=== PATIENT | female | born 2000 | race Caucasian/White ===

== ENCOUNTER 2018-04-28 16:51 | Emergency (ER) | payer BC ==
--- OUTSIDE RECORDS SUMMARY | 2018-04-28 16:56 | XMS REPORT | Summary of Care ---
:2000 Author Organization [facility] Outpatient Imaging [place] Address [address] [place] [address]- Encounter HQ Encntr_aliosiel(FIN) [id number] Date(s): 03/05/17 - 03/05/17 [facility] Outpatient Imaging [address] [address]- [phone] Discharge Disposition: Home or Self Care Attending Physician: Kallie Nicole Vital Signs No data available for this section Problem List Condition Effective Dates Status Health Status Informant Gall stones(Confirmed) Active Pilocytic astrocytoma(Confirmed) Active Allergies, Adverse Reactions, Alerts Substance Reaction Severity Status NKDA Active Medications No data available for this section Results No data available for this section Immunizations Given and Recorded Vaccine Date Status Refusal Reason influenza virus vaccine, inactivated 11/11/16 Given Procedures Procedure Date Related Diagnosis Body Site Craniotomy and excision of neoplasm of brain Shunt construction Tube care1 1in chest Social History Social History Type Response Substance Abuse Use: None. Alcohol Never Smoking Status Never smoker; Ready to change: No; Concerns about tobacco use in household: No; Exposure to Tobacco Smoke None; Cigarette Smoking Last 365 Days No; Reg Smoking Cessation Counseling No Assessment and Plan No data available for this section
--- OUTSIDE RECORDS SUMMARY | 2018-04-28 16:57 | XMS REPORT | Summary of Care ---
:2000 Author Organization [facility] Neurosurgery [facility] Address [address], [address] [place] [address]- Encounter HQ Encntr_alias(FIN) [id number] Date(s): 09/08/17 - 09/09/17 [facility] [address], [address] [place] [address] [phone] Vital Signs No data available for this section Problem List Condition Effective Dates Status Health Status Informant Astrocytoma(Confirmed) Active Gall stones(Confirmed) Active Diplopia(Confirmed) Active Pilocytic astrocytoma(Confirmed) Active Allergies, Adverse Reactions, [...]
--- OUTSIDE RECORDS SUMMARY | 2018-04-28 16:57 | XMS REPORT | Summary of Care ---
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, left eye (Final) - Presence of cerebrospinal fluid drainage device (Final) - Discharge Disposition: Home or Self Care Attending Physician: Ai Barnhart MD Referring Physician: Ai Barnhart MD Vital Signs Most recent to oldest 1 2 3 [Reference Range]: Height 157.48 cm 157.48 cm 157.48 cm (10/26/17 8:13 AM) (10/23/17 9:24 AM) (09/03/17 1:05 PM) Blood Pressure [90-140/60-90 114/71 mmHg 124/66 mmHg 120/68 mmHg mmHg] (10/26/17 11:51 AM) (10/26/17 11:00 AM) (10/26/17 10:45 AM) Respiratory Rate [14-20 BRMIN] 12 BRMIN 14 BRMIN 12 BRMIN *LOW* (10/26/17 11:00 AM) *LOW* (10/26/17 11:51 AM) (10/26/17 10:45 AM) Peripheral Pulse Rate [60-100 116 bpm bpm] *HI* (10/26/17 8:13 AM) Weight 68.182 kg 70 kg 72.727 kg (10/26/17 8:13 AM) (10/23/17 9:24 AM) (09/03/17 1:05 PM) Body Mass Index 27.49 m2 28.23 m2 29.33 m2 (10/26/17 8:13 AM) (10/23/17 9:24 AM) (09/03/17 1:05 PM) Problem List Condition Effective Dates Status Health Status Informant Astrocytoma(Confirmed) Active Gall stones(Confirmed) Active Diplopia(Confirmed) Active Pilocytic astrocytoma(Confirmed) Active Allergies, Adverse Reactions, Alerts Substance Reaction Severity Status NKDA Active Medications acetaminophen (ANES) Route: IV, Drug form: INJ, ONCE, Stop date: 10/26/17 10:02:00 NUTRITION TECHNICIAN Start Date: 10/26/17 Stop Date: 10/26/17 Status: CompletedANES flumazenil 0.2 mg, 2 mL, Route: IVP, Drug form: INJ, PRN, Dosing Weight 68.182, kg, PRN Benzodiazepine Reversal, Initial dose, Start date: 10/26/17 9:06:00 NUTRITION TECHNICIAN, Duration: 30 day, Stop date: 12/25/17 9:05:00 NUTRITION TECHNICIAN Notes: (Same as: Romazicon) Start Date: 10/26/17 Stop Date: 12/25/17 Status: CompletedANES HYDROmorphone 0.5 mg, 0.25 mL, Route: IVP, Drug form: INJ, Q15Min, Dosing Weight 68.182, kg, PRN Pain Score 7-10, Start date: 10/26/17 9:06:00 NUTRITION TECHNICIAN, Duration: 4 doses or times, Stop date: Limited # of times Notes: Same as Dilaudid Start Date: 10/26/17 Status: OrderedANES naloxone 0.4 mg, 1 mL, Route: IVP, Drug form: INJ, Q2MIN, Dosing Weight 68.182, kg, PRN Narcotic Reversal, Start date: 10/26/17 9:06:00 NUTRITION TECHNICIAN, Duration: 8 doses or times , Stop date: Limited # of times Notes: Same as Narcan Start Date: 10/26/17 Status: OrderedANES ondansetron 4 mg, 2 mL, Route: IVP, Drug form: INJ, ONCE, Dosing Weight 68.182, kg, PRN Nausea & Vomiting, Start date: 10/26/17 9:06:00 NUTRITION TECHNICIAN Notes: (Same as: Zofran) MEDICATION WASTE Product Size: 4 mgProduct Wasted: ___ mg Start Date: 10/26/17 Stop Date: 10/26/17 Status: Completeddexamethasone (ANES) Route: IV, Drug form: INJ, ONCE, Stop date: 10/26/17 9:26:00 NUTRITION TECHNICIAN Start Date: 10/26/17 Stop Date: 10/26/17 Status: CompletedfentaNYL (ANES) Route: IV, Drug form: INJ, ONCE, Stop date: 10/26/17 9:21:00 NUTRITION TECHNICIAN Start Date: 10/26/17 Stop Date: 10/26/17 Status: CompletedLactated Ringers Injection IV (ANES) 1000 mL Route: IV, Total Volume: 1,000, Start date: 10/26/17 8:30:00 NUTRITION TECHNICIAN, Stop date: 06/05 9:30:00 NUTRITION TECHNICIAN Start Date: 10/26/17 Stop Date: 10/26/17 Status: Completedlidocaine (ANES) Route: IV, Drug form: INJ, ONCE, Stop date: 10/26/17 9:21:00 NUTRITION TECHNICIAN Start Date: 10/26/17 Stop Date: 10/26/17 Status: CompletedMaxitrol ophthalmic suspension 1 drp, OPTH, Q6H, X 7 day, # 5 mL, 0 Refill(s) Start Date: 10/26/17 Stop Date: 10/26/17 Status: DiscontinuedMaxitrol ophthalmic suspension 1 drp, BOTH EYES, Q6H, X 7 day, # 5 mL, 0 Refill(s) Start Date: 10/26/17 Stop Date: 11/02/17 Status: Completedmidazolam (ANES) Route: IV, Drug form: SOLN, ONCE, Stop date: 10/26/17 9:21:00 NUTRITION TECHNICIAN Start Date: 10/26/17 Stop Date: 10/26/17 Status: Completedondansetron (ANES) Route: IV, Drug form: INJ, ONCE, Stop date: 10/26/17 9:31:00 NUTRITION TECHNICIAN Start Date: 10/26/17 Stop Date: 10/26/17 Status: CompletedoxyCODONE 5 mg oral tablet 5 mg, 1 tab, Route: PO, ONCE, Dosing Weight 68.182, kg, Start date: 10/26/17 11: 00:00 NUTRITION TECHNICIAN, Stop date: 10/26/17 11:00:00 NUTRITION TECHNICIAN Start Date: 10/26/17 Stop Date: 10/26/17 Status: Completedpropofol (ANES) Route: IV, Drug form: INJ, ONCE, Stop date: 10/26/17 9:21:00 NUTRITION TECHNICIAN Start Date: 10/26/17 Stop Date: 10/26/17 Status: Completed Results No data available for this section Immunizations Given and Recorded Vaccine Date Status Refusal Reason influenza virus vaccine, inactivated 11/11/16 Given Procedures Procedure Date Related Diagnosis Body Site Status Craniotomy and excision of neoplasm of Completed brain Shunt construction Completed Tube care1 Completed 1in chest Social History Social History Type Response Substance Abuse Use: None. Alcohol Never Smoking Status Never smoker; Ready to change: No; Concerns about tobacco use in household: No; Exposure to Tobacco Smoke None; Cigarette Smoking Last 365 Days No; Reg Smoking Cessation Counseling No entered on: 10/26/17 Assessment and Plan Extracted from: Title: Ophthalmology Operative Report Author: Ai Barnhart MD Date: 10/26/17 OPHTHALMOLOGY OPERATIVE REPORT PATIENT NAME: Nisreen Alarcon DATE OF OPERATION/PROCEDURE: 10/26/17 PREOPERATIVE DIAGNOSIS: 1. Diplopia 2. 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 Diplopia 2. 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 Blood products: None were given nor required. 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 She has developed subsequent diplopia and was found to have a left hypertropia with incomitance due to left fourth nerve palsy. The need for surgical intervention to restore normal ocular alignment was discussed with Nisreen and her family, incl uding risks, benefits and alternatives. Informed consent was obtained. PROCEDURE IN DETAIL: The patient was properly identified in the preoperative holding area, and it was confirmed with her and her aunt that the left eye was the appropriate operative site. She was brought to the operating ro om and induced under general anesthesia and successfully intubated without complication. A formal timeout was then performed with the cooperation of the entire operating room staff. Both eyes were then prepped and draped in the usual sterile fashion for this procedure. Forced duction testing revealed free forced ductions bilaterally with significant superior oblique laxity bilaterally. At this time, the left eye was approached and a superotemporal conjunctival incisi on was created followed by careful blunt dissection down to bare sclera to access the superior rectus muscle. The superior rectus was then isolated on a Gibson tenotomy hook, followed by a Romney musc le hook. Once isolated, a small Desmarres retractor was used to further expose the superior oblique tendon fibers. Once visualized, a small tenotomy hook was used to carefully isolate the superior obli que tendon in its entirity. Once isolated, the superior oblique tendon christo was then used to tuck the tendon to what felt like an adequate tension. The superior oblique tendon was then imbricated us ing double armed 5-0 mersilene with a double mattress suture and a temporary bown knot was thrown to secure the tension. The christo and muscle hooks were removed and forced duction testing was repeated , which revealed still significant laxity of the superior oblique. Therefore, the superior oblique was again isolated in a similar fashion and further tucking was performed to achieve more tightening. The tendon was again imbricated using double mattress suture and a bow knot was thrown. Forced ductions were again performed, which revealed adequate tension. The bow knot was then converted to a per manent suture. The knot was confirmed to be on the underside of the tucked tendon segment and this segment was then loosely secured to the sclera using a 5 -0 mersilene suture. The conjunctiva was then reapproximated using 7-0 chromic suture in an interrupted fashion. Maxitrol ophthalmic ointment was placed in the left eye, the drapes were removed and face was cleaned and dried. No patches were placed. She tolerated the procedure well and was successfully extubated and transferred to the PACU in stable condition. I was present and scrubbed for the entirity of this procedure and am responsible for all toure components. -Ai Barnhart MD Pediatric Ophthalmology and Adult Strabismus [id number]
--- OUTSIDE RECORDS SUMMARY | 2018-04-28 16:57 | XMS REPORT | Summary of Care ---
:2000 Author Organization [facility] Outpatient Imaging [place] Address [address] [place], [place] [address]- Encounter HQ Encntr_aliosiel(FIN) [id number] Date(s): 04/15/18 - 04/15/18 [facility] Outpatient Imaging [place] [address] [place] [address]- [phone] Discharge Disposition: Home or Self Care Attending Physician: Marilu Wang MD Vital Signs No data available for this [...] Reg Smoking Cessation Counseling No entered on: 04/15/18 Assessment and Plan No data available for this section
--- OUTSIDE RECORDS SUMMARY | 2018-04-28 16:57 | XMS REPORT | Summary of Care ---
:2000 Author Organization [facility] Outpatient Imaging [place] Address [address] [place], [place] [address]- Encounter HQ Encntr_alias(FIN) [id number] Date(s): 06/01/17 - 06/01/17 [facility] Outpatient Imaging [place] [address] [place] [address]- [phone] Discharge Disposition: Home or Self Care Attending [...]
--- OUTSIDE RECORDS SUMMARY | 2018-04-28 16:57 | XMS REPORT | Summary of Care ---
:2000 Author Organization [facility] Address [address] [place], [place] [address]- Encounter HQ Nubia_christophe(FIN) [id number] Date(s): 03/05/17 - 04/03/17 [facility] [address], [address] [place] [phone] Discharge Disposition: Home or Self Care Attending Physician: Jd Todd MD Vital Signs Most recent to oldest 1 2 3 [Reference Range]: Temperature Oral [96.4-99.1 98.0 DegF 98.3 DegF DegF] (03/30/17 10:40 AM) (03/23/17 10:57 AM) Blood Pressure [90-140/60-90 122/62 mmHg 129/63 mmHg 123/90 mmHg mmHg] (03/30/17 10:40 AM) (03/23/17 10:57 AM) (03/17/17 10:50 AM) Respiratory Rate [14-20 18 BRMIN 18 BRMIN BRMIN] (03/17/17 10:50 AM) (03/05/17 8:10 AM) Peripheral Pulse Rate [60-100 103 bpm 109 bpm 111 bpm bpm] *HI* *HI* *HI* (03/30/17 10:40 AM) (03/23/17 10:57 AM) (03/17/17 10:50 AM) Weight 76.023 kg 77.443 kg 76 kg (03/30/17 10:40 AM) (03/23/17 10:57 AM) (03/05/17 8:10 AM) Problem List Condition Effective Dates Status Health Status Informant Gall stones(Confirmed) Active Pilocytic astrocytoma(Confirmed) Active Allergies, Adverse Reactions, Alerts Substance Reaction Severity Status NKDA Active Medications No Known Medications Results CHEM PANEL Most recent to oldest [Reference Range]: 1 eGFR 192 mL/min/1.73m2 1 *NA* (03/05/17 9:08 AM) POC Creatinine [0.5-1.4 mg/dL] <0.2 mg/dL *LOW* (03/05/17 9:08 AM) 1Result Comment: The eGFR is calculated using the CKD-EPI formula. In most young , healthy individualsthe eGFR will be >90 mL/min/1.73m2. The eGFR declines with age. An eGFR of 60-89 may be normal in some populations, particularly the elderly, for whom the CKD-EPI formula has not been extensively validated. Use of the eGFR is not recommended in the following populations: Individuals with unstable creatinine concentrations, including patients and those with serious co-morbid conditions. Patients with extremes in muscle mass or diet. The data above are obtained from the National Kidney Disease Education Program ( NKDEP) which additionally recommends that when the eGFR is used in patients with extremes of body mass index for purposesof drug dosing, the eGFR should be multiplied by the estimated BMI. Immunizations Given and Recorded Vaccine Date Status [...]
--- OUTSIDE RECORDS SUMMARY | 2018-04-28 16:57 | XMS REPORT | Summary of Care ---
:2000 Author Organization [facility] Outpatient Imaging [place] Address [address] [place], [place] [address]- Encounter HQ Encntr_alias(FIN) [id number] Date(s): 01/13/18 - 01/13/18 [facility] Outpatient Imaging [place] [address] [place] [address]- [phone] Encounter Diagnosis Malignant neoplasm of brain, unspecified (Final) - 01/19/18 Discharge Disposition: Home or Self Care Attending [...]
--- OUTSIDE RECORDS SUMMARY | 2018-04-28 16:57 | XMS REPORT | Summary of Care ---
:2000 Author Organization [facility] [place] [facility] Address [address], [address] [place] [address]- Encounter HQ Meg(FIN) [id number] Date(s): 08/31/17 - 08/31/17 [facility] [place] [facility] [address], [address] [place] [phone] Discharge Disposition: Home or Self Care Attending Physician: Marilu Wang MD Vital Signs Most recent to oldest [Reference Range]: 1 Height 160.02 cm (08/31/17 3:51 PM) Temperature Oral [96.4-99.1 DegF] 98.5 DegF (08/31/17 3:51 PM) Blood Pressure [90-140/60-90 mmHg] 136/78 mmHg (08/31/17 3:51 PM) Respiratory Rate [14-20 BRMIN] 17 BRMIN (08/31/17 3:51 PM) Peripheral Pulse Rate [60-100 bpm] 112 bpm *HI* (08/31/17 3:51 PM) Weight 69.091 kg (08/31/17 3:51 PM) Body Mass Index 26.98 m2 (08/31/17 3:51 PM) Problem List Condition Effective Dates Status Health Status Informant Gall stones(Confirmed) Active Pilocytic astrocytoma(Confirmed) Active Allergies, Adverse Reactions, Alerts Substance Reaction Severity Status NKDA Active Medications No Known Medications Results No data available for this section [...]
--- OUTSIDE RECORDS SUMMARY | 2018-04-28 16:57 | XMS REPORT | Summary of Care ---
:2000 Author Organization [facility] Neurosurgery [facility] Address [address], [address] [place] [address]- Encounter HQ Meg(MARINE) [id number] Date(s): 04/15/18 - 04/15/18 [facility] Neurosurgery [facility] [address], [address] [place] [address] [phone] Discharge Disposition: Home or Self Care Attending Physician: Bena Rodriguez MD Vital Signs Most recent to oldest [Reference Range]: 1 Height 160.02 cm (04/15/18 1:16 PM) Blood Pressure [90-140/60-90 mmHg] 138/84 mmHg (04/15/18 1:16 PM) Respiratory Rate [14-20 BRMIN] 20 BRMIN (04/15/18 1:16 PM) Peripheral Pulse Rate [60-100 bpm] 104 bpm *HI* (04/15/18 1:16 PM) Weight 72.273 kg (04/15/18 1:16 PM) Body Mass Index 28.22 m2 (04/15/18 1:16 PM) Problem List Condition Effective Dates Status [...]
--- OUTSIDE RECORDS SUMMARY | 2018-04-28 16:57 | XMS REPORT | Summary of Care ---
:2000 Author Organization [facility] Address [address] [place] [address]- Encounter HQ Prabhakarntr_christophe(FIN) [id number] Date(s): 03/10/18 - 03/11/18 [facility] [address] [place] [address] [phone] Vital Signs No data available for this [...] No entered on: 10/26/17 Assessment and Plan No data available for this section
--- OUTSIDE RECORDS SUMMARY | 2018-04-28 16:57 | XMS REPORT | Summary of Care ---
:2000 Author Organization [facility] Address [address] [place] [address]- Encounter HQ Prabhakarntr_christophe(FIN) [id number] Date(s): 03/17/18 - 03/18/18 [facility] [address] [place] [phone] Vital Signs No data available for this [...]
--- OUTSIDE RECORDS SUMMARY | 2018-04-28 16:57 | XMS REPORT | Summary of Care ---
:2000 Author Organization [facility] Address [address] [place], [place] [address]- Encounter HQ Malvinr_christophe(FIN) [id number] Date(s): 10/26/17 - 10/26/[address] [address]- [place] Encounter Diagnosis Diplopia (Final) - Vertical [...] form: INJ, ONCE, Stop date: 10/26/17 10:02:00 OIL FIELD OPERATOR Start Date: 10/26/17 Stop Date: 10/26/17 Status: CompletedANES flumazenil 0.2 mg, 2 mL, Route: IVP, Drug form: INJ, PRN, Dosing Weight 68.182, kg, PRN Benzodiazepine Reversal, Initial dose, Start date: 10/26/17 9:06:00 OIL FIELD OPERATOR, Duration: 30 day, Stop date: 12/25/17 9:05:00 OIL FIELD OPERATOR Notes: (Same as: Romazicon) Start Date: 10/26/17 Stop Date: 12/25/17 Status: CompletedANES HYDROmorphone 0.5 mg, 0.25 mL, Route: IVP, Drug form: INJ, Q15Min, Dosing Weight 68.182, kg, PRN Pain Score 7-10, Start date: 10/26/17 9:06:00 OIL FIELD OPERATOR, Duration: 4 doses or times, Stop date: Limited # of times Notes: Same as Dilaudid Start Date: 10/26/17 Status: OrderedANES naloxone 0.4 mg, 1 mL, Route: IVP, Drug form: INJ, Q2MIN, Dosing Weight 68.182, kg, PRN Narcotic Reversal, Start date: 10/26/17 9:06:00 OIL FIELD OPERATOR, Duration: 8 doses or times , Stop date: Limited # of times Notes: Same as Narcan Start Date: 10/26/17 Status: OrderedANES ondansetron 4 mg, 2 mL, Route: IVP, Drug form: INJ, ONCE, Dosing Weight 68.182, kg, PRN Nausea & Vomiting, Start date: 10/26/17 9:06:00 OIL FIELD OPERATOR Notes: (Same as: Zofran) MEDICATION WASTE Product Size: 4 mgProduct Wasted: ___ mg Start Date: 10/26/17 Stop Date: 10/26/17 Status: Completeddexamethasone (ANES) Route: IV, Drug form: INJ, ONCE, Stop date: 10/26/17 9:26:00 OIL FIELD OPERATOR Start Date: 10/26/17 Stop Date: 10/26/17 Status: CompletedfentaNYL (ANES) Route: IV, Drug form: INJ, ONCE, Stop date: 10/26/17 9:21:00 OIL FIELD OPERATOR Start Date: 10/26/17 Stop Date: 10/26/17 Status: CompletedLactated Ringers Injection IV (ANES) 1000 mL Route: IV, Total Volume: 1,000, Start date: 10/26/17 8:30:00 OIL FIELD OPERATOR, Stop date: 06/05 9:30:00 OIL FIELD OPERATOR Start Date: 10/26/17 Stop Date: 10/26/17 Status: Completedlidocaine (ANES) Route: IV, Drug form: INJ, ONCE, Stop date: 10/26/17 9:21:00 OIL FIELD OPERATOR Start Date: 10/26/17 Stop Date: 10/26/17 Status: [...] form: SOLN, ONCE, Stop date: 10/26/17 9:21:00 OIL FIELD OPERATOR Start Date: 10/26/17 Stop Date: 10/26/17 Status: Completedondansetron (ANES) Route: IV, Drug form: INJ, ONCE, Stop date: 10/26/17 9:31:00 OIL FIELD OPERATOR Start Date: 10/26/17 Stop Date: 10/26/17 Status: CompletedoxyCODONE 5 mg oral tablet 5 mg, 1 tab, Route: PO, ONCE, Dosing Weight 68.182, kg, Start date: 10/26/17 11: 00:00 OIL FIELD OPERATOR, Stop date: 10/26/17 11:00:00 OIL FIELD OPERATOR Start Date: 10/26/17 Stop Date: 10/26/17 Status: Completedpropofol (ANES) Route: IV, Drug form: INJ, ONCE, Stop date: 10/26/17 9:21:00 OIL FIELD OPERATOR Start Date: 10/26/17 Stop Date: 10/26/17 Status: [...] fourth nerve palsy Surgeon: Ai Barnhart MD Button Maker And Installer: None PROCEDURE: Left superior oblique tuck (11 [...] a Gibson tenotomy hook, followed by a Juwan musc le hook. Once isolated, a small [...] Barnhart MD Pediatric Ophthalmology and Adult Strabismus [id number]
--- OUTSIDE RECORDS SUMMARY | 2018-04-28 16:57 | XMS REPORT | Summary of Care ---
:2000 Author Organization [facility] Address [address] [place], [place] [address]- Encounter HQ Nubia_christophe(FIN) [id number] Date(s): 04/06/17 - 05/05/17 [facility] [address], [address] [place] [phone] Discharge Disposition: Home or Self Care Attending Physician: Jd Todd MD Vital Signs Most recent to oldest 1 2 3 [Reference Range]: Temperature Oral [96.4-99.1 98.4 DegF 98.5 DegF DegF] (04/20/17 11:19 AM) (04/07/17 10:07 AM) Blood Pressure [90-140/60-90 117/60 mmHg 134/70 mmHg 130/70 mmHg mmHg] (04/20/17 11:19 AM) (04/13/17 10:46 AM) (04/07/17 10:07 AM) Peripheral Pulse Rate [60-100 103 bpm 108 bpm 112 bpm bpm] *HI* *HI* *HI* (04/20/17 11:19 AM) (04/13/17 10:46 AM) (04/07/17 10:07 AM) Weight 77.045 kg 77.045 kg 77.273 kg (04/20/17 11:19 AM) (04/20/17 10:45 AM) (04/07/17 10:07 AM) Problem List Condition Effective Dates Status [...]
--- OUTSIDE RECORDS SUMMARY | 2018-04-28 16:57 | XMS REPORT | Summary of Care ---
:2000 Author Organization [facility] Neurosurgery [facility] Address [address], [address] [place] [address]- Encounter HQ Prabhakarntr_christophe(FIN) [id number] Date(s): 12/01/17 - 12/02/17 [facility] [address], [address] [place] [address] [phone] Vital Signs No data available for this [...]
--- OUTSIDE RECORDS SUMMARY | 2018-04-28 16:57 | XMS REPORT | Summary of Care ---
:2000 Author Organization [facility] Outpatient Imaging [place] Address [address] [place], [place] [address]- Encounter HQ Encntr_aliosiel(FIN) [id number] Date(s): 08/31/17 - 08/31/17 [facility] Outpatient Imaging [place] [address] [place] [address]- [phone] Discharge Disposition: Home or Self Care Attending [...]
--- OUTSIDE RECORDS SUMMARY | 2018-04-28 16:58 | XMS REPORT | Summary of Care ---
:2000 Author Organization [facility] Address [address] [id number] Encounter HQ Malvinr_christophe(FIN) [phone] Date(s): 01/05/17 - 01/05/17 [facility] [address], [address] [place] [address]- [phone] Attending Physician: Jd Todd MD Vital Signs No data available for [...]
--- OUTSIDE RECORDS SUMMARY | 2018-04-28 16:58 | XMS REPORT | Summary of Care ---
:[address] [facility] Address [address] [place] [id number]- Encounter HQ Prabhakarntr_christophe(FIN) [phone] Date(s): 12/16/16 - 12/16/16 [facility] [address] [place] [phone]- [phone] Discharge Disposition: Home or Self Care Attending Physician: Aryan Julio MD Vital Signs No data available for this section Problem List Condition Effective Dates Status Health Status Informant Gall stones(Confirmed) Active Allergies, Adverse Reactions, Alerts Substance Reaction [...]
--- OUTSIDE RECORDS SUMMARY | 2018-04-28 16:58 | XMS REPORT | Summary of Care ---
:2000 Author Organization [facility] Address [address] [place] [id number] Encounter HQ Nubia_christophe(FIN) [id number] Date(s): 11/10/16 - 12/01/[address] Professional Services provided by [facility] [place] [address]- Discharge Disposition: Home or Self Care Attending Physician: Bean Rodriguez MD Admitting Physician: Bean Rodriguez MD Referring Physician: Ochoa Nixon MD Vital Signs Most recent to oldest 1 2 3 [Reference Range]: Height 160.02 cm 160.02 cm 160.02 cm (11/18/16 11:22 AM) (11/18/16 8:00 AM) (11/18/16 4:54 AM) Current Weight 75.004 kg 76 kg 81.001 kg (11/30/16 5:40 AM) (11/27/16 6:21 AM) (11/25/16 5:00 AM) Temperature Oral [96.8-99.7 99.3 DegF 98.4 DegF 98.4 DegF DegF] (12/01/16 9:20 AM) (12/01/16 3:00 AM) (11/30/16 11:00 PM) Blood Pressure [90-138/45-84 114/65 mmHg 115/64 mmHg 131/62 mmHg mmHg] (12/01/16 8:09 AM) (12/01/16 7:00 AM) (12/01/16 6:00 AM) Respiratory Rate [14-20 17 BRMIN 17 BRMIN 23 BRMIN BRMIN] (12/01/16 8:09 AM) (12/01/16 7:00 AM) *HI* (12/01/16 6:00 AM) Peripheral Pulse Rate [55-90 112 bpm 105 bpm 102 bpm bpm] *HI* *HI* *HI* (11/10/16 9:55 AM) (11/10/16 9:35 AM) (11/10/16 9:15 AM) Weight 78.5 kg 82.727 kg (11/10/16 11:22 AM) (11/10/16 6:20 AM) Body Mass Index 30.66 m2 32.31 m2 (11/10/16 11:22 AM) (11/10/16 6:20 AM) Problem List Condition Effective Dates Status Health Status Informant Gall stones(Confirmed) Active Allergies, Adverse Reactions, Alerts Substance Reaction Severity Status NKDA Active Medications acetaminophen 650 mg, 2 tab, Route: PO, Drug form: TAB, Q4H, Dosing Weight 82.727, kg, PRN Pain 1-3/Temp > 99.5 F, Start date: 11/10/16 7:27:00 CHIEF GAUGER, Duration: 30 day, Stop date: 12/10/16 7:26:00 CHIEF GAUGER Notes: Do not exceed 4 gm/day. (Same as: Tylenol) Start Date: 11/10/16 Stop Date: 12/01/16 Status: Discontinuedacetaminophen-hydrocodone 325 mg-5 mg oral tablet 2 tab, Route: PO, Drug Form: TAB, Dosing Weight 82.727, kg, Q4H, PRN Pain Score 4-6, Start date: 11/10/16 7:27:00 CHIEF GAUGER, Duration: 30 day, Stop date: 12/10/16 7: 26:00 CHIEF GAUGER Notes: (Same as: [place] 325/5) Do not exceed 4gm/day of acetaminophen. Start Date: 11/10/16 Stop Date: 12/01/16 Status: Discontinuedacetaminophen-hydrocodone 325 mg-5 mg oral tablet 1 tab, Route: PO, Drug Form: TAB, Dosing Weight 82.727, kg, Q4H, PRN Pain Score 1-3, Start date: 11/10/16 7:27:00 CHIEF GAUGER, Duration: 30 day, Stop date: 12/10/16 7: 26:00 CHIEF GAUGER Notes: (Same as: [place] 325/5) Do not exceed 4gm/day of acetaminophen. Start Date: 11/10/16 Stop Date: 12/01/16 Status: Discontinuedalbuterol-ipratropium 2.5-0.5 mg inhalation solution 3 mL, Route: NEB, Drug Form: SOLN, Dosing Weight 78.5, kg, RQ4H, STAT, Start date: 11/21/16 11:13:00CST, Duration: 30 day, Stop date: 12/21/16 11:00:00 CHIEF GAUGER Notes: (Same as: Dariusb) Start Date: 11/21/16 Stop Date: 11/26/16 Status: Discontinuedalbuterol-ipratropium 2.5-0.5 mg inhalation solution 3 mL, Route: NEB, Drug Form: SOLN, Dosing Weight 78.5, kg, RQ6H, Start date: 06/04 8:00:00 CHIEF GAUGER, Duration: 30 day, Stop date: 12/26/16 2:00:00 CHIEF GAUGER Notes: (Same as: Jagruti) Start Date: 11/26/16 Stop Date: 12/01/16 Status: DiscontinuedAncef 2 gm, Route: IVPB, ONCE, Dosing Weight 78.5, kg, Start date: 11/25/16 8:28:00 CHIEF GAUGER, Stop date: 11/25/16 8:28:00 CHIEF GAUGER Start Date: 11/25/16 Stop Date: 11/25/16 Status: CompletedAncef 1 gm, Route: IVPB, ONCE, Dosing Weight 78.5, kg, Start date: 11/11/16 12:35:00 CHIEF GAUGER, Stop date: 11/11/16 12:35:00 CHIEF GAUGER Start Date: 11/11/16 Stop Date: 11/11/16 Status: CompletedAncef 2 gm, Route: IVPB, ONCE, Dosing Weight 78.5, kg, Start date: 11/11/16 17:02:00 CHIEF GAUGER, Duration: 1 doses or times, Stop date: 11/11/16 17:02:00 CHIEF GAUGER, Surgical Prophylaxis Only; For patients < 120 kg Start Date: 11/11/16 Stop Date: 11/11/16 Status: DeletedAncef 2 gm, Route: IVPB, ONCE, Dosing Weight 78.5, kg, Start date: 11/14/16 11:04:00 CHIEF GAUGER, Duration: 1 doses or times, Stop date: 11/14/16 11:04:00 CHIEF GAUGER, Surgical Prophylaxis Only; For patients < 120 kg Start Date: 11/14/16 Stop Date: 11/14/16 Status: DiscontinuedAncef 2 gm, Route: IVPB, ONCE, Dosing Weight 78.5, kg, Start date: 11/11/16 9:35:00 CHIEF GAUGER, Stop date: 11/11/16 9:35:00 CHIEF GAUGER Start Date: 11/11/16 Stop Date: 11/11/16 Status: Completedcalcium carbonate 500 mg (200 mg elemental calcium) oral tablet 500 mg, 1 tab, Route: PO, Drug form: CHEWTAB, PRN, Dosing Weight 82.727, kg, PRN Abnormal Lab Result, FOR ICU USE ONLY, Start date: 11/10/16 11:21:00 CHIEF GAUGER, Duration: 30 day, Stop date: 12/10/16 11:20:00CST Notes: (Same As: [place])Calcium Carbonate 500 cq=084 mg elemental calcium Dose=_ mg calcium carbonate ( mg elemental calcium) Start Date: 11/10/16 Stop Date: 12/01/16 Status: Discontinuedcalcium carbonate 500 mg (200 mg elemental calcium) oral tablet 1,000 mg, 2 tab, Route: PO, Drug form: CHEWTAB, PRN, Dosing Weight 82.727, kg, PRN Abnormal Lab Result, FOR ICU USE ONLY, Start date: 11/10/16 11:21:00 CHIEF GAUGER, Duration: 30 day, Stop date: 12/10/16 11:20:00 CHIEF GAUGER Notes: (Same As: [place])Calcium Carbonate 500 kg=654 mg elemental calcium Dose=_ mg calcium carbonate ( mg elemental calcium) Start Date: 11/10/16 Stop Date: 12/01/16 Status: Discontinuedcalcium gluconate + sodium chloride 0.9% INJ 50 mL 1 gm, 10 mL, Route: IVPB, PRN, Dosing Weight 82.727, kg, PRN Abnormal Lab Result , Start date: 11/10/16 11:21:00 CHIEF GAUGER, Duration: 30 day, Stop date: 12/10/16 11:20 :00 CHIEF GAUGER, FOR ICU USE ONLY Notes: WASTE: F/P - Sink; E - Municipal Trash Bin Start Date: 11/10/16 Stop Date: 12/01/16 Status: DiscontinuedceFAZolin (SCIP) + sodium chloride 0.9% INJ 100 mL 2 gm, Route: IVPB, Drug form: PDR/INJ, Q8H, Dosing Weight 78.5, kg, Start date: 11/11/16 17:36:00 CHIEF GAUGER, Duration: 3 doses or times, Stop date: 11/12/16 9:00:00 CHIEF GAUGER Notes: (Same As: Kay Hodges) MEDICATION WASTE Product Size: 1000 mgProduct Wasted: ___ mg Start Date: 11/11/16 Stop Date: 11/12/16 Status: CompletedceFAZolin (SCIP) + sodium chloride 0.9% INJ 100 mL 2 gm, Route: IVPB, ABXQ8H, Dosing Weight 78.5, kg, Start date: 11/25/16 16:00: 00 CHIEF GAUGER, Duration: 24 hr, Stop date: 11/26/16 8:00:00 CHIEF GAUGER Notes: (Same As: Kay Hodges) MEDICATION WASTE Product Size: 1000 mgProduct Wasted: ___ mg Start Date: 11/25/16 Stop Date: 11/26/16 Status: CompletedChloraseptic 1.4% spray 1 spray, Route: TOP, Q2H, Drug form: SPRY, PRN Sore Throat, Start date: 21:30:00 CHIEF GAUGER, Duration: 30 day, Stop date: 12/28/16 21:29:00 CDT Notes: Chloraseptic [place](Same as: Chloraseptic, Sore Throat [place])WASTE: F/P - Black; E - MunicipalTrash Bin Start Date: 11/28/16 Stop Date: 12/01/16 Status: Discontinuedchlorhexidine topical 0.12% liquid 15 ml, Route: S&SPIT, Q4H, Drug form: LIQ, Start date: 11/11/16 20:00:00 CHIEF GAUGER , Duration: 30 day, Stop date: 12/11/16 16:00:00 CHIEF GAUGER Notes: (Same As: Peridex) Start Date: 11/11/16 Stop Date: 11/12/16 Status: Discontinuedchlorhexidine topical 0.12% liquid 15 ml, Route: S&SPIT, Q4H, Drug form: LIQ, Start date: 11/13/16 12:00:00 CHIEF GAUGER , Duration: 30 day, Stop date: 12/13/16 8:00:00 CHIEF GAUGER Notes: (Same As: Peridex) Start Date: 11/13/16 Stop Date: 11/18/16 Status: Discontinueddexamethasone 4 mg, 1 tab, Route: PO, Drug form: TAB, Q8H, Dosing Weight 78.5, kg, Start date : 11/19/16 16:00:00 CHIEF GAUGER, Duration: 30 day, Stop date: 12/19/16 8:00:00 CHIEF GAUGER Notes: Give with food.(Same As: Decadron) Start Date: 11/19/16 Stop Date: 11/20/16 Status: Discontinueddexamethasone 4 mg, 1 tab, Route: PO, Drug form: TAB, TID, Dosing Weight 78.5, kg, Start date : 11/25/16 13:00:00 CHIEF GAUGER, Duration: 30 day, Stop date: 12/25/16 9:00:00 CHIEF GAUGER Notes: Give with food.(Same As: Decadron) Start Date: 11/25/16 Stop Date: 11/30/16 Status: Discontinueddexamethasone 4 mg, 1 tab, Route: PO, Drug form: TAB, Q6H, Dosing Weight 78.5, kg, Start date : 11/20/16 12:00:00 CHIEF GAUGER, Duration: 30 day, Stop date: 12/20/16 6:00:00 CHIEF GAUGER Notes: Give with food.(Same As: Decadron) Start Date: 11/20/16 Stop Date: 11/25/16 Status: Discontinueddexamethasone 4 mg, 1 tab, Route: PO, Drug form: TAB, Q8H, Dosing Weight 78.5, kg, Start date : 11/20/16 8:00:00 CHIEF GAUGER, Duration: 30 day, Stop date: 12/20/16 0:00:00 CHIEF GAUGER Notes: Give with food.(Same As: Decadron) Start Date: 11/20/16 Stop Date: 11/20/16 Status: Discontinueddexamethasone 4 mg, 1 tab, Route: PO, Drug form: TAB, BID, Dosing Weight 78.5, kg, Start date : 11/30/16 9:00:00 CHIEF GAUGER, Duration: 30 day, Stop date: 12/29/16 17:00:00 CDT Notes: Give with food.(Same As: Decadron) Start Date: 11/30/16 Stop Date: 12/01/16 Status: Discontinueddexamethasone 4 mg, 1 tab, Route: PO, Drug form: TAB, Q6H, Dosing Weight 78.5, kg, Start date : 11/13/16 12:00:00 CHIEF GAUGER, Duration: 30 day, Stop date: 12/13/16 6:00:00 CHIEF GAUGER Notes: Give with food.(Same As: Decadron) Start Date: 11/13/16 Stop Date: 11/19/16 Status: Discontinueddexamethasone 4 mg, 1 mL, Route: IVP, Q6H, Dosing Weight 78.5, kg, Start date: 11/11/16 18:00: 00 CHIEF GAUGER, Duration: 30day, Stop date: 12/11/16 12:00:00 CHIEF GAUGER Notes: Concentration: 4mg/ml Start Date: 11/11/16 Stop Date: 11/13/16 Status: Discontinueddexamethasone 2 mg oral tablet See Instructions, 1 tab PO BID on days 1 and 2 1 tab PO daily on days 3 and 4 0.5 tab PO daily on day 5 and then stop, # 10 tab, 0 Refill(s) Start Date: 12/01/16 Stop Date: 12/05/16 Status: OrderedDextrose 50% Syringe 25 gm, 50 mL, Route: IVP, Drug Form: INJ, Dosing Weight 82.727, kg, PRN, PRN Blood Glucose Results, Start date: 11/10/16 11:21:00 CHIEF GAUGER, Duration: 30 day, Stop date: 12/10/16 11:20:00 CHIEF GAUGER Start Date: 11/10/16 Stop Date: 12/01/16 Status: DiscontinuedDextrose 50% Syringe 12.5 gm, 25 mL, Route: IVP, Drug Form: INJ, Dosing Weight 82.727, kg, PRN, PRN Blood Glucose Results, Start date: 11/10/16 11:21:00 CHIEF GAUGER, Duration: 30 day, Stop date: 12/10/16 11:20:00 CHIEF GAUGER Start Date: 11/10/16 Stop Date: 12/01/16 Status: DiscontinuedDilaudid 1 mg, 0.5 mL, Route: IVP, Drug form: INJ, ONCE, Dosing Weight 78.5, kg, Priority : STAT, Start date: 11/14/16 11:10:00 CHIEF GAUGER, Stop date: 11/14/16 11:10:00 CHIEF GAUGER Notes: Same as: Dilaudid Start Date: 11/14/16 Stop Date: 11/14/16 Status: CompletedDilaudid 2 mg, 1 mL, Route: IVP, Drug form: INJ, Q3H, Dosing Weight 78.5, kg, PRN Pain Score 7-10, Start date: 11/25/16 9:50:00 CHIEF GAUGER, Duration: 30 day, Stop date: 12/25 9:49:00 CHIEF GAUGER Notes: Same as: Dilaudid Start Date: 11/25/16 Stop Date: 12/01/16 Status: Discontinueddocusate 100 mg, 1 cap, Route: PO, Drug form: CAP, Q12H, Dosing Weight 82.727, kg, Start date: 11/10/16 9:00:00 CHIEF GAUGER, Duration: 30 day, Stop date: 12/09/16 21:00:00 CHIEF GAUGER Notes: (Same as: Colace) (Do Not Crush) Start Date: 11/10/16 Stop Date: 11/11/16 Status: Discontinueddocusate 100 mg, 10 mL, Route: PO, Drug form: LIQ, Daily, Start date: 11/15/16 9:00:00 CHIEF GAUGER, Duration: 30 day,Stop date: 12/14/16 9:00:00 CHIEF GAUGER Notes: (Same as: Colace) Start Date: 11/15/16 Stop Date: 12/01/16 Status: Discontinueddocusate 100 mg, 1 cap, Route: PO, Drug form: CAP, Daily, Dosing Weight 82.727, kg, Start date: 11/11/16 9:00:00 CHIEF GAUGER, Duration: 30 day, Stop date: 12/10/16 9:00:00 CHIEF GAUGER Notes: (Same as: Colace) (Do Not Crush) Start Date: 11/11/16 Stop Date: 11/15/16 Status: Discontinueddocusate sodium 50 mg oral capsule 50 mg=1 cap, PO, BID, PRN Constipation, # 60 cap, 0 Refill(s) Start Date: 12/01/16 Status: OrderedDulcolax Laxative 5 mg, 1 tab, Route: PO, Drug form: ECTAB, Daily, Dosing Weight 78.5, kg, PRN Constipation, Start date: 11/15/16 9:54:00 CHIEF GAUGER, Duration: 30 day, Stop date: 9:53:00 CHIEF GAUGER Notes: (Same As: Dulcolax, Correctol) (Do Not Crush) "Do Not Crush" Start Date: 11/15/16 Stop Date: 12/01/16 Status: DiscontinuedDuoNeb inhalation solution 3 ml, Route: NEB, Drug Form: SOLN, Dosing Weight 78.5, kg, PRN, PRN Respiratory Protocol, Start date: 11/12/16 16:09:00 CHIEF GAUGER, Duration: 30 day, Stop date: 16:08:00 CHIEF GAUGER Notes: (Same as: Duoneb) Start Date: 11/12/16 Stop Date: 11/21/16 Status: DiscontinuedDuoNeb inhalation solution 3 ml, Route: NEB, Drug Form: SOLN, Dosing Weight 78.5, kg, PRN, PRN Respiratory Protocol, Start date: 11/15/16 23:02:00 CHIEF GAUGER, Duration: 30 day, Stop date: 23:01:00 CHIEF GAUGER Notes: (Same as: Duoneb) Start Date: 11/15/16 Stop Date: 12/01/16 Status: DiscontinuedDuoNeb inhalation solution 3 ml, Route: NEB, Drug Form: SOLN, Dosing Weight 78.5, kg, RQ6H, Start date: 14:00:00 CHIEF GAUGER, Duration: 30 day, Stop date: 12/17/16 8:00:00 CHIEF GAUGER Notes: (Same as: Duoneb) Start Date: 11/17/16 Stop Date: 11/21/16 Status: Discontinuedfamotidine 20 mg, 2 mL, Route: IVP, Drug form: INJ, Q12H, Dosing Weight 78.5, kg, Start date: 11/11/16 21:00:00CST, Duration: 30 day, Stop date: 12/11/16 9:00:00 CHIEF GAUGER Notes: (Same as: Pepcid) Start Date: 11/11/16 Stop Date: 11/13/16 Status: Discontinuedfamotidine 20 mg oral tablet 20 mg, 1 tab, Route: PO, Drug form: TAB, BID, Dosing Weight 78.5, kg, Start date : 11/13/16 9:00:00 CHIEF GAUGER, Duration: 30 day, Stop date: 12/12/16 21:00:00 CHIEF GAUGER Notes: (Same as: Pepcid) Start Date: 11/13/16 Stop Date: 11/13/16 Status: Discontinuedfamotidine 20 mg oral tablet 20 mg, 1 tab, Route: PO, Drug form: TAB, Q12H, Dosing Weight 78.5, kg, Start date: 11/11/16 21:00:00CST, Duration: 30 day, Stop date: 12/11/16 9:00:00 CHIEF GAUGER Notes: (Same as: Pepcid) Start Date: 11/11/16 Stop Date: 11/11/16 Status: CanceledfentaNYL 50 microgram, 1 mL, Route: IV, Drug form: INJ, ONCE, Dosing Weight 78.5, kg, Start date: 11/15/16 22:01:00 CHIEF GAUGER, Stop date: 11/15/16 22:01:00 CHIEF GAUGER Notes: (Same as: Sublimaze) Preservative free. Start Date: 11/15/16 Stop Date: 11/15/16 Status: CompletedfentaNYL 1000microgram/20ml drip (pyxis) 1,000 microgram 1,000 microgram, 20 mL, Rate: Titrate, Start Dose: 50 microgram/hr, Titration: 25 microgram/hour every 15 minutes, Goal(s): RASS (0) to (-2), Max Dose: 300 microgram/hr, Route: IV, Dosing Weight 78.5 kg, Total Volume: 20, Start date: 17:08:00... Start Date: 11/11/16 Stop Date: 11/12/16 Status: DiscontinuedfentaNYL 1000microgram/20ml drip (pyxis) 1,000 microgram 1,000 microgram, 20 mL, Rate: Titrate, Start Dose: 50 microgram/hr, Titration: 25 microgram/hour every 15 minutes, Goal(s): RASS (0) to (-2), Max Dose: 300 microgram/hr, Route: IV, Dosing Weight 78.5 kg, Total Volume: 20, Start date: 10:20:00... Start Date: 11/16/16 Stop Date: 11/18/16 Status: DiscontinuedfentaNYL 1000microgram/20ml drip (pyxis) 1,000 microgram 1,000 microgram, 20 mL, Rate: Titrate, Start Dose: 25 microgram/hr, Titration: 25 microgram/hour every 15 minutes, Goal(s): RASS 0, Max Dose: 300 microgram/hr , Route: IV, Dosing Weight 78.5 kg, Total Volume: 20, Start date: 11/18/16 3:20: 00 CHIEF GAUGER, Durat... Start Date: 11/18/16 Stop Date: 11/18/16 Status: Discontinuedglucagon 1 mg, Route: IM, Drug form: PDR/INJ, PRN, Dosing Weight 82.727, kg, PRN Blood Glucose Results, Startdate: 11/10/16 11:21:00 CHIEF GAUGER, Duration: 30 day, Stop date: 12/10/16 11:20:00 CHIEF GAUGER Start Date: 11/10/16 Stop Date: 12/01/16 Status: Discontinuedheparin 5,000 unit, 1 mL, Route: SUB-Q, Drug form: INJ, Q8H, Dosing Weight 78.5, kg, Start date: 11/12/16 23:59:00 CHIEF GAUGER, Duration: 30 day, Stop date: 12/12/16 16:00: 00 CHIEF GAUGER Notes: porcine heparin Start Date: 11/12/16 Stop Date: 11/20/16 Status: Discontinuedheparin 5,000 unit, 1 mL, Route: SUB-Q, Drug form: INJ, Q8H, Dosing Weight 78.5, kg, Start date: 11/20/16 16:00:00 CHIEF GAUGER, Duration: 30 day, Stop date: 12/20/16 8:00: 00 CHIEF GAUGER Notes: porcine heparin Start Date: 11/20/16 Stop Date: 12/01/16 Status: Discontinuedinfluenza virus vaccine, inactivated 0.5 mL, Route: IM, Drug Form: SUSP, Daily, Start date: 11/11/16 9:00:00 CHIEF GAUGER, Duration: 1 doses or times, Stop date: 11/11/16 9:00:00 CHIEF GAUGER Notes: (Same as: Fluzone Quadrivalent, Fluarix Quadrivalent)For 3 years of age and older (0.5 mL IM)Shake well before use Start Date: 11/11/16 Stop Date: 11/11/16 Status: CompletedIsolyte S PH-7.4 (Bolus) IV 500 mL, 0 ml/hr, Route: IV, Drug Form: SOLN, Dosing Weight 78.5, kg, ONCE, Start date: 11/21/16 10:38:00 CHIEF GAUGER, Stop date: 11/21/16 10:38:00 CHIEF GAUGER Notes: (Same as: Isolyte S PH7.4) Start Date: 11/21/16 Stop Date: 11/21/16 Status: CompletedLasix 20 mg, 2 mL, Route: IV, Drug form: INJ, ONCE, Dosing Weight 78.5, kg, Start date : 11/16/16 0:42:00 CHIEF GAUGER, Stop date: 11/16/16 0:42:00 CHIEF GAUGER Notes: (Same as: Lasix) Start Date: 11/16/16 Stop Date: 11/16/16 Status: Completedmagnesium citrate 1.745 g/30 mL oral liquid 300 ml, Route: PO, Drug Form: LIQ, Dosing Weight 78.5, kg, ONCE, Start date: 7:44:00 CHIEF GAUGER, Stop date: 11/15/16 7:44:00 CHIEF GAUGER Notes: (Same as: Citrate of Magnesia)Concentration: 1.745 gm / 30 mL Start Date: 11/15/16 Stop Date: 11/15/16 Status: Completedmagnesium oxide 800 mg, 2 tab, Route: PO, Drug form: TAB, PRN, Dosing Weight 82.727, kg, PRN Abnormal Lab Result, FOR ICU USE ONLY, Start date: 11/10/16 11:21:00 CHIEF GAUGER, Duration: 30 day, Stop date: 12/10/16 11:20:00 CHIEF GAUGER Notes: (Same as: Mag-Ox 400)Magnesium oxide [id number] elemental magnesiumDose= ____mg magnesium oxide (___mg elemental magnesium) Start Date: 11/10/16 Stop Date: 12/01/16 Status: Discontinuedmagnesium sulfate 2 gm, 50 mL, Route: IVPB, Drug form: INJ, PRN, Dosing Weight 82.727, kg, PRN Abnormal Lab Result, Start date: 11/10/16 11:21:00 CHIEF GAUGER, Duration: 30 day, Stop date: 12/10/16 11:20:00 CHIEF GAUGER, FOR ICU USE ONLY Notes: WASTE: F/P - Sink; E - Municipal Trash Bin Start Date: 11/10/16 Stop Date: 12/01/16 Status: DiscontinuedMiraLax 17 gm, 1 pkt, Route: PO, Drug form: PWDR, Daily, Dosing Weight 78.5, kg, Priority: NOW, Start date: 11/14/16 7:02:00 CHIEF GAUGER, Duration: 30 day, Stop date: 9:00:00 CHIEF GAUGER Notes: Dissolve in 8 oz of water or juice.(Same as: Miralax) Start Date: 11/14/16 Stop Date: 12/01/16 Status: Discontinuedmorphine Sulfate 1 mg, 0.5 mL, Route: IVP, Drug form: INJ, Q1H, Dosing Weight 82.727, kg, PRN Pain Score 7-10, Start date: 11/10/16 7:27:00 CHIEF GAUGER, Duration: 30 day, Stop date: 12/10/16 7:26:00 CHIEF GAUGER Notes: (Same as:MORPhine Sulfate) Start Date: 11/10/16 Stop Date: 12/01/16 Status: DiscontinuedNS + KCL 20mEq/L 1000ml (Premix) 1,000 mL 1,000 mL, Rate: 50 ml/hr, Infuse over: 20 hr, Route: IV, Dosing Weight 82.727 kg , Total Volume: 1,000, Start date: 11/10/16 7:27:00 CHIEF GAUGER, Duration: 30 day, Stop date: 12/10/16 7:26:00 CHIEF GAUGER Notes: PREMIX IV - Do Not AlterWASTE: F/P - Sink; E - Municipal Trash Bin Start Date: 11/10/16 Stop Date: 11/12/16 Status: DiscontinuedOmnipaque 350mg/ml 100 mL, Route: IVP, Drug Form: SOLN, Dosing Weight 78.5, kg, ONCALL, STAT, Start date: 11/16/16 6:32:00 CHIEF GAUGER, Duration: 1 doses or times, Dose=2.2ml/kg, Max djks=591pt -- "To be infused by Radiology Staff ONLY" Start Date: 11/16/16 Stop Date: 11/16/16 Status: CompletedOmnipaque 350mg/ml 80 mL, Route: IVP, Drug Form: SOLN, Dosing Weight 78.5, kg, ONCALL, STAT, Start date: 11/16/16 6:39:00 CHIEF GAUGER, Duration: 1 doses or times, Weight=75 - 94kg -- "To be infused by Radiology Staff ONLY" Start Date: 11/16/16 Stop Date: 11/16/16 Status: Discontinuedondansetron 4 mg, 2 mL, Route: IVP, Drug form: INJ, Q8H, Dosing Weight 82.727, kg, PRN Nausea & Vomiting, Start date: 11/10/16 7:27:00 CHIEF GAUGER, Duration: 30 day, Stop date: 12/10/16 7:26:00 CHIEF GAUGER Notes: (Same as: Zofran) MEDICATION WASTE Product Size: 4 mgProduct Wasted: ___ mg Start Date: 11/10/16 Stop Date: 12/01/16 Status: DiscontinuedPepcid 20 mg, 1 tab, Route: PO, Drug form: TAB, BID, Dosing Weight 78.5, kg, Start date : 11/13/16 21:00:00 CHIEF GAUGER, Duration: 30 day, Stop date: 12/13/16 9:00:00 CHIEF GAUGER Notes: (Same as: Pepcid) Start Date: 11/13/16 Stop Date: 12/01/16 Status: DiscontinuedPepcid 20 mg oral tablet 20 mg=1 tab, PO, BID, # 60 tab, 0 Refill(s) Start Date: 12/01/16 Status: Orderedpotassium chloride 10 mEq, 50 mL, Route: IVPB, Drug form: INJ, PRN, Dosing Weight 82.727, kg, PRN Abnormal Lab Result, Via peripheral line, Start date: 11/10/16 11:21:00 CHIEF GAUGER, Duration: 30 day, Stop date: 12/10/16 11:20:00 CHIEF GAUGER, FOR ICU USE ONLY Notes: (Same as: KCL) Infuse over 2 hours. Start Date: 11/10/16 Stop Date: 12/01/16 Status: Discontinuedpotassium chloride 20 mEq, 1 tab, Route: PO, Drug form: ERTAB, PRN, Dosing Weight 82.727, kg, PRN Abnormal Lab Result, Start date: 11/10/16 11:21:00 CHIEF GAUGER, Duration: 30 day, Stop date: 12/10/16 11:20:00 CHIEF GAUGER, FOR ICU USE ONLY Notes: (Same as: K-Dur 20)"Do Not Crush" With food and full glass of water Start Date: 11/10/16 Stop Date: 12/01/16 Status: Discontinuedpotassium chloride 20 mEq, 15 mL, Route: NJ, Drug form: LIQ, PRN, Dosing Weight 82.727, kg, PRN Abnormal Lab Result, Start date: 11/10/16 11:21:00 CHIEF GAUGER, Duration: 30 day, Stop date: 12/10/16 11:20:00 CHIEF GAUGER, FOR ICU USE ONLY Notes: (Same as: Potassium Chloride) Start Date: 11/10/16 Stop Date: 12/01/16 Status: Discontinuedpotassium chloride 20 mEq, 100 mL, Route: IVPB, Drug form: INJ, PRN, Dosing Weight 82.727, kg, PRN Abnormal Lab Result,Via central line, Start date: 11/10/16 11:21:00 CHIEF GAUGER, Duration: 30 day, Stop date: 12/10/16 11:20:00 CHIEF GAUGER, FOR ICU USE ONLY Notes: (Same as: KCL) Infuse no faster than 10 mEq/hr if given peripherally. Start Date: 11/10/16 Stop Date: 12/01/16 Status: Discontinuedpotassium phosphate + sodium chloride 0.9% INJ 250 mL 15 mmol, 5 mL, Route: IVPB, PRN, Dosing Weight 82.727, kg, PRN Abnormal Lab Result, Start date: 11/10/16 11:21:00 CHIEF GAUGER, Duration: 30 day, Stop date: 11:20:00 CHIEF GAUGER, FOR ICU USE ONLY Notes: (Same as: K Phosphate.) 1 mMol phoshate has 1.47 mEq potassium Infuse over 4 hours Start Date: 11/10/16 Stop Date: 12/01/16 Status: Discontinuedpotassium phosphate + sodium chloride 0.9% INJ 250 mL 30 mmol, 10 mL, Route: IVPB, PRN, Dosing Weight 82.727, kg, PRN Abnormal Lab Result, Start date: 11/10/16 11:21:00 CHIEF GAUGER, Duration: 30 day, Stop date: 11:20:00 CHIEF GAUGER, FOR ICU USE ONLY Notes: (Same as: K Phosphate.) 1 mMol phoshate has 1.47 mEq potassium Infuse over 4 hours Start Date: 11/10/16 Stop Date: 12/01/16 Status: Discontinuedpotassium phosphate + sodium chloride 0.9% INJ 250 mL 45 mmol, 15 mL, Route: IVPB, PRN, Dosing Weight 82.727, kg, PRN Abnormal Lab Result, Start date: 11/10/16 11:21:00 CHIEF GAUGER, Duration: 30 day, Stop date: 11:20:00 CHIEF GAUGER, FOR ICU USE ONLY Notes: (Same as: K Phosphate.) 1 mMol phoshate has 1.47 mEq potassium Infuse over 4 hours Start Date: 11/10/16 Stop Date: 12/01/16 Status: Discontinuedpotassium phosphate-sodium phosphate 250 mg-280 mg-160 mg oral powder for reconstitution 2 pkt, Route: PO, Drug Form: PDR/REC, Dosing Weight 82.727, kg, PRN, PRN Abnormal Lab Result, FOR ICU USE ONLY, Start date: 11/10/16 11:21:00 CHIEF GAUGER, Duration: 30 day, Stop date: 12/10/16 11:20:00 CHIEF GAUGER Notes: (Same as: Phos-NaK) Each 1.5 gm pkt has 250mg phosphorous. Mix w/2.5oz water and stir. Start Date: 11/10/16 Stop Date: 12/01/16 Status: Discontinuedpropofol 1,000 mg 1,000 mg, 100 mL, Rate: Titrate, Start Dose: 5 microgram/kg/min, Titration: 5 microgram/kg/min every15 min, Goal(s): 0, Max Dose: 50 microgram/kg/min, Route: IV, Dosing Weight 78.5 kg, Total Volume: 100, Start date: 11/15/16 22:04:00 CHIEF GAUGER , Duration: 3... Start Date: 11/15/16 Stop Date: 11/15/16 Status: Discontinuedpropofol INJ 1,000 mg 1,000 mg, 100 mL, Rate: Titrate, Start Dose: 5 microgram/kg/min, Titration: 5 microgram/kg/min every15 min, Goal(s): RASS (0) to (-2), Max Dose: 50 microgram/ kg/min, Route: IV, Dosing Weight 78.5 kg, Total Volume: 100, Start date: 17:08:00 C... Notes: If Diprivan - change bottle & tubing every 12 [facility] nursing law propofol can only be given by a nurse if patient is intubated or being intubated (unless the nurse is a [employer]). Same as:Diprivan Start Date: 11/11/16 Stop Date: 11/12/16 Status: Discontinuedpropofol INJ 1,000 mg 1,000 mg, 100 mL, Rate: Titrate, Start Dose: 5 microgram/kg/min, Titration: 5 microgram/kg/min every15 min, Goal(s): RASS -1, Max Dose: 50 microgram/kg/min, Route: IV, Dosing Weight 78.5 kg, Total Volume: 100, Start date: 11/12/16 23:19: 00 CHIEF GAUGER, Durat... Notes: If Diprivan - change bottle & tubing every 12 [facility] nursing law propofol can only be given by a nurse if patient is intubated or being intubated (unless the nurse is a SUPER[employer]). Same as:Dmitryrivan Start Date: 11/12/16 Stop Date: 11/18/16 Status: Discontinuedracemic epinephrine 2.25% inhalation solution 11.25 mg, 0.5 mL, Route: NEB, Drug Form: SOLN, Dosing Weight 78.5, kg, RQ6H, PRN Stridor, Start date: 11/18/16 12:50:00 CHIEF GAUGER, Duration: 30 day, Stop date: 12/05 12:49:00 CHIEF GAUGER, Pediatric Dosing Notes: (racepinephrine *2.25% inh 0.5ml SOLN) (Same as:S2) Start Date: 11/18/16 Stop Date: 12/01/16 Status: DiscontinuedRobinul 1 mg, 1 tab, Route: PO, Drug form: TAB, Q8H, Dosing Weight 78.5, kg, Start date : 11/20/16 10:36:00 CHIEF GAUGER, Stop date: 12/20/16 8:00:00 CHIEF GAUGER Notes: (Same as: Belinda) Start Date: 11/20/16 Stop Date: 11/24/16 Status: DiscontinuedSaline Flush 0.9% 10 ml, Route: IVP, Drug Form: INJ, Dosing Weight 82.727, kg, PRN, PRN Line Flush , Start date: 11/10/16 7:27:00 CHIEF GAUGER, Duration: 30 day, Stop date: 12/10/16 7:26: 00 CHIEF GAUGER Notes: (Same as: BD Posiflush) Start Date: 11/10/16 Stop Date: 12/01/16 Status: DiscontinuedSaline Flush 0.9% 10 ml, Route: IVP, Drug Form: INJ, Dosing Weight 82.727, kg, Q12H, Start date: 11/10/16 9:00:00 CHIEF GAUGER,Duration: 30 day, Stop date: 12/09/16 21:00:00 CHIEF GAUGER Notes: (Same as: BD Posiflush) Start Date: 11/10/16 Stop Date: 12/01/16 Status: Discontinuedscopolamine 1.5 mg transdermal film 1 patch, Route: TOP, Drug Form: ERFILM, Dosing Weight 78.5, kg, Q72H, Start date : 11/20/16 11:00:00 CHIEF GAUGER, Duration: 30 day, Stop date: 12/17/16 11:00:00 CHIEF GAUGER Start Date: 11/20/16 Stop Date: 11/20/16 Status: Canceledsenna 8.6 mg, 1 tab, Route: PO, Drug Form: TAB, Dosing Weight 82.727, kg, BID, Start date: 11/10/16 17:00:00 CHIEF GAUGER, Duration: 30 day, Stop date: 12/10/16 9:00:00 CHIEF GAUGER Notes: (Same as: Senokot) Start Date: 11/10/16 Stop Date: 12/01/16 Status: Discontinuedsodium chloride 0.9% 1000 ml INJ 1,000 mL 1,000 mL, Rate: 100 ml/hr, Infuse over: 10 hr, Route: IV, Dosing Weight 78.5 kg , Total Volume: 1,000, Start date: 11/22/16 10:36:00 CHIEF GAUGER, Duration: 30 day, Stop date: 12/22/16 10:35:00 CHIEF GAUGER Start Date: 11/22/16 Stop Date: 11/23/16 Status: Discontinuedsodium chloride 0.9% 1000 ml INJ 1,000 mL 1,000 mL, Rate: 75 ml/hr, Infuse over: 13.3 hr, Route: IV, Dosing Weight 78.5 kg , Total Volume: 1,000, to start tonight, Start date: 11/10/16 23:59:00 CHIEF GAUGER, Duration: 30 day, Stop date: 12/10/16 23:58:00 CHIEF GAUGER Start Date: 11/10/16 Stop Date: 11/12/16 Status: Discontinuedsodium chloride 0.9% 1000 ml INJ 1,000 mL 1,000 mL, Rate: 1,000 ml/hr, Infuse over: 1 hr, Route: IV, Dosing Weight 78.5 kg , Total Volume: 1,000, Start date: 11/12/16 22:35:00 CHIEF GAUGER, Duration: 1 doses or times, Stop date: 11/12/16 23:34:00 CHIEF GAUGER Start Date: 11/12/16 Stop Date: 11/12/16 Status: Completedsodium chloride 0.9% 1000 ml INJ 1,000 mL 1,000 mL, Rate: 100 ml/hr, Infuse over: 10 hr, Route: IV, Dosing Weight 78.5 kg , Total Volume: 1,000, Start date: 11/23/16 11:27:00 CHIEF GAUGER, Duration: 30 day, Stop date: 12/23/16 11:26:00 CHIEF GAUGER Start Date: 11/23/16 Stop Date: 11/24/16 Status: Discontinuedsodium chloride 0.9% 1000 ml INJ 1,000 mL 1,000 mL, Rate: 1,000 ml/hr, Infuse over: 1 hr, Route: IV, Dosing Weight 78.5 kg , Total Volume: 1,000, Start date: 11/12/16 5:27:00 CHIEF GAUGER, Duration: 1 doses or times, Stop date: 11/12/16 6:26:00 CHIEF GAUGER Start Date: 11/12/16 Stop Date: 11/12/16 Status: Completedsodium chloride 0.9% 1000 ml INJ 1,000 mL 1,000 mL, Rate: 50 ml/hr, Infuse over: 20 hr, Route: IV, Dosing Weight 78.5 kg, Total Volume: 1,000,Start date: 11/12/16 23:02:00 CHIEF GAUGER, Duration: 30 day, Stop date: 12/12/16 23:01:00 CHIEF GAUGER Start Date: 11/12/16 Stop Date: 11/14/16 Status: Discontinuedsodium chloride 0.9% 1000 ml INJ 1,000 mL 1,000 mL, Rate: 75 ml/hr, Infuse over: 13.3 hr, Route: IV, Dosing Weight 78.5 kg , Total Volume: 1,000, Start date: 11/25/16 1:03:00 CHIEF GAUGER, Duration: 30 day, Stop date: 12/25/16 1:02:00 CHIEF GAUGER Start Date: 11/25/16 Stop Date: 11/30/16 Status: Discontinuedsodium chloride 0.9% 1000 ml INJ 1,000 mL 1,000 mL, Rate: 1,000 ml/hr, Infuse over: 1 hr, Route: IV, Dosing Weight 78.5 kg , Total Volume: 1,000, Start date: 11/13/16 5:39:00 CHIEF GAUGER, Duration: 30 day, Stop date: 12/13/16 5:38:00 CHIEF GAUGER Start Date: 11/13/16 Stop Date: 11/13/16 Status: Discontinuedsodium chloride 1 gm oral tablet 1 gm, 1 tab, Route: PO, Drug form: TAB, Q8H, Dosing Weight 78.5, kg, Start date : 11/20/16 8:00:00 CHIEF GAUGER, Stop date: 12/20/16 0:00:00 CHIEF GAUGER Start Date: 11/20/16 Stop Date: 11/30/16 Status: Discontinuedsodium phosphate + sodium chloride 0.9% INJ 250 mL 45 mmol, 15 mL, Route: IVPB, PRN, Dosing Weight 82.727, kg, PRN Abnormal Lab Result, Start date: 11/10/16 11:21:00 CHIEF GAUGER, Duration: 30 day, Stop date: 11:20:00 CHIEF GAUGER, FOR ICU USE ONLY Start Date: 11/10/16 Stop Date: 12/01/16 Status: Discontinuedsodium phosphate + sodium chloride 0.9% INJ 250 mL 30 mmol, 10 mL, Route: IVPB, PRN, Dosing Weight 82.727, kg, PRN Abnormal Lab Result, Start date: 11/10/16 11:21:00 CHIEF GAUGER, Duration: 30 day, Stop date: 11:20:00 CHIEF GAUGER, FOR ICU USE ONLY Start Date: 11/10/16 Stop Date: 12/01/16 Status: Discontinuedsodium phosphate + sodium chloride 0.9% INJ 250 mL 15 mmol, 5 mL, Route: IVPB, PRN, Dosing Weight 82.727, kg, PRN Abnormal Lab Result, Start date: 11/10/16 11:21:00 CHIEF GAUGER, Duration: 30 day, Stop date: 11:20:00 CHIEF GAUGER, FOR ICU USE ONLY Start Date: 11/10/16 Stop Date: 12/01/16 Status: DiscontinuedTylenol with Codeine #3 oral tablet 1 tab, PO, Q6H, PRN Pain, X 15 day, # 60 tab, 0 Refill(s) Start Date: 12/01/16 Stop Date: 12/16/16 Status: Orderedvancomycin 1 gm, Route: IV, Drug form: INJ, ABXQ6H, Dosing Weight 78.5, kg, Priority: STAT , Start date: 11/13/16 11:07:00 CHIEF GAUGER, Duration: 30 day, Stop date: 12/13/16 5:07: 00 CHIEF GAUGER Notes: TIME CRITICAL MEDICATION(Same As: Vancocin)Infusion rate< 1000 mg: infuse over 1 [id number] - 1500 mg: infuse over 1.5 [id number] - 2000 mg: infuse over 2 hours> 2001 mg: infuse over 2.5 hours MEDICATION WASTE Product Size: 1000 mgProduct Wasted: ___ mg Start Date: 11/13/16 Stop Date: 11/13/16 Status: Discontinuedvancomycin 1 gm, Route: IV, Drug form: INJ, ABXQ6H, Dosing Weight 78.5, kg, Start date: 12:00:00 CHIEF GAUGER, Duration: 30 day, Stop date: 12/17/16 6:00:00 CHIEF GAUGER Notes: TIME CRITICAL MEDICATION(Same As: Vancocin)Infusion rate< 1000 mg: infuse over 1 [id number] - 1500 mg: infuse over 1.5 [id number] - 2000 mg: infuse over 2 hours> 2001 mg: infuse over 2.5 hours MEDICATION WASTE Product Size: 1000 mgProduct Wasted: ___ mg Start Date: 11/17/16 Stop Date: 11/20/16 Status: Discontinuedvancomycin 1,177.5 mg, Route: IV, Drug form: INJ, ABXQ6H, Dosing Weight 78.5, kg, Start date: 11/17/16 12:00:00CST, Duration: 30 day, Stop date: 12/17/16 6:00:00 CHIEF GAUGER, Pediatric Dosing Start Date: 11/17/16 Stop Date: 11/17/16 Status: Canceledvancomycin 1 gm, Route: IV, Drug form: INJ, ABXQ6H, Dosing Weight 78.5, kg, Priority: Routine, Start date: 11/13/16 18:00:00 CHIEF GAUGER, Duration: 30 day, Stop date: 12:00:00 CHIEF GAUGER Notes: TIME CRITICAL MEDICATION(Same As: Vancocin)Infusion rate< 1000 mg: infuse over 1 [id number] - 1500 mg: infuse over 1.5 [id number] - 2000 mg: infuse over 2 hours> 2001 mg: infuse over 2.5 hours MEDICATION WASTE Product Size: 1000 mgProduct Wasted: ___ mg Start Date: 11/13/16 Stop Date: 11/15/16 Status: Discontinuedvancomycin + sodium chloride 0.9% INJ 250 mL 2 gm, Route: IV, ONCE, Dosing Weight 78.5, kg, Priority: STAT, Start date: 11/18 15:37:00 CHIEF GAUGER, Stop date: 11/18/16 15:37:00 CHIEF GAUGER Notes: TIME CRITICAL MEDICATION(Same As: Vancocin)Infusion rate< 1000 mg: infuse over 1 [id number] - 1500 mg: infuse over 1.5 hoursVancomycin FOR IV SET [id number] - 2000 mg: infuse over 2 hours> 2001 mg: infuse over 2.5 hours MEDICATION WASTE Product Size: 1000 mgProduct Wasted: _0__mg Start Date: 11/18/16 Stop Date: 11/18/16 Status: Completedvancomycin + sodium chloride 0.9% INJ 250 mL 2 gm, Route: IV, ONCE, Dosing Weight 78.5, kg, Start date: 11/13/16 9:17:00 CHIEF GAUGER , Stop date: 179:17:00 CHIEF GAUGER Notes: TIME CRITICAL MEDICATION(Same As: Vancocin)Infusion rate< 1000 mg: infuse over 1 [id number] - 1500 mg: infuse over 1.5 hoursVancomycin FOR IV SET [id number] - 2000 mg: infuse over 2 hours> 2001 mg: infuse over 2.5 hours MEDICATION WASTE Product Size: 1000 mgProduct Wasted: _0__mg Start Date: 11/13/16 Stop Date: 11/13/16 Status: Deletedvancomycin + sodium chloride 0.9% INJ 250 mL 2 gm, Route: IV, ONCE, Dosing Weight 78.5, kg, Start date: 11/13/16 12:00:00 CHIEF GAUGER , Stop date: 11/13/16 12:00:00 CHIEF GAUGER Notes: TIME CRITICAL MEDICATION(Same As: Vancocin)Infusion rate< 1000 mg: infuse over 1 [id number] - 1500 mg: infuse over 1.5 hoursVancomycin FOR IV SET [id number] - 2000 mg: infuse over 2 hours> 2001 mg: infuse over 2.5 hours MEDICATION WASTE Product Size: 1000 mgProduct Wasted: _0__mg Start Date: 11/13/16 Stop Date: 11/13/16 Status: CompletedVersed 6 mg, 6 mL, Route: IVP, Drug form: INJ, ONCE, Dosing Weight 78.5, kg, Start date : 11/16/16 10:21:00 CHIEF GAUGER, Stop date: 11/16/16 10:21:00 CHIEF GAUGER Notes: (Same as: Versed) MEDICATION WASTE Product Size: 5 mgProduct Wasted: ___ mg Start Date: 11/16/16 Stop Date: 11/16/16 Status: CompletedZosyn 3.375 gm, Route: IVPB, Drug form: PDR/INJ, ABXQ6H, Dosing Weight 78.5, kg, Start date: 11/13/16 10:00:00 CHIEF GAUGER, Duration: 30 day, Stop date: 12/13/16 4:00: 00 CHIEF GAUGER Notes: (Same as: Zosyn)Dosing based on Piperacillin component MEDICATION WASTE Product Size: 3375 mgProduct Wasted: 0___ mg Start Date: 11/13/16 Stop Date: 11/20/16 Status: Discontinued Results BLOOD BANK RESULTS Most recent to oldest [Reference Range]: 1 2 3 ABO/Rh A POS A POS *Unknown* *Unknown* (11/25/16 4:44 AM) (11/10/16 7:28 AM) Antibody Scrn Negative Negative (11/25/16 4:44 AM) (11/10/16 7:28 AM) ELECTROLYTES Most recent to oldest 1 2 3 [Reference Range]: Sodium Lvl [135-145 mEq/L] 138 mEq/L 136 mEq/L 137 mEq/L (12/01/16 12:54 AM) (11/30/16 5:51 PM) (11/29/16 12:24 AM) Potassium Lvl [3.5-5.1 3.7 mEq/L 3.6 mEq/L 3.5 mEq/L mEq/L] (12/01/16 12:54 AM) (11/28/16 4:15 AM) (11/27/16 1:58 AM) Chloride Lvl [95-109 mEq/L] 100 mEq/L 107 mEq/L 103 mEq/L (12/01/16 12:54 AM) (11/28/16 4:15 AM) (11/27/16 1:58 AM) CO2 [24-32 mEq/L] 25 mEq/L 21 mEq/L 24 mEq/L (12/01/16 12:54 AM) *LOW* (11/27/16 1:58 AM) (11/28/16 4:15 AM) AGAP [10.0-20.0 mEq/L] 16.7 mEq/L 13.6 mEq/L 15.5 mEq/L (12/01/16 12:54 AM) (11/28/16 4:15 AM) (11/27/16 1:58 AM) CHEM PANEL Most recent to oldest 1 2 3 [Reference Range]: Creatinine Lvl [0.50-1.40 0.45 mg/dL 0.36 mg/dL 0.36 mg/dL mg/dL] *LOW* *LOW* *LOW* (12/01/16 12:54 AM) (11/28/16 4:15 AM) (11/27/16 1:58 AM) eGFR 146 mL/min/1.73m2 1 186 mL/min/1.73m2 2 181 mL/min/1.73m2 3 *NA* *NA* *NA* (12/01/16 12:54 AM) (11/28/16 4:15 AM) (11/27/16 1:58 AM) BUN [7-22 mg/dL] 17 mg/dL 20 mg/dL 18 mg/dL (12/01/16 12:54 AM) (11/28/16 4:15 AM) (11/27/16 1:58 AM) Glucose Lvl [70-99 mg/dL] 107 mg/dL 93 mg/dL 98 mg/dL *HI* (11/28/16 4:15 AM) (11/27/16 1:58 AM) (12/01/16 12:54 AM) Calcium Lvl [8.5-10.5 9.4 mg/dL 7.4 mg/dL 9.0 mg/dL mg/dL] (12/01/16 12:54 AM) *LOW* (11/27/16 1:58 AM) (11/28/16 4:15 AM) Phosphorus [2.5-4.5 mg/dL] 3.2 mg/dL 3.0 mg/dL 3.5 mg/dL (11/28/16 4:15 AM) (11/27/16 1:58 AM) (11/26/16 3:25 AM) Magnesium Lvl [1.8-2.4 2.1 mg/dL 2.4 mg/dL 2.5 mg/dL mg/dL] (11/28/16 4:15 AM) (11/27/16 1:58 AM) *HI* (11/26/16 3:25 AM) 1Result Comment: The eGFR is calculated using the modified Marroquin equation 0.413 x Height (cm) /Serum Creatinine (mg/dL).2Result Comment: The eGFR is calculated using the modified Marroquin equation 0.413 x Height (cm) /Serum Creatinine (mg/dL).3Result Comment: The eGFR is calculated using the modified Marroquin equation 0.413 x Height (cm) /Serum Creatinine (mg/dL).CARDIAC ENZYMES Most recent to oldest [Reference Range]: 1 2 3 Total CK [12-191 unit/L] 1514 unit/L 1660 unit/L *HI* *HI* (11/13/16 12:21 PM) (11/13/16 6:23 AM) CK MB [0.5-3.6 ng/mL] <0.5 ng/mL 0.5 ng/mL (11/13/16 12:21 PM) (11/13/16 6:23 AM) CK MB Index [0.0-2.5] <0.0 0.0 (11/13/16 12:21 PM) (11/13/16 6:23 AM) Troponin-T [0.000-0.100 ng/mL] <0.010 ng/mL <0.010 ng/mL (11/13/16 12:21 PM) (11/13/16 6:23 AM) Troponin-I [0.00-0.40 ng/mL] 0.02 ng/mL <0.02 ng/mL (11/13/16 12:21 PM) (11/13/16 6:23 AM) PARATHYROID PROFILE Most recent to oldest 1 2 3 [Reference Range]: Ca Ion WB [1.05-1.25 mMol/L] 1.18 mMol/L 1.15 mMol/L 1.16 mMol/L (11/27/16 1:58 AM) (11/26/16 3:25 AM) (11/25/16 12:53 AM) Ca Norm WB [1.05-1.25 mMol/L] 1.18 mMol/L 1.16 mMol/L 1.18 mMol/L (11/27/16 1:58 AM) (11/26/16 3:25 AM) (11/25/16 12:53 AM) TOXICOLOGY Most recent to oldest [Reference Range]: 1 2 3 Vanco Tr TND 1200 1800 *NA* *NA* (11/18/16 1:00 PM) (11/14/16 5:26 PM) Vanco Tr 9.5 ug/ml 16.3 ug/ml *NA* *NA* (11/18/16 1:00 PM) (11/14/16 5:26 PM) URINE CHEM Most recent to oldest [Reference Range]: 1 2 3 U Preg [Negative] Negative (11/10/16 7:37 AM) URINE AND STOOL Most recent to oldest 1 2 3 [Reference Range]: UA Turbidity [Clear] Clear Clear Clear (11/19/16 11:59 AM) (11/17/16 2:09 PM) (11/10/16 6:03 PM) UA Color [Yellow] Light Yellow Yellow Yellow *NA* *NA* *NA* (11/19/16 11:59 AM) (11/17/16 2:09 PM) (11/10/16 6:03 PM) UA pH [5.0-8.0] 7.5 7.5 7.0 (11/19/16 11:59 AM) (11/17/16 2:09 PM) (11/10/16 6:03 PM) UA Spec Grav [<=1.030] 1.017 1.013 1.012 (11/19/16 11:59 AM) (11/17/16 2:09 PM) (11/10/16 6:03 PM) UA Glucose [Negative mg/dL] Negative mg/dL Negative mg/dL Negative mg/dL *NA* *NA* *NA* (11/19/16 11:59 AM) (11/17/16 2:09 PM) (11/10/16 6:03 PM) UA Blood [Negative] Negative Negative Negative (11/19/16 11:59 AM) (11/17/16 2:09 PM) (11/10/16 6:03 PM) UA Ketones [Negative mg/dL] Negative mg/dL Negative mg/dL Negative mg/dL *NA* *NA* *NA* (11/19/16 11:59 AM) (11/17/16 2:09 PM) (11/10/16 6:03 PM) UA Protein [Negative mg/dL] Negative mg/dL Negative mg/dL Negative mg/dL (11/19/16 11:59 AM) (11/17/16 2:09 PM) (11/10/16 6:03 PM) UA Urobilinogen [0.1-1.0 <=1.0 mg/dL <=1.0 mg/dL <=1.0 mg/dL mg/dL] *NA* *NA* *NA* (11/19/16 11:59 AM) (11/17/16 2:09 PM) (11/10/16 6:03 PM) UA Bili [Negative] Negative Negative Negative *NA* *NA* *NA* (11/19/16 11:59 AM) (11/17/16 2:09 PM) (11/10/16 6:03 PM) UA Leuk Est [Negative] Negative Negative Negative (11/19/16 11:59 AM) (11/17/16 2:09 PM) (11/10/16 6:03 PM) UA Nitrite [Negative] Negative Negative Negative (11/19/16 11:59 AM) (11/17/16 2:09 PM) (11/10/16 6:03 PM) UA WBC [0-5 /HPF] 4 /HPF <1 /HPF (11/19/16 11:59 AM) (11/10/16 6:03 PM) UA RBC [0-2 /HPF] 1 /HPF (11/19/16 11:59 AM) UA Bacteria [None Seen /HPF] Moderate /HPF *ABN* (11/10/16 6:03 PM) UA Sq Epi [Few /LPF] Occasional /LPF *NA* (11/19/16 11:59 AM) UA Sq Epi None Seen None Seen *NA* *NA* (11/17/16 2:09 PM) (11/10/16 6:03 PM) UA Amorph Chely [None Seen Occasional /HPF /HPF] *NA* (11/19/16 11:59 AM) UA Mucus [None Seen /LPF] Few /LPF Few /LPF Few /LPF *NA* *NA* *NA* (11/19/16 11:59 AM) (11/17/16 2:09 PM) (11/10/16 6:03 PM) BODY FLUIDS Most recent to oldest 1 2 3 [Reference Range]: Glucose CSF [45-80 79 mg/dL 88 mg/dL 79 mg/dL mg/dL] (11/24/16 6:18 PM) *HI* (11/13/16 4:39 AM) (11/19/16 11:59 AM) Protein CSF [15-45 25 mg/dL 41 mg/dL 50 mg/dL mg/dL] (11/24/16 6:18 PM) (11/19/16 11:59 AM) *HI* (11/13/16 4:39 AM) Tube Num CSF xxxxxxx xxxxxxx xxxxxxx (11/24/16 6:18 PM) (11/19/16 11:59 AM) (11/13/16 4:39 AM) Color CSF [Colorless] Xanthoch Light Red Colorless *ABN* *ABN* (11/13/16 4:39 AM) (11/24/16 6:18 PM) (11/19/16 11:59 AM) Clarity CSF [Clear] Slight Clear Clear *ABN* (11/19/16 11:59 AM) (11/13/16 4:39 AM) (11/24/16 6:18 PM) Supernat CSF Xanthoch 1 Hemolyzed Colorless [Colorless] *ABN* *ABN* (11/13/16 4:39 AM) (11/24/16 6:18 PM) (11/19/16 11:59 AM) RBC CSF [0-0 /mm3] 2575 /mm3 193 /mm3 351 /mm3 *HI* *HI* *HI* (11/24/16 6:18 PM) (11/19/16 11:59 AM) (11/13/16 4:39 AM) WBC CSF [0-5 /mm3] 1 /mm3 0 /mm3 0 /mm3 (11/24/16 6:18 PM) (11/19/16 11:59 AM) (11/13/16 4:39 AM) Comment CSF Few ghost RBC seen. Only intact RBC counted. Few ghost RBC seen. Only intact RBC counted. *NA* *NA* (11/24/16 6:18 PM) (11/19/16 11:59 AM) 1Result Comment: "Significant Findings called to Louis Garcia_at 11/24/2016 19:17___by [email or web address]___.ReadBack OK."HEMATOLOGY Most recent to oldest 1 2 3 [Reference Range]: WBC [3.7-10.4 K/CMM] 13.3 K/CMM 18.6 K/CMM 17.5 K/CMM *HI* *HI* *HI* (12/01/16 12:54 AM) (11/28/16 4:15 AM) (11/27/16 1:58 AM) RBC [4.20-5.40 M/CMM] 3.22 M/CMM 2.86 M/CMM 3.06 M/CMM *LOW* *LOW* *LOW* (12/01/16 12:54 AM) (11/28/16 4:15 AM) (11/27/16 1:58 AM) Hgb [12.0-16.0 g/dL] 10.1 g/dL 8.8 g/dL 9.4 g/dL *LOW* *LOW* *LOW* (12/01/16 12:54 AM) (11/28/16 4:15 AM) (11/27/16 1:58 AM) Hct [36.0-48.0 %] 29.3 % 27.4 % 27.6 % *LOW* *LOW* *LOW* (12/01/16 12:54 AM) (11/28/16 4:15 AM) (11/27/16 1:58 AM) MCV [80.0-98.0 fL] 91.2 fL 96.1 fL 90.0 fL (12/01/16 12:54 AM) (11/28/16 4:15 AM) (11/27/16 1:58 AM) MCH [27.0-31.0 pg] 31.5 pg 31.0 pg 30.8 pg *HI* (11/28/16 4:15 AM) (11/27/16 1:58 AM) (12/01/16 12:54 AM) MCHC [32.0-36.0 g/dL] 34.6 g/dL 32.2 g/dL 34.2 g/dL (12/01/16 12:54 AM) (11/28/16 4:15 AM) (11/27/16 1:58 AM) RDW [11.5-14.5 %] 15.9 % 14.7 % 14.0 % *HI* *HI* (11/27/16 1:58 AM) (12/01/16 12:54 AM) (11/28/16 4:15 AM) Platelet [133-450 K/CMM] 357 K/CMM 262 K/CMM 422 K/CMM (12/01/16 12:54 AM) (11/28/16 4:15 AM) (11/27/16 1:58 AM) MPV [7.4-10.4 fL] 7.5 fL 9.1 fL 8.0 fL (12/01/16 12:54 AM) (11/28/16 4:15 AM) (11/27/16 1:58 AM) Segs [45.0-75.0 %] 84.1 % 81.7 % 80.3 % *HI* *HI* *HI* (12/01/16 12:54 AM) (11/28/16 4:15 AM) (11/26/16 3:25 AM) Bands [0.0-11.0 %] 0.0 % 1.0 % 6.0 % (11/25/16 12:53 AM) (11/21/16 1:18 AM) (11/20/16 12:59 AM) Lymphocytes [20.0-40.0 %] 10.3 % 11.1 % 10.8 % *LOW* *LOW* *LOW* (12/01/16 12:54 AM) (11/28/16 4:15 AM) (11/26/16 3:25 AM) Atypical Lymphs [<=0.0 %] 0.0 % 0.0 % 0.0 % (11/25/16 12:53 AM) (11/21/16 1:18 AM) (11/20/16 12:59 AM) Monocytes [2.0-12.0 %] 5.5 % 7.0 % 8.7 % (12/01/16 12:54 AM) (11/28/16 4:15 AM) (11/26/16 3:25 AM) Eosinophils [0.0-4.0 %] 0.1 % 0.1 % 0.1 % (12/01/16 12:54 AM) (11/28/16 4:15 AM) (11/23/16 12:41 AM) Basophils [0.0-1.0 %] 0.1 % 0.2 % 0.1 % (11/28/16 4:15 AM) (11/26/16 3:25 AM) (11/24/16 1:08 AM) Metamyelocytes [0.0-1.0 %] 2.0 % 3.0 % *HI* *HI* (11/21/16 1:18 AM) (11/20/16 12:59 AM) Myelocytes [<=0.0 %] 2.0 % 2.0 % *HI* *HI* (11/21/16 1:18 AM) (11/20/16 12:59 AM) Promyelocytes [<=0.0 %] 1.0 % 2.0 % *HI* *HI* (11/21/16 1:18 AM) (11/20/16 12:59 AM) Segs-Bands # [1.5-8.1 11.2 K/CMM 15.2 K/CMM 16.6 K/CMM K/CMM] *HI* *HI* *HI* (12/01/16 12:54 AM) (11/28/16 4:15 AM) (11/26/16 3:25 AM) Lymphocytes # [1.0-5.5 1.4 K/CMM 2.1 K/CMM 2.2 K/CMM K/CMM] (12/01/16 12:54 AM) (11/28/16 4:15 AM) (11/26/16 3:25 AM) Monocytes # [0.0-0.8 0.7 K/CMM 1.3 K/CMM 1.8 K/CMM K/CMM] (12/01/16 12:54 AM) *HI* *HI* (11/28/16 4:15 AM) (11/26/16 3:25 AM) Eosinophils # [0.0-0.5 0.4 K/CMM K/CMM] (11/21/16 1:18 AM) Basophils # [0.0-0.2 0.1 K/CMM 0.1 K/CMM K/CMM] (11/23/16 12:41 AM) (11/22/16 12:05 AM) NRBC 1 /100WB *NA* (11/20/16 12:59 AM) RBC Morph Normal Normal Normal (11/25/16 12:53 AM) (11/21/16 1:18 AM) (11/20/16 12:59 AM) Toxic Gran [None Seen] Moderate Moderate Moderate *ABN* *ABN* *ABN* (11/23/16 12:41 AM) (11/22/16 12:05 AM) (11/21/16 1:18 AM) Neut Vac [None Seen] Moderate Moderate Moderate *ABN* *ABN* *ABN* (11/23/16 12:41 AM) (11/21/16 1:18 AM) (11/20/16 12:59 AM) Hyperseg slight slight *NA* *NA* (11/23/16 12:41 AM) (11/22/16 12:05 AM) Plt Morph Normal Normal Normal (11/25/16 12:53 AM) (11/21/16 1:18 AM) (11/20/16 12:59 AM) PT [12.0-14.7 seconds] 13.2 seconds 13.9 seconds 13.9 seconds (12/01/16 12:54 AM) (11/11/16 12:22 AM) (11/10/16 7:27 AM) INR [0.85-1.17] 0.98 1.05 1.05 (12/01/16 12:54 AM) (11/11/16 12:22 AM) (11/10/16 7:27 AM) PTT [22.9-35.8 seconds] 32.5 seconds 33.7 seconds 30.0 seconds (12/01/16 12:54 AM) (11/11/16 12:22 AM) (11/10/16 7:27 AM) BACTERIAL - SEROLOGY Most recent to oldest [Reference Range]: 1 2 3 MRSA by PCR Negative (11/11/16 6:09 PM) Immunizations Given and Recorded Vaccine Date Status Refusal Reason influenza virus vaccine, inactivated 11/11/16 Given Procedures Procedure Date Related Diagnosis Body Site 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 Alcohol Never Smoking Status Never smoker; Ready to change: No; Concerns about tobacco use in household: No; Exposure to Tobacco Smoke None; Cigarette Smoking Last 365 Days No; Reg Smoking Cessation Counseling No Assessment and Plan Extracted from: Title: CT Surgery Author: Sravan Castañeda MD Date: 11/30/16 Subjective Pt stable overnight. R pleural CT removed 11/28 without difficulty. CXR 11/29 decreasing small R ptx. Good O2 sats on RA. Health Status Allergies: Allergic Reactions (All) Severity Not Documented NKDA- No reactions were documented. Problem list: All Problems Gall stones / SNOMED CT [id number] / Confirmed Objective Scheduled Meds (8): 11/26/16 8:00 albuterol-ipratropium (albuterol-ipratropium 2.5-0.5 mg inhalation solution) 3 mL NEB RQ6H 11/30/16 9:00 dexamethasone 4 mg PO BID 11/15/16 9:00 docusate 100 mg PO Daily 11/13/16 21:00 famotidine (Pepcid) 20 mg PO BID 11/26/16 5:45 heparin 5,000 unit SUB-Q Q8H 11/14/16 7:02 polyethylene glycol 3350 (MiraLax) 17 gm PO Daily 11/10/16 17:00 senna 8.6 mg PO BID 11/10/16 9:00 sodium chloride (Saline Flush 0.9%) 10 ml IVP Q12H Unscheduled Meds: None PRN Meds (30): 11/10/16 11:21 Dextrose 50% in Water IV (Dextrose 50% Syringe) 12.5 gm IVP PRN 11/10/16 11:21 Dextrose 50% in Water IV (Dextrose 50% Syringe) 25 gm IVP PRN 11/10/16 7:27 acetaminophen-hydrocodone (acetaminophen-hydrocodone 325 mg-5 mg oral tablet) 1 tab PO Q4H 11/10/16 7:27 acetaminophen-hydrocodone (acetaminophen-hydrocodone 325 mg-5 mg oral tablet) 2 tab PO Q4H 11/10/16 7:27 acetaminophen 650 mg PO Q4H 11/15/16 23:02 albuterol-ipratropium (DuoNeb inhalation solution) 3 ml NEB PRN 11/15/16 9:54 bisacodyl (Dulcolax Laxative) 5 mg PO Daily 11/10/16 11:21 calcium carbonate (calcium carbonate 500 mg (200 mg elemental calcium) oral tablet) 500 mg PO PRN 11/10/16 11:21 calcium carbonate (calcium carbonate 500 mg (200 mg elemental calcium) oral tablet) 1,000 mg PO PRN 11/10/16 11:21 calcium gluconate + sodium chloride 0.9% INJ 50 mL 1 gm IVPB PRN 120 ml/hr 11/10/16 11:21 glucagon 1 mg IM PRN 11/25/16 9:50 hydromorphone (Dilaudid) 2 mg IVP Q3H 11/10/16 11:21 magnesium oxide 800 mg PO PRN 11/10/16 11:21 magnesium sulfate 2 gm IVPB PRN 25 ml/hr 11/10/16 7:27 morphine Sulfate 1 mg IVP Q1H 11/10/16 7:27 ondansetron 4 mg IVP Q8H 11/28/16 21:30 phenol topical (Chloraseptic 1.4% spray) 1 spray TOP Q2H 11/10/16 11:21 potassium chloride 20 mEq IVPB PRN 50 ml/hr 11/10/16 11:21 potassium chloride 10 mEq IVPB PRN 50 ml/hr 11/10/16 11:21 potassium chloride 20 mEq PO PRN 11/10/16 11:21 potassium chloride 20 mEq [place] PRN 11/10/16 11:21 potassium phosphate + sodium chloride 0.9% INJ 250 mL 15 mmol IVPB PRN 63.75 ml/hr 11/10/16 11:21 potassium phosphate + sodium chloride 0.9% INJ 250 mL 30 mmol IVPB PRN 65 ml/hr 11/10/16 11:21 potassium phosphate + sodium chloride 0.9% INJ 250 mL 45 mmol IVPB PRN 66.25 ml/hr 11/10/16 11:21 potassium phosphate-sodium phosphate (potassium phosphate- sodium phosphate 250 mg-280 mg-160 mg oral powder for reconstitution) 2 pkt PO PRN 11/18/16 12:50 racepinephrine (racemic epinephrine 2.25% inhalation solution) 11.25 mg NEB RQ6H 11/10/16 7:27 sodium chloride (Saline Flush 0.9%) 10 ml IVP PRN 11/10/16 11:21 sodium phosphate + sodium chloride 0.9% INJ 250 mL 15 mmol IVPB PRN 63.75 ml/hr 11/10/16 11:21 sodium phosphate + sodium chloride 0.9% INJ 250 mL 30 mmol IVPB PRN 65 ml/hr 11/10/16 11:21 sodium phosphate + sodium chloride 0.9% INJ 250 mL 45 mmol IVPB PRN 66.25 ml/hr One Time Meds: None Continuous Infusions: None I/O Intake Output Balance 11/30/2016 7a-3p 10.00 0.00 10.00 As of 13:36 3p-11p 0.00 0.00 0.00 11p-7a 0.00 0.00 0.00 Totals 10.00 0.00 10.00 11/29/2016 7a-3p 440.00 0.00 440.00 3p-11p 660.00 0.00 660.00 11p-7a 700.00 0.00 700.00 Totals 1800.00 0.00 1800.00 11/28/2016 7a-3p 720.00 250.00 470.00 3p-11p 770.00 350.00 420.00 11p-7a 760.00 900.00 -140.00 Totals 2250.00 1500.00 750.00 Vitals Tmp(F) Tmp(C) Ttype BP MAP Pulse RR SpO2 FIO2 ETCO2 11/30 13:32 99.3 37.39 oral ----- --- --- -- --- --- --- 11/30 13:00 ---- ---- ---- 108/55 77 119 19 100 --- --- 11/30 12:00 ---- ---- ---- 81/51 60 100 20 100 --- --- 11/30 11:00 ---- ---- ---- 110/62 79 111 19 100 --- --- 11/30 10:00 ---- ---- ---- 110/52 75 114 19 100 --- --- 24 Hr Tmax: 99.3F (37.39c) at 11/30 13:32 24 Hr Tmin: 97.3F (36.28c) at 11/30 04:00 36 Hr Tmax: 99.3F (37.39c) at 11/30 13:32 36 Hr Tmin: 97.2F (36.22c) at 12:48 Eye: Extraocular movements are intact, Normal conjunctiva. HENT: cranial incision cdi. Neck: Supple, No carotid bruit, No jugular venous distention. Respiratory: Lungs are clear to auscultation, Breath sounds are equal. Dressing applied to CT incision site, c/d/i. Cardiovascular: Regular rhythm. Gastrointestinal: Soft, Non-tender. Review / Management . 36hr Labs 11/30 1218 Glucose POC 114 H 11/30 0541 Glucose POC 106 H 11/29 2335 Glucose POC 121 H 11/29 1610 Glucose POC 140 H 11/29 1110 Glucose POC 107 H 11/29 0537 Glucose POC 102 H 11/29 0024 Sodium Lvl 137 CXR (11/29): The small right pneumothorax has decreased in size since the previous radiograph. Only minimal air remains over the right lung apex. The lungs are well expanded and clear. No pleural effusion is seen. T he heart size is normal. The tip of the Dobbhoff feeding tube is not visible on this image. Impression and Plan Diagnosis: Acute pneumothorax (XWO07-BV J93.83, Working, Medical), CT removed without complications. No further surgery warranted from thoracic surgery. Please page with any questions. Sravan Castañeda MD Vascular Surgery Extracted from: Title: Thoracic Surgery Author: Minna Mayer MD Date: 11/14/16 Patient: MARION LOVE Age: 15 years Sex: Female : 2000 Associated Diagnoses: None Author: Minna Mayer MD Basic Information Source of history: Family member, Not self. Present at bedside: Family member, Father, stepmother. Chief Complaint unable to obtain-intubated. 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 She aspirated on applesauce post-operative ly requiring reintubation on 11/12. She was noted to have a right pneumothorax on AM CXR with worsening oxygen requirements, now on 100% FiO2. Thoracic surgery was consulted for chest tube placement and management. Review of Systems unable to obtain - intubated Health Status Allergies: Allergic Reactions (All) Severity Not Documented NKDA- No reactions were documented., Allergies (1) Active Reaction NKDA None Documented Current medications: (Selected) Inpatient Medications Ordered Dextrose 50% Syringe: 12.5 gm, 25 mL, IVP, PRN, PRN: Blood Glucose Results Dextrose 50% Syringe: 25 gm, 50 mL, IVP, PRN, PRN: Blood Glucose Results Dilaudid: 1 mg, 0.5 mL, IVP, ONCE DuoNeb inhalation solution: 3 ml, NEB, PRN, PRN: Respiratory Protocol MiraLax: 17 gm, 1 pkt, PO, Daily Pepcid: 20 mg, 1 tab, PO, BID Saline Flush 0.9%: 10 ml, IVP, PRN, PRN: Line Flush Saline Flush 0.9%: 10 ml, IVP, Q12H Zosyn: 3.375 gm, IVPB, ABXQ6H acetaminophen-hydrocodone 325 mg-5 mg oral tablet: 1 tab, PO, Q4H, PRN: Pain Score 1-3 acetaminophen-hydrocodone 325 mg-5 mg oral tablet: 2 tab, PO, Q4H, PRN: Pain Score 4-6 acetaminophen: 650 mg, 2 tab, PO, Q4H, PRN: Pain 1-3/Temp > 99.5 F calcium carbonate 500 mg (200 mg elemental calcium) oral tablet: 1,000 mg, 2 tab, PO, PRN, PRN: Abnormal Lab Result calcium carbonate 500 mg (200 mg elemental calcium) oral tablet: 500 mg, 1 tab , PO, PRN, PRN: Abnormal Lab Result calcium gluconate + sodium chloride 0.9% INJ 50 mL: 1 gm, 10 mL, 120 ml/hr, IVPB, PRN, PRN: Abnormal Lab Result chlorhexidine topical 0.12% liquid: 15 ml, S&SPIT, Q4H dexamethasone: 4 mg, 1 tab, PO, Q6H docusate: 100 mg, 1 cap, PO, Daily glucagon: 1 mg, IM, PRN, PRN: Blood Glucose Results heparin: 5,000 unit, 1 mL, SUB-Q, Q8H magnesium oxide: 800 mg, 2 tab, PO, PRN, PRN: Abnormal Lab Result magnesium sulfate: 2 gm, 50 mL, 25 ml/hr, IVPB, PRN, PRN: Abnormal Lab Result morphine Sulfate: 1 mg, 0.5 mL, IVP, Q1H, PRN: Pain Score 7-10 ondansetron: 4 mg, 2 mL, IVP, Q8H, PRN: Nausea & Vomiting potassium chloride: 10 mEq, 50 mL, 50 ml/hr, IVPB, PRN, PRN: Abnormal Lab Result potassium chloride: 20 mEq, 1 tab, PO, PRN, PRN: Abnormal Lab Result potassium chloride: 20 mEq, 100 mL, 50 ml/hr, IVPB, PRN, PRN: Abnormal Lab Result potassium chloride: 20 mEq, 15 mL, NJ, PRN, PRN: Abnormal Lab Result potassium phosphate + sodium chloride 0.9% INJ 250 mL: 15 mmol, 5 mL, 63.75 ml/ hr, IVPB, PRN, PRN: Abnormal Lab Result potassium phosphate + sodium chloride 0.9% INJ 250 mL: 30 mmol, 10 mL, 65 ml/hr , IVPB, PRN, PRN: Abnormal Lab Result potassium phosphate + sodium chloride 0.9% INJ 250 mL: 45 mmol, 15 mL, 66.25 ml /hr, IVPB, PRN, PRN: Abnormal Lab Result potassium phosphate-sodium phosphate 250 mg-280 mg-160 mg oral powder for reconstitution: 2 pkt, PO, PRN, PRN: Abnormal Lab Result propofol INJ 1,000 mg: Titrate, IV, Stop: 12/12/16 23:18:00 CHIEF GAUGER senna: 8.6 mg, 1 tab, PO, BID sodium chloride 0.9% 1000 ml INJ 1,000 mL: 50 ml/hr, IV, Stop: 12/12/16 23:01: 00 CHIEF GAUGER sodium phosphate + sodium chloride 0.9% INJ 250 mL: 15 mmol, 5 mL, 63.75 ml/hr , IVPB, PRN, PRN: Abnormal Lab Result sodium phosphate + sodium chloride 0.9% INJ 250 mL: 30 mmol, 10 mL, 65 ml/hr, IVPB, PRN, PRN: Abnormal Lab Result sodium phosphate + sodium chloride 0.9% INJ 250 mL: 45 mmol, 15 mL, 66.25 ml/hr , IVPB, PRN, PRN: Abnormal Lab Result vancomycin: 1 gm, IV, ABXQ6H Problem list: All Problems Gall stones / SNOMED CT 118815114 / Confirmed Histories Past Medical History: Active Gall stones ([id number]) Family History: Pancreatic cancer Grandparent Procedure history: Craniotomy and excision of neoplasm of brain ([id number]). Social History Social & Psychosocial Habits Alcohol 11/10/2016 Use: Never Substance Abuse 11/10/2016 Use: None Tobacco 11/10/2016 Use: Never smoker Ready to change: No Concerns about tobacco use in household: No Exposure to Tobacco Smoke None Cigarette Smoking Last 365 Days No Reg Smoking Cessation Counseling No . Physical Examination VS/Measurements Measurements from flowsheet : Measurements 11/14/2016 05:12 Weight Collection Method Measured Current Weight 83.4 kg Weight Difference Percent 2.583 % 11/13/2016 05:00 Weight Collection Method Measured Current Weight 81.3 kg Weight Difference Percent -1.215 % , Vital Signs (last 24 hrs) Last Charted Temp Axillary 98.5 DegF (NOV 14 08:00) Heart Rate Apical H 99bpm (NOV 14:00) Resp Rate H 31BRMIN (NOV 14:) SBP 134 mmHg (NOV 14:00) DBP 77 mmHg (NOV 14:) SpO2 100 % (NOV 14 11:13) Height 160.02 cm (NOV 14:) Eye: Pupils are equal, round and reactive to light. HENT: Tympanic membranes are clear, EVD in place +swelling, incisions clean. Neck: Supple, Non-tender, No jugular venous distention, no creputis. Respiratory: decreased breath sounds right chest, left lung sounds clear. Cardiovascular: Normal rate, Regular rhythm. Gastrointestinal: Soft, Non-tender. Neurologic: Alert, No focal deficits, follows commands, moves all extremities. Review / Management Results review: Labs (Last four charted values) WBC H 11.0 (NOV 14) H 18.8 (NOV 13) H 12.9 (NOV 12) 7.0 (NOV 11) Hgb L 9.0 (NOV 14) L 11.0 (NOV 13) L 11.9 (NOV 12) 13.4 (NOV 11) Hct L 25.1 (NOV 14) L 31.3 (NOV 13) L 34.2 (NOV 12) 38.4 (NOV 11) Plt 265 (NOV 14) 307 (NOV 13) 309 (NOV 12) 251 (NOV 11) Na 138 (NOV 14) L 134 (NOV 13) 138 (NOV 12) 136 (NOV 11) K L 3.3 (NOV 14) 4.5 (NOV 13) 4.1 (NOV 12) 3.8 (NOV 11) CO2 L 23 (NOV 14) L 19 (NOV 13) L 20 (NOV 12) L 21 (NOV 11) Cl 106 (NOV 14) 104 (NOV 13) 106 (NOV 12) 104 (NOV 11) Cr L 0.45 (NOV 14) 0.59 (NOV 13) 0.65 (NOV 12) 0.68 (NOV 11) BUN 14 (NOV 14) 11 (NOV 13) 8 (NOV 12) 7 (NOV 11) Glucose Random H 148 (NOV 14) H 134 (NOV 13) H 123 (NOV 12) H 113 (NOV 11 ) Mg 2.1 (NOV 14) 2.0 (NOV 13) 1.9 (NOV 12) 2.1 (NOV 11) Phos L 1.7 (NOV 14) 3.6 (NOV 13) H 4.6 (NOV 12) 3.8 (NOV 11) Ca L 8.0 (NOV 14) L 8.4 (NOV 13) L 8.3 (NOV 12) 8.8 (NOV 11) PT 13.9 (NOV 11) 13.9 (NOV 10) INR 1.05 (NOV 11) 1.05 (NOV 10) PTT 33.7 (NOV 11) 30.0 (NOV 10) Troponin 0.02 (NOV 13) <0.02 (NOV 13) CK MB <0.5 (NOV 13) 0.5 (NOV 13) Total CK H 1514 (NOV 13) H 1660 (NOV 13) . CXR: right pneumothorax Impression and Plan Diagnosis Acute pneumothorax ([id number]-LT J93.83, Working, Medical). - s/p placement of right 28F chest tube at bedside - will follow for chest tube management, continue to suction, AM CXR Patient and plan discussed with Dr. Julio. Minna Mayer MD, [place] General [facility] MSO [id number] pgr [phone] . Addendum by Aryan Julio MD on I Dr. Agus Julio have personally examined 11/15/2016 14:01 this patient and agree with above evaluation
--- OUTSIDE RECORDS SUMMARY | 2018-04-28 16:58 | XMS REPORT | Summary of Care ---
:2000 Author Organization [facility] Address [address] [place], [place] [address]- Encounter HQ Prabhakarntr_christophe(FIN) [id number] Date(s): 01/20/17 - 02/18/17 [facility] [address], [address] [place] [phone] Discharge Disposition: Home or Self Care Attending Physician: Jd Todd MD Vital Signs Most recent to oldest [Reference Range]: 1 Height 160.02 cm (01/20/17 8:52 AM) Problem List Condition Effective Dates Status [...]
--- OUTSIDE RECORDS SUMMARY | 2018-04-28 16:58 | XMS REPORT | Summary of Care ---
:2000 Author Organization [facility] [place] Address [address] [place] [address]- Encounter HQ Encntr_aliosiel(FIN) [id number] Date(s): 12/24/16 - 12/24/16 [facility] Outpatient Imaging [address] [address]- [phone] Discharge Disposition: Home or Self Care Attending Physician: Bean Rodriguez MD Vital Signs No data available for [...]
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
== END 2018-04-28 17:34 | disposition home or self-care (01) ==
LOC: ER 16:51
DX: S16.1XXA Strain of muscle, fascia and tendon at neck level, initial encounter (principal); V49.40XA Driver injured in collision with unspecified motor vehicles in traffic accident, initial encounter; Y93.89 Activity, other specified; Y92.89 Other specified places as the place of occurrence of the external cause; Y99.9 Unspecified external cause status
CPT/HCPCS: 99283

== ENCOUNTER 2019-03-31 17:25 | Emergency (ER) | payer BC ==
--- OUTSIDE RECORDS SUMMARY | 2019-03-31 17:34 | XMS REPORT | Summary of Care ---
:2000 Author Organization [facility] Neurosurgery [facility] Address [address] [place] [address], [address] [place] [address]- Encounter HQ Meg(MARINE) [id number] Date(s): 01/06/19 - 01/07/19 [facility] [address] [place] [address] [address] [place] [address]- Vital Signs No data available for this [...]
--- OUTSIDE RECORDS SUMMARY | 2019-03-31 17:35 | XMS REPORT | Summary of Care ---
:2000 Author Organization [facility] Address [address] [place] [address]- Encounter HQ Encntr_aliosiel(FIN) [id number] Date(s): 06/09/18 - 06/10/18 [facility] [address] [place] [address] [phone] Vital Signs No data available for this [...]
--- OUTSIDE RECORDS SUMMARY | 2019-03-31 17:35 | XMS REPORT | Summary of Care ---
:2000 Author Organization [facility] Neurosurgery [facility] Address [address] [place] [address], [address] [place] [address]- Encounter HQ Meg(MARINE) [id number] Date(s): 01/06/19 - 01/06/19 [facility] [address] [place] [address]- Attending Physician: Regan Jay BEAM SAW OPERATOR Vital Signs No data available for this [...]
--- OUTSIDE RECORDS SUMMARY | 2019-03-31 17:35 | XMS REPORT | Summary of Care ---
:2000 Author Organization [facility] Neurosurgery [facility] Address [address] [place] [address], [address] [place] [address]- Encounter HQ Meg(MARINE) [id number] Date(s): 01/04/19 - 01/05/19 [facility] [address] [place] [address] [address] [place] [address]- [phone] Vital Signs No data available for this [...]
--- OUTSIDE RECORDS SUMMARY | 2019-03-31 17:35 | XMS REPORT | Summary of Care ---
:2000 Author Organization [facility] Address [address] [place] [address]- Encounter HQ Nubia_christophe(MARINE) [id number] Date(s): 01/06/19 - 01/06/19 [facility] [address] [place], [place] [address]- [phone] Attending Physician: Mrailu Wang MD Referring Physician: Sebastian Polanco MD Vital Signs No data available for [...]
--- OUTSIDE RECORDS SUMMARY | 2019-03-31 17:35 | XMS REPORT | Summary of Care ---
:2000 Author Organization [facility] Address [address] [place] [address]- Encounter HQ Encntr_alias(FIN) [id number] Date(s): 06/09/18 - 06/10/18 [facility] [address] [place] [address] [phone] Vital Signs No data available for this [...]
--- OUTSIDE RECORDS SUMMARY | 2019-03-31 17:35 | XMS REPORT | Summary of Care ---
:2000 Author Organization [facility] [place] Address [address] [place], [place] [address]- Encounter HQ Encntr_christophe(FIN) [id number] Date(s): 01/06/19 - 01/06/19 [facility] [place] [address] [place] [address]- [phone] Discharge Disposition: Home or Self Care Attending Physician: Marilu Wang MD Referring Physician: Marilu Wang MD Vital Signs No [...]
--- OUTSIDE RECORDS SUMMARY | 2019-03-31 17:36 | XMS REPORT | Summary of Care ---
:2000 Author Organization [facility] Neurosurgery [facility] Address [address] [place] [address], [address] [place] [address]- Encounter HQ Meg(MARINE) [id number] Date(s): 01/06/19 - 01/06/19 [facility] [address] [place] [address]- [phone] Attending Physician: Regan Jay FABRICATION AND ASSEMBLY SUPERVISOR Vital Signs No data available for this [...]
--- NOTE | 2019-03-31 20:18 | ER ---
Nurse's Notes [facility] Name: Nisreen Alarcon Age: 18 yrs Sex: Female : 2000 Arrival Date: 03/31/2019 Time: 17:36 Bed Waiting Private MD: Diagnosis: Presentation: 03/31 17:39 Presenting complaint: Patient states: ABDOMINAL PAIN UPPER, STARTED ABOUT 2 HRS AGO, ch RESOLVED NOW. 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 Transition of care: patient was not received from another setting of care. Onset of symptoms was March 31, 2019 at 13:00. Risk Assessment: Do you want to hurt yourself or someone else? Patient reports no desire to harm self or others. Initial Sepsis Screen: Does the patient meet any 2 criteria? No. Patient's initial sepsis screen is negative. Does the patient have a suspected source of infection? No. Patient's initial sepsis screen is negative. Care prior to arrival: None. 17:39 Method Of Arrival: Ambulatory 17:39 Acuity: CRISTOPHER 3 ch Triage Assessment: 17:40 General: Appears in no apparent distress. comfortable, Behavior is calm, cooperative, ch appropriate for age. Pain: Complains of pain in right upper quadrant and left upper quadrant Pain currently is 0 out of 10 on a pain scale. at worst was 8 out of 10 on a pain scale. Pain began suddenly. GI: Reports upper abdominal pain, RESOLVED. 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 . - Social history:: Smoking status: Patient/guardian denies using tobacco, Patient/guardian denies using alcohol, street drugs. - Ebola Screening: : Patient negative for fever greater than or equal to 101.5 degrees Fahrenheit, and additional compatible Ebola Virus Disease symptoms Patient denies exposure to infectious person Patient denies travel to an Ebola-affected area in the 21 days before illness onset No symptoms or risks identified at this time. Vital Signs: 17:40 BP 132 / 92; Pulse 93; Resp 16; Temp 98.4(O); Pulse Ox 99% on R/A; Weight 77.11 kg; Height 5 ft. 3 in. (160.02 cm); Pain 0/10; 17:40 Body Mass Index 30.11 (77.11 kg, 160.02 cm) ED Course: 17:36 Patient arrived in ED. mr 17:40 Triage completed. 17:40 Arm band placed on left wrist. Patient placed in waiting room. 19:40 Patient's name was called from ER lobby. No response. ak1 20:17 Patient's name was called from ER lobby. No response. Unable to locate patient. Will bb disposition as left without being seen by a provider. Administered Medications: No medications were administered Outcome: 20:17 Patient left the ED. bb Signatures: Mary Ellen Nevarez, RN Mari Cox ch Vernell Beauchamp RN RN bb Florina Shelton RN RN ak1
== END 2019-03-31 20:17 | disposition left against medical advice (07) ==
LOC: ER 17:25
DX: R10.10 Upper abdominal pain, unspecified (principal); Z53.21 Procedure and treatment not carried out due to patient leaving prior to being seen by health care provider
CPT/HCPCS: 99281

== ENCOUNTER 2022-09-01 07:14 | Emergency (ER) | payer BC ==
--- OUTSIDE RECORDS SUMMARY | 2022-09-01 07:27 | XMS REPORT | Continuity of Care Document ---
:2000 Author Organization [facility] t Address [address] [place] [address] Care Team Providers Name Role Phone Unknown, Physician Primary Care Physician Unavailable Gabe Hopper Attending Clinician Unavailable DANDRE MILLER Attending Clinician Unavailable HUBERT WANG Attending Clinician Unavailable GELA TODD Attending Clinician Unavailable DANDRE MILLER Attending Clinician Unavailable Doctor Unassigned, [place] Attending Clinician Unavailable JAKE SUE Attending Clinician Unavailable Nurse, [facility] Attending Clinician Unavailable Jake Sue MD Attending Clinician ARMIDA GONZALEZ Attending Clinician Unavailable Armida Tracey Attending Clinician PANCHO COOMBS Attending Clinician Unavailable PANCHO COOMBS Attending Clinician Unavailable Mike ALMAZAN, Garcia Attending Clinician CRISTÓBAL LISA Attending Clinician Unavailable Nikhil ALMAZAN, Shannon Painter Attending Clinician Can White MD, Jamila Attending Clinician [phone] Francesca ALMAZAN, Jamie Macias Attending Clinician Ultrasound, Ang-Aleksandr Attending Clinician Unavailable Pancho Coombs MD Attending Clinician SLOANE HALEY Attending Clinician Unavailable 1, [facility] Nst Room Attending Clinician Unavailable Only, [facility] Pob2 Test Attending Clinician Unavailable Bryan Coombs DO Attending Clinician BRYAN COOMBS Attending Clinician Unavailable Room, [facility] Nst Attending Clinician Unavailable Zuly SIMMONS, Shirley Attending Clinician Unavailable JAZMYN ARMSTRONG Attending Clinician Unavailable Pob, [facility] Lab Main Attending Clinician Unavailable Jazmyn Armstrong MD Attending Clinician [phone] JAMIE GONZALEZ Attending Clinician Unavailable 2, [facility] Lab Attending Clinician Unavailable Faculty, Gergory Arevalo Mfrob Attending Clinician Unavailable Noah Mayers MD Attending Clinician Ultrasound, [facility] Mfm Attending Clinician Unavailable Debbie Eddy MD Attending Clinician Lab, [facility] Fam Pob I Attending Clinician Unavailable Ifrah Byrne Attending Clinician IFRAH DOWNS Attending Clinician Unavailable JAKE SUE Admitting Clinician Unavailable Jake Sue MD Admitting Clinician CRISTÓBAL LISA Admitting Clinician Unavailable Payers Payer Name Policy Type Policy Number Effective Date Expiration Date Herman abreu BCBSTX PPO [id number] 2015 2024 AND OUT OF 00:00:00 00:00:00 [facility] Blue [employer] 6 [id number] 2017 [facility] t Blue Shield 00:00:00 [facility] Problems Condition Condition Condition Status Onset Resolution Last Treating Co mments Source Name Details Category Date Date Treatment Clinician Date Astrocytom Astrocytom Disease Active Overview : [place] [facility] 6-15 [facility] 00:[facility]: g of this 00 note might be different from the original. 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 I reviewed the patient's MRI of the brain with and without contrast. The patient's MRI demonstra mattie inferior progressi on of her tumor which is now thicker anterior to posterior as well as medial to lateral.C linically , the patient is symptomat ic with megan gauthier.I reviewed the MRI with Dr. Todd, and he believes salvage radiosurg rajendra is possible for the patient to treat her recurrent grade 1 pilocytic astrocyto ma.I reviewed the imaging with the patient, total time including consultat ion with Dr. Todd comprised 40 minutes. Gestationa Gestationa Disease Active U nivers l l 1-13 [place] of hypertens[place]ens[place], 00 Medical antepartum antepartum Br anch 34 weeks 34 weeks Disease Active Unive rs gestation gestation -13 ity of of of 00:00: [place] 00 [facility] Branch Chronic Chronic Disease Active Univers hypertensi hypertensi -13 it y of on with on with 00:00: [place] superimpos superimpos 00 Me dical ed ed Branch pre-eclamp pre-eclamp rafaela rafaela Preeclamps Preeclamps Disease Active U nivers ia in ia in -13 [place] of [place] period period 00 Medical Branch Morbid Morbid Disease Active 2020-10 Univers obesity obesity 2-30 it[place] of with body with body 00:[place] mass index mass index 00 Me dical of of Branch 40.0-49.9 40.0-49.9 Diet Diet Disease Active 2020-10 Univers controlled controlled 2-02 it y of gestationa gestationa 00:00[place] l diabetes l diabetes 00 Me dical mellitus mellitus Branch (GDM), (GDM), antepartum antepartum Obesity in Obesity in Disease Active U nivers 07-05 ity of 00:00: [address] Branch 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 in 07-05 it y of third third 00:00: [place] trimester trimester 00 [facility] Branch Astrocytom Astrocytom Disease Active U nivers a brain a brain 05-21 ity of tumor tumor 00:00: [address] Branch Primary Primary Disease Active Univers malignant malignant 05-21 ity of neoplasm neoplasm 00:00: [address] Branch Twin Twin Disease Active Univers , , 05-21 it y of antepartum antepartum 00:00: [place] , , 00 Medical unspecifie unspecifie Br anch d multiple d multiple gestation gestation type type COVID-19 COVID-19 Disease Active Unive rs virus RNA virus RNA 05-21 ity of detected detected 00:00: [address] Elevated Elevated Disease Active Unive rs blood blood 05-21 ity of pressure pressure 00:00: [place] reading reading 00 Medical without without Branch diagnosis diagnosis of [place] hypertensi hypertensi on on [id number] Mixed Problem Active Common hyperlipid Spirit emia - [facility] Hearing Decreased Problem Active 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 [id number] +5th digit Problem Active Co mmon eff Spirit 07/19/20*GE - [facility] with [facility] Allergies, Adverse Reactions, Alerts Allergy Allergy Status Severity Reaction(s) Onset Inactive Treating Comm ents Source Name Type Date Date Clinician NO KNOWN Drug Active Univers ALLERGIE Class ity of [facility] Social History Social Habit Start Date Stop Date Quantity Comments Source ASSERTION 2021-03-20 University of 00:00:00 [facility] Sex Assigned At [facility] flash - [facility] History SDOH University o f Alcohol Comment [place] Med ical Branch History of [facility] - Tobacco Use [facility] Exposure to 2022-03-29 2022-04-08 Not sure [facility] SARS-CoV-2 00:00:00 11:13:00 (event) Cigarette 2022-04-08 2022-04-08 [facility] pack-years 00:00:00 00:00:00 Tobacco use and 2022-04-08 2022-04-08 Smokeless tobacco [facility] exposure 00:00:00 00:00:00 non-user Alcohol intake 2022-04-08 2022-04-08 Lifetime [facility] 00:00:00 00:00:00 non-drinker (finding) Education 2021-10-31 2021-10-31 16 [facility] 00:00:00 00:00:00 [place] [facility] Branch History [facility] 2020-10-01 2020-10-01 1 [place] o f Alcohol Frequency 00:00:00 00:00:00 [place] M edical Branch History [facility] 2020-10-01 2020-10-01 99 [place] o f Alcohol Std 00:00:00 00:00:00 [place] Medical Drinks Branch History [facility] 2020-10-01 2020-10-01 1 [place] o f Alcohol Binge 00:00:00 00:00:00 [place] Medic al Branch Smoking Status Start Date Stop Date Source Never Smoker [facility] - [facility] Medications Ordered Filled Start Stop Current Ordering Indication Dosage Frequency Signature Comments Components Source Medication Medication Date Date Medication? Clinician (SIG) Name Name No known No No known ND medications 04-08 medication He alth 11:25: s 34 acetaminoph Yes TAKE ONE Un yaneth en-caff-but 2-09 (1) ity of albital per 00:00: CAPSULE(S) [place] capsule 00 BY MOUTH Medical EVERY FOUR Branch HOURS NEEDED FOR PAIN. HYDROcodone Yes 1{tbl} Take 1 Un yaneth -acetaminop -09 tablet by ity of hen 5-325 00:00: mouth [place] mg tablet 00 every 6 Medical (six) Branch hours as needed. ibuprofen Yes TAKE ONE Univ ers 600 mg 2-09 (1) ity of tablet 00:00: TABLET(S) [place] 00 BY MOUTH Medical EVERY SIX Branch HOURS NEEDED FOR PAIN (TAKE WITH FOOD OR MILK). acetaminoph Yes TAKE ONE Un yaneth en-caff-but 2-09 (1) ity of albital per 00:00: CAPSULE(S) [place] capsule 00 BY MOUTH Medical EVERY FOUR Branch HOURS NEEDED FOR PAIN. HYDROcodone Yes 1{tbl} Take 1 Un yaneth -acetaminop 2-09 tablet by ity of hen 5-325 00:00: mouth [place] mg tablet 00 every 6 Medical (six) Branch hours as needed. ibuprofen Yes TAKE ONE Univ ers 600 mg 2-09 (1) ity of tablet 00:00: TABLET(S) [place] 00 BY MOUTH Medical EVERY SIX Branch HOURS NEEDED FOR PAIN (TAKE WITH FOOD OR MILK). acetaminoph Yes TAKE ONE Un yaneth en-caff-but 2-09 (1) ity of albital per 00:00: CAPSULE(S) [place] capsule 00 BY MOUTH Medical EVERY FOUR Branch HOURS NEEDED FOR PAIN. HYDROcodone Yes 1{tbl} Take 1 Un yaneth -acetaminop 2-09 tablet by ity of hen 5-325 00:00: mouth [place] mg tablet 00 every 6 Medical (six) Branch hours as needed. ibuprofen Yes TAKE ONE Univ ers 600 mg 2-09 (1) ity of tablet 00:00: TABLET(S) [place] 00 BY MOUTH Medical EVERY SIX Branch HOURS NEEDED FOR PAIN (TAKE WITH FOOD OR MILK). miSOPROStoL 2021- No [id number] 200ug Take 1 Univers 200 mcg 11-25 tablet by ity of tablet 00:00: 05:59 mouth 2 [place] 00 :00 (two) Medical times Branch daily for 1 day. Take the night before and the morning of the procedure. 2021- No Take by Unive rs vit/iron 11-06 mouth. ity of fum/folic 09:15: 00:00 [place] ac 32 :00 Medical ( 1 Branch + 1 ORAL) 2021- No Take by Unive rs vit/iron 11-06 mouth. ity of fum/folic 09:15: 00:00 [place] ac 32 :00 Medical ( 1 Branch + 1 ORAL) 2021- No Take by Unive rs vit/iron 11-06 mouth. ity of fum/folic 09:15: 00:00 [place] ac 32 :00 Medical ( 1 Branch + 1 ORAL) 2021- No Take by Unive rs vit/iron -19 01-19 mouth. ity of fum/folic 09:15: 00:00 [place] ac 32 :00 Medical ( 1 Branch + 1 ORAL) NIFEdipine 0 Yes 10mg 10 mg, Unive rs (ADALAT) 1-19 Oral, ity of capsule 10 00:24: Q1HPRN, 1 [place] mg 07 dose, Medical Starting Branch on Thu11/05/21 at 1824, Until Discontinu ed, Routine, elevated blood pressure ondansetron 0 Yes 4mg 4 mg, Slow Univers (ZOFRAN 1-19 IV Push, ity of (PF)) 00:23: Q6HPRN, [place] injection 4 04 Starting Medi vishnu mg on Thu Branch 11/05/21 at 1823, Until Discontinu ed, Routine, Nausea and Vomiting (N/V) SERTraline 0 Yes [id number] 50mg Take 1 Univers 50 mg 1-19 tablet by ity of tablet 00:00: mouth [place] 00 daily. Medical Branch NIFEdipine 0 Yes [id number] 30mg Take 1 Univers ER 30 mg 1-19 tablet by ity of tablet 00:00: mouth 2 [place] 00 (two) Medical times Branch daily. acetaminoph 0 Yes [id number] 1{capsu Take 1 Univers en-caff-but 1-19 le} capsule by it y of albital 00:00: mouth [place] (ESGIC) per 00 every 4 Medic al capsule (four) Branch hours as needed for Pain (headache) . SERTraline 0 Yes [id number] 50mg Take 1 Univers 50 mg 1-19 tablet by ity of tablet 00:00: mouth [place] 00 daily. Medical Branch NIFEdipine 2021-0 Yes [id number] 30mg Take 1 Univers ER 30 mg 1-19 tablet by ity of tablet 00:00: mouth 2 [place] (two) Medical times Branch daily. acetaminoph 2021-0 Yes [id number] 1{capsu Take 1 Univers en-caff-but 1-19 le} capsule by it y of albital 00:00: mouth [place] (ESGIC) per 00 every 4 Medic al capsule (four) Branch hours as needed for Pain (headache) . SERTraline 2021-0 Yes [id number] 50mg Take 1 Univers 50 mg 1-19 tablet by ity of tablet 00:00: mouth [place] 00 daily. Medical Branch NIFEdipine 2021-0 Yes [id number] 30mg Take 1 Univers ER 30 mg 1-19 tablet by ity of tablet 00:00: mouth 2 [place] 00 (two) Medical times Branch daily. acetaminoph 2021-0 Yes [id number] 1{capsu Take 1 Univers en-caff-but 1-19 le} capsule by it y of albital 00:00: mouth [place] (ESGIC) per 00 every 4 Medic al capsule (four) Branch hours as needed for Pain (headache) . SERTraline 2021-0 Yes [id number] 50mg Take 1 Univers 50 mg 1-19 tablet by ity of tablet 00:00: mouth [place] 00 daily. Medical Branch NIFEdipine 2021-0 Yes [id number] 30mg Take 1 Univers ER 30 mg 1-19 tablet by ity of tablet 00:00: mouth 2 [place] (two) Medical times Branch daily. acetaminoph 2021-0 Yes [id number] 1{capsu Take 1 Univers en-caff-but 1-19 le} capsule by it y of albital 00:00: mouth [place] (ESGIC) per 00 every 4 Medic al capsule (four) Branch hours as needed for Pain (headache) . SERTraline 2021-0 Yes [id number] 50mg Take 1 Univers 50 mg 1-19 tablet by ity of tablet 00:00: mouth [place] 00 daily. Medical Branch NIFEdipine 2021-0 Yes [id number] 30mg Take 1 Univers ER 30 mg 1-19 tablet by ity of tablet 00:00: mouth 2 [place] 00 (two) Medical times Branch daily. acetaminoph 2021-0 Yes [id number] 1{capsu Take 1 Univers en-caff-but 1-19 le} capsule by it y of albital 00:00: mouth [place] (ESGIC) per 00 every 4 Medic al capsule (four) Branch hours as needed for Pain (headache) . SERTraline 2021-0 Yes [id number] 50mg Take 1 Univers 50 mg 1-19 tablet by ity of tablet 00:00: mouth [place] 00 daily. Medical Branch NIFEdipine 2021-0 Yes [id number] 30mg Take 1 Univers ER 30 mg 1-19 tablet by ity of tablet 00:00: mouth 2 [place] 00 (two) Medical times Branch daily. acetaminoph 2021-0 Yes [id number] 1{capsu Take 1 Univers en-caff-but 1-19 le} capsule by it y of albital 00:00: mouth [place] (ESGIC) per 00 every 4 Medic al capsule (four) Branch hours as needed for Pain (headache) . SERTraline 2021-0 Yes [id number] 50mg Take 1 Univers 50 mg 1-19 tablet by ity of tablet 00:00: mouth [place] 00 daily. Medical Branch NIFEdipine 2021-0 Yes [id number] 30mg Take 1 Univers ER 30 mg 1-19 tablet by ity of tablet 00:00: mouth 2 [place] 00 (two) Medical times Branch daily. SERTraline 2021-0 Yes [id number] 50mg Take 1 Univers 50 mg 1-19 tablet by ity of tablet 00:00: mouth [place] 00 daily. Medical Branch NIFEdipine 2021-0 Yes [id number] 30mg Take 1 Univers ER 30 mg 1-19 tablet by ity of tablet 00:00: mouth 2 [place] (two) Medical times Branch daily. SERTraline 2021-0 Yes [id number] 50mg Take 1 Univers 50 mg 1-19 tablet by ity of tablet 00:00: mouth [place] 00 daily. Medical Branch NIFEdipine 2021-0 Yes [id number] 30mg Take 1 Univers ER 30 mg 1-19 tablet by ity of tablet 00:00: mouth 2 [place] 00 (two) Medical times Branch daily. SERTraline 2021-0 Yes [id number] 50mg Take 1 Univers 50 mg 1-19 tablet by ity of tablet 00:00: mouth [place] 00 daily. Medical Branch NIFEdipine 2021-0 Yes [id number] 30mg Take 1 Univers ER 30 mg 1-19 tablet by ity of tablet 00:00: mouth 2 [place] 00 (two) Medical times Branch daily. enoxaparin 2021- No [id number] 40mg inject 0.4 Univers 40 mg/0.4 1-19 -19 mL under ity o f mL 00:00: 05:59 the skin [place] injection 00 :00 every 24 Medica l (twenty-fo Branch ur) hours for 30 days. enoxaparin 2021-2021- No [id number] 40mg inject 0.4 Univers 40 mg/0.4 1-19 02-19 mL under ity o f mL 00:00: 05:59 the skin [place] injection 00 :00 every 24 Medica l (twenty-fo Branch ur) hours for 30 days. enoxaparin 2021-2021- No [id number] 40mg inject 0.4 Univers 40 mg/0.4 1-19 02-19 mL under ity o f mL 00:00: 05:59 the skin [place] injection 00 :00 every 24 Medica l (twenty-fo Branch ur) hours for 30 days. enoxaparin 2021-0 2021- No [id number] 40mg inject 0.4 Univers 40 mg/0.4 1-19 02-19 mL under ity o f mL 00:00: 05:59 the skin [place] injection 00 :00 every 24 Medica l (twenty-fo Branch ur) hours for 30 days. enoxaparin 2021-0 2021- No [id number] 40mg inject 0.4 Univers 40 mg/0.4 1-19 02-19 mL under ity o f mL 00:00: 05:59 the skin [place] injection 00 :00 every 24 Medica l (twenty-fo Branch ur) hours for 30 days. enoxaparin 2021-0 2021- No [id number] 40mg inject 0.4 Univers 40 mg/0.4 1-19 02-19 mL under ity o f mL 00:00: 05:59 the skin [place] injection 00 :00 every 24 Medica l (twenty-fo Branch ur) hours for 30 days. enoxaparin 2021-0 2021- No [id number] 40mg inject 0.4 Univers 40 mg/0.4 1-19 02-19 mL under ity o f mL 00:00: 05:59 the skin [place] injection 00 :00 every 24 Medica l (twenty-fo Branch ur) hours for 30 days. enoxaparin 2021-0 2- No [id number] 40mg inject 0.4 Univers 40 mg/0.4 1-19 02-19 mL under ity o f mL 00:00: 05:59 the skin [place] injection 00 :00 every 24 Medica l (twenty-fo Branch ur) hours for 30 days. enoxaparin 2021- No [id number] 40mg inject 0.4 Univers 40 mg/0.4 11-06 mL under ity o f mL 00:00: 05:59 the skin [place] injection 00 :00 every 24 Medica l (twenty-fo Branch ur) hours for 30 days. acetaminoph 2021- No [id number] 1{capsu Take 1 Univers en-caff-but 11-06 le} capsule by i ty of albital 00:00: 00:00 mouth [place] (ESGIC) per 00 :00 every 4 Medic al capsule (four) Branch hours as needed for Pain (headache) . FREESTYLE 2021- No USE Unive rs LITE STRIPS 11-06 DIRECTED ity of strip 00:00: 00:00 FOUR TIMES [place] 00 :00 A DAY. Medical Branch FREESTYLE 2021- No 10mg Take 10 mg U nivers LITE METER 11-06 by mouth. ity of Kit 00:00: 00:00 [place] 00 :00 Medical Branch FREESTYLE 2021- No USE Unive rs LANCETS 28 11-06 DIRECTED ity of gauge Misc 00:00: 00:00 FOUR TIMES [place] 00 :00 A DAY. Medical Branch ondansetron 2021- No 4mg 4 mg, Univ ers (ZOFRAN) 11-05 Oral, ity of tablet 4 mg 21:32: 21:33 ONCE, 1 [place] :[place] dose, On [facility] 11/05/21 at 1545, Routine enoxaparin Yes 40mg 40 mg, Unive rs (LOVENOX) 11-05 Subcutaneo ity of injection 15:15: us, Q24H, [place] 40 mg 00 First dose Medical on [facility] 11/05/21 at 0915, Until Discontinu ed, Routine NIFEdipine Yes 30mg 30 mg, Unive rs ER tablet 18 Oral, ity of 30 mg 15:00: DAILY, [place] 00 First dose Medical on [facility] 11/05/21 at 0900, Until Discontinu ed, Routine butalbital- 0 Yes 1{tbl} 1 tablet, Univers acetaminoph -18 Oral, ity of en-caff 14:51: Q4HPRN, [place] (ESGIC) 41 Starting Medical 50-325-40 on [facility] Branch mg tablet 1 11/05/21 at tablet 0851, Until Discontinu ed, Routine, headache acetaminoph 2021-0 Yes 650mg 650 mg, Un yaneth en -18 Oral, ity of (TYLENOL) 14:05: Q6HPRN, [place] tablet 650 43 Starting Medic al mg on Thu Branch 11/05/21 at 0805, Until Discontinu ed, Routine, Pain (scale 1-3) oxyCODONE Yes 5mg 5 mg, Univers immediate 11-05 Oral, ity of release 14:05: Q6HPRN, [place] tablet 5 mg 33 Starting Medi vishnu on Thu11/05/21 at 0805, Until Discontinu ed, Routine, Pain (scale 7-10)<b r>biology faculty member approving Restricted medication : FISH, JAKE ibuprofen Yes 600mg 600 mg, [facility] ers (IBU) -18 Oral, ity of tablet 600 14:05: Q6HPRN, [place] mg 23 Starting Medical on [facility] 11/05/21 at 0805, Until Discontinu ed, Routine, Pain (scale 1-3) Yes Take by [facility] vit/iron 1-17 mouth. ity of fum/folic 14:11: [place] [address] Medical ( 1 Branch + 1 ORAL) Yes Take by [facility] vit/iron 1-17 mouth. ity of fum/folic 14:11: [place] [address] Medical ( 1 Branch + 1 ORAL) ascorbic Yes [id number] 500mg Take 1 U nivers acid, 1-17 tablet by ity of vitamin C, 00:00: mouth 2 [place] 500 mg 00 (two) Medical tablet times Branch daily. ferrous Yes [id number] 325mg Take 1 Un yaneth sulfate 325 1-17 tablet by ity of mg (65 mg 00:00: mouth 3 [place] iron) 00 (three) Medical tablet times Branch daily with meals. HYDROcodone 2022-0 Yes [id number] 1{tbl} Take 1 Un yaneth -acetaminop 1-17 tablet by ity of hen 5-325 00:00: mouth [place] mg tablet 00 every 6 Medical (six) Branch hours as needed for Pain (scale 7-10) for up to 10 doses. Indication s: acute pain Yes [id number] 1{tbl} Take 1 Univers vitamin 1-17 tablet by ity of w/FA tablet 00:00: mouth [place] 00 daily. Medical Branch docusate Yes [id number] 240mg Take 1 U nivers calcium 240 1-17 capsule by it y of mg capsule 00:00: mouth [place] 00 daily as Medical needed for Branch Constipati on. ferrous Yes [id number] 325mg Take 1 Un yaneth sulfate 325 1-17 tablet by ity of mg (65 mg 00:00: mouth 2 [place] iron) 00 (two) Medical tablet times Branch daily. ibuprofen Yes [id number] 600mg Take 1 Univers 600 mg 1-17 tablet by ity of tablet 00:00: mouth [place] 00 every 6 Medical (six) Branch hours as needed (Pain). Take with food or milk. norethindro Yes [id number] .35mg Take 1 Univers ne 0.35 mg 1-17 tablet by ity of tablet 00:00: mouth [place] 00 daily. Medical Branch ascorbic Yes [id number] 500mg Take 1 U nivers acid, 1-17 tablet by ity of vitamin C, 00:00: mouth 2 [place] 500 mg 00 (two) Medical tablet times Branch daily. ferrous Yes [id number] 325mg Take 1 Un yaneth sulfate 325 1-17 tablet by ity of mg (65 mg 00:00: mouth 3 [place] iron) 00 (three) Medical tablet times Branch daily with meals. HYDROcodone Yes [id number] 1{tbl} Take 1 Un yaneth -acetaminop 1-17 tablet by ity of hen 5-325 00:00: mouth [place] mg tablet 00 every 6 Medical (six) Branch hours as needed for Pain (scale 7-10) for up to 10 doses. Indication s: acute pain Yes [id number] 1{tbl} Take 1 Univers vitamin 1-17 tablet by ity of w/FA tablet 00:00: mouth [place] 00 daily. Medical Branch docusate Yes [id number] 240mg Take 1 U nivers calcium 240 1-17 capsule by it y of mg capsule 00:00: mouth once [place] 00 daily as Medical needed for Branch Constipati on. ferrous Yes [id number] 325mg Take 1 Un yaneth sulfate 325 1-17 tablet by ity of mg (65 mg 00:00: mouth 2 [place] iron) 00 (two) Medical tablet times Branch daily. ibuprofen Yes [id number] 600mg Take 1 Univers 600 mg 1-17 tablet by ity of tablet 00:00: mouth [place] 00 every 6 Medical (six) Branch hours as needed (Pain). Take with food or milk. norethindro Yes [id number] .35mg Take 1 Univers ne 0.35 mg 1-17 tablet by ity of tablet 00:00: mouth [place] 00 daily. Medical Branch ascorbic Yes [id number] 500mg Take 1 U nivers acid, 1-17 tablet by ity of vitamin C, 00:00: mouth 2 [place] 500 mg 00 (two) Medical tablet times Branch daily. ferrous Yes [id number] 325mg Take 1 Un yaneth sulfate 325 1-17 tablet by ity of mg (65 mg 00:00: mouth 3 [place] iron) 00 (three) Medical tablet times Branch daily with meals. HYDROcodone Yes [id number] 1{tbl} Take 1 Un yaneth -acetaminop 1-17 tablet by ity of hen 5-325 00:00: mouth [place] mg tablet 00 every 6 Medical (six) Branch hours as needed for Pain (scale 7-10) for up to 10 doses. Indication s: acute pain Yes [id number] 1{tbl} Take 1 Univers vitamin 1-17 tablet by ity of w/FA tablet 00:00: mouth [place] 00 daily. Medical Branch docusate Yes [id number] 240mg Take 1 U nivers calcium 240 1-17 capsule by it y of mg capsule 00:00: mouth once [place] 00 daily as Medical needed for Branch Constipati on. ibuprofen Yes [id number] 600mg Take 1 Univers 600 mg 1-17 tablet by ity of tablet 00:00: mouth [place] 00 every 6 Medical (six) Branch hours as needed (Pain). Take with food or milk. norethindro Yes [id number] .35mg Take 1 Univers ne 0.35 mg 1-17 tablet by ity of tablet 00:00: mouth [place] 00 daily. Medical Branch ascorbic Yes [id number] 500mg Take 1 U nivers acid, 1-17 tablet by ity of vitamin C, 00:00: mouth 2 [place] 500 mg 00 (two) Medical tablet times Branch daily. ferrous Yes [id number] 325mg Take 1 Un yaneth sulfate 325 1-17 tablet by ity of mg (65 mg 00:00: mouth 3 [place] iron) 00 (three) Medical tablet times Branch daily with meals. HYDROcodone Yes [id number] 1{tbl} Take 1 Un yaneth -acetaminop 1-17 tablet by ity of hen 5-325 00:00: mouth [place] mg tablet 00 every 6 Medical (six) Branch hours as needed for Pain (scale 7-10) for up to 10 doses. Indication s: acute pain Yes [id number] 1{tbl} Take 1 Univers vitamin 1-17 tablet by ity of w/FA tablet 00:00: mouth [place] 00 daily. Medical Branch docusate Yes [id number] 240mg Take 1 U nivers calcium 240 1-17 capsule by it y of mg capsule 00:00: mouth once [place] 00 daily as Medical needed for Branch Constipati on. ibuprofen Yes [id number] 600mg Take 1 Univers 600 mg 1-17 tablet by ity of tablet 00:00: mouth [place] 00 every 6 Medical (six) Branch hours as needed (Pain). Take with food or milk. norethindro Yes [id number] .35mg Take 1 Univers ne 0.35 mg 1-17 tablet by ity of tablet 00:00: mouth [place] 00 daily. Medical Branch ascorbic Yes [id number] 500mg Take 1 U nivers acid, 1-17 tablet by ity of vitamin C, 00:00: mouth 2 [place] 500 mg 00 (two) Medical tablet times Branch daily. ferrous Yes [id number] 325mg Take 1 [facility] yan[facility] sulfate 325 1-17 tablet by ity of mg (65 mg 00:00: mouth 3 [place] iron) 00 (three) Medical tablet times Branch daily with meals. HYDROcodone Yes [id number] 1{tbl} Take 1 [facility] -acetaminop 1-17 tablet by ity of hen 5-325 00:00: mouth [place] mg tablet 00 every 6 Medical (six) Branch hours as needed for Pain (scale 7-10) for up to 10 doses. Indication s: acute pain Yes [id number] 1{tbl} Take 1 [facility] vitamin 1-17 tablet by ity of w/FA tablet 00:00: mouth [place] 00 daily. Medical Branch docusate Yes [id number] 240mg Take 1 [facility] n[facility] calcium 240 1-17 capsule by it y of mg capsule 00:00: mouth once [place] 00 daily as Medical needed for Branch Constipati on. ibuprofen Yes [id number] 600mg Take 1 [facility] 600 mg 1-17 tablet by ity of tablet 00:00: mouth [place] 00 every 6 Medical (six) Branch hours as needed (Pain). Take with food or milk. norethindro Yes [id number] .35mg Take 1 [facility] ne 0.35 mg 1-17 tablet by ity of tablet 00:00: mouth [place] 00 daily. Medical Branch ascorbic Yes [id number] 500mg Take 1 [facility] n[facility] acid, 1-17 tablet by ity of vitamin C, 00:00: mouth 2 [place] 500 mg 00 (two) Medical tablet times Branch daily. ferrous Yes [id number] 325mg Take 1 [facility] y[facility] sulfate 325 1-17 tablet by ity of mg (65 mg 00:00: mouth 3 [place] iron) 00 (three) Medical tablet times Branch daily with meals. HYDROcodone Yes [id number] 1{tbl} Take 1 [facility] -acetaminop 1-17 tablet by ity of hen 5-325 00:00: mouth [place] mg tablet 00 every 6 Medical (six) Branch hours as needed for Pain (scale 7-10) for up to 10 doses. Indication s: acute pain Yes [id number] 1{tbl} Take 1 [facility] vitamin 1-17 tablet by ity of w/FA tablet 00:00: mouth [place] 00 daily. Medical Branch docusate Yes [id number] 240mg Take 1 [facility] n[facility] calcium 240 1-17 capsule by it y of mg capsule 00:00: mouth once [place] 00 daily as Medical needed for Branch Constipati on. ibuprofen Yes [id number] 600mg Take 1 [facility] 600 mg 1-17 tablet by ity of tablet 00:00: mouth [place] 00 every 6 Medical (six) Branch hours as needed (Pain). Take with food or milk. norethindro Yes [id number] .35mg Take 1 [facility] ne 0.35 mg 1-17 tablet by ity of tablet 00:00: mouth [place] 00 daily. Medical Branch ascorbic Yes [id number] 500mg Take 1 [facility] nivers acid, 1-17 tablet by ity of vitamin C, 00:00: mouth 2 [place] 500 mg 00 (two) Medical tablet times Branch daily. ferrous Yes [id number] 325mg Take 1 [facility] yan[facility] sulfate 325 1-17 tablet by ity of mg (65 mg 00:00: mouth 3 [place] iron) 00 (three) Medical tablet times Branch daily with meals. HYDROcodone Yes [id number] 1{tbl} Take 1 [facility] -acetaminop 1-17 tablet by ity of hen 5-325 00:00: mouth [place] mg tablet 00 every 6 Medical (six) Branch hours as needed for Pain (scale 7-10) for up to 10 doses. Indication s: acute pain Yes [id number] 1{tbl} Take 1 [facility] vitamin 1-17 tablet by ity of w/FA tablet 00:00: mouth [place] 00 daily. Medical Branch docusate Yes [id number] 240mg Take 1 [facility] n[facility] calcium 240 1-17 capsule by it y of mg capsule 00:00: mouth once [place] 00 daily as Medical needed for Branch Constipati on. ibuprofen Yes [id number] 600mg Take 1 [facility] 600 mg 1-17 tablet by ity of tablet 00:00: mouth [place] 00 every 6 Medical (six) Branch hours as needed (Pain). Take with food or milk. norethindro Yes [id number] .35mg Take 1 [facility] ne 0.35 mg 1-17 tablet by ity of tablet 00:00: mouth [place] 00 daily. Medical Branch ascorbic Yes [id number] 500mg Take 1 [facility] nivers acid, 1-17 tablet by ity of vitamin C, 00:00: mouth 2 [place] 500 mg 00 (two) Medical tablet times Branch daily. ferrous Yes [id number] 325mg Take 1 Un yaneth sulfate 325 1-17 tablet by ity of mg (65 mg 00:00: mouth 3 [place] iron) 00 (three) Medical tablet times Branch daily with meals. HYDROcodone Yes [id number] 1{tbl} Take 1 [facility] -acetaminop 1-17 tablet by ity of hen 5-325 00:00: mouth [place] mg tablet 00 every 6 Medical (six) Branch hours as needed for Pain (scale 7-10) for up to 10 doses. Indication s: acute pain Yes [id number] 1{tbl} Take 1 [facility] vitamin 1-17 tablet by ity of w/FA tablet 00:00: mouth [place] 00 daily. Medical Branch docusate Yes [id number] 240mg Take 1 [facility] n[facility] calcium 240 1-17 capsule by it y of mg capsule 00:00: mouth once [place] 00 daily as Medical needed for Branch Constipati on. ibuprofen Yes [id number] 600mg Take 1 [facility] 600 mg 1-17 tablet by ity of tablet 00:00: mouth [place] 00 every 6 Medical (six) Branch hours as needed (Pain). Take with food or milk. norethindro Yes [id number] .35mg Take 1 [facility] ne 0.35 mg 1-17 tablet by ity of tablet 00:00: mouth [place] 00 daily. Medical Branch ascorbic Yes [id number] 500mg Take 1 U nivers acid, 1-17 tablet by ity of vitamin C, 00:00: mouth 2 [place] 500 mg 00 (two) Medical tablet times Branch daily. ferrous Yes [id number] 325mg Take 1 Un yan[facility] sulfate 325 1-17 tablet by ity of mg (65 mg 00:00: mouth 3 [place] iron) 00 (three) Medical tablet times Branch daily with meals. HYDROcodone Yes [id number] 1{tbl} Take 1 [facility] -acetaminop 1-17 tablet by ity of hen 5-325 00:00: mouth [place] mg tablet 00 every 6 Medical (six) Branch hours as needed for Pain (scale 7-10) for up to 10 doses. Indication s: acute pain Yes [id number] 1{tbl} Take 1 [facility] vitamin 1-17 tablet by ity of w/FA tablet 00:00: mouth [place] 00 daily. Medical Branch docusate Yes [id number] 240mg Take 1 U nivers calcium 240 1-17 capsule by it y of mg capsule 00:00: mouth once [place] 00 daily as Medical needed for Branch Constipati on. ibuprofen Yes [id number] 600mg Take 1 [facility] 600 mg 1-17 tablet by ity of tablet 00:00: mouth [place] 00 every 6 Medical (six) Branch hours as needed (Pain). Take with food or milk. norethindro Yes [id number] .35mg Take 1 [facility] ne 0.35 mg 1-17 tablet by ity of tablet 00:00: mouth [place] 00 daily. Medical Branch ascorbic Yes [id number] 500mg Take 1 U nivers acid, 1-17 tablet by ity of vitamin C, 00:00: mouth 2 [place] 500 mg 00 (two) Medical tablet times Branch daily. ferrous Yes [id number] 325mg Take 1 Un yan[facility] sulfate 325 1-17 tablet by ity of mg (65 mg 00:00: mouth 3 [place] iron) 00 (three) Medical tablet times Branch daily with meals. Yes [id number] 1{tbl} Take 1 [facility] vitamin 1-17 tablet by ity of w/FA tablet 00:00: mouth [place] 00 daily. Medical Branch norethindro Yes [id number] .35mg Take 1 [facility] ne 0.35 mg 1-17 tablet by ity of tablet 00:00: mouth [place] 00 daily. Medical Branch ascorbic Yes [id number] 500mg Take 1 U nivers acid, 1-17 tablet by ity of vitamin C, 00:00: mouth 2 [place] 500 mg 00 (two) Medical tablet times Branch daily. ferrous Yes [id number] 325mg Take 1 Un yan[facility] sulfate 325 1-17 tablet by ity of mg (65 mg 00:00: mouth 3 [place] iron) 00 (three) Medical tablet times Branch daily with meals. Yes [id number] 1{tbl} Take 1 [facility] vitamin 1-17 tablet by ity of w/FA tablet 00:00: mouth [place] 00 daily. Medical Branch norethindro Yes [id number] .35mg Take 1 [facility] ne 0.35 mg 1-17 tablet by ity of tablet 00:00: mouth [place] 00 daily. Medical Branch ascorbic Yes [id number] 500mg Take 1 U nivers acid, 1-17 tablet by ity of vitamin C, 00:00: mouth 2 [place] 500 mg 00 (two) Medical tablet times Branch daily. ferrous Yes [id number] 325mg Take 1 Un yan[facility] sulfate 325 1-17 tablet by ity of mg (65 mg 00:00: mouth 3 [place] iron) 00 (three) Medical tablet times Branch daily with meals. Yes [id number] 1{tbl} Take 1 [facility] vitamin 1-17 tablet by ity of w/FA tablet 00:00: mouth [place] 00 daily. Medical Branch norethindro Yes [id number] .35mg Take 1 [facility] ne 0.35 mg 1-17 tablet by ity of tablet 00:00: mouth [place] 00 daily. Medical Branch ascorbic Yes [id number] 500mg Take 1 U nivers acid, 1-17 tablet by ity of vitamin C, 00:00: mouth 2 [place] 500 mg 00 (two) Medical tablet times Branch daily. ferrous Yes [id number] 325mg Take 1 Un yaneth sulfate 325 1-17 tablet by ity of mg (65 mg 00:00: mouth 3 [place] iron) 00 (three) Medical tablet times Branch daily with meals. Yes [id number] 1{tbl} Take 1 [facility] vitamin 1-17 tablet by ity of w/FA tablet 00:00: mouth [place] 00 daily. Medical Branch norethindro Yes [id number] .35mg Take 1 [facility] ne 0.35 mg 11-04 tablet by ity of tablet 00:00: mouth [place] 00 daily. Medical Branch HYDROcodone 2021- No [id number] 1{tbl} Take 1 U nivers -acetaminop 11-04 tablet by it y of hen 5-325 00:00: 00:00 mouth [place] mg tablet 00 :00 every 6 Medical (six) Branch hours as needed for Pain (scale 7-10) for up to 10 doses. Indication s: acute pain docusate 2021- No [id number] 240mg Take 1 [facility] calcium 240 11-04 capsule by i ty of mg capsule 00:00: 00:00 mouth once [place] 00 :00 daily as Medical needed for Branch Constipati on. ibuprofen 2021- No [id number] 600mg Take 1 [facility] 600 mg 11-04 tablet by ity of tablet 00:00: 00:00 mouth [place] 00 :00 every 6 Medical (six) Branch hours as needed (Pain). Take with food or milk. foLIC acid 2021- No 1mg Take 1 mg U nivers 1 mg tablet 11-04 by mouth ity of 00:00: 00:00 daily. [place] 00 :00 Medical Branch ferrous 2021- No [id number] 325mg Take 1 U nivers sulfate 325 11-04 tablet by it y of mg (65 mg 00:00: 00:00 mouth 2 [place] iron) 00 :00 (two) Medical tablet times Branch daily. ferrous 2021- No [id number] 325mg Take 1 U nivers sulfate 325 11-04 tablet by it y of mg (65 mg 00:00: 00:00 mouth 2 [place] iron) 00 :00 (two) Medical tablet times Branch daily. foLIC acid Yes 1mg 1 mg, Univer s (FOLATE) 1-16 Oral, ity of tablet 1 mg 15:00: DAILY, [place] 00 First dose Medical on [place] Branch 11/03/21 at 0900, Until Discontinu ed, Routine foLIC acid 2021- No 1mg 1 mg, Unive rs (FOLATE) 1-16 01-17 Oral, ity of tablet 1 mg 15:00: 22:11 DAILY, [place] 00 :33 First dose Medical on [facility] 11/03/21 at 0900, Until Discontinu ed, Routine ascorbic 2021-0 Yes 500mg 500 mg, Unive rs acid 16 Oral, BID, ity of (vitamin C) 02:00: First dose [place] (VITAMIN C) 00 on [facility] Medica l tablet 500 11/02/21 at [facility] mg 1999, Until Discontinu ed, Routine ascorbic 2021-0 202- No 500mg 500 mg, Univ ers acid 11-03 Oral, BID, ity of (vitamin C) 02:00: 22:11 First dose [place] (VITAMIN C) 00 :33 on [facility] Medica l tablet 500 11/02/21 at [facility] mg 2000, Until Discontinu ed, Routine ferrous 2021-0 Yes 325mg 325 mg, Univer s sulfate 1-15 Oral, TID ity of tablet 325 18:00: MEALS, [place] mg 00 First dose Medical on [facility] 11/02/21 at 1200, Until Discontinu ed, Routine ferrous 2021-0 2021- No 325mg 325 mg, Unive rs sulfate 11-02 Oral, TID ity of tablet 325 18:00: 22:11 MEALS, [place] mg 00 :33 First dose Medical on [facility] 11/02/21 at 1200, Until Discontinu ed, Routine ibuprofen 2021-0 Yes 600mg 600 mg, Univ ers (IBU) 1-15 Oral, Q6H, ity of tablet 600 00:00: First dose [place] mg 00 on [facility] 11/01/21 at Branch 1800, Until Discontinu ed, Routine simethicone 2021-0 Yes 125mg 125 mg, Un yaneth (MYLICON) 1-15 Oral, ity of chewable 00:00: PC+HS, [place] tablet 125 00 First dose Med ical mg on [facility] 11/01/21 at 1800, Until Discontinu ed, Routine ibuprofen 2021-0 2022- No 600mg 600 mg, Uni vers (IBU) 11-02 Oral, Q6H, ity of tablet 600 00:00: 22:11 First dose [place] mg 00 :33 on Fri Medical 11/01/21 at Branch 1800, Until Discontinu ed, Routine simethicone No 125mg 125 mg, U nivers (MYLICON) 11-02 Oral, ity of chewable 00:00: 22:11 PC+HS, [place] tablet 125 00 :33 First dose Med ical mg on Thu Branch 11/01/21 at 1800, Until Discontinu ed, Routine rho(D) Yes 300ug 300 mcg, Univer s immune 11-01 Intramuscu ity of globulin 23:36: lar, ONCE, [place] (RHOGAM) 56 For 1 Medical syringe 300 dose, Branch mcg Conditiona l, Routine rho(D) No 300ug 300 mcg, Unive rs immune 11-01 Intramuscu ity of globulin 23:36: 22:11 lar, ONCE, [place] (RHOGAM) 56 :33 For 1 Medical syringe 300 dose, Branch mcg Conditiona l, Routine HYDROcodone Yes 2{tbl} 2 tablet, Univers -acetaminop 14 Oral, ity of hen (NORCO 23:36: Q6HPRN, [place] 5) 5-325 mg 52 Starting Medi vishnu tablet 2 on Fri Branch tablet 11/01/21 at 1736, Until Discontinu ed, Routine, Pain (scale 7-10), If uncontroll ed by Ibuprofen HYDROcodone Yes 1{tbl} 1 tablet, Univers -acetaminop 1-14 Oral, ity of hen (NORCO 23:36: Q6HPRN, [place] 5) 5-325 mg 52 Starting Medi vishnu tablet 1 on Fri Branch tablet 11/01/21 at 1736, Until Discontinu ed, Routine, Pain (scale 4-6), If uncontroll ed by Ibuprofen diphenhydrA Yes 25mg 25 mg, IV U nivers MINE-0.9 % 11-01 Piggyback, ity of sod.chlr 23:36: Administer [place] (BENADRYL) 52 over 30 Medica l 25 mg/50 mL Minutes, Bran ch piggyback Q6HPRN, 1 25 mg dose, Starting on 11/01/21 at 1736, Until Discontinu ed, Routine, Itching diphenhydrA Yes 25mg 25 mg, Univ ers MINE 114 Oral, ity of (BENADRYL) 23:36: Q6HPRN, [place] tablet 25 52 Starting Medica l mg on Fri Branch 11/01/21 at 1736, Until Discontinu ed, Routine, Sleep, Itching ondansetron 0 Yes 4mg 4 mg, Slow Univers (ZOFRAN 14 IV Push, ity of (PF)) 23:36: Q8HPRN, [place] injection 4 52 Starting Medi vishnu mg on Thu Branch 11/01/21 at 1736, Until Discontinu ed, Routine, Nausea and Vomiting (N/V) bisacodyL Yes 10mg 10 mg, Univer s (DULCOLAX) 11-01 Rectal, ity of suppository 23:36: QDAILYPRN, [place] 10 mg 52 Starting Medical on Thu Branch 11/01/21 at 1736, Until Discontinu ed, Routine, Constipati on magnesium Yes 30mL 30 mL, Univer s hydroxide 11-01 Oral, ity of (MILK OF 23:36: QDAILYPRN, [place] MAGNESIA) 52 Starting Medica l 400 mg/5 mL on Thu Branch suspension 11/01/21 at 30 mL 1736, Until Discontinu ed, Routine, Constipati on HYDROcodone 2021- No 2{tbl} 2 tablet, Univers -acetaminop 11-01 Oral, ity of hen (NORCO 23:36: 22:11 Q6HPRN, [place] 5) 5-325 mg 52 :33 Starting Medi vishnu tablet 2 on Fri Branch tablet 11/01/21 at 1736, Until 11/04/21 at 1611, Routine, Pain (scale 7-10), If uncontroll ed by Ibuprofen HYDROcodone 2021- No 1{tbl} 1 tablet, Univers -acetaminop 11-01 Oral, ity of hen (NORCO 23:36: 22:11 Q6HPRN, [place] 5) 5-325 mg 52 :33 Starting Medi vishnu tablet 1 on Fri Branch tablet 11/01/21 at 1736, Until 11/04/21 at 1611, Routine, Pain (scale 4-6), If uncontroll ed by Ibuprofen diphenhydrA 2021- No 25mg 25 mg, IV Univers MINE-0.9 % 11-01 Piggyback, it y of sod.chlr 23:36: 22:11 Administer [place] (BENADRYL) 52 :33 over 30 Medica l 25 mg/50 mL Minutes, Bran ch piggyback Q6HPRN, 1 25 mg dose, Starting on Thu11/01/21 at 1736, Until Thu11/04/21 at 1611, Routine, Itching diphenhydrA 2021- No 25mg 25 mg, Uni vers MINE 11-01 Oral, ity of (BENADRYL) 23:36: 22:11 Q6HPRN, [place] tablet 25 52 :33 Starting Medica l mg on Thu Branch 11/01/21 at 1736, Until 11/04/21 at 1611, Routine, Sleep, Itching ondansetron 2021- No 4mg 4 mg, Slow Univers (ZOFRAN 11-01 IV Push, ity of (PF)) 23:36: 22:11 Q8HPRN, [place] injection 4 52 :33 Starting Medi vishnu mg on Thu Branch 11/01/21 at 1736, Until 11/04/21 at 1611, Routine, Nausea and Vomiting (N/V) bisacodyL 2021- No 10mg 10 mg, Unive rs (DULCOLAX) 11-01 Rectal, ity o f suppository 23:36: 22:11 QDAILYPRN, [place] 10 mg 52 :33 Starting Medical on Thu Branch 11/01/21 at 1736, Until 11/04/21 at 1611, Routine, Constipati on magnesium 2021- No 30mL 30 mL, Unive rs hydroxide 11-01 Oral, ity of (MILK OF 23:36: 22:11 QDAILYPRN, [place] MAGNESIA) 52 :33 Starting Medica l 400 mg/5 mL on Fri Branch suspension 11/01/21 at 30 mL 1736, Until 11/04/21 at 1611, Routine, Constipati on labetaloL No 20mg 20 mg, Unive rs (NORMODYNE) 11-01 Slow IV ity of injection 17:00: 15:51 Push, [place] 20 mg 00 :00 ONCE, 1 Medical dose, On Branch 11/01/21 at 1100, Routine acetaminoph No 650mg 650 mg, U nivers en 11-01 Oral, ity of (TYLENOL) 16:45: 15:51 ONCE, 1 [place] tablet 650 00 :00 dose, On Medic al mg Fri Branch 11/01/21 at 1045, Routine magnesium No 2g/h 2 g/hr (50 U nivers sulfate 10 11-01 mL/hr), at it y of g in NS 250 16:15: 04:14 50 mL/hr, [place] mL IV 00 :00 IV Medical Solution Infusion, Branch (CNR) CONTINUOUS , Starting on Thu11/01/21 at 1015, Until Thu11/01/21 at 2214, BRIAN ceFAZolin No 2000mg 2 g (2,000 Univers in 0.9% 11-01 mg), IV ity of sodium 15:42: 16:21 Piggyback, [place] chloride 00 :00 O.R. Medical (ANCEF) 2 HOLDING Branch gram/100 mL ONCE, 1 RTU 2 g dose, Starting on Thu11/01/21 at 0942, Until Discontinu ed, Administer over 30 Minutes
Reason for Anti-Infec tive: Surgical Prophylaxi s
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
Duration of therapy: within 24 hours of surgery betamethaso 2021- No 12mg 12 mg, Uni vers ne acet,sod 11-01 Intramuscu i ty of phos 09:00: 09:03 lar, ONCE, [place] (CELESTONE 00 :00 1 dose, On Med ical SOLUSPAN) 6 Fri Branch mg/mL 11/01/21 at injection 0300, 12 mg Routine proCHLORper No 10mg 10 mg, Uni vers azine 11-01 Oral, ity of (COMPAZINE) 03:15: 02:45 ONCE, 1 [place] tablet 10 00 :00 dose, On Medica l mg [facility] Branch 10/31/21 at 2115, Routine butalbital- 2021- No 2{tbl} 2 tablet, [facility] acetaminoph 11-01 Oral, ity of en-caff 01:45: 01:04 ONCE, 1 [place] (ESGIC) 00 :00 dose, On Medical 50-325-40 [place] Branch mg tablet 2 10/31/21 at tablet 1945, Routine labetaloL 2021- No 20mg 20 mg, Unive rs (NORMODYNE) 11-01 Slow IV ity of injection 01:45: 00:48 Push, [place] 20 mg 00 :00 ONCE, 1 Medical dose, On Branch [facility] 10/31/21 at 1945, Routine D5W 0.45% No 1000mL at 75 Univ ers NaCl 11-01 mL/hr, ity of (1/2NS) IV 00:45: 23:36 1,000 mL, [place] infusion 00 :57 IV Medical 1,000 mL Infusion, Branch CONTINUOUS , Starting on Thu10/31/21 at 1845, Until Thu11/01/21 at 1736, BRIAN magnesium 2021- No 2g/h 2 g/hr (50 U nivers sulfate 10 11-01 mL/hr), at it y of g in NS 250 00:45: 12:44 50 mL/hr, [place] mL IV 00 :00 IV Medical Solution Infusion, Branch (CNR) CONTINUOUS , Starting on [place] 10/31/21 at 1845, Until Thu11/01/21 at 0644, BRIAN lactated 2021- No 500mL at 999 Unive rs ringers IV 11-01 mL/hr, 500 it y of infusion 00:40: 23:36 mL, IV [place] 500 mL 45 :57 Infusion, Medical PRN - SEE Branch INSTRUCTIO NS, Starting on [place] 10/31/21 at 1840, Until Thu11/01/21 at 1736, Routine sodium 2021- No 30mL 30 mL, Univers citrate-cit 11-01 Oral, ity of kathya acid 00:40: 15:52 PRE-PROCED [place] (BICITRA) 45 :00 URE ONCE, Medic al 500-334 1 dose, Branch mg/5 mL Starting solution 30 on [place] mL 10/31/21 at 1840, Until Discontinu ed, Routine, Surgery/Pr ocedure magnesium 2021-0 Yes 4g 32.48 mEq Uni vers sulfate 4 -14 (4 g), ity of mEq/mL (50 00:35: Slow IV [place] %) 59 Push, PRN Medical injection - SEE Branch 32.48 mEq INSTRUCTIO NS, Starting on [place] 10/31/21 at 1835, Until Discontinu ed, Routine, For seizure activity (patient not on magnesium sulfate) magnesium 0 Yes 2g 16.24 mEq Uni vers sulfate 4 14 (2 g), ity of mEq/mL (50 00:35: Slow IV [place] %) 59 Push, PRN Medical injection - SEE Branch 16.24 mEq INSTRUCTIO NS, 2 doses, Starting on [place] 10/31/21 at 1835, Until Discontinu ed, Routine, For seizure activity (patient already on magnesium sulfate) magnesium 2021- No 4g 32.48 mEq Un yaneth sulfate 4 11-01 (4 g), ity of mEq/mL (50 00:35: 22:11 Slow IV [place] %) 59 :33 Push, PRN Medical injection - SEE Branch 32.48 mEq INSTRUCTIO NS, Starting on [place] 10/31/21 at 1835, Until 11/04/21 at 1611, Routine, For seizure activity (patient not on magnesium sulfate) magnesium 2021-0 2021- No 2g 16.24 mEq Un y[facility]eth sulfate 4 11-01 (2 g), ity of mEq/mL (50 00:35: 22:11 Slow IV [place] %) 59 :33 Push, PRN Medical injection - SEE Branch 16.24 mEq INSTRUCTIO NS, 2 doses, Starting on [place] 10/31/21 at 1835, Until 11/04/21 at 1611, Routine, For seizure activity (patient already on magnesium sulfate) betamethaso 2021-2021- No 12mg 12 mg, Uni vers ne acet,sod 1-13 01-14 Intramuscu i ty of phos 21:00: 23:36 lar, Q24H, [place] (CELESTONE 00 :02 First dose Med ical SOLUSPAN) 6 on [place] Branch mg/mL 10/31/21 at injection 1500, 12 mg Until Discontinu ed, Routine D5W-LR IV 2021- No 1000mL at 125 Uni vers infusion 10-31 mL/hr, IV ity o f 1,000 mL 20:00: 23:36 Infusion, [place] 00 :57 CONTINUOUS Medical , Starting Branch on [place] 10/31/21 at 1400, Until 11/01/21 at 1736, Routine lactated 2021- No 500mL at 999 Unive rs ringers IV 10-31 mL/hr, 500 it y of infusion 19:50: 23:36 mL, IV [place] 500 mL 55 :57 Infusion, Medical PRN - SEE Branch INSTRUCTIO NS, Starting on [place] 10/31/21 at 1350, Until Thu11/01/21 at 1736, Routine ferrous 2020-10 Yes [id number] 325mg Take 1 Uni vers sulfate 2-16 tablet by ity of (IRON, 00:00: mouth [place] FERROUS 00 every Medical SULFATE,) other day. Bran ch 325 mg (65 mg iron) tablet ascorbic 2020-10 Yes [id number] 500mg Take 1 Un yaneth acid, 2-16 tablet by ity of vitamin C, 00:00: mouth [place] 500 mg 00 every Medical tablet other day. Branch ferrous 2020-10 Yes [id number] 325mg Take 1 Uni vers sulfate 2-16 tablet by ity of (IRON, 00:00: mouth [place] FERROUS 00 every Medical SULFATE,) other day. Bran ch 325 mg (65 mg iron) tablet ascorbic 2020-10 Yes [id number] 500mg Take 1 Un yaneth acid, 2-16 tablet by ity of vitamin C, 00:00: mouth [place] 500 mg 00 every Medical tablet other day. Branch ferrous 2020-10 Yes [id number] 325mg Take 1 Uni vers sulfate 2-16 tablet by ity of (IRON, 00:00: mouth [place] FERROUS 00 every Medical SULFATE,) other day. Bran ch 325 mg (65 mg iron) tablet ascorbic 2021-1 Yes [id number] 500mg Take 1 Un yaneth acid, 2-16 tablet by ity of vitamin C, 00:00: mouth [place] 500 mg 00 every Medical tablet other day. Branch ferrous 2020-10 Yes [id number] 325mg Take 1 Uni vers sulfate 2-16 tablet by ity of (IRON, 00:00: mouth [place] FERROUS 00 every Medical SULFATE,) other day. Bran ch 325 mg (65 mg iron) tablet ascorbic 2020-10 Yes [id number] 500mg Take 1 Un yaneth acid, 2-16 tablet by ity of vitamin C, 00:00: mouth [place] 500 mg 00 every Medical tablet other day. Branch ferrous 2020-10 Yes [id number] 325mg Take 1 Uni vers sulfate 2-16 tablet by ity of (IRON, 00:00: mouth [place] FERROUS 00 every Medical SULFATE,) other day. Bran ch 325 mg (65 mg iron) tablet ascorbic 2020-10 Yes [id number] 500mg Take 1 Un yaneth acid, 2-16 tablet by ity of vitamin C, 00:00: mouth [place] 500 mg 00 every Medical tablet other day. Branch ferrous 2020-10 Yes [id number] 325mg Take 1 Uni vers sulfate 2-16 tablet by ity of (IRON, 00:00: mouth [place] FERROUS 00 every Medical SULFATE,) other day. Bran ch 325 mg (65 mg iron) tablet ascorbic 2020-10 Yes [id number] 500mg Take 1 Un yaneth acid, 2-16 tablet by ity of vitamin C, 00:00: mouth [place] 500 mg 00 every Medical tablet other day. Branch ferrous 2020-10 Yes [id number] 325mg Take 1 Uni vers sulfate 2-16 tablet by ity of (IRON, 00:00: mouth [place] FERROUS 00 every Medical SULFATE,) other day. Bran ch 325 mg (65 mg iron) tablet ascorbic 2020-10 Yes [id number] 500mg Take 1 Un yaneth acid, 2-16 tablet by ity of vitamin C, 00:00: mouth [place] 500 mg 00 every Medical tablet other day. Branch ferrous 2020-10 Yes [id number] 325mg Take 1 Uni vers sulfate 2-16 tablet by ity of (IRON, 00:00: mouth [place] FERROUS 00 every Medical SULFATE,) other day. Bran ch 325 mg (65 mg iron) tablet ascorbic 2020-10 Yes [id number] 500mg Take 1 Un yaneth acid, 2-16 tablet by ity of vitamin C, 00:00: mouth [place] 500 mg 00 every Medical tablet other day. Branch ferrous 2020-10 Yes [id number] 325mg Take 1 Uni vers sulfate 2-16 tablet by ity of (IRON, 00:00: mouth [place] FERROUS 00 every Medical SULFATE,) other day. Bran ch 325 mg (65 mg iron) tablet ascorbic 2020-10 Yes [id number] 500mg Take 1 Un yaneth acid, 2-16 tablet by ity of vitamin C, 00:00: mouth [place] 500 mg 00 every Medical tablet other day. Branch ferrous 2020-10 Yes [id number] 325mg Take 1 Uni vers sulfate 2-16 tablet by ity of (IRON, 00:00: mouth [place] FERROUS 00 every Medical SULFATE,) other day. Bran ch 325 mg (65 mg iron) tablet ascorbic 2020-10 Yes [id number] 500mg Take 1 Un yaneth acid, 2-16 tablet by ity of vitamin C, 00:00: mouth [place] 500 mg 00 every Medical tablet other day. Branch ferrous 2020-10 Yes [id number] 325mg Take 1 Uni vers sulfate 2-16 tablet by ity of (IRON, 00:00: mouth [place] FERROUS 00 every Medical SULFATE,) other day. Bran ch 325 mg (65 mg iron) tablet ascorbic 2020-10 Yes [id number] 500mg Take 1 Un yaneth acid, 2-16 tablet by ity of vitamin C, 00:00: mouth [place] 500 mg 00 every Medical tablet other day. Branch ferrous 2020-10 Yes [id number] 325mg Take 1 Uni vers sulfate 2-16 tablet by ity of (IRON, 00:00: mouth [place] FERROUS 00 every Medical SULFATE,) other day. Bran ch 325 mg (65 mg iron) tablet ascorbic 2020-10 Yes [id number] 500mg Take 1 Un yaneth acid, 2-16 tablet by ity of vitamin C, 00:00: mouth [place] 500 mg 00 every Medical tablet other day. Branch ferrous 2020-10 Yes [id number] 325mg Take 1 Uni vers sulfate 2-16 tablet by ity of (IRON, 00:00: mouth [place] FERROUS 00 every Medical SULFATE,) other day. Bran ch 325 mg (65 mg iron) tablet ascorbic 2020-10 Yes [id number] 500mg Take 1 Un yaneth acid, 2-16 tablet by ity of vitamin C, 00:00: mouth [place] 500 mg 00 every Medical tablet other day. Branch ferrous 2020-10- No [id number] 325mg Take 1 Un yaneth sulfate 12-04 tablet by ity of (IRON, 00:00: 00:00 mouth [place] FERROUS 00 :00 every Medical SULFATE,) other day. Bran ch 325 mg (65 mg iron) tablet ascorbic 2020-10- No [id number] 500mg Take 1 U nivers acid, 12-04 tablet by ity of vitamin C, 00:00: 00:00 mouth [place] 500 mg 00 :00 every Medical tablet other day. Branch ferrous 2020-10- No [id number] 325mg Take 1 Un yaneth sulfate 12-04 tablet by ity of (IRON, 00:00: 00:00 mouth [place] FERROUS 00 :00 every Medical SULFATE,) other day. Bran ch 325 mg (65 mg iron) tablet ascorbic 2020-10- No [id number] 500mg Take 1 U nivers acid, 12-04 tablet by ity of vitamin C, 00:00: 00:00 mouth [place] 500 mg 00 :00 every Medical tablet other day. [place] Blood-Gluco 2020-10 Yes [id number] Use as Univers se Meter 2-09 directed ity of (FREESTYLE 00:00: [place] LITE METER) 00 [facility] Blood-Gluco 2020-10 Yes [id number] Use as Univers se Meter 2-09 directed ity of (FREESTYLE 00:00: [place] LITE METER) [facility] Blood-Gluco 2020-10 Yes [id number] Use as Univers se Meter 2-09 directed ity of (FREESTYLE 00:00: [place] LITE METER) 00 [facility] Blood-Gluco 2020-10 Yes [id number] Use as Univers se Meter 2-09 directed ity of (FREESTYLE 00:00: [place] LITE METER) 00 [facility] Blood-Gluco 2020-10 Yes [id number] Use as Univers se Meter 2-09 directed ity of (FREESTYLE 00:00: [place] LITE METER) 00 [facility] Blood-Gluco 2020-10 Yes [id number] Use as Univers se Meter 2-09 directed ity of (FREESTYLE 00:00: [place] LITE METER) 00 [facility] Blood-Gluco 2020-10 Yes [id number] Use as Univers se Meter 2-09 directed ity of (FREESTYLE 00:00: [place] LITE METER) 00 [facility] Blood-Gluco 2020-10 Yes [id number] Use as Univers se Meter 2-09 directed ity of (FREESTYLE 00:00: [place] LITE METER) [facility] Blood-Gluco 2020-10 Yes [id number] Use as Univers se Meter 2-09 directed ity of (FREESTYLE 00:00: [place] LITE METER) [facility] Blood-Gluco 2020-10 Yes [id number] Use as Univers se Meter 2-09 directed ity of (FREESTYLE 00:00: [place] LITE METER) [facility] Blood-Gluco 2020-10 Yes [id number] Use as Univers se Meter 2-09 directed ity of (FREESTYLE 00:00: [place] LITE METER) [facility] Branch Blood-Gluco 2020-10 Yes [id number] Use as Univers se Meter 2-09 directed ity of (FREESTYLE 00:00: [place] LITE METER) [facility] Branch Blood-Gluco 2020-10 Yes [id number] Use as Univers se Meter 2-09 directed ity of (FREESTYLE 00:00: [place] LITE METER) [facility] Blood-Gluco 2020-10 Yes [id number] Use as Univers se Meter 2-09 directed ity of (FREESTYLE 00:00: [place] LITE METER) [facility] Branch Blood-Gluco 2020-10 Yes [id number] Use as Univers se Meter 2-09 directed ity of (FREESTYLE 00:00: [place] LITE METER) [facility] Blood-Gluco 2020-10 Yes [id number] Use as Univers se Meter 2-09 directed ity of (FREESTYLE 00:00: [place] LITE METER) [facility] Blood-Gluco 2020-10- No [id number] Use as Univers se Meter 2-09 11-06 directed ity of (FREESTYLE 00:00: 00:00 [place] LITE METER) 00 :00 [facility] Blood-Gluco 2020-10- No [id number] Use as Univers se Meter 2-09 11-06 directed ity of (FREESTYLE 00:00: 00:00 [place] LITE METER) 00 :00 [facility] Blood-Gluco 2020-10 Yes [id number] Use as Univers se Meter 2- directed ity of (FREESTYLE 00:00: [place] LITE METER) 00 Medical [facility] Branch blood sugar 2020-10 Yes [id number] Pt to [facility] diagnostic 11-20 check ity of (FREESTYLE 00:00: [place] LITE 00 levels 4 x Medical STRIPS) per day Branch strip Lancets 2020-10 Yes [id number] Pt to [facility] 2- check ity of 00:00: glucose [place] 00 levels 4 x Medical per day Branch Blood-Gluco 2020-10 Yes [id number] Use as Univers se Meter 2 directed ity of (FREESTYLE 00:00: [place] LITE METER) 00 Medical Kit Branch blood sugar 2020-10 Yes [id number] Pt to [facility] diagnostic 11-20 check ity of (FREESTYLE 00:00: [place] LITE 00 levels 4 x Medical STRIPS) per day Branch strip Lancets 2020-10 Yes [id number] Pt to [facility] 2 check ity of 00:00: glucose [place] 00 levels 4 x Medical per day Branch Blood-Gluco 2020-10 Yes [id number] Use as Univers se Meter 2 directed ity of (FREESTYLE 00:00: [place] LITE METER) 00 Medical Kit Branch blood sugar 2020-10 Yes [id number] Pt to U [facility] diagnostic 11-20 check ity of (FREESTYLE 00:00: [place] LITE 00 levels 4 x Medical STRIPS) per day Branch strip Lancets 2020-10 Yes [id number] Pt to [facility] 2 check ity of 00:00: glucose [place] 00 levels 4 x Medical per day Branch Blood-Gluco 2020-10 Yes [id number] Use as Univers se Meter 2- directed ity of (FREESTYLE 00:00: [place] LITE METER) 00 Medical Kit Branch blood sugar 2020-10 Yes [id number] Pt to U [facility] diagnostic 11-20 check ity of (FREESTYLE 00:00: [place] LITE 00 levels 4 x Medical STRIPS) per day Branch strip Lancets 2020-10 Yes [id number] Pt to [facility] 2- check ity of 00:00: glucose [place] 00 levels 4 x Medical per day Branch Blood-Gluco 2020-10 Yes [id number] Use as Univers se Meter 2- directed ity of (FREESTYLE 00:00: [place] LITE METER) 00 Medical Kit Branch blood sugar 2020-10 Yes [id number] Pt to U nivers diagnostic 11-20 check ity of (FREESTYLE 00:00: [place] LITE 00 levels 4 x Medical STRIPS) per day Branch strip Lancets 2020-10 Yes [id number] Pt to [facility] 2 check ity of 00:00: glucose [place] 00 levels 4 x Medical per day Branch Blood-Gluco 2020-10 Yes [id number] Use as Univers se Meter 2 directed ity of (FREESTYLE 00:00: [place] LITE METER) 00 Medical Kit Branch blood sugar 2020-10 Yes [id number] Pt to [facility] diagnostic 11-20 check ity of (FREESTYLE 00:00: [place] LITE 00 levels 4 x Medical STRIPS) per day Branch strip Lancets 2020-10 Yes [id number] Pt to [facility] 11-20 check ity of 00:00: glucose [place] 00 levels 4 x Medical per day Branch Blood-Gluco 2020-10 Yes [id number] Use as Univers se Meter 2 directed ity of (FREESTYLE 00:00: [place] LITE METER) 00 Medical Kit Branch blood sugar 2020-10 Yes [id number] Pt to [employer] diagnostic 11-20 check ity of (FREESTYLE 00:00: [place] LITE 00 levels 4 x Medical STRIPS) per day Branch strip Lancets 2020-10 Yes [id number] Pt to [facility] 2 check ity of 00:00: glucose [place] 00 levels 4 x Medical per day Branch Blood-Gluco 2020-10 Yes [id number] Use as Univers se Meter 2- directed ity of (FREESTYLE 00:00: [place] LITE METER) 00 Medical Kit Branch blood sugar 2020-10 Yes [id number] Pt to nivers diagnostic 11-20 check ity of (FREESTYLE 00:00: [place] LITE 00 levels 4 x Medical STRIPS) per day Branch strip Lancets 2020-10 Yes [id number] Pt to [facility] 2 check ity of 00:00: glucose [place] 00 levels 4 x Medical per day Branch Blood-Gluco 2020-10 Yes [id number] Use as Univers se Meter 2- directed ity of (FREESTYLE 00:00: [place] LITE METER) 00 Medical Kit Branch blood sugar 2020-10 Yes [id number] Pt to U nivers diagnostic 11-20 check ity of (FREESTYLE 00:00: [place] LITE 00 levels 4 x Medical STRIPS) per day Branch strip Lancets 2020-10 Yes [id number] Pt to [facility] 11-20 check ity of 00:00: glucose [place] 00 levels 4 x Medical per day Branch Blood-Gluco 2020-10 Yes [id number] Use as Univers se Meter 2- directed ity of (FREESTYLE 00:00: [place] LITE METER) 00 Medical Kit Branch blood sugar 2020-10 Yes [id number] Pt to [facility] diagnostic 11-20 check ity of (FREESTYLE 00:00: [place] LITE 00 levels 4 x Medical STRIPS) per day Branch strip Lancets 2020-10 Yes [id number] Pt to [facility] 11-20 check ity of 00:00: glucose [place] 00 levels 4 x Medical per day Branch Blood-Gluco 2020-10 Yes [id number] Use as Univers se Meter 2- directed ity of (FREESTYLE 00:00: [place] LITE METER) 00 Medical Kit Branch blood sugar 2020-10 Yes [id number] Pt to nivers diagnostic 11-20 check ity of (FREESTYLE 00:00: [place] LITE 00 levels 4 x Medical STRIPS) per day Branch strip Lancets 2020-10 Yes [id number] Pt to [facility] 2 check ity of 00:00: glucose [place] 00 levels 4 x Medical per day Branch Blood-Gluco 2020-10 Yes [id number] Use as Univers se Meter 2- directed ity of (FREESTYLE 00:00: [place] LITE METER) 00 Medical Kit Branch blood sugar 2020-10 Yes [id number] Pt to nivers diagnostic 11-20 check ity of (FREESTYLE 00:00: [place] LITE 00 levels 4 x Medical STRIPS) per day Branch strip Lancets 2020-10 Yes [id number] Pt to [facility] 2 check ity of 00:00: glucose [place] 00 levels 4 x Medical per day Branch Blood-Gluco 2020-10 Yes [id number] Use as Univers se Meter 2- directed ity of (FREESTYLE 00:00: [place] LITE METER) 00 Medical Kit Branch blood sugar 2020-10 Yes [id number] Pt to nivers diagnostic 11-20 check ity of (FREESTYLE 00:00: [place] LITE 00 levels 4 x Medical STRIPS) per day Branch strip Lancets 2020-10 Yes [id number] Pt to [facility] 2 check ity of 00:00: glucose [place] 00 levels 4 x Medical per day Branch Blood-Gluco 2020-10 Yes [id number] Use as Univers se Meter 2- directed ity of (FREESTYLE 00:00: [place] LITE METER) 00 Medical Kit Branch blood sugar 2020-10 Yes [id number] Pt to [facility] diagnostic 11-20 check ity of (FREESTYLE 00:00: [place] LITE 00 levels 4 x Medical STRIPS) per day Branch strip Lancets 2020-10 Yes [id number] Pt to [facility] 11-20 check ity of 00:00: glucose [place] 00 levels 4 x Medical per day Branch Blood-Gluco 2020-10 Yes [id number] Use as Univers se Meter 2- directed ity of (FREESTYLE 00:00: [place] LITE METER) 00 Medical Kit Branch blood sugar 2020-10 Yes [id number] Pt to U nivers diagnostic 11-20 check ity of (FREESTYLE 00:00: [place] LITE 00 levels 4 x Medical STRIPS) per day Branch strip Lancets 2020-10 Yes [id number] Pt to [facility] 2 check ity of 00:00: glucose [place] 00 levels 4 x Medical per day Branch Blood-Gluco 2020-10 Yes [id number] Use as Univers se Meter 2- directed ity of (FREESTYLE 00:00: [place] LITE METER) 00 Medical Kit Branch blood sugar 2020-10 Yes [id number] Pt to [employer] diagnostic 2 check ity of (FREESTYLE 00:00: [place] LITE 00 levels 4 x Medical STRIPS) per day Branch strip Lancets 2020-10 Yes [id number] Pt to [facility] 11-20 check ity of 00:00: glucose [place] 00 levels 4 x Medical per day Branch Blood-Gluco 2020-10- No [id number] Use as Univers se Meter 11-20 directed ity of (FREESTYLE 00:00: 00:00 [place] LITE METER) 00 :00 Medical Kit Branch blood sugar 2020-10- No [id number] Pt to [facility] diagnostic 11-20 check ity of (FREESTYLE 00:00: 00:00 glucose [place] LITE 00 :00 levels 4 x Medical STRIPS) per day Branch strip Lancets 2020-10- No [id number] Pt to [facility] 11-20 check ity of 00:00: 00:00 glucose [place] 00 :00 levels 4 x Medical per day Branch Blood-Gluco 2020-10- No [id number] Use as Univers se Meter 11-20 directed ity of (FREESTYLE 00:00: 00:00 [place] LITE METER) 00 :00 Medical Kit Branch blood sugar 2020-10- No [id number] Pt to [facility] diagnostic 11-20 check ity of (FREESTYLE 00:00: 00:00 glucose [place] LITE 00 :00 levels 4 x Medical STRIPS) per day Branch strip Lancets 2020-10- No [id number] Pt to [facility] 11-20 check ity of 00:00: 00:00 glucose [place] 00 :00 levels 4 x Medical per day Branch ferrous 2020-10- No [id number] 325mg Take 1 Un yaneth sulfate 0-05 12-16 tablet by ity of (IRON, 00:00: 00:00 mouth [place] FERROUS 00 :00 every Medical SULFATE,) other day. Bran ch 325 mg (65 mg iron) tablet ferrous 2020-10- No [id number] 325mg Take 1 Un yaneth sulfate 0-05 12-16 tablet by ity of (IRON, 00:00: 00:00 mouth [place] FERROUS 00 :00 every Medical SULFATE,) other day. Bran ch 325 mg (65 mg iron) tablet 2021-0 Yes Take by Univer s vit/iron 8-17 mouth. ity of fum/folic 07:17: [place] [id number] Medical ( 1 Branch + 1 ORAL) 0 Yes Take by Univer s vit/iron 8-17 mouth. ity of fum/folic 07:17: [place] [id number] Medical ( 1 Branch + 1 ORAL) 0 Yes Take by Univer s vit/iron 8-17 mouth. ity of fum/folic 07:17: [place] [id number] Medical ( 1 Branch + 1 ORAL) 0 Yes Take by Univer s vit/iron 8-17 mouth. ity of fum/folic 07:17: [place] [id number] Medical ( 1 Branch + 1 ORAL) 0 Yes Take by Univer s vit/iron 8-17 mouth. ity of fum/folic 07:17: [place] [id number] Medical ( 1 Branch + 1 ORAL) Yes Take by Univer s vit/iron 8-17 mouth. ity of fum/folic 07:17: [place] [id number] Medical ( 1 Branch + 1 ORAL) 0 Yes Take by Univer s vit/iron 8-17 mouth. ity of fum/folic 07:17: [place] [id number] Medical ( 1 Branch + 1 ORAL) 0 Yes Take by Univer s vit/iron 8-17 mouth. ity of fum/folic 07:17: [place] [id number] Medical ( 1 Branch + 1 ORAL) 0 Yes Take by Univer s vit/iron 8-17 mouth. ity of fum/folic 07:17: [place] [id number] Medical ( 1 Branch + 1 ORAL) 0 Yes Take by Univer s vit/iron 8-17 mouth. ity of fum/folic 07:17: [place] [id number] Medical ( 1 Branch + 1 ORAL) 0 Yes Take by Univer s vit/iron 8-17 mouth. ity of fum/folic 07:17: [place] [id number] Medical ( 1 Branch + 1 ORAL) 0 Yes Take by Univer s vit/iron 8-17 mouth. ity of fum/folic 07:17: [place] [id number] Medical ( 1 Branch + 1 ORAL) 0 Yes Take by Univer s vit/iron 8-17 mouth. ity of fum/folic 07:17: [place] ac 24 Medical ( 1 Branch + 1 ORAL) Yes Take by Univer s vit/iron 8-17 mouth. ity of fum/folic 07:17: [place] ac 24 Medical ( 1 Branch + 1 ORAL) aspirin 81 0 Yes [id number] 81mg Take 1 U nivers mg EC 8-02 tablet by ity of tablet 00:00: mouth [place] 00 daily. Medical Branch foLIC acid 0 Yes [id number] 1mg Take 1 U nivers 1 mg tablet 8-02 tablet by ity of 00:00: mouth [place] 00 daily. Medical Branch aspirin 81 0 Yes [id number] 81mg Take 1 U nivers mg EC 8-02 tablet by ity of tablet 00:00: mouth [place] 00 daily. Medical Branch foLIC acid 0 Yes [id number] 1mg Take 1 U nivers 1 mg tablet 8-02 tablet by ity of 00:00: mouth [place] 00 daily. Medical Branch aspirin 81 0 Yes [id number] 81mg Take 1 U nivers mg EC 8-02 tablet by ity of tablet 00:00: mouth [place] 00 daily. Medical Branch foLIC acid 0 Yes [id number] 1mg Take 1 U nivers 1 mg tablet 8-02 tablet by ity of 00:00: mouth [place] 00 daily. Medical Branch aspirin 81 0 Yes [id number] 81mg Take 1 U nivers mg EC 8-02 tablet by ity of tablet 00:00: mouth [place] 00 daily. Medical Branch foLIC acid 0 Yes [id number] 1mg Take 1 U nivers 1 mg tablet 8-02 tablet by ity of 00:00: mouth [place] 00 daily. Medical Branch aspirin 81 0 Yes [id number] 81mg Take 1 U nivers mg EC 8-02 tablet by ity of tablet 00:00: mouth [place] 00 daily. Medical Branch foLIC acid 0 Yes [id number] 1mg Take 1 U nivers 1 mg tablet 8-02 tablet by ity of 00:00: mouth [place] 00 daily. Medical Branch aspirin 81 2020-0 Yes [id number] 81mg Take 1 U nivers mg EC 8-02 tablet by ity of tablet 00:00: mouth [place] 00 daily. Medical Branch foLIC acid 2020-0 Yes [id number] 1mg Take 1 U nivers 1 mg tablet 8-02 tablet by ity of 00:00: mouth [place] 00 daily. Medical Branch aspirin 81 2020-0 Yes [id number] 81mg Take 1 U nivers mg EC 8-02 tablet by ity of tablet 00:00: mouth [place] 00 daily. Medical Branch foLIC acid 2020-0 Yes [id number] 1mg Take 1 U nivers 1 mg tablet 8-02 tablet by ity of 00:00: mouth [place] 00 daily. Medical Branch aspirin 81 2020-0 Yes [id number] 81mg Take 1 U nivers mg EC 8-02 tablet by ity of tablet 00:00: mouth [place] 00 daily. Medical Branch foLIC acid 2020-0 Yes [id number] 1mg Take 1 U nivers 1 mg tablet 8-02 tablet by ity of 00:00: mouth [place] 00 daily. Medical Branch aspirin 81 2020-0 Yes [id number] 81mg Take 1 U nivers mg EC 8-02 tablet by ity of tablet 00:00: mouth [place] 00 daily. Medical Branch foLIC acid 2020-0 Yes [id number] 1mg Take 1 U nivers 1 mg tablet 8-02 tablet by ity of 00:00: mouth [place] 00 daily. Medical Branch aspirin 81 2020-0 Yes [id number] 81mg Take 1 U nivers mg EC 8-02 tablet by ity of tablet 00:00: mouth [place] 00 daily. Medical Branch foLIC acid 2020-0 Yes [id number] 1mg Take 1 U nivers 1 mg tablet 8-02 tablet by ity of 00:00: mouth [place] 00 daily. Medical Branch aspirin 81 2020-0 Yes [id number] 81mg Take 1 U nivers mg EC 8-02 tablet by ity of tablet 00:00: mouth [place] 00 daily. Medical Branch foLIC acid 2020-0 Yes [id number] 1mg Take 1 U nivers 1 mg tablet 8-02 tablet by ity of 00:00: mouth [place] 00 daily. Medical Branch aspirin 81 2020-0 Yes [id number] 81mg Take 1 U nivers mg EC 8-02 tablet by ity of tablet 00:00: mouth [place] 00 daily. Medical Branch foLIC acid 2020-0 Yes [id number] 1mg Take 1 U nivers 1 mg tablet 8-02 tablet by ity of 00:00: mouth [place] 00 daily. Medical Branch aspirin 81 2021-0 Yes [id number] 81mg Take 1 U nivers mg EC 8-02 tablet by ity of tablet 00:00: mouth [place] 00 daily. Medical Branch foLIC acid Yes [id number] 1mg Take 1 U nivers 1 mg tablet 8- tablet by ity of 00:00: mouth [place] 00 daily. Medical Branch aspirin 81 Yes [id number] 81mg Take 1 U nivers mg EC 8-02 tablet by ity of tablet 00:00: mouth [place] 00 daily. Medical Branch foLIC acid Yes [id number] 1mg Take 1 U nivers 1 mg tablet 8- tablet by ity of 00:00: mouth [place] 00 daily. Medical Branch aspirin 81 2021- No [id number] 81mg Take 1 Univers mg EC 05-20 tablet by ity of tablet 00:00: 00:00 mouth [place] 00 :00 daily. Medical Branch foLIC acid 2021- No [id number] 1mg Take 1 Univers 1 mg tablet 05-20 tablet by it y of 00:00: 00:00 mouth [place] 00 :00 daily. Medical Branch aspirin 81 2021- No [id number] 81mg Take 1 Univers mg EC 05-20 tablet by ity of tablet 00:00: 00:00 mouth [place] 00 :00 daily. Medical Branch foLIC acid 2020-2- No [id number] 1mg Take 1 Univers 1 mg tablet 05-20 tablet by it y of 00:00: 00:00 mouth [place] 00 :00 daily. Medical Branch aspirin 81 2021- No [id number] 81mg Take 1 Univers mg EC 05-20 tablet by ity of tablet 00:00: 00:00 mouth [place] 00 :00 daily. Medical Branch foLIC acid 2020-2- No [id number] 1mg Take 1 Univers 1 mg tablet 05-20 tablet by it y of 00:00: 00:00 mouth [place] 00 :00 daily. Medical Branch aspirin 81 2020-2021- No [id number] 81mg Take 1 Univers mg EC 05-20 tablet by ity of tablet 00:00: 00:00 mouth [place] 00 :00 daily. Medical Branch foLIC acid 2021- No [id number] 1mg Take 1 Univers 1 mg tablet 05-20 tablet by it y of 00:00: 00:00 mouth [place] 00 :00 daily. Medical Branch ascorbic 2020- No [id number] 500mg Take 1 U nivers acid, 05-20 tablet by ity of vitamin C, 00:00: 00:00 mouth [place] 500 mg 00 :00 every Medical tablet other day. Branch ascorbic 2020- No [id number] 500mg Take 1 U nivers acid, 05-20 tablet by ity of vitamin C, 00:00: 00:00 mouth [place] 500 mg 00 :00 every Medical tablet other day. Branch ascorbic 2020- No [id number] 500mg Take 1 U nivers acid, 05-20 tablet by ity of vitamin C, 00:00: 00:00 mouth [place] 500 mg 00 :00 every Medical tablet other day. Branch ferrous 2020- No [id number] 325mg Take 1 Un yaneth sulfate 05-20 tablet by ity of (IRON, 00:00: 00:00 mouth [place] FERROUS 00 :00 every Medical SULFATE,) other day. Bran ch 325 mg (65 mg iron) tablet medroxyprog medroxyprog 2020-0 No 150ug [facility] esterone ac esterone ac 6-11 S pirit 00:00: - [facility] medroxyprog medroxyprog 2020-0 No 150ug [facility] esterone ac esterone ac 6-11 S pirit 00:00: - [facility] medroxyprog medroxyprog 2020-0 No 150ug [facility] esterone ac esterone ac 6-11 S pirit 00:00: - [facility] 00 [facility] medroxyprog medroxyprog 2020-0 No 150mL [facility] esterone ac esterone ac 3-12 S pirit 00:00: - [facility] 00 [facility] medroxyprog medroxyprog 2020-0 No 150mL Common esterone ac esterone ac 3-12 S pirit 00:00: - [facility] 00 [facility] medroxyprog medroxyprog 2020-0 No 150mL Common esterone ac esterone ac 3-12 S pirit 00:00: - [facility] medroxyprog medroxyprog 2019- No 150mg Common esterone ac esterone ac 2-12 S pirit 00:00: - [facility] 00 [facility] medroxyprog medroxyprog 2018- No 150mg Common esterone ac esterone ac 2-12 S pirit 00:00: - [facility] 00 [facility] medroxyprog medroxyprog 2018- No 150mg Common esterone ac esterone ac 2-12 S pirit 00:00: - [facility] 00 [facility] Omeprazole Omeprazole 2018- Yes Gabe 1 capsule Common 1-12 Ho[place] 30 minutes Spirit 00:00: before - [facility] 00 morning [facility] Omeprazole Omeprazole 2018- No QD Omeprazole 40 MG 40 MG 1-12 40 MG 00:00: 00 Omeprazole Omeprazole 2018-10 No QD Omeprazole 40 MG 40 MG 1-12 40 MG 00:00: 00 Omeprazole Omeprazole 2018-10 No QD Omeprazole 40 MG 40 MG 1-12 40 MG 00:00: 00 Immunizations Ordered Filled Immunization Date Status Comments [facility] e Immunization Name Name HPV9 2021-11-03 Completed University of 00:00:00 [facility] HPV9 2021-11-03 Completed University of 00:00:00 [facility] HPV9 2021-11-03 Completed University of 00:00:00 [facility] HPV9 2021-11-03 Completed University of 00:00:00 [facility] HPV9 2021-11-03 Completed University of 00:00:00 [facility] HPV9 2021-11-03 Completed University of 00:00:00 [facility] HPV9 2021-11-03 Completed University of 00:00:00 [facility] HPV9 2021-11-03 Completed University of 00:00:00 [facility] HPV9 2021-11-03 Completed University of 00:00:00 [facility] HPV9 2021-11-03 Completed University of 00:00:00 [facility] HPV9 2021-11-03 Completed University of 00:00:00 [facility] HPV9 2021-11-03 Completed University of 00:00:00 [facility] HPV9 2021-11-03 Completed University of 00:00:00 [facility] TDAP 2021-09-19 Completed University of 00:00:00 [facility] TDAP 2021-09-19 Completed University of 00:00:00 [facility] TDAP 2021-09-19 Completed University of 00:00:00 [facility] TDAP 2021-09-19 Completed University of 00:00:00 [facility] TDAP 2021-09-19 Completed University of 00:00:00 [facility] TDAP 2021-09-19 Completed University of 00:00:00 [facility] TDAP 2021-09-19 Completed University of 00:00:00 [facility] TDAP 2021-09-19 Completed University of 00:00:00 [facility] TDAP 2021-09-19 Completed University of 00:00:00 [facility] TDAP 2021-09-19 Completed University of 00:00:00 [facility] TDAP 2021-09-19 Completed University of 00:00:00 [facility] TDAP 2021-09-19 Completed University of 00:00:00 [facility] TDAP 2021-09-19 Completed University of 00:00:00 [facility] TDAP 2021-09-19 Completed University of 00:00:00 [facility] TDAP 2021-09-19 Completed University of 00:00:00 [facility] TDAP 2021-09-19 Completed University of 00:00:00 [facility] TDAP 2021-09-19 Completed University of 00:00:00 [facility] TDAP 2021-09-19 Completed University of 00:00:00 [facility] TDAP 2021-09-19 Completed University of 00:00:00 [facility] TDAP 2021-09-19 Completed University of 00:00:00 [facility] TDAP 2021-09-19 Completed University of 00:00:00 [facility] TDAP 2021-09-19 Completed University of 00:00:00 [facility] TDAP 2021-09-19 Completed University of 00:00:00 [facility] [place] TDAP 2021-09-19 Completed University of 00:00:00 [facility] TDAP 2021-09-19 Completed University of 00:00:00 [facility] TDAP 2021-09-19 Completed [facility] 00[facility]00:00 [facility] TDAP 2021-09-19 Completed [facility] of 00:00:00 [facility] SARS-COV-2 COVID-19 2021-08-21 Completed Unive rsity of MODERNA VACCINE 00:00:00 [facility] ical Branch SARS-COV-2 COVID-19 2021-08-21 Completed Unive rsity of [facility]ERNA VACCINE 00:00:00 [facility] SARS-COV-2 COVID-19 2021-08-21 Completed Unive rsity of MODERNA VACCINE 00:00:00 [facility] SARS-COV-2 COVID-19 2021-08-21 Completed Unive rsity of MODERNA VACCINE 00:00:00 [facility] SARS-COV-2 COVID-19 2021-08-21 Completed Unive rsity of MODERNA VACCINE 00:00:00 [facility] ical Branch SARS-COV-2 COVID-19 2021-08-21 Completed Unive rsity of MODERNA VACCINE 00:00:00 [facility] ical Branch SARS-COV-2 COVID-19 2021-08-21 Completed Unive rsity of MODERNA VACCINE 00:00:00 [facility] ical Branch SARS-COV-2 COVID-19 2021-08-21 Completed Unive rsity of MODERNA VACCINE 00:00:00 [facility] ical Branch SARS-COV-2 COVID-19 2021-08-21 Completed Unive rsity of MODERNA VACCINE 00:00:00 [facility] ical Branch SARS-COV-2 COVID-19 2021-08-21 Completed Unive rsity of MODERNA VACCINE 00:00:00 [facility] ical Branch SARS-COV-2 COVID-19 2021-08-21 Completed Unive rsity of MODERNA VACCINE 00:00:00 [facility] ical Branch SARS-COV-2 COVID-19 2021-08-21 Completed Unive rsity of MODERNA VACCINE 00:00:00 [facility] SARS-COV-2 COVID-19 2021-08-21 Completed Unive rsity of MODERNA VACCINE 00:00:00 [facility] ical Branch SARS-COV-2 COVID-19 2021-08-21 Completed Unive rsity of MODERNA VACCINE 00:00:00 [facility] ical Branch SARS-COV-2 COVID-19 2021-08-21 Completed Unive rsity of MODERNA VACCINE 00:00:00 [place] [facility] SARS-COV-2 COVID-19 2021-08-21 Completed Unive rsity of MODERNA VACCINE 00:00:00 [place] [facility] SARS-COV-2 COVID-19 2021-08-21 Completed Unive rsity of MODERNA VACCINE 00:00:00 [place] [facility] SARS-COV-2 COVID-19 2021-08-21 Completed Unive rsity of MODERNA VACCINE 00:00:00 [place] [facility] SARS-COV-2 COVID-19 2021-08-21 Completed Unive rsity of MODERNA VACCINE 00:00:00 [place] [facility] SARS-COV-2 COVID-19 2021-08-21 Completed Unive rsity of MODERNA VACCINE 00:00:00 [place] [facility] SARS-COV-2 COVID-19 2021-08-21 Completed Unive rsity of MODERNA VACCINE 00:00:00 [place] [facility] SARS-COV-2 COVID-19 2021-08-21 Completed Unive rsity of MODERNA VACCINE 00:00:00 [place] [facility] SARS-COV-2 COVID-19 2021-08-21 Completed Unive rsity of MODERNA VACCINE 00:00:00 [place] [facility] SARS-COV-2 COVID-19 2021-08-21 Completed Unive rsity of MODERNA VACCINE 00:00:00 [place] [facility] SARS-COV-2 COVID-19 2021-08-21 Completed Unive rsity of MODERNA VACCINE 00:00:00 [place] [facility] SARS-COV-2 COVID-19 2021-08-21 Completed Unive rsity of MODERNA VACCINE 00:00:00 [place] [facility] SARS-COV-2 COVID-19 2021-08-21 Completed Unive rsity of MODERNA VACCINE 00:00:00 [place] [facility] SARS-COV-2 COVID-19 2021-08-21 Completed Unive rsity of MODERNA VACCINE 00:00:00 [place] [facility] SARS-COV-2 COVID-19 2021-07-23 Completed Unive rsity of MODERNA VACCINE 00:00:00 [place] [facility] SARS-COV-2 COVID-19 2021-07-23 Completed Unive rsity of MODERNA VACCINE 00:00:00 [place] [facility] SARS-COV-2 COVID-19 2021-07-23 Completed Unive rsity of MODERNA VACCINE 00:00:00 [place] [facility] SARS-COV-2 COVID-19 2021-07-23 Completed Unive rsity of MODERNA VACCINE 00:00:00 [place] [facility] SARS-COV-2 COVID-19 2021-07-23 Completed Unive rsity of MODERNA VACCINE 00:00:00 [place] [facility] SARS-COV-2 COVID-19 2021-07-23 Completed Unive rsity of MODERNA VACCINE 00:00:00 [place] [facility] SARS-COV-2 COVID-19 2021-07-23 Completed Unive rsity of MODERNA VACCINE 00:00:00 [place] [facility] SARS-COV-2 COVID-19 2021-07-23 Completed Unive rsity of MODERNA VACCINE 00:00:00 [place] [facility] SARS-COV-2 COVID-19 2021-07-23 Completed Unive rsity of MODERNA VACCINE 00:00:00 [place] [facility] SARS-COV-2 COVID-19 2021-07-23 Completed Unive rsity of MODERNA VACCINE 00:00:00 [place] [facility] SARS-COV-2 COVID-19 2021-07-23 Completed Unive rsity of MODERNA VACCINE 00:00:00 [facility] SARS-COV-2 COVID-19 2021-07-23 Completed Unive rsity of MODERNA VACCINE 00:00:00 [place] [facility] SARS-COV-2 COVID-19 2021-07-23 Completed Unive rsity of MODERNA VACCINE 00:00:00 [place] [facility] SARS-COV-2 COVID-19 2021-07-23 Completed Unive rsity of MODERNA VACCINE 00:00:00 [place] [facility] SARS-COV-2 COVID-19 2021-07-23 Completed Unive rsity of MODERNA VACCINE 00:00:00 [facility] SARS-COV-2 COVID-19 2021-07-23 Completed Unive rsity of MODERNA VACCINE 00:00:00 [facility] SARS-COV-2 COVID-19 2021-07-23 Completed [facility]ive rsity of MODERNA VACCINE 00:00:00 [facility] SARS-COV-2 COVID-19 2021-07-23 Completed Unive rsity of MODERNA VACCINE 00:00:00 [facility] SARS-COV-2 COVID-19 2021-07-23 Completed Unive rsity of MODERNA VACCINE 00:00:00 [facility] SARS-COV-2 COVID-19 2021-07-23 Completed Unive rsity of MODERNA VACCINE 00:00:00 [facility] SARS-COV-2 COVID-19 2021-07-23 Completed Unive rsity of MODERNA VACCINE 00:00:00 [facility] SARS-COV-2 COVID-19 2021-07-23 Completed Unive rsity of MODERNA VACCINE 00:00:00 [facility] SARS-COV-2 COVID-19 2021-07-23 Completed Unive rsity of MODERNA VACCINE 00:00:00 [facility] SARS-COV-2 COVID-19 2021-07-23 Completed Unive rsity of MODERNA VACCINE 00:00:00 [facility] SARS-COV-2 COVID-19 2021-07-23 Completed Unive rsity of MODERNA VACCINE 00:00:00 [facility] SARS-COV-2 COVID-19 2021-07-23 Completed Unive rsity of MODERNA VACCINE 00:00:00 [facility] SARS-COV-2 COVID-19 2021-07-23 Completed Unive rsity of MODERNA VACCINE 00:00:00 [facility] SARS-COV-2 COVID-19 2021-07-23 Completed Unive rsity of MODERNA VACCINE 00:00:00 [facility] Influenza Virus 2021-07-11 Completed Universit y of Vaccine 00:00:00 [facility] Influenza Virus 2021-07-11 Completed Universit y of Vaccine 00:00:00 [facility] Influenza Virus 2021-07-11 Completed Universit y of Vaccine 00:00:00 [facility] Influenza Virus 2021-07-11 Completed Universit y of Vaccine 00:00:00 [facility] Influenza Virus 2021-07-11 Completed Universit y of Vaccine 00:00:00 [facility] Influenza Virus 2021-07-11 Completed Universit y of Vaccine 00:00:00 [facility] Influenza Virus 2021-07-11 Completed Universit y of Vaccine 00:00:00 [facility] Influenza Virus 2021-07-11 Completed Universit y of Vaccine 00:00:00 [facility] Influenza Virus 2021-07-11 Completed Universit y of Vaccine 00:00:00 [facility] Influenza Virus 2021-07-11 Completed Universit y of Vaccine 00:00:00 [facility] Influenza Virus 2021-07-11 Completed Universit y of Vaccine 00:00:00 [facility] Influenza Virus 2021-07-11 Completed Universit y of Vaccine 00:00:00 [facility] Influenza Virus 2021-07-11 Completed Universit y of Vaccine 00:00:00 [facility] Influenza Virus 2021-07-11 Completed Universit y of Vaccine 00:00:00 [facility] Influenza Virus 2021-07-11 Completed Universit y of Vaccine 00:00:00 [facility] Influenza Virus 2021-07-11 Completed Universit y of Vaccine 00:00:00 [facility] Influenza Virus 2021-07-11 Completed Universit y of Vaccine 00:00:00 [facility] Influenza Virus 2021-07-11 Completed Universit y of Vaccine 00:00:00 [facility] Influenza Virus 2021-07-11 Completed Universit y of Vaccine 00:00:00 [facility] Influenza Virus 2021-07-11 Completed Universit y of Vaccine 00:00:00 [facility] Influenza Virus 2021-07-11 Completed Universit y of Vaccine 00:00:00 [facility] Influenza Virus 2021-07-11 Completed Universit y of Vaccine 00:00:00 [facility] Influenza Virus 2021-07-11 Completed Universit y of Vaccine 00:00:00 [facility] Influenza Virus 2021-07-11 Completed Universit y of Vaccine 00:00:00 [facility] Influenza Virus 2021-07-11 Completed Universit y of Vaccine 00:00:00 [facility] Influenza Virus 2021-07-11 Completed Universit y of Vaccine 00:00:00 [facility] Influenza Virus 2021-07-11 Completed Universit y of Vaccine 00:00:00 [facility] Influenza Virus 2021-07-11 Completed Universit y of Vaccine 00:00:00 [facility] Influenza Virus 2021-07-11 Completed Universit y of Vaccine 00:00:00 [facility] Influenza Virus 2020-08-02 Completed Universit y of Vaccine 00:00:00 [facility] Influenza Virus 2020-08-02 Completed Universit y of Vaccine 00:00:00 [facility] Influenza Virus 2020-08-02 Completed Universit y of Vaccine 00:00:00 [facility] Influenza Virus 2020-08-02 Completed Universit y of Vaccine 00:00:00 [facility] Influenza Virus 2020-08-02 Completed Universit y of Vaccine 00:00:00 [facility] Influenza Virus 2020-08-02 Completed Universit y of Vaccine 00:00:00 [facility] Influenza Virus 2020-08-02 Completed Universit y of Vaccine 00:00:00 [facility] Influenza Virus 2020-08-02 Completed Universit y of Vaccine 00:00:00 [facility] Influenza Virus 2020-08-02 Completed Universit y of Vaccine 00:00:00 [facility] Influenza Virus 2020-08-02 Completed Universit y of Vaccine 00:00:00 [facility] Influenza Virus 2020-08-02 Completed Universit y of Vaccine 00:00:00 [facility] Influenza Virus 2020-08-02 Completed Universit y of Vaccine 00:00:00 [facility] Influenza Virus 2020-08-02 Completed Universit y of Vaccine 00:00:00 [facility] Influenza Virus 2020-08-02 Completed Universit y of Vaccine 00:00:00 [facility] Influenza Virus 2020-08-02 Completed Universit y of Vaccine 00:00:00 [facility] Influenza Virus 2020-08-02 Completed Universit y of Vaccine 00:00:00 [facility] Influenza Virus 2020-08-02 Completed Universit y of Vaccine 00:00:00 [facility] Influenza Virus 2020-08-02 Completed Universit y of Vaccine 00:00:00 [facility] Influenza Virus 2020-08-02 Completed Universit y of Vaccine 00:00:00 [facility] Influenza Virus 2020-08-02 Completed Universit y of Vaccine 00:00:00 [facility] Influenza Virus 2020-08-02 Completed Universit y of Vaccine 00:00:00 [facility] Influenza Virus 2020-08-02 Completed Universit y of Vaccine 00:00:00 [facility] Influenza Virus 2020-08-02 Completed Universit y of Vaccine 00:00:00 [facility] Influenza Virus 2020-08-02 Completed Universit y of Vaccine 00:00:00 [facility] Influenza Virus 2020-08-02 Completed Universit y of Vaccine 00:00:00 [facility] Influenza Virus 2020-08-02 Completed Universit y of Vaccine 00:00:00 [facility] Influenza Virus 2020-08-02 Completed Universit y of Vaccine 00:00:00 [facility] Influenza Virus 2020-08-02 Completed Universit y of Vaccine 00:00:00 [facility] Influenza Virus 2020-08-02 Completed Universit y of Vaccine 00:00:00 [facility] Adacel (Tdap) Adacel (Tdap) 2018-08-24 Completed [facility] - 14:04:00 [facility] Adacel (Tdap) Adacel (Tdap) 2018-08-24 Completed [facility] - 14:04:00 [facility] Adacel (Tdap) Adacel (Tdap) 2018-08-24 Completed Common S pirit - 14:04:00 [facility] Vital Signs Vital Name Observation Time Observation Value Comments Source height 2022-05-09 13:40:00 63 [in_i] [facility] weight 2022-05-09 13:40:00 229.2 [lb_av] [facility] temperature 2022-05-09 13:40:00 97.7 [degF] [facility] bmi 2022-05-09 13:40:00 40.6 kg/m2 [facility] oximetry 2022-05-09 13:40:00 100 % [facility] respiratory rate 2022-05-09 13:40:00 17 /min Comm on [facility] blood pressure 2022-05-09 13:40:00 132 mm[Hg] [facility] - systolic [facility] blood pressure 2022-05-09 13:40:00 68 mm[Hg] [facility] diastolic [facility] Systolic blood 2022-04-08 16:22:00 140 mm[Hg] [facility] Diastolic blood 2022-04-08 16:22:00 94 mm[facility]Hg] [facility] Heart rate 2022-04-08 16:22:00 110 /min [facility] height 2022-04-08 16:22:00 160 [facility] weight 2022-04-08 16:22:00 [facility]235 [facility] BMI 2022-04-08 16:22:00 41.10 [facility] 2021-12-04 19:51:00 124 mm[Hg] Univer [facility]ity of pressure [facility] Diastolic blood 2021-12-04 19:51:00 82 mm[Hg] Unive rsity of pressure [facility] Heart rate 2021-12-04 19:51:00 88 /min Universi ty of [facility] Body temperature 2021-12-04 19:51:00 36.67 Valerie Univ ersity of [facility] Respiratory rate 2021-12-04 19:51:00 20 /min Univ ersity of [facility] Body height 2021-12-04 19:51:00 160 cm [facility]i [facility] Body weight 2021-12-04 19:51:00 99.366 kg [facility]i [facility] BMI 2021-12-04 19:51:00 38.81 kg/m2 [facility] Systolic blood 2021-11-25 17:18:00 107 mm[Hg] Univer sity of pressure [facility] Diastolic blood 2021-11-25 17:18:00 71 mm[Hg] Unive rsity of pressure [facility] Heart rate 2021-11-25 17:18:00 105 /min [facility]i [facility] Body temperature 2021-11-25 17:18:00 36.67 Valerie Univ ersity of [facility] Respiratory rate 2021-11-25 17:18:00 20 /min Univ ersity of [facility] Body height 2021-11-25 17:18:00 160 cm [facility]i [facility] of [facility] Body weight 2021-11-25 17:18:00 98.941 kg [facility] BMI 2021-11-25 17:18:00 38.64 kg/m2 Universi ty of [facility] Systolic blood 2021-11-08 17:30:00 129 mm[Hg] Univer sity of pressure [facility] Diastolic blood 2021-11-08 17:30:00 72 mm[Hg] Unive rsity of pressure [facility] Heart rate 2021-11-08 17:30:00 110 /min Universi ty of [facility] Body temperature 2021-11-08 17:30:00 36.67 Valerie Univ ersity of [facility] Respiratory rate 2021-11-08 17:30:00 18 /min Univ ersity of [facility] Body height 2021-11-08 17:30:00 160 cm Universi ty of [facility] Body weight 2021-11-08 17:30:00 105.036 kg Universi ty of [facility] BMI 2021-11-08 17:30:00 41.02 kg/m2 Universi ty of [facility] Systolic blood 2021-11-06 15:15:00 139 mm[Hg] Univer sity of pressure [facility] Diastolic blood 2021-11-06 15:15:00 83 mm[Hg] Unive rsity of pressure [facility] Heart rate 2021-11-06 15:15:00 79 /min Universi ty of [facility] Body temperature 2021-11-06 15:15:00 36.89 Valerie Univ ersity of [facility] Respiratory rate 2021-11-06 15:15:00 16 /[facility] Oxygen saturation in 2021-11-06 15:15:00 100 /min [facility] Arterial blood by [facility] Pulse oximetry Branch Body weight 2021-11-05 13:20:00 122.471 kg Universi ty of [facility] BMI 2021-11-05 13:20:00 47.83 kg/m2 Universi ty of [facility] Systolic blood 2021-11-04 14:16:00 133 mm[Hg] Univer sity of pressure [facility] Diastolic blood 2021-11-04 14:16:00 78 mm[Hg] Unive rsity of pressure [facility] Heart rate 2021-11-04 14:16:00 70 /min Universi ty of [facility] Body temperature 2021-11-04 14:16:00 36.67 Valerie Univ ersity of [facility] Respiratory rate 2021-11-04 14:16:00 18 /min Univ ersity of [facility] Oxygen saturation in 2021-11-04 14:16:00 98 /min University of Arterial blood by [facility] Pulse oximetry Branch Body height 2021-10-31 20:58:00 160 cm [facility]i [facility] of [facility] Body weight 2021-10-31 20:58:00 122.925 kg [facility]i [facility] BMI 2021-10-31 20:58:00 48.01 kg/m2 [facility] Systolic blood 2021-11-01 15:40:00 170 mm[Hg] Univer sity of pressure [facility] Diastolic blood 2021-11-01 15:40:00 70 mm[Hg] Unive rsity of pressure [facility] Heart rate 2021-11-01 15:40:00 110 /min [facility]i ty of [facility] Oxygen saturation in 2021-11-01 15:40:00 100 /min University of Arterial blood by [facility] Pulse oximetry Branch Respiratory rate 2021-11-01 10:30:00 17 /min Univ ersity of [facility] Body temperature 2021-11-01 03:30:00 36.67 Valerie Univ ersity of [facility] Body height 2021-10-31 20:58:00 160 cm [facility]i [facility] Body weight 2021-10-31 20:58:00 122.925 kg [facility] BMI 2021-10-31 20:58:00 48.01 kg/m2 [facility] Systolic blood 2021-10-31 18:02:00 143 mm[Hg] Univer sity of pressure [facility] Diastolic blood 2021-10-31 18:02:00 99 mm[Hg] Unive rsity of pressure [facility] Heart rate 2021-10-31 18:01:00 98 /min [facility]i [facility] Body temperature 2021-10-31 18:01:00 36.61 Valerie Univ ersity of [facility] Respiratory rate 2021-10-31 18:01:00 18 /min Univ ersity of [facility] Body weight 2021-10-31 18:01:00 123.197 kg [facility] BMI 2021-10-31 18:01:00 48.11 kg/m2 [facility] Oxygen saturation in 2021-10-31 18:01:00 98 /min University of Arterial blood by [facility] Pulse oximetry Branch Systolic blood 2021-10-24 22:02:00 139 mm[Hg] Univer sity of pressure [facility] Diastolic blood 2021-10-24 22:02:00 84 mm[Hg] Unive rsity of pressure [facility] Heart rate 2021-10-24 22:02:00 88 /min [facility]i [facility] Respiratory rate 2021-10-24 22:02:00 20 /min Univ ersity of [facility] Body weight 2021-10-24 22:02:00 116.121 kg [facility] BMI 2021-10-24 22:02:00 45.35 kg/m2 [facility] Oxygen saturation in 2021-10-24 22:02:00 98 /min University of Arterial blood by [facility] Pulse oximetry Branch Systolic blood 2021-10-21 14:09:00 129 mm[Hg] Univer sity of pressure [facility] Diastolic blood 2021-10-21 14:09:00 83 mm[Hg] Unive rsity of pressure [facility] Heart rate 2021-10-21 14:09:00 96 /min [facility]i ty of [facility] Body temperature 2021-10-21 14:09:00 36.61 Valerie Univ ersity of [facility] Respiratory rate 2021-10-21 14:09:00 18 /min Univ ersity of [facility] Body height 2021-10-21 14:09:00 160 cm [facility] Body weight 2021-10-21 14:09:00 116.121 kg [facility] BMI 2021-10-21 14:09:00 45.35 kg/m2 [facility] Systolic blood 2021-10-17 20:31:00 135 mm[Hg] Univer sity of pressure [facility] Diastolic blood 2021-10-17 20:31:00 79 mm[Hg] Unive rsity of pressure [facility] Heart rate 2021-10-17 20:31:00 97 /min Universi ty of [facility] Body temperature 2021-10-17 20:31:00 36.94 Valerie [facility] ersity of [facility] Respiratory rate 2021-10-17 20:31:00 18 /min Univ ersity of [facility] Body height 2021-10-17 20:31:00 160 cm Universi ty of [facility] Body weight 2021-10-17 20:31:00 116.665 kg Universi ty of [facility] BMI 2021-10-17 20:31:00 45.56 kg/m2 Universi ty of [facility] Systolic blood 2021-10-03 17:13:00 133 mm[Hg] Univer sity of [facility] Diastolic blood 2021-10-03 17:13:00 84 mm[Hg] Unive rsity of [facility] Heart rate 2021-10-03 17:12:00 101 /min Universi ty of [facility] Body temperature 2021-10-03 17:12:00 36.44 Valerie [facility] Respiratory rate 2021-10-03 17:12:00 18 /min Univ ersity [facility] Body height 2021-10-03 17:12:00 160 cm Universi ty of [facility] Body weight 2021-10-03 17:12:00 113.535 kg Universi ty of [facility] BMI 2021-10-03 17:12:00 44.34 kg/m2 Universi ty [facility] Procedures Procedure Date / Time Performing Clinician Source Performed DISABILITY/FMLA 2021-12-26 06:01:00 Doctor [facility] D[facility]/SUPPLY JUSTIFICATION 2021-11-07 06:01:00 Doctor Unassigned, No [facility] COMP. METABOLIC PANEL 2021-11-05 14:39:00 Jake Sue [facility] ([id number]) [facility] CBC WITH DIFF 2021-11-05 14:39:00 Vikram [facility] PROTEIN CREAT RATIO 2021-11-05 14:39:00 Jake Sue [facility] URINE RANDOM [facility] COVID-19 (ID NOW RAPID 2021-11-05 14:39:00 Jake Sue [facility] TESTING) Medical Branch NOTICE OF PRIVACY 2021-11-05 13:11:34 Doctor Unassigned, No [facility] PRACTICES Name Medical Branch CONSENT/REFUSAL FOR 2021-11-05 13:11:03 [facility] Name [facility] CBC WITH DIFF 2021-11-02 14:15:00 [facility] CBC WITH DIFF 2021-11-02 [facility]02 [facility] 2021-11-02 10:37:00 [facility] VENOUS CORD GAS 2021-11-01 [facility]:00[facility] 2021-11-01 [facility]:00[facility] [place] [facility] CORD GAS 2021-11-01 16:59:00 Lesly [facility] VENOUS CORD GAS 2021-11-01 16:59:00 [facility] SECTION 2021-11-01 15:52:00 Jamie Gonzalez [facility] MAGNESIUM 2021-11-01 13:58:00 Kishan [facility] MAGNESIUM 2021-11-01 13:58:00 [facility] CBC WITH DIFF 2021-11-01 01:06:00 Raimundo Meyer [facility] CBC WITH DIFF 2021-11-01 01:06:00 Raimundo Meyer [facility] SGOT (ASPARTATE AMINO 2021-11-01 00:56:00 Kae Grace [facility] TRANSFER) Medical Branch CREATININE 2021-11-01 00:56:00 Lesly [facility] ALANINE AMINO 2021-11-01 00:56:00 Lesly [facility] TRANSFERASE(SGPT Medical Branch LACTATE DEHYDROGENASE 2021-11-01 00:56:00 Lesly [facility] URIC ACID 2021-11-01 00:56:00 Lesly [facility] URINALYSIS 2021-11-01 00:56:00 Lesly, [facility] HEPATITIS B SURFACE 2021-11-01 00:56:00 Lesly [facility] ANTIGEN [facility] GALV ONLY - SYPHILIS 2021-11-01 00:56:00 Lesly [facility] IGG/IGM [facility] SGOT (ASPARTATE AMINO 2021-11-01 00:56:00 Lesly [facility] TRANSFER) Medical Branch CREATININE 2021-11-01 00:56:00 Lesly [facility] ALANINE AMINO 2021-11-01 00:56:00 Lesly [facility] TRANSFERASE(SGPT Medical Branch LACTATE DEHYDROGENASE 2021-11-01 00:56:00 Lesly [facility] URIC ACID 2021-11-01 00:56:00 Lesly [facility] URINALYSIS 2021-11-01 00:56:00 Lesly [facility] HEPATITIS B SURFACE 2021-11-01 00:56:00 [facility] GALV ONLY - [place] 2021-11-01 00:56:00 Lesly [facility] IGG/IGM [facility] HB ABO GROUPING 2021-11-01 00:53:00 Raimundo Meyer [facility] RHO (D) IMMUNE GLOBULIN 2021-11-01 00:53:00 [facility] HB ABO GROUPING 2021-11-01 00:53:00 Raimundo Meyer [facility] RHO (D) IMMUNE GLOBULIN 2021-11-01 00:53:00 [facility] POCT GLUCOSE (AUTOMATED) 2021-11-01 00:07:00 Can White, [facility] POCT GLUCOSE (AUTOMATED) 2021-11-01 00:07:00 Can White, [facility] COVID-19 (ID NOW RAPID 2021-11-01 00:02:00 Can White [facility] TESTING) [facility] COVID-19 (ID NOW RAPID 2021-11-01 00:02:00 Can White, [facility] TESTING) [facility] HB ABO GROUPING 2021-10-31 20:45:00 Fish, [facility] HB ABO GROUPING 2021-10-31 20:45:00 Fish, [facility] URIC ACID 2021-10-31 20:37:00 Fish, [facility] COMP. METABOLIC PANEL 2021-10-31 20:37:00 Fish, [facility] ([id number]) [facility] CBC WITH DIFF 2021-10-31 20:37:00 Fish, [facility] HEPATITIS B SURFACE 2021-10-31 20:37:00 Fish, [facility] ANTIGEN [facility] GROUP B STREPTOCOCCUS BY 2021-10-31 20:37:00 Fish, Jake [facility] ADC OR ABDOULAYE PRABHAKAR - 2021-10-31 20:37:00 Fish, [facility] RPR [facility] PROTEIN CREAT RATIO 2021-10-31 20:37:00 Fish, Jake [facility] URINE RANDOM [facility] HIV 1/2 AG-AB WITH 2021-10-31 20:37:00 Fish, Jake [facility] REFLEX [facility] URIC ACID 2021-10-31 20:37:00 Fish, [facility] COMP. METABOLIC PANEL 2021-10-31 20:37:00 Fish, [facility] ([id number]) [facility] CBC WITH DIFF 2021-10-31 20:37:00 Fish, [facility] HEPATITIS B SURFACE 2021-10-31 20:37:00 Fish, [facility] ANTIGEN [facility] GROUP B STREPTOCOCCUS BY 2021-10-31 20:37:00 [facility] ABD[facility]LAYE ONLY - 2021-10-31 20:37:00 Jake Sue [facility] RPR [facility] PROTEIN CREAT RATIO 2021-10-31 20:37:00 Jake Sue [facility] URINE RANDOM [facility] HIV 1/2 AG-AB WITH 2021-10-31 20:37:00 Jake Sue [facility] REFLEX [facility] CONSENT/REFUSAL FOR 2021-10-31 18:30:18 Doctor Unassigned, No [facility] CONSENT/REFUSAL FOR 2021-10-31 18:30:18 Doctor Unassigned, [facility] ASSIGNMENT OF BENEFITS 2021-10-31 18:29:55 Doctor Unassigned, No [facility] ASSIGNMENT OF BENEFITS 2021-10-31 18:29:55 Doctor Unassigned, No [facility] POCT URINALYSIS W/O 2021-10-31 18:04:00 Jake Sue [facility] HOSPITAL ADMISSION 2021-10-31 06:01:00 Doctor Unassigned, No Uni [facility] INSURANCE CORRESPONDENCE 2021-10-29 06:01:00 Doctor Unassigned, No [facility] NON-STRESS TEST 2021-10-24 23:48:38 Jake Sue [facility] NON-STRESS TEST 2021-10-21 16:53:53 Ciro Sloane [facility] NON-STRESS TEST 2021-10-17 21:39:31 Sloane Haley [facility] POCT URINALYSIS W/O 2021-10-17 00:00:00 Shannon Tejeda [facility] INSURANCE CORRESPONDENCE 2021-10-14 06:01:00 Doctor Unassigned, No [facility] POCT URINALYSIS W/O 2021-10-03 17:14:00 Jake Sue [facility] PATIENT QUESTIONNAIRE 2021-09-26 06:01:00 Doctor Unassigned, No [facility] [place] Name Medical Branch Encounters Start End Encounter Admission Attending Care Care Encounter Source Date/Time Date/Time Type Type Clinicians Facility Department ID 2022-05-09 Outpatient Hopper, STLMLC STLMLC [id number] Common 13:37:01 [facility] 2022-05-02 Outpatient PAUL, [facility] [id number] [place] 11:51:10 DANDRE [id number] [facility] 2022-05-01 Outpatient PAUL, [facility] [id number] [place] 12:04:29 DANDRE [id number] [facility] 2022-04-30 Outpatient [facility] [id number] [place] 13:38:26 [id number] [facility] 2022-04-08 Outpatient WANG, [facility] [id number] [place] 11:05:08 SIGMUND [id number] [facility] 2022-03-28 Outpatient WANG, [facility] [id number] [place] 15:55:53 SIGMUND [id number] [facility] 2022-03-21 Outpatient [facility] [id number] [place] 12:43:48 [id number] [facility] 2022-03-20 Outpatient WANG, [facility] [id number] [place] 08:24:41 SIGMUND [id number] [facility] 2022-03-07 Outpatient WANG, [facility] [id number] [place] 10:31:39 SIGMUND [id number] [facility] 2021-11-13 Outpatient Hopper, STLMLC STLMLC [id number] Common 12:46:54 [facility] [id number] [facility] 2021-11-13 Outpatient Hopper, STLMLC STLMLC [id number] Common 11:13:15 [facility] [id number] [facility] 2021-11-13 Outpatient Hopper, STLMLC STLMLC [id number] Common 11:13:02 Gabe [id number] [facility] 2022-06-26 2022-06-26 (TEL) STLMLC STLMLC [id number] Co mmon 00:00:00 00:00:00 [facility] 2022-04-30 2022-05-29 Outpatient ES, [facility] [id number] [facility] 13:38:00 23:59:00 GELA 2022-05-09 2022-05-09 OFFICE STLMLC STLMLC [id number] Co mmon 00:00:00 00:00:00 VISIT EST Spir it PT LEVEL 3 - [facility] 2022-05-09 2022-05-09 (TEL) STLMLC STLMLC [id number] Co mmon 00:00:00 00:00:00 Spirit - [facility] 2022-05-07 2022-05-07 Outpatient PAUL, [facility] 7501 [facility] 05:11:00 21:10:00 DANDRE 2022-04-08 2022-04-08 Office Wang, UTP 6400 1.2.840.114 [id number] [place] 11:00:00 13:08:48 Visit Hubert [facility] 350.1.13.58 Health 9.2.7.2.686 [id number] 1 2021-12-26 2021-12-26 Orders Doctor KAYLA 1.2.840.114 [id number] Univers 00:00:00 00:00:00 Only Unassigned, SHANELL 350.1.13.10 ity of [place] [facility] 4.2.7.2.686 Nelson as [id number] [address] 2021-12-20 2021-12-[address] [facility] [id number] Univers 14:15:00 14:15:00 ity [facility] 2021-12-17 2021-12-[address] [facility] [id number] Univers 13:30:00 13:30:00 ity [facility] 2021-12-04 2021-12-[address] [facility] [id number] Univers 13:30:00 13:51:05 ity [facility] 2021-12-04 2021-12-04 Nurse Nurse, Edgarj [facility] 1.2.840.114 [id number] Univers 13:30:00 13:51:05 Visit Jake Sue 350.1.13.10 it[place] [id number] [address] 2021-12-04 2021-12-04 Telephone Jake Sue [facility] 1.2.840.11 [id number] Univers 00:00:00 00:00:00 KENTON 350.1.13.10 it y of WOMEN'S 4.2.7.2.686 [facility] HEALTH [id number] [address] 2021-11-25 2021-11-[address] [facility] [id number] Univers 11:00:00 12:02:04 ARMIDA fox o f [facility] 2021-11-25 2021-11-25 Routine Jake Sue [facility] 1.2.840.114 [id number] Univers 11:00:00 12:02:04 Armida Gonzalez 350.1.13.1 0 ity of Visit WOMEN'S 4.2.7.2.686 [facility] [id number] [address] 2021-11-14 2021-11-14 [address] CO[address] [facility] [id number] Univers 09:00:00 09:00:00 PANCHO COOMBS ity of [facility] 2021-11-12 2021-11-12 1.2.840.1 1.2.840.114 [id number] Univers 00:00:00 00:00:00 Encounter [id number] 350.1.13.10 it[place] of 3.104.2.7 [place][id number] 570 [facility] 2021-11-11 2021-11-11 1.2.840.1 1.2.840.114 [id number] Univers 00:00:00 00:00:00 Encounter [id number] 350.1.13.10 ity of 3.104.2.7 [place].696 [place] .2.773107 570 [facility] 2021-11-08 2021-11-[address] [facility] [facility] [id number] Univers 10:30:00 11:03:32 ity of [facility] 2021-11-08 2021-11-08 Nurse Nurse, Lkj [facility] 1.2.840.114 [id number] Univers 10:30:00 11:03:32 Visit Jake Sue [place] 350.1.13.10 ity of WOMEN'S 4.2.7.2.686 [facility] [id number] [facility] [address] 2021-11-07 2021-11-07 Orders Doctor GARZA 1.2.840.114 [id number] Univers 00:00:00 00:00:00 Only Unassigned, SHANELL 350.1.13.10 ity of [place] [facility] 4.2.7.2.686 [facility] [id number] [facility] 009 Branch 2021-11-05 2021-11-06 Outpatient P JAKE SUE [facility] [id number] Univers 07:25:00 11:20:00 ity of [facility] 2021-11-05 2021-11-06 [facility] Garcia Mckeon [facility] 1.2.840.1 [id number] Univers 07:25:00 11:20:00 Encounter Jake Sue ESTELA 350.1.13.10 ity [address] [facility] 4.2.7.2.686 [facility] [id number] [facility] [address] 2021-11-06 2021-11-06 Telephone Jake Sue [facility] 1.2.840.11 [id number] Univers 00:00:00 00:00:00 KENTON 350.1.13.10 it y of WOMEN'S 4.2.7.2.686 [facility] [id number] [facility] [address] 2021-10-31 2021-11-04 Inpatient P KIM [facility] [id number] Univers 12:25:00 12:57:00 CRISTÓBAL ity of [facility] 2021-10-31 2021-11-04 Hospital Shannon Tejeda 1.2.840.114 [id number] Univers 12:25:00 12:57:00 Encounter Roger Suebinh REECE 350.1.13.10 ity [facility] 4.2.7.2 .686 Cristóbal Jimenez [id number] [address] 2021-11-04 2021-11-04 1.2.840.1 1.2.840.114 [id number] Univers 00:00:00 00:00:00 Encounter [id number] 350.1.13.10 ity 3.104.2.7 [place].2.696 [place] .[id number] 570 [facility] 2021-11-01 2021-11-01 Surgery KAYLA Gonzalez 1.2.840.114 [id number] Univers 08:00:00 09:41:00 Jamie REECE 350.1.13.10 ity [facility] 4.2.7.2.686 [place] as [id number] [facility] [address] 2021-10-31 2021-10-31 Routine Jake Sue [facility] 1.2.840.114 [id number] Univers 11:15:00 11:59:29 K[place]ON 350.1.13.10 i ty of Visit WOMEN'S 4.2.7.2.686 [place] [facility] [id number] [facility] 134 [address] 2021-10-31 2021-10-31 Pin Machine Tender [facility]trasound, [facility] 1.2 .840.114 [id number] Univers 09:00:00 10:00:00 Visit Pancho Coombs MEDICAL SPECIALIST 350.1.13.10 [facility]y [facility] 4.2.7.2.686 [place] MATERNAL [id number] Med ical & CHILD [address] [place] [address] 2021-10-31 2021-10-[address] [facility] [facility] [id number] Univers 09:00:00 09:41:02 linay [facility] 2021-10-30 2021-10-[address] [facility] [id number] Univers 00:00:00 00:00:00 SLOANE fox [facility] 2021-10-29 2021-10-29 Orders Doctor GARZA 1.2.840.114 [id number] Univers 00:00:00 00:00:00 Only UnassignedSHANELL 350.1.13.10 ity of [place] [facility] 4.2.7.2.686 [place] as [id number] [facility] 009 Branch 2021-10-24 2021-10-[address] [facility] [facility] [id number] Univers 14:45:00 16:41:39 ity of [facility] 2021-10-24 2021-10-24 Routine 1, Edgarj Nst Room [facility] 1.2.840. 114 [id number] Univers 14:45:00 16:41:39 Jake Sue 350.1.13.10 ity of Visit [facility] 4.2.7.2.[place] [facility] [id number] [facility] [address] 2021-10-24 2021-10-[address] [facility] [facility] [id number] Univers 10:00:00 10:00:00 ity of [facility] 2021-10-21 2021-10-21 Laboratory Only, [facility] Pob2 Test [facility] 1.2 .840.114 [id number] Univers 14:15:00 14:15:00 Only Bryan Coombs 350.1.13 .10 it[place] of [place].2.[place] [id number] Ut dical NAL 225 [facility] 2021-10-21 2021-10-[address] [facility] [id number] Univers 14:15:00 14:04:51 BRYAN itmart [facility] 2021-10-21 2021-10-21 Routine Room, Dylan [facility] 1.2.840.1 14 [id number] Univers 08:00:00 10:49:13 Jake Sue 350.1.13.10 ity of [place].2.[place] [id number] Ut dical NAL 134 [facility] 2021-10-21 2021-10-21 Telephone KAYLA Caruso 1.2.943.957 [id number] Univers 00:00:00 00:00:00 Shirley REECE 350.1.13.10 it y of HOSPITAL 4.2.7.2.686 [place] as [id number] [address] 2021-10-17 2021-10-18 Outpatient [address] [facility] [id number] Univers 09:00:00 12:00:43 PANCHO COOMBS [facility] 2021-10-18 2021-10-18 Telephone Jake Sue [facility] 1.2.840.11 [id number] Univers 00:00:00 00:00:00 [place] 350.1.13.10 it y of PEDIATRIC 4.2.7.2.686 [facility] [id number] [address] 2021-10-17 2021-10-17 Routine Room, [facility] 1.2.840.1 14 [id number] Univers 14:00:00 15:38:46 [facility]ancho [facility]ombs [facility] 350.1.13.10 ity of Visit Shannon [facility] 4.2.7.2.686 [facility] [phone] Ut dical [address] 2021-10-17 2021-10-17 Pin Machine Tender Ultrasound, [facility] 1.2 .840.114 [id number] Univers 09:00:00 10:00:00 Visit Pancho Coombs MEDICAL SPECIALIST 350.1.13.10 ity of [facility] 4.2.7.2.686 [place] as MATERNAL [id number] [facility] ical & CHILD [address] [place] [address] 2021-10-17 2021-10-17 Outpatient [address] [facility] [id number] Univers 09:00:00 09:00:00 PANCHO COOMBS [facility] 2021-10-17 2021-10-17 Refill Jake Sue [facility] 1.2.840.114 [id number] Univers 00:00:00 00:00:00 [place] 350.1.13.10 it y of WOMEN'S 4.2.7.2.686 [facility] [id number] [address] 2021-10-14 2021-10-14 Orders Doctor GARZA 1.2.840.114 [id number] Univers 00:00:00 00:00:00 Only Unassigned, SHANELL 350.1.13.10 ity of [place] [facility] 4.2.7.2.686 [place] as [id number] [facility] [address] 2021-10-10 2021-10-[address] [facility] [id number] Univers 10:30:00 10:30:00 ity of [facility] 2021-10-10 2021-10-[address] [facility] [facility] [id number] Univers 10:30:00 10:30:00 ity of [facility] 2021-10-03 2021-10-[address] [facility] [id number] Univers 09:00:00 16:25:18 CHASEY ity [facility] 2021-10-03 2021-10-[address] [facility] [facility] [id number] Univers 13:00:00 13:00:00 ity [facility] 2021-10-03 2021-10-03 Pin Machine Tender Dylan Hoyt Lab Main [facility] 1.2.8 40.114 [id number] Univers 12:15:00 12:30:00 Visit Jake Sue 350.1.13.10 ity [facility] 4.2.7.2.686 [place] [phone] Ut dical [address] 2021-10-03 2021-10-[address] [facility] [facility] [id number] Univers 11:00:00 11:28:12 ity [facility] 2021-10-03 2021-10-03 Routine Jake Sue [facility] 1.2.840.114 [id number] Univers 11:00:00 11:28:12 [place] 350.1.13.10 i ty of Visit WOMEN'[place].2.7.2.[place] [id number] [facility] [address] 2021-10-03 2021-10-[address] [facility] [facility] [id number] Univers 11:00:00 11:00:00 ity [facility] 2021-10-03 2021-10-03 Pin Machine Tender Ant Oseguera [facility] 1.2 .840.114 [id number] Univers 09:00:00 10:00:00 Visit Pancho Coombs MEDICAL SPECIALIST 350.1.13.10 ity of Jazmyn Armstrong [facility] 4.2.7.2 .686 [place] MATERNAL [id number] [facility] ical & CHILD [address] [place] [address] 2021-10-03 2021-10-[address] [facility] [id number] Univers 09:00:00 09:00:00 PANCHO COOMBS ity [facility] 2021-09-26 2021-09-26 Routine Vikram Jake [facility] 1.2.840.114 [id number] Univers 13:46:48 15:31:05 [place] 350.1.13.10 i ty of Visit WOMEN'S 4.2.7.2.686 [facility] [id number] [address] 2021-09-26 2021-09-26 [address] [facility] [facility] [id number] Univers 13:45:00 15:31:05 ity of [facility] 2021-09-26 2021-09-26 Orders Doctor KAYLA 1.2.840.114 [id number] Univers 00:00:00 00:00:00 Only Unassigned, SHANELL 350.1.13.10 ity of [place] [facility] 4.2.7.2.686 [place] as [id number] [address] 2021-09-20 2021-09-20 Nurse Nurse, Lkj [facility] 1.2.840.114 [id number] Univers 11:01:45 11:45:00 Visit Jake Sue 350.1.13.10 ity of WOMEN'S 4.2.7.2.686 [facility] [id number] [address] 2021-09-20 2021-09-[address] [facility] [facility] [id number] Univers 11:00:00 11:45:00 [facility] 2021-09-19 2021-09-19 Pin Machine Tender Ultrasound, Ant [facility] 1.2 .840.114 [id number] Univers 09:02:46 09:39:26 Visit Pancho Coombs MEDICAL SPECIALIST 350.1.13.10 ity of Jamie Gonzalez [facility] 4.2.7.2.686 [place] MATERNAL [phone] Med ical & CHILD [address] [place] [address] 2021-09-19 2021-09-[address] [facility] [id number] Univers 09:00:00 09:39:26 [facility] 2021-09-19 2021-09-19 [facility] [id number] Univers 09:00:00 09:00:00 [facility] 2021-09-19 2021-09-19 Routine Jake Sue [facility] 1.2.840.114 [id number] Univers 08:04:39 08:43:08 [place] 350.1.13.10 i ty of Visit WOMEN'S 4.2.7.2.686 [facility] [id number] [address] 2021-09-18 2021-09-18 Pin Machine Tender Dylan Hoyt Lab Main [facility] 1.2.8 40.114 [id number] Univers 08:06:14 08:21:14 Visit [facility]u [facility] 350.1.13.10 ity [facility] 4.2.7.2.686 [facility] [id number] Ut dical [address] 2021-09-18 2021-09-[address] [facility] [id number] Univers 07:45:00 07:45:00 ity of [facility] 2021-09-18 2021-09-18 Case Jake Sue [facility] 1.2.840.114 [id number] Univers 00:00:00 00:00:00 Management [place] 350.1.13.10 ity of PEDIATRIC 4.2.7.2.686 [facility] [id number] [address] 2021-09-05 2021-09-05 Pin Machine Tender Ana Rosa, Ant [facility] 1.2 .840.114 [id number] Univers 08:50:15 09:50:15 Visit Pancho Coombs MEDICAL SPECIALIST 350.1.13.10 ity of Jazmyn Armstrong [facility] 4.2.7.2 .686 [place] MATERNAL [id number] [facility] & CHILD [address] [place] [address] 2021-09-05 2021-09-05 Outpatient P NATHANIEL NDENOCH [facility] [id number] Univers 09:00:00 09:00:00 JAZMYN fox [facility] 2021-08-29 2021-08-29 Routine Jake Sue [facility] 1.2.840.114 [id number] Univers 11:15:26 12:33:42 [place] 350.1.13.10 i ty of Visit WOMEN'S 4.2.7.2.686 [facility] [id number] [address] 2021-08-29 2021-08-29 Outpatient R [address] [facility] [facility] [id number] Univers 11:15:00 12:33:42 ity [facility] 2021-08-22 2021-08-22 Pin Machine Tender [facility] 1.2 .840.114 [id number] Univers 10:55:39 11:48:27 Visit Pancho Coombs MEDICAL SPECIALIST 350.1.13.10 ity of Jazmyn Armstrong [facility] 4.2.7.2 .686 [place] MATERNAL [id number] [facility] & CHILD [address] [place] [address] 2021-08-22 2021-08-[address] [facility] [id number] Univers 11:00:00 11:00:00 JAZMYN fox [facility] 2021-08-19 2021-08-19 Refill Jake Sue [facility] 1.2.840.114 [id number] Univers 00:00:00 00:00:00 [place] 350.1.13.10 it y of WOMEN'S 4.2.7.2.686 [facility] HEALTH [id number] [address] 2021-08-16 2021-08-16 Refill Jake Sue [facility] 1.2.840.114 [id number] Univers 00:00:00 00:00:00 [place] 350.1.13.10 it y of [place] 4.2.7.2.686 [place] [id number] [address] 2021-08-08 2021-08-08 Pin Machine Tender [facility]trasound, [facility] 1.2 .840.114 [id number] Univers 08:38:32 09:38:32 Visit Pancho Coombs MEDICAL SPECIALIST 350.1.13.10 ity of [facility] 4.2.7.2.686 Nelson as MATERNAL [id number] [facility] & CHILD [address] [place] [address] 2021-08-08 2021-08-[address] [facility] [id number] Univers 08:45:00 08:45:00 ity [facility] 2021-08-01 2021-08-01 Routine Jake Sue [facility] 1.2.840.114 [id number] Univers 13:24:47 14:02:20 [place] 350.1.13.10 i ty of Visit [facility] [id number] [place] [facility] [phone] [address] 2021-08-01 2021-08-01 Outpatient R JAKE SUE [facility] [id number] Univers 13:15:00 13:15:00 ity [facility] 2021-07-25 2021-07-25 Pin Machine Tender [facility] 1.2 .840.114 [id number] Univers 07:57:39 10:05:45 Visit Jamila Baumann MEDICAL SPECIALIST 350.1. 13.10 ity [facility] [id number] [place] as MATERNAL [phone] [facility] & [address] 2021-07-25 2021-07-[address] [facility] [id number] Univers 08:00:00 08:00:00 ity [facility] 2021-07-22 2021-07-22 Pin Machine Tender 2, Adc Lab [facility] 1.2.840.114 [id number] Univers 09:13:09 11:55:12 Visit [place] 350.1.13.10 ity [facility] [id number] [place] [phone] Ut dical nal [address] [facility] 2021-07-22 2021-07-22 Outpatient R [facility]KE [facility] [id number] Univers 09:00:00 11:55:12 ity of [facility] 2021-07-22 2021-07-22 Telemedici Faculty, Gregory Arevalo [facility] 1.2.840.114 [id number] Univers 09:53:06 10:20:51 ne Visit Cristóbal Lisa MEDICAL SPECIALIST 350.1.13.10 ity of REGIONAL 4.2.7.2.686 [place] as MATERNAL [phone] Med ical & CHILD [address] [place] [address] 2021-07-22 2021-07-[address] [facility] [id number] Univers 10:00:00 10:00:00 CRISTÓBAL ity of [facility] 2021-07-22 2021-07-22 Refill Jake Sue [facility] 1.2.840.114 [id number] Univers 00:00:00 00:00:00 [place] 350.1.13.10 [place] [phone] [address] 2021-07-18 2021-07-[address] [facility] [facility] [id number] Univers 09:45:00 09:45:00 ity of [facility] 2021-07-18 2021-07-18 Pin Machine Tender Dylan Hoyt Lab Main [facility] 1.2.8 40.114 [id number] Univers 09:20:43 09:35:43 Visit Jake Sue [place] 350.1.13.10 it[place] [phone] Ut dical nal [address] [facility] 2021-07-18 2021-07-18 Case Jake Sue [facility] 1.2.840.114 [id number] Univers 00:00:00 00:00:00 Management [place] 350.1.13.10 [place] [facility] [phone] [address] 2021-07-18 2021-07-18 Orders Doctor KAYLA 1.2.840.114 [id number] Univers 00:00:00 00:00:00 Only Unassigned, SHANELL 350.1.13.10 ity of [place] [facility] 4.2.7.2.686 [place] as [phone] [address] 2021-07-18 2021-07-18 Telephone Vikram Jake [facility] 1.2.840.11 [id number] Univers 00:00:00 00:00:00 [place] 350.1.13.10 it [place] [phone] [address] 2021-07-11 2021-07-11 Pin Machine Tender Ultrasound, [facility] 1.2 .840.114 [id number] Univers 09:52:09 10:52:09 Visit Noah Mayers MEDICAL SPECIALIST 350.1.13.10 ity of [facility] 4.2.7.2.686 [place] MATERNAL [phone] Med ical & CHILD [address] [place] [address] 2021-07-11 2021-07-[address] [facility] [id number] Univers 10:00:00 10:00:00 ity of [facility] 2021-07-05 2021-07-05 Routine Jake Sue [facility] 1.2.840.114 [id number] Univers 11:04:29 12:00:38 [place] 350.1.13.10 ity of [place] [phone] Ut dical [address] 2021-07-05 2021-07-05 [address] [facility] [facility] [id number] Univers 09:30:00 09:30:00 ity of [facility] 2021-07-02 2021-07-[address] [facility] [facility] [id number] Univers 11:00:00 11:00:00 ity of [facility] 2021-06-27 2021-06-27 Telephone Jake Sue [facility] 1.2.840.11 [id number] Univers 00:00:00 00:00:00 [place] 350.1.13.10 [place] [phone] [address] 2021-06-17 2021-06-17 Routine Jake Sue 1.2.840.114 [id number] Univers 09:42:37 10:39:44 [place] 350.1.13.10 i ty of Visit [place] [phone] [address] 2021-06-17 2021-06-17 Routine Jake Sue 1.2.840.114 [id number] Univers 09:42:37 10:39:44 [place] 350.1.13.10 i ty of Visit [place] [phone] [address] 2021-06-17 2021-06-17 Outpatient R JAKE SUE [facility] [id number] Univers 10:00:00 10:00:00 ity of [facility] 2021-06-17 2021-06-17 Orders Doctor KAYLA 1.2.840.114 [id number] Univers 00:00:00 00:00:00 Only Unassigned, SHANELL 350.1.13.10 ity of [place] [facility] 4.2.7.2.686 [place] as [phone] [address] 2021-06-14 2021-06-14 Telephone Jake Sue 1.2.840.11 [id number] Univers 00:00:00 00:00:00 [place] 350.1.13.10 it [place] [id number] [address] 2021-06-14 2021-06-14 Telephone Jake Sue 1.2.840.11 [id number] Univers 00:00:00 00:00:00 [place] 350.1.13.10 [place] [phone] [address] 2021-06-13 2021-06-13 Pin Machine Tender Ultrasound, [facility] 1.2 .840.114 [id number] Univers 11:02:50 12:03:42 Visit Victoriano Eddyelicia Agrawal 350.1.13.10 it[place] [phone] [address] 2021-06-13 2021-06-13 Pin Machine Tender Ultrasound, [facility] 1.2 .840.114 [id number] Univers 11:02:50 12:03:42 Visit Surjit Debbie Agrawal 350.1.13.10 it[place]2.[place] [phone] [address] 2021-06-13 2021-06-[address] [facility] [id number] Univers 11:00:00 11:00:00 ity of [facility] 2021-06-13 2021-06-13 Case Jake Sue [facility] 1.2.840.114 [id number] Univers 00:00:00 00:00:00 Management [place] 350.1.13.10 [place]2.[place] [facility] [phone] [address] 2021-06-04 2021-06-04 Pin Machine Tender Evelina, [facility] Lab Main [facility] 1.2.8 40.114 [id number] Univers 07:58:19 08:13:19 Visit Jake Sue 350.1.13.10 it[place] of [place] [phone] [address] 2021-06-04 2021-06-[address] [facility] [facility] [id number] Univers 08:00:00 08:00:00 ity [facility] 2021-06-03 2021-06-03 Routine Jake Sue [facility] [place] 1.2.840.114 [id number] Univers 16:09:07 17:30:09 [place] 350.1.13.10 i ty of Visit Women's 4.2.7.2.686 [facility] [phone] [facility] [address] 2021-06-03 2021-06-[address] [facility] [facility] [id number] Univers 16:15:00 16:15:00 ity of [facility] 2021-06-03 2021-06-03 Orders Doctor GARZA 1.2.840.114 [id number] Univers 00:00:00 00:00:00 Only Unassigned, SHANELL 350.1.13.10 ity of [place] [facility] 4.2.7.2.686 [place] as [phone] [address] 2021-06-03 2021-06-03 Orders Doctor KAYLA 1.2.840.114 [id number] Univers 00:00:00 00:00:00 Only Unassigned, SHANELL 350.1.13.10 ity of [place] [facility] 4.2.7.2.686 [place] as [phone] [address] 2021-05-20 2021-05-[address] [facility] [id number] Univers 13:45:00 13:45:00 ity of [facility] 2021-05-20 2021-05-20 Orders Doctor GARZA 1.2.840.114 [id number] Univers 00:00:00 00:00:00 Only Unassigned, SHANELL 350.1.13.10 ity of [place] [facility] 4.2.7.2.686 [place] as [phone] [address] 2021-05-20 2021-05-20 Orders Doctor KAYLA Michaels.2.840.114 [id number] Univers 00:00:00 00:00:00 Only Unassigned, SHANELL 350.1.13.10 ity of [place] [facility]OSP[facility] 4.2.7.2.686 [place] as [phone] [address] 2021-01-17 2021-01-17 Outpatient [facility] [id number] Common 00:00:00 00:00:00 [facility] 2021-01-17 2021-01-17 [facility] [id number] Common 00:00:00 00:00:00 [facility] 2021-01-08 2021-01-08 Patient Vidal [facility] 1.2.840.114 [id number] Univers 00:00:00 00:00:00 Outreach Bryan PRIMARY 350.1.13.10 i ty of [facility] [place].2.7.2.[place] [phone] [facility] [address] 2020-10-24 2020-10-24 Laboratory Lab, Adc Fam Pob I [facility] 1.2. 840.114 [id number] Univers 11:15:49 11:35:49 Only Heaven Ifrah Oumou [facility] 350.1.13.10 ity of [place] 4.2.7.2.686 [place] as Professio [phone] [facility] [address] 2020-10-24 2020-10-[address] [facility] [id number] Univers 11:20:00 11:20:00 IFRAH ity [facility] [place] 2020-10-08 2020-10-08 Telephone Vikram Jake [facility] 1.2.840.114 [id number] Univers 00:00:00 00:00:00 [place] 350.1.13.10 i ty [place] [phone] [facility] 134 [facility] 2020-10-03 2020-10-03 Pin Machine Tender Evelina, Adc Lab Main [facility] 1.2.8 40.114 [id number] Univers 10:25:32 10:40:32 Visit Jake Sue 350.1.13.10 ity of [place] [phone] Ut dicmt nal 353 [facility] 2020-10-03 2020-10-[address] [facility] [facility] [id number] Univers 10:30:00 10:30:00 ity [facility] 2020-10-02 2020-10-[address] [facility] [facility] [id number] Univers 13:30:00 13:30:00 ity [facility] 2020-10-01 2020-10-[address] [facility] [id number] Univers 14:30:00 14:30:00 ity of [facility] 2020-10-01 2020-10-01 Orders Doctor KAYLA 1.2.840.114 [id number] 00:00:00 00:00:00 Only Unassigned, SHANELL 350.1.13.10 ity of [place] [facility] 4.2.7.2.686 [place] as [phone] [address] 2020-03-29 2020-03-29 Outpatient [place]i [place] [id number] Common 13:30:00 13:30:[address] [facility] 2019-12-29 2019-12-29 Outpatient [facility] [id number] Common 14:00:00 14:00:[address] [facility] 2019-09-29 2019-09-29 Outpatient Jimi [place] [id number] Common 14:00:00 14:00:[address] [facility] Results Test Description Test Time Test Comments Results Result Comments Source COMP. METABOLIC PANEL (58746) 2021-11-05 16:19:14 Test Item Value Reference Range Interpretation Comme nts NA (test code = 1969449279) 136 mmol/L 135-145 K (test code = 2977640271) 3.9 mmol/L 3.5-5.0 CL (test code = 6781859450) 108 mmol/L 98-108 CO2 TOTAL (test code = 9970146332) 28 mmol/L 23-31 AGAP (test code = 4387899728) <1 2-16 L BUN (test code = 2074662028) 9 mg/dL 7-23 GLUCOSE (test code = 2957765624) 90 mg/dL 70-110 CREATININE (test code = 0.47 mg/dL 0.50-1.04 L 9293326979) TOTAL BILI (test code = 0.3 mg/dL 0.1-1.3 0551544303) CALCIUM (test code = 7778648845) 7.7 mg/dL 8.6-10.6 L T PROTEIN (test code = 0777590220) 5.0 g/dL 6.3-8.2 L ALBUMIN (test code = 3420582925) 2.7 g/dL 3.5-5.0 L ALK PHOS (test code = 0353152096) 98 U/L 34-122 ALTv (test code = 1742-6) 25 U/L 5-35 AST(SGOT) (test code = 9788882881) 30 U/L 13-40 eGFR (test code = 2571123329) mL/min/1.73m2 GANESH (test code = GANESH) Association of Glomerular Filtration Rate (GFR) and Staging of Kidney Disease* + +-------- + ------+| GFR (mL/min/1.73 m2) ?| With Kidney Damage ?| ?Without Kidney Damage+ +-- + +| ?>90 ?| ?Stage one ?| ? Normal ?+ +------- + -------+| ?60-89 ?| ?Stage two ?| ? Decreased GFR ? + +-------- + ------+| ?30-59 ?| ?Stage three ?| ? Stage three ? + +-------- + ------+| ?15-29 ?| ?Stage four ? | ? Stage four ?+ +------- + -------+| ?<15 (or dialysis) ? ?| ?Stage five ? | ? Stage five ?+ +------- + -------+ *Each stage assumes the associated GFR level has been in effect for at least three months. ?Stages 1 to 5, with or without kidney disease, indicate chronic kidney disease. Notes: Determination of stages one and two (with eGFR >59mL/min/1.73 m2) requires estimation of kidney damage for at least three months as defined by structural or functional abnormalities of the kidney, manifested by either:Pathological abnormalities or Markers of kidney damage (including abnormalities in the composition of the blood or urine or abnormalities in imaging tests). Lab Interpretation (test code = Abnormal 33345-7) [facility] WITH [id number] 15:24:48 Test Item Value Reference Range Interpretation Comments WBC (test code = See_Comment H [Automated 6690-2) message] The sy stem which generated this result transmitted reference range : 4.30 - 11.10 10*3/?L. The reference range was not used to interpret this result as normal/abnormal . RBC (test code = See_Comment L [Automated 789-8) message] The sy stem which generated this result transmitted reference range : 3.93 - 5.25 10*6/?L. The reference range was not used to interpret this result as normal/abnormal . HGB (test code = 9.6 g/dL 11.6-15.0 L 718-7) HCT (test code = 28.5 % 35.7-45.2 L 4544-3) MCV (test code = 93.8 fL 80.6-95.5 787-2) MCH (test code = 31.6 pg 25.9-32.8 785-6) MCHC (test code = 33.7 g/dL 31.6-35.1 786-4) RDW-SD (test code = 49.3 fL 39.0-49.9 84980-8) RDW-CV (test code = 14.4 % 12.0-15.5 788-0) PLT (test code = See_Comment [Automated 777-3) message] The sy stem which generated this result transmitted reference range : 166 - 358 10*3/ ?L. The reference r will was not used to interpret this result as normal/abnormal . MPV (test code = 10.3 fL 9.5-12.9 61926-3) NRBC/100 WBC (test See_Comment [Automat ed code = 5261169978) message] The system which generated this result transmitted reference range : 0.0 - 10.0 /100 WBCs. The refer ence range was not u sed to interpret th is result as normal/abnormal . NRBC x10^3 (test code <0.01 See_Comment [Auto mated = 1294545067) message] The s ystem which generated this result transmitted reference range : 10*3/?L. The reference range was not used to interpret this result as normal/abnormal . GRAN MAT (NEUT) % 59.2 % (test code = 770-8) IMM GRAN % (test code 1.40 % = 0628915501) LYMPH % (test code = 26.9 % 736-9) MONO % (test code = 6.5 % 5905-5) EOS % (test code = 5.7 % 713-8) BASO % (test code = 0.3 % 706-2) GRAN MAT x10^3(ANC) 6.64 10*3/uL 1.88-7.09 (test code = 0117830414) IMM GRAN x10^3 (test 0.16 10*3/uL 0.00-0.06 H code = 6382164057) LYMPH x10^3 (test code 3.01 10*3/uL 1.32-3.29 = 731-0) MONO x10^3 (test code 0.73 10*3/uL 0.33-0.92 = 742-7) EOS x10^3 (test code = 0.64 10*3/uL 0.03-0.39 H 711-2) BASO x10^3 (test code 0.03 10*3/uL 0.01-0.07 = 704-7) Lab Interpretation Abnormal (test code = 48737-9) [facility] WITH [id number] 15:36:10 Test Item Value Reference Range Interpretation Comments WBC (test code = See_Comment H [Automated 6690-2) message] The system which generated this result transmit clari reference range : 4.30 - 11.10 10*3/?L. The reference range was not used to interpret this result as normal/abnormal . RBC (test code = See_Comment L [Automated 789-8) message] The system which generated this result transmit clari reference range : 3.93 - 5.25 10*6/?L. The reference range was not used to interpret this result as normal/abnormal . HGB (test code = 9.1 g/dL 11.6-15.0 L 718-7) HCT (test code = 26.8 % 35.7-45.2 L 4544-3) MCV (test code = 92.4 fL 80.6-95.5 787-2) MCH (test code = 31.4 pg 25.9-32.8 785-6) MCHC (test code = 34.0 g/dL 31.6-35.1 786-4) RDW-SD (test code = 50.3 fL 39.0-49.9 H 94649-6) RDW-CV (test code = 14.8 % 12.0-15.5 788-0) PLT (test code = See_Comment [Automated 777-3) message] The system which generated this result transmit clari reference range : 166 - 358 10*3/ ?L. The reference range was not u sed to interpret th is result as normal/abnormal . MPV (test code = 11.7 fL 9.5-12.9 77169-9) NRBC/100 WBC (test See_Comment [Automat ed code = 2529068232) message] The system which generated this result transmit clari reference range : 0.0 - 10.0 /100 WBCs. The reference range was not used to interpret this result as normal/abnormal . NRBC x10^3 (test code <0.01 See_Comment [Auto mated = 2682761015) message] The system which generated this result transmit clari reference range : 10*3/?L. The reference range was not used to interpret this result as normal/abnormal . GRAN MAT (NEUT) % 81.9 % (test code = 770-8) IMM GRAN % (test code 2.20 % = 4095244044) LYMPH % (test code = 10.3 % 736-9) MONO % (test code = 5.5 % 5905-5) EOS % (test code = 0.0 % 713-8) BASO % (test code = 0.1 % 706-2) GRAN MAT x10^3(ANC) 14.23 10*3/uL 1.88-7.09 H (test code = 5754353237) IMM GRAN x10^3 (test 0.39 10*3/uL 0.00-0.06 H code = 7243915806) LYMPH x10^3 (test code 1.79 10*3/uL 1.32-3.29 = 731-0) MONO x10^3 (test code 0.96 10*3/uL 0.33-0.92 H = 742-7) EOS x10^3 (test code = <0.03 0.03-0.39 L 711-2) BASO x10^3 (test code <0.03 0.01-0.07 = 704-7) BASO STIPPLING (test Present A code = 703-9) Lab Interpretation Abnormal (test code = 28324-4) [facility] WITH [id number] 15:36:10 Test Item Value Reference Range Interpretation Comments WBC (test code = See_Comment H [Automated 6690-2) message] The system which generated this result transmit clari reference range : 4.30 - 11.10 10*3/?L. The reference range was not used to interpret this result as normal/abnormal . RBC (test code = See_Comment L [Automated 789-8) message] The system which generated this result transmit clari reference range : 3.93 - 5.25 10*6/?L. The reference range was not used to interpret this result as normal/abnormal . HGB (test code = 9.1 g/dL 11.6-15.0 L 718-7) HCT (test code = 26.8 % 35.7-45.2 L 4544-3) MCV (test code = 92.4 fL 80.6-95.5 787-2) MCH (test code = 31.4 pg 25.9-32.8 785-6) MCHC (test code = 34.0 g/dL 31.6-35.1 786-4) RDW-SD (test code = 50.3 fL 39.0-49.9 H 63920-7) RDW-CV (test code = 14.8 % 12.0-15.5 788-0) PLT (test code = See_Comment [Automated 777-3) message] The system which generated this result transmit clari reference range : 166 - 358 10*3/ ?L. The reference range was not u sed to interpret th is result as normal/abnormal . MPV (test code = 11.7 fL 9.5-12.9 13209-7) NRBC/100 WBC (test See_Comment [Automat ed code = 0984513576) message] The system which generated this result transmit clari reference range : 0.0 - 10.0 /100 WBCs. The reference range was not used to interpret this result as normal/abnormal . NRBC x10^3 (test code <0.01 See_Comment [Auto mated = 3888315688) message] The system which generated this result transmit clari reference range : 10*3/?L. The reference range was not used to interpret this result as normal/abnormal . GRAN MAT (NEUT) % 81.9 % (test code = 770-8) IMM GRAN % (test code 2.20 % = 2598290219) LYMPH % (test code = 10.3 % 736-9) MONO % (test code = 5.5 % 5905-5) EOS % (test code = 0.0 % 713-8) BASO % (test code = 0.1 % 706-2) GRAN MAT x10^3(ANC) 14.23 10*3/uL 1.88-7.09 H (test code = 5468679309) IMM GRAN x10^3 (test 0.39 10*3/uL 0.00-0.06 H code = 0683243542) LYMPH x10^3 (test code 1.79 10*3/uL 1.32-3.29 = 731-0) MONO x10^3 (test code 0.96 10*3/uL 0.33-0.92 H = 742-7) EOS x10^3 (test code = <0.03 0.03-0.39 L 711-2) BASO x10^3 (test code <0.03 0.01-0.07 = 704-7) BASO STIPPLING (test Present A code = 703-9) Lab Interpretation Abnormal (test code = 85969-4) [facility] with [id number] 11:04:12 Test Item Value Reference Range Interpretation Comments WBC (test code = See_Comment H [Automated 4590-2) message] The system which generated this result transmit clari reference range : 4.30 - 11.10 10*3/?L. The reference range was not used to interpret this result as normal/abnormal . RBC (test code = See_Comment L [Automated 389-8) message] The system which generated this result transmit clari reference range : 3.93 - 5.25 10*6/?L. The reference range was not used to interpret this result as normal/abnormal . HGB (test code = 7.8 g/dL 11.6-15.0 L 718-7) HCT (test code = 22.9 % 35.7-45.2 L 4544-3) MCV (test code = 93.9 fL 80.6-95.5 787-2) MCH (test code = 32.0 pg 25.9-32.8 785-6) MCHC (test code = 34.1 g/dL 31.6-35.1 786-4) RDW-SD (test code = 51.0 fL 39.0-49.9 H 31097-2) RDW-CV (test code = 14.9 % 12.0-15.5 788-0) PLT (test code = See_Comment L [Automated 777-3) message] The system which generated this result transmit clari reference range : 166 - 358 10*3/ ?L. The reference range was not u sed to interpret th is result as normal/abnormal . MPV (test code = 11.4 fL 9.5-12.9 15810-7) NRBC/100 WBC (test See_Comment [Automat ed code = 9821580529) message] The system which generated this result transmit clari reference range : 0.0 - 10.0 /100 WBCs. The reference range was not used to interpret this result as normal/abnormal . NRBC x10^3 (test code <0.01 See_Comment [Auto mated = 6911326054) message] The system which generated this result transmit clari reference range : 10*3/?L. The reference range was not used to interpret this result as normal/abnormal . GRAN MAT (NEUT) % 83.1 % (test code = 770-8) IMM GRAN % (test code 2.00 % = 6314952166) LYMPH % (test code = 10.0 % 736-9) MONO % (test code = 4.8 % 5905-5) EOS % (test code = 0.0 % 713-8) BASO % (test code = 0.1 % 706-2) GRAN MAT x10^3(ANC) 12.34 10*3/uL 1.88-7.09 H (test code = 3353455580) IMM GRAN x10^3 (test 0.29 10*3/uL 0.00-0.06 H code = 0459716756) LYMPH x10^3 (test code 1.48 10*3/uL 1.32-3.29 = 731-0) MONO x10^3 (test code 0.72 10*3/uL 0.33-0.92 = 742-7) EOS x10^3 (test code = <0.03 0.03-0.39 L 711-2) BASO x10^3 (test code <0.03 0.01-0.07 = 704-7) Lab Interpretation Abnormal (test code = 24699-3) [facility] with [id number] 11:04:12 Test Item Value Reference Range Interpretation Comments WBC (test code = See_Comment H [Automated 6690-2) message] The system which generated this result transmit clari reference range : 4.30 - 11.10 10*3/?L. The reference range was not used to interpret this result as normal/abnormal . RBC (test code = See_Comment L [Automated 789-8) message] The system which generated this result transmit clari reference range : 3.93 - 5.25 10*6/?L. The reference range was not used to interpret this result as normal/abnormal . HGB (test code = 7.8 g/dL 11.6-15.0 L 718-7) HCT (test code = 22.9 % 35.7-45.2 L 4544-3) MCV (test code = 93.9 fL 80.6-95.5 787-2) MCH (test code = 32.0 pg 25.9-32.8 785-6) MCHC (test code = 34.1 g/dL 31.6-35.1 786-4) RDW-SD (test code = 51.0 fL 39.0-49.9 H 86801-1) RDW-CV (test code = 14.9 % 12.0-15.5 788-0) PLT (test code = See_Comment L [Automated 777-3) message] The system which generated this result transmit clari reference range : 166 - 358 10*3/ ?L. The reference range was not u sed to interpret th is result as normal/abnormal . MPV (test code = 11.4 fL 9.5-12.9 74476-4) NRBC/100 WBC (test See_Comment [Automat ed code = 4540930222) message] The system which generated this result transmit clari reference range : 0.0 - 10.0 /100 WBCs. The reference range was not used to interpret this result as normal/abnormal . NRBC x10^3 (test code <0.01 See_Comment [Auto mated = 6902964391) message] The system which generated this result transmit clari reference range : 10*3/?L. The reference range was not used to interpret this result as normal/abnormal . GRAN MAT (NEUT) % 83.1 % (test code = 770-8) IMM GRAN % (test code 2.00 % = [id number]) LYMPH % (test code = 10.0 % 736-9) MONO % (test code = 4.8 % 5905-5) EOS % (test code = 0.0 % 713-8) BASO % (test code = 0.1 % 706-2) GRAN MAT x10^3(ANC) 12.34 10*3/uL 1.88-7.09 H (test code = [id number]) IMM GRAN x10^3 (test 0.29 10*3/uL 0.00-0.06 H code = [id number]) LYMPH x10^3 (test code 1.48 10*3/uL 1.32-3.29 = 731-0) MONO x10^3 (test code 0.72 10*3/uL 0.33-0.92 = 742-7) EOS x10^3 (test code = <0.03 0.03-0.39 L 711-2) BASO x10^3 (test code <0.03 0.01-0.07 = 704-7) Lab Interpretation Abnormal (test code = 35176-3) [facility] (D) IMMUNE [id number] 23:38:50 Test Item Value Reference Range Interpretation Comments RHIG CANDIDATE? No- see comment Patient i s not a (test code = candidate for R hIg- 5055) Patient is Rh Positive.Perfor med at [facility] Laboratory Services - [facility] Blood [address] [place] [id number] Free: [phone] A No. [id number] [facility] (D) IMMUNE [id number] 23:38:50 Test Item Value Reference Range Interpretation Comments RHIG CANDIDATE? No- see comment Patient i s not a (test code = candidate for R hIg- 5055) Patient is Rh Positive.Perfor med at [facility] Laboratory Services - [facility] Blood [address] [place] [id number] Free: [phone] A No. [id number] [facility] CORD [id number] 17:23:31 Test Item Value Reference Range Interpretation Comments BASE EXCESS, CORD (test mEq/L code = [id number]) AC PH, CORD (BEAKER) 7.18-7.38 L (test code = [id number]) PC02, CORD (test code = See_Comment [Au tomated message] 8740331241) The system whic h generated this result transmitted ref erence range: 32 - 66 mmHg. The reference r will was not used to interpret this result as normal/abnor mal. PO2, CORD (test code = Cord gas 4079772256) BICARBONATE, CORD (test See_Comment [Au tomated message] code = 8284923068) The syste m which generated this result transmitted ref erence range: 17 - 27 mEq/L. The reference r will was not used to interpret this result as normal/abnor mal. Lab Interpretation (test Abnormal code = 06657-3) [facility] CORD [id number] 17:23:31 Test Item Value Reference Range Interpretation Comments BASE EXCESS, CORD (test mEq/L code = 5359958602) AC PH, CORD (BEAKER) 7.18-7.38 L (test code = 0425665591) PC02, CORD (test code = See_Comment [Au tomated message] 4108138625) The system whic h generated this result transmitted ref erence range: 32 - 66 mmHg. The reference r will was not used to interpret this result as normal/abnor mal. PO2, CORD (test code = Cord gas 5991820017) BICARBONATE, CORD (test See_Comment [Au tomated message] code = 3059715333) The syste m which generated this result transmitted ref erence range: 17 - 27 mEq/L. The reference r will was not used to interpret this result as normal/abnor mal. Lab Interpretation (test Abnormal code = 41170-5) [facility] CORD [id number] 17:22:24 Test Item Value Reference Range Interpretation Comments VENOUS BASE EXCESS, CORD mEq/L (test code = 7886339549) VENOUS PH, CORD (test 7.25-7.45 L code = 5983837752) VENOUS PC02, CORD (test See_Comment [Au tomated message] code = 3385490835) The syste m which generated this result transmitted ref erence range: 27 - 49 mmHg. The reference r will was not used to interpret this result as normal/abnor mal. VENOUS PO2, CORD (test See_Comment L [Aut omated message] code = 5307430070) The syste m which generated this result transmitted ref erence range: 17 - 41 mmHg. The reference r will was not used to interpret this result as normal/abnor mal. VENOUS BICARBONATE, CORD See_Comment [A utomated message] (test code = 1715972599) The system which generated this result transmitted ref erence range: 12 - 29 mEq/L. The reference r will was not used to interpret this result as normal/abnor mal. Lab Interpretation (test Abnormal code = 37324-4) [facility] CORD [id number] 17:22:24 Test Item Value Reference Range Interpretation Comments VENOUS BASE EXCESS, CORD mEq/L (test code = 6967246873) VENOUS PH, CORD (test 7.25-7.45 L code = 9177714887) VENOUS PC02, CORD (test See_Comment [Au tomated message] code = 9802860079) The syste m which generated this result transmitted ref erence range: 27 - 49 mmHg. The reference r will was not used to interpret this result as normal/abnor mal. VENOUS PO2, CORD (test See_Comment L [Aut omated message] code = 3097748709) The syste m which generated this result transmitted ref erence range: 17 - 41 mmHg. The reference r will was not used to interpret this result as normal/abnor mal. VENOUS BICARBONATE, CORD See_Comment [A utomated message] (test code = 9965066758) The system which generated this result transmitted ref erence range: 12 - 29 mEq/L. The reference r will was not used to interpret this result as normal/abnor mal. Lab Interpretation (test Abnormal code = 26283-6) [facility] CORD [id number] 17:19:53 Test Item Value Reference Range Interpretation Comments BASE EXCESS, CORD mEq/L (test code = 8691092337) AC PH, CORD (BEAKER) 7.18-7.38 (test code = 7190610439) PC02, CORD (test code See_Comment [Auto mated message] The = 2385764192) system which g enerated this result transmit clari reference range : 32 - 66 mmHg. The refer ence range was not used to interpret this result as normal/abnormal . PO2, CORD (test code See_Comment [Autom ated message] The = 0016683079) system which g enerated this result transmit clari reference range : 10 - 30 mmHg. The refer ence range was not used to interpret this result as normal/abnormal . BICARBONATE, CORD See_Comment [Automate d message] The (test code = system which ge nerated this 0336122508) result transmit clari reference range : 17 - 27 mEq/L. The refe rence range was not used to interpret this result as normal/abnormal . [facility] CORD [id number] 17:19:53 Test Item Value Reference Range Interpretation Comments BASE EXCESS, CORD mEq/L (test code = 4277058735) AC PH, CORD (BEAKER) 7.18-7.38 (test code = 3385164826) PC02, CORD (test code See_Comment [Auto mated message] The = 7322121943) system which g enerated this result transmit clari reference range : 32 - 66 mmHg. The refer ence range was not used to interpret this result as normal/abnormal . PO2, CORD (test code See_Comment [Autom ated message] The = 6207603466) system which g enerated this result transmit clari reference range : 10 - 30 mmHg. The refer ence range was not used to interpret this result as normal/abnormal . BICARBONATE, CORD See_Comment [Automate d message] The (test code = system which ge nerated this 0594620303) result transmit clari reference range : 17 - 27 mEq/L. The refe rence range was not used to interpret this result as normal/abnormal . [facility] CORD [id number] 17:17:28 Test Item Value Reference Range Interpretation Comments VENOUS BASE EXCESS, CORD mEq/L (test code = 2854622948) VENOUS PH, CORD (test 7.25-7.45 L code = 1877919069) VENOUS PC02, CORD (test See_Comment H [Au tomated message] code = 7330695709) The syste m which generated this result transmitted ref erence range: 27 - 49 mmHg. The reference r will was not used to interpret this result as normal/abnor mal. VENOUS PO2, CORD (test See_Comment L [Aut omated message] code = 1954947762) The syste m which generated this result transmitted ref erence range: 17 - 41 mmHg. The reference r will was not used to interpret this result as normal/abnor mal. VENOUS BICARBONATE, CORD See_Comment [A utomated message] (test code = 1821841903) The system which generated this result transmitted ref erence range: 12 - 29 mEq/L. The reference r will was not used to interpret this result as normal/abnor mal. Lab Interpretation (test Abnormal code = 41585-4) [facility] CORD [id number] 17:17:28 Test Item Value Reference Range Interpretation Comments VENOUS BASE EXCESS, CORD mEq/L (test code = 2972618308) VENOUS PH, CORD (test 7.25-7.45 L code = 5326533354) VENOUS PC02, CORD (test See_Comment H [Au tomated message] code = 5094145504) The syste m which generated this result transmitted ref erence range: 27 - 49 mmHg. The reference r will was not used to interpret this result as normal/abnor mal. VENOUS PO2, CORD (test See_Comment L [Aut omated message] code = 9567574757) The syste m which generated this result transmitted ref erence range: 17 - 41 mmHg. The reference r will was not used to interpret this result as normal/abnor mal. VENOUS BICARBONATE, CORD See_Comment [A utomated message] (test code = 3606977180) The system which generated this result transmitted ref erence range: 12 - 29 mEq/L. The reference r will was not used to interpret this result as normal/abnor mal. Lab Interpretation (test Abnormal code = 02697-5) [facility] ONLY - SYPHILIS [id number] 16:05:21 Test Item Value Reference Range Interpretation Comments Syphilis IgG/IgM (test Non-reactive Non-reactive code = 68895-7) GANESH (test code = GANESH) Non-reactive - No serologic evidence of T. pallidum infection. Cannot exclude incubating or early syphilis. Submit a second specimen in 2-4 weeks if syphilis is clinically suspected. Equivocal - Further testing to follow. Reactive - Further testing to follow. Lab Interpretation (test Normal code = 78999-0) [facility] ONLY - SYPHILIS [id number] 16:05:21 Test Item Value Reference Range Interpretation Comments Syphilis IgG/IgM (test Non-reactive Non-reactive code = 81038-7) GANESH (test code = GANESH) Non-reactive - No serologic evidence of T. pallidum infection. Cannot exclude incubating or early syphilis. Submit a second specimen in 2-4 weeks if syphilis is clinically suspected. Equivocal - Further testing to follow. Reactive - Further testing to follow. Lab Interpretation (test Normal code = 63811-0) [facility] Test Item Value Reference Range Interpretation Comments MAGNESIUM (test code = 4518504006) 6.4 mg/dL 1.7-2.4 H Lab Interpretation (test code = Abnormal 44596-3) [facility] Test Item Value Reference Range Interpretation Comments MAGNESIUM (test code = 1069006739) 6.4 mg/dL 1.7-2.4 H Lab Interpretation (test code = Abnormal 51773-9) [facility] B Surface [id number] 11:57:09 Test Item Value Reference Range Interpretation Comments HBsAg Semi-Quantitative (test code = Negative Negative 5195-3) [facility] B Surface [id number] 11:57:09 Test Item Value Reference Range Interpretation Comments HBsAg Semi-Quantitative (test code = Negative Negative 5195-3) [facility] and Screen - ONCE [id number] 04:39:08 Test Item Value Reference Range Interpretation Comments ABO & RH (test code A POSITIVE Performe d at [facility] = 20) Laboratory [facility] Blood Bank3 [address] [facility] s [address]Talz Free: [phone] A No. [id number] IAT (test code = Negative Performed a t [facility] 1185) Laboratory [facility] Blood [facility]3 [address] [facility] [address]Egfk Free: [phone] A No. [id number] [facility] and Screen - ONCE [id number] 04:39:08 Test Item Value Reference Range Interpretation Comments ABO & RH (test code A POSITIVE Performe d at [facility] = 20) Laboratory [facility] Blood [facility] [address] [place] [address] s [address]Hkxv Free: [phone] A No. [id number] IAT (test code = Negative Performed a t [facility] 1185) Laboratory [facility] Blood [facility] [address] [place] [address] s [address]Oxce Free: [phone] A No. [id number] [facility] OR [facility]BDOULAYE ONLY - [id number] 04:07:57 Test Item Value Reference Range Interpretation Comments RPR (Qualitative) (test code = Nonreactive Nonreactive 70189-3) Lab Interpretation (test code = Normal 12640-4) [facility] OR [facility]OULAY[facility] ONLY - [id number] 04:07:57 Test Item Value Reference Range Interpretation Comments RPR (Qualitative) (test code = Nonreactive Nonreactive 45617-9) Lab Interpretation (test code = Normal 11718-8) [facility] B Surface [id number] 02:37:48 Test Item Value Reference Range Interpretation Comments HBsAg Semi-Quantitative (test code = Negative Negative 5195-3) [facility] B Surface [id number] 02:37:48 Test Item Value Reference Range Interpretation Comments HBsAg Semi-Quantitative (test code = Negative Negative 5195-3) [facility] [id number] 02:00:40 Test Item Value Reference Range Interpretation Comments URIC ACID (test code = 8717077314) 8.0 mg/dL 2.9-6.0 H Lab Interpretation (test code = Abnormal 17429-1) [facility] [id number] 02:00:40 Test Item Value Reference Range Interpretation Comments CREATININE (test code 0.50 mg/dL 0.50-1.04 = 5105422855) eGFR (test code = mL/min/1.73m2 8988550812) GANESH (test code = GANESH) Association of Glomerular Filtration Rate (GFR) and Staging of Kidney Disease* + + +- +| GFR (mL/min/1.73 m2) ?| With Kidney Damage ?| ?Without Kidney Damage+ ------+ ----+ ------+| ?>90 ?| ?Stage one ?| ? Normal ?+ -+ + -+| ?60-89 ?| ?Stage two ?| ? Decreased GFR ? + + +- +| ?30-59 ?| ?Stage three ?| ? Stage three ? + + +- +| ?15-29 ?| ?Stage four ? | ? Stage four ?+ -+ + -+| ?<15 (or dialysis) ? ?| ?Stage five ? | ? Stage five ?+ -+ + -+ *Each stage assumes the associated GFR level has been in effect for at least three months. ?Stages 1 to 5, with or without kidney disease, indicate chronic kidney disease. Notes: Determination of stages one and two (with eGFR >59mL/min/1.73 m2) requires estimation of kidney damage for at least three months as defined by structural or functional abnormalities of the kidney, manifested by either:Pathological abnormalities or Markers of kidney damage (including abnormalities in the composition of the blood or urine or abnormalities in imaging tests). [facility] (Asparate Amino Transfer)2021-11-01 02:00:40 Test Item Value Reference Range Interpretation Comments AST(SGOT) (test code = 7901876666) 22 U/L 13-40 Lab Interpretation (test code = Normal 04919-0) [facility] Transfer[facility] (SGPT)2021-11-01 02:00:40 Test Item Value Reference Range Interpretation Comments ALTv (test code = 1742-6) 13 U/L 5-35 Lab Interpretation (test code = Normal 19750-2) [facility] (LDH)2021-11-01 02:00:40 Test Item Value Reference Range Interpretation Comments LDH (test code = 9566701868) 625 U/L 300-600 H Lab Interpretation (test code = Abnormal 77673-4) [facility] [id number] 02:00:40 Test Item Value Reference Range Interpretation Comments URIC ACID (test code = 0190700844) 8.0 mg/dL 2.9-6.0 H Lab Interpretation (test code = Abnormal 90966-7) [facility] [id number] 02:00:40 Test Item Value Reference Range Interpretation Comments CREATININE (test code 0.50 mg/dL 0.50-1.04 = 1875594704) eGFR (test code = mL/min/1.73m2 6362990211) GANESH (test code = GANESH) Association of Glomerular Filtration Rate (GFR) and Staging of Kidney Disease* + + +- +| GFR (mL/min/1.73 m2) ?| With Kidney Damage ?| ?Without Kidney Damage+ ------+ ----+ ------+| ?>90 ?| ?Stage one ?| ? Normal ?+ -+ + -+| ?60-89 ?| ?Stage two ?| ? Decreased GFR ? + + +- +| ?30-59 ?| ?Stage three ?| ? Stage three ? + + +- +| ?15-29 ?| ?Stage four ? | ? Stage four ?+ -+ + -+| ?<15 (or dialysis) ? ?| ?Stage five ? | ? Stage five ?+ -+ + -+ *Each stage assumes the associated GFR level has been in effect for at least three months. ?Stages 1 to 5, with or without kidney disease, indicate chronic kidney disease. Notes: Determination of stages one and two (with eGFR >59mL/min/1.73 m2) requires estimation of kidney damage for at least three months as defined by structural or functional abnormalities of the kidney, manifested by either:Pathological abnormalities or Markers of kidney damage (including abnormalities in the composition of the blood or urine or abnormalities in imaging tests). [facility] (Asparate Amino Transfer)2021-11-01 02:00:40 Test Item Value Reference Range Interpretation Comments AST(SGOT) (test code = 0498298672) 22 U/L 13-40 Lab Interpretation (test code = Normal 05497-3) [facility] (SGPT)2021-11-01 02:00:40 Test Item Value Reference Range Interpretation Comments ALTv (test code = 1742-6) 13 U/L 5-35 Lab Interpretation (test code = Normal 46744-9) [facility] (LDH)2021-11-01 02:00:40 Test Item Value Reference Range Interpretation Comments LDH (test code = 3189820977) 625 U/L 300-600 H Lab Interpretation (test code = Abnormal 74004-7) [facility] WITH [id number] 01:21:52 Test Item Value Reference Range Interpretation Comments WBC (test code = See_Comment [Automated 1293-2) message] The sy stem which generated this result transmitted reference range : 4.30 - 11.10 10*3/?L. The reference range was not used to interpret this result as normal/abnormal . RBC (test code = See_Comment [Automated 380-8) message] The sy stem which generated this result transmitted reference range : 3.93 - 5.25 10*6/?L. The reference range was not used to interpret this result as normal/abnormal . HGB (test code = 12.6 g/dL 11.6-15.0 718-7) HCT (test code = 35.0 % 35.7-45.2 L 4544-3) MCV (test code = 87.5 fL 80.6-95.5 787-2) MCH (test code = 31.5 pg 25.9-32.8 785-6) MCHC (test code = 36.0 g/dL 31.6-35.1 H 786-4) RDW-SD (test code = 48.3 fL 39.0-49.9 14151-0) RDW-CV (test code = 14.9 % 12.0-15.5 788-0) PLT (test code = See_Comment [Automated 777-3) message] The sy stem which generated this result transmitted reference range : 166 - 358 10*3/ ?L. The reference r wlil was not used to interpret this result as normal/abnormal . MPV (test code = 11.1 fL 9.5-12.9 14533-8) NRBC/100 WBC (test See_Comment [Automat ed code = 6973077152) message] The system which generated this result transmitted reference range : 0.0 - 10.0 /100 WBCs. The refer ence range was not u sed to interpret th is result as normal/abnormal . NRBC x10^3 (test code <0.01 See_Comment [Auto mated = 9783092191) message] The s ystem which generated this result transmitted reference range : 10*3/?L. The reference range was not used to interpret this result as normal/abnormal . GRAN MAT (NEUT) % 84.2 % (test code = 770-8) IMM GRAN % (test code 0.60 % = 8671522816) LYMPH % (test code = 12.9 % 736-9) MONO % (test code = 2.2 % 5905-5) EOS % (test code = 0.0 % 713-8) BASO % (test code = 0.1 % 706-2) GRAN MAT x10^3(ANC) 8.13 10*3/uL 1.88-7.09 H (test code = 6661263583) IMM GRAN x10^3 (test 0.06 10*3/uL 0.00-0.06 code = 8412440781) LYMPH x10^3 (test code 1.25 10*3/uL 1.32-3.29 L = 731-0) MONO x10^3 (test code 0.21 10*3/uL 0.33-0.92 L = 742-7) EOS x10^3 (test code = <0.03 0.03-0.39 L 711-2) BASO x10^3 (test code <0.03 0.01-0.07 = 704-7) Lab Interpretation Abnormal (test code = 04505-2) [facility] WITH [id number] 01:21:52 Test Item Value Reference Range Interpretation Comments WBC (test code = See_Comment [Automated 6690-2) message] The sy stem which generated this result transmitted reference range : 4.30 - 11.10 10*3/?L. The reference range was not used to interpret this result as normal/abnormal . RBC (test code = See_Comment [Automated 789-8) message] The sy stem which generated this result transmitted reference range : 3.93 - 5.25 10*6/?L. The reference range was not used to interpret this result as normal/abnormal . HGB (test code = 12.6 g/dL 11.6-15.0 718-7) HCT (test code = 35.0 % 35.7-45.2 L 4544-3) MCV (test code = 87.5 fL 80.6-95.5 787-2) MCH (test code = 31.5 pg 25.9-32.8 785-6) MCHC (test code = 36.0 g/dL 31.6-35.1 H 786-4) RDW-SD (test code = 48.3 fL 39.0-49.9 46894-6) RDW-CV (test code = 14.9 % 12.0-15.5 788-0) PLT (test code = See_Comment [Automated 777-3) message] The sy stem which generated this result transmitted reference range : 166 - 358 10*3/ ?L. The reference r will was not used to interpret this result as normal/abnormal . MPV (test code = 11.1 fL 9.5-12.9 28769-4) NRBC/100 WBC (test See_Comment [Automat ed code = 0659918896) message] The system which generated this result transmitted reference range : 0.0 - 10.0 /100 WBCs. The refer ence range was not u sed to interpret th is result as normal/abnormal . NRBC x10^3 (test code <0.01 See_Comment [Auto mated = 7998366709) message] The s ystem which generated this result transmitted reference range : 10*3/?L. The reference range was not used to interpret this result as normal/abnormal . GRAN MAT (NEUT) % 84.2 % (test code = 770-8) IMM GRAN % (test code 0.60 % = 2838430281) LYMPH % (test code = 12.9 % 736-9) MONO % (test code = 2.2 % 5905-5) EOS % (test code = 0.0 % 713-8) BASO % (test code = 0.1 % 706-2) GRAN MAT x10^3(ANC) 8.13 10*3/uL 1.88-7.09 H (test code = 7116886582) IMM GRAN x10^3 (test 0.06 10*3/uL 0.00-0.06 code = 0604841199) LYMPH x10^3 (test code 1.25 10*3/uL 1.32-3.29 L = 731-0) MONO x10^3 (test code 0.21 10*3/uL 0.33-0.92 L = 742-7) EOS x10^3 (test code = <0.03 0.03-0.39 L 711-2) BASO x10^3 (test code <0.03 0.01-0.07 = 704-7) Lab Interpretation Abnormal (test code = 24282-5) [facility] GLUCOSE (AUTOMATED)2021-11-01 00:09:31 Test Item Value Reference Range Interpretation Comments POCT GLU (test code = 5875359511) 123 mg/dL 70-110 H Lab Interpretation (test code = Abnormal 71162-3) [facility] GLUCOSE (AUTOMATED)2021-11-01 00:09:31 Test Item Value Reference Range Interpretation Comments POCT GLU (test code = 7157430515) 123 mg/dL 70-110 H Lab Interpretation (test code = Abnormal 32728-3) [facility] WITH [id number] 21:53:58 Test Item Value Reference Range Interpretation Comments HIV Negative Negative Semi-quantitative (test code = 17620-2) GANESH (test code = Non-reactive for HIV-1 GANESH) antigen and HIV-1/HIV-2 antibodies. ?No laboratory evidence of HIV infection. ?Repeat in 2-4 weeks if acute HIV infection is suspected. [facility] AG-AB WITH [id number] 21:53:58 Test Item Value Reference Range Interpretation Comments HIV Negative Negative Semi-quantitative (test code = 12074-3) GANESH (test code = Non-reactive for HIV-1 GANESH) antigen and HIV-1/HIV-2 antibodies. ?No laboratory evidence of HIV infection. ?Repeat in 2-4 weeks if acute HIV infection is suspected. [facility] - ONCE [id number] 21:29:15 Test Item Value Reference Range Interpretation Comments ABO & RH (test code A Positive Performe d at [facility] = 20) Laboratory [facility] Blood Bank[address] [place] [address] Free: [phone] A No. [id number] IAT (test code = Negative Performed a t [facility] 1185) Laboratory [facility] Blood Bank[address] [place], [place] [address]Toll Free: [phone] A No. [id number] [facility] - ONCE [id number] 21:29:15 Test Item Value Reference Range Interpretation Comments ABO & RH (test code A Positive Performe d at [facility] = 20) Laboratory [facility] Blood [address] [place], [place] [address]Toll Free: [phone] A No. [id number] IAT (test code = Negative Performed a t [facility] 1185) Laboratory [facility] Blood [address] [place], [place] [address]Toll Free: [phone] A No. [id number] [facility]wood[facility]. METABOLIC PANEL (25602)2021-10-31 21:13:41 Test Item Value Reference Range Interpretation Comments NA (test code = 131 mmol/L 135-145 L 5629149167) K (test code = 3.8 mmol/L 3.5-5.0 5770238772) CL (test code = 108 mmol/L 98-108 3923286782) CO2 TOTAL (test code = 19 mmol/L 23-31 L 8825713798) AGAP (test code = 2-16 1792482599) BUN (test code = 16 mg/dL 7-23 4541333580) GLUCOSE (test code = 95 mg/dL 70-110 1177561868) CREATININE (test code = 0.48 mg/dL 0.50-1.04 L 3521961237) TOTAL BILI (test code = 0.5 mg/dL 0.1-1.4 7302776470) CALCIUM (test code = 8.8 mg/dL 8.6-10.6 0356647530) T PROTEIN (test code = 6.1 g/dL 6.3-8.2 L 8122952283) ALBUMIN (test code = 3.2 g/dL 3.5-5.0 L 8396200833) ALK PHOS (test code = 161 U/L 34-122 H 7756842836) ALTv (test code = 14 U/L 5-35 1742-6) AST(SGOT) (test code = 23 U/L 13-40 6111851216) eGFR (test code = mL/min/1.73m2 2974258774) GANESH (test code = GANESH) Association of Glomerular Filtration Rate (GFR) and Staging of Kidney Disease* + --+ --+ ------+| GFR (mL/min/1.73 m2) ?| With Kidney Damage ?| ?Without Kidney Damage+ --------+ --------+ +| ?>90 ?| ?Stage one ?| ? Normal ?+ ---+ ---+ -------+| ?60-89 ?| ?Stage two ?| ? Decreased GFR ? + --+ --+ ------+| ?30-59 ?| ?Stage three ?| ? Stage three ? + --+ --+ ------+| ?15-29 ?| ?Stage four ? | ? Stage four ?+ ---+ ---+ -------+| ?<15 (or dialysis) ? ?| ?Stage five ? | ? Stage five ?+ ---+ ---+ -------+ *Each stage assumes the associated GFR level has been in effect for at least three months. ?Stages 1 to 5, with or without kidney disease, indicate chronic kidney disease. Notes: Determination of stages one and two (with eGFR >59mL/min/1.73 m2) requires estimation of kidney damage for at least three months as defined by structural or functional abnormalities of the kidney, manifested by either:Pathological abnormalities or Markers of kidney damage (including abnormalities in the composition of the blood or urine or abnormalities in imaging tests). Lab Interpretation Abnormal (test code = 28775-3) [facility]. METABOLIC PANEL ([id number])2021-10-31 21:13:41 Test Item Value Reference Range Interpretation Comments NA (test code = 131 mmol/L 135-145 L 3650407189) K (test code = 3.8 mmol/L 3.5-5.0 1015655233) CL (test code = 108 mmol/L 98-108 7740268697) CO2 TOTAL (test code = 19 mmol/L 23-31 L 6522977089) AGAP (test code = 2-16 4500966818) BUN (test code = 16 mg/dL 7-23 3338805679) GLUCOSE (test code = 95 mg/dL 70-110 2037889527) CREATININE (test code = 0.48 mg/dL 0.50-1.04 L 9862125649) TOTAL BILI (test code = 0.5 mg/dL 0.1-1.5 9391302461) CALCIUM (test code = 8.8 mg/dL 8.6-10.6 4202435278) T PROTEIN (test code = 6.1 g/dL 6.3-8.2 L 3072152288) ALBUMIN (test code = 3.2 g/dL 3.5-5.0 L 8986913670) ALK PHOS (test code = 161 U/L 34-122 H 3215228743) ALTv (test code = 14 U/L 5-35 1742-6) AST(SGOT) (test code = 23 U/L 13-40 7087585432) eGFR (test code = mL/min/1.73m2 0894424855) GANESH (test code = GANESH) Association of Glomerular Filtration Rate (GFR) and Staging of Kidney Disease* + --+ --+ ------+| GFR (mL/min/1.73 m2) ?| With Kidney Damage ?| ?Without Kidney Damage+ --------+ --------+ +| ?>90 ?| ?Stage one ?| ? Normal ?+ ---+ ---+ -------+| ?60-89 ?| ?Stage two ?| ? Decreased GFR ? + --+ --+ ------+| ?30-59 ?| ?Stage three ?| ? Stage three ? + --+ --+ ------+| ?15-29 ?| ?Stage four ? | ? Stage four ?+ ---+ ---+ -------+| ?<15 (or dialysis) ? ?| ?Stage five ? | ? Stage five ?+ ---+ ---+ -------+ *Each stage assumes the associated GFR level has been in effect for at least three months. ?Stages 1 to 5, with or without kidney disease, indicate chronic kidney disease. Notes: Determination of stages one and two (with eGFR >59mL/min/1.73 m2) requires estimation of kidney damage for at least three months as defined by structural or functional abnormalities of the kidney, manifested by either:Pathological abnormalities or Markers of kidney damage (including abnormalities in the composition of the blood or urine or abnormalities in imaging tests). Lab Interpretation Abnormal (test code = 61540-3) [id number] 21:13:21 Test Item Value Reference Range Interpretation Comments URIC ACID (test code = 2409821169) 8.4 mg/dL 2.9-6.0 H Lab Interpretation (test code = Abnormal 38765-8) [facility] [id number] 21:13:21 Test Item Value Reference Range Interpretation Comments URIC ACID (test code = 1132123060) 8.4 mg/dL 2.9-6.0 H Lab Interpretation (test code = Abnormal 07558-2) [facility] WITH [id number] 21:01:41 Test Item Value Reference Range Interpretation Comments WBC (test code = See_Comment [Automated 6890-2) message] The sy stem which generated this result transmitted reference range : 4.30 - 11.10 10*3/?L. The reference range was not used to interpret this result as normal/abnormal . RBC (test code = See_Comment [Automated 789-8) message] The sy stem which generated this result transmitted reference range : 3.93 - 5.25 10*6/?L. The reference range was not used to interpret this result as normal/abnormal . HGB (test code = 13.2 g/dL 11.6-15.0 718-7) HCT (test code = 37.4 % 35.7-45.2 4544-3) MCV (test code = 90.3 fL 80.6-95.5 787-2) MCH (test code = 31.9 pg 25.9-32.8 785-6) MCHC (test code = 35.3 g/dL 31.6-35.1 H 786-4) RDW-SD (test code = 48.9 fL 39.0-49.9 90717-8) RDW-CV (test code = 14.8 % 12.0-15.5 788-0) PLT (test code = See_Comment [Automated 777-3) message] The sy stem which generated this result transmitted reference range : 166 - 358 10*3/ ?L. The reference r will was not used to interpret this result as normal/abnormal . MPV (test code = 11.3 fL 9.5-12.9 66621-6) NRBC/100 WBC (test See_Comment [Automat ed code = 6073963712) message] The system which generated this result transmitted reference range : 0.0 - 10.0 /100 WBCs. The refer ence range was not u sed to interpret th is result as normal/abnormal . NRBC x10^3 (test code <0.01 See_Comment [Auto mated = 8076330206) message] The s ystem which generated this result transmitted reference range : 10*3/?L. The reference range was not used to interpret this result as normal/abnormal . GRAN MAT (NEUT) % 66.5 % (test code = 770-8) IMM GRAN % (test code 0.50 % = 6003714118) LYMPH % (test code = 25.1 % 736-9) MONO % (test code = 7.2 % 5905-5) EOS % (test code = 0.5 % 713-8) BASO % (test code = 0.2 % 706-2) GRAN MAT x10^3(ANC) 5.74 10*3/uL 1.88-7.09 (test code = 1529877560) IMM GRAN x10^3 (test 0.04 10*3/uL 0.00-0.06 code = 7224903225) LYMPH x10^3 (test code 2.17 10*3/uL 1.32-3.29 = 731-0) MONO x10^3 (test code 0.62 10*3/uL 0.33-0.92 = 742-7) EOS x10^3 (test code = 0.04 10*3/uL 0.03-0.39 711-2) BASO x10^3 (test code <0.03 0.01-0.07 = 704-7) Lab Interpretation Abnormal (test code = 94834-4) [facility] WITH [id number] 21:01:41 Test Item Value Reference Range Interpretation Comments WBC (test code = See_Comment [Automated 0290-2) message] The sy stem which generated this result transmitted reference range : 4.30 - 11.10 10*3/?L. The reference range was not used to interpret this result as normal/abnormal . RBC (test code = See_Comment [Automated 459-8) message] The sy stem which generated this result transmitted reference range : 3.93 - 5.25 10*6/?L. The reference range was not used to interpret this result as normal/abnormal . HGB (test code = 13.2 g/dL 11.6-15.0 718-7) HCT (test code = 37.4 % 35.7-45.2 4544-3) MCV (test code = 90.3 fL 80.6-95.5 787-2) MCH (test code = 31.9 pg 25.9-32.8 785-6) MCHC (test code = 35.3 g/dL 31.6-35.1 H 786-4) RDW-SD (test code = 48.9 fL 39.0-49.9 21277-5) RDW-CV (test code = 14.8 % 12.0-15.5 788-0) PLT (test code = See_Comment [Automated 777-3) message] The sy stem which generated this result transmitted reference range : 166 - 358 10*3/ ?L. The reference r will was not used to interpret this result as normal/abnormal . MPV (test code = 11.3 fL 9.5-12.9 18011-0) NRBC/100 WBC (test See_Comment [Automat ed code = 1397667868) message] The system which generated this result transmitted reference range : 0.0 - 10.0 /100 WBCs. The refer ence range was not u sed to interpret th is result as normal/abnormal . NRBC x10^3 (test code <0.01 See_Comment [Auto mated = 9115648712) message] The s ystem which generated this result transmitted reference range : 10*3/?L. The reference range was not used to interpret this result as normal/abnormal . GRAN MAT (NEUT) % 66.5 % (test code = 770-8) IMM GRAN % (test code 0.50 % = 4456381489) LYMPH % (test code = 25.1 % 736-9) MONO % (test code = 7.2 % 5905-5) EOS % (test code = 0.5 % 713-8) BASO % (test code = 0.2 % 706-2) GRAN MAT x10^3(ANC) 5.74 10*3/uL 1.88-7.09 (test code = 3049350210) IMM GRAN x10^3 (test 0.04 10*3/uL 0.00-0.06 code = 9551743475) LYMPH x10^3 (test code 2.17 10*3/uL 1.32-3.29 = 731-0) MONO x10^3 (test code 0.62 10*3/uL 0.33-0.92 = 742-7) EOS x10^3 (test code = 0.04 10*3/uL 0.03-0.39 711-2) BASO x10^3 (test code <0.03 0.01-0.07 = 704-7) Lab Interpretation Abnormal (test code = 91648-4) [facility] URINALYSIS W/O SPECIFIC [id number] 18:04:00 Test Item Value Reference Range Interpretation Comments POCT PH U (test code = 3254) n/a 5-8 POCT U LEUK EST (test code = n/a Negative - Negative 3263) POCT U NIT (test code = 3262) n/a Negative - Negative POCT U PROT (test code = 3259) Negative Negative - Negative POCT U GLU (test code = 3256) Negative - Negative POCT U KETONE (test code = 3258) n/a Negative - Negative POCT U BLD (test code = 3257) n/a Negative - Negative Lab Interpretation (test code = Normal 18408-8) [facility] URINALYSIS W/O SPECIFIC [id number] 20:32:00 Test Item Value Reference Range Interpretation Comments POCT PH U (test code = 3254) n/a 5-8 POCT U LEUK EST (test code = 3263) n/a Negative - Negative POCT U NIT (test code = 3262) n/a Negative - Negative POCT U PROT (test code = 3259) trace Negative - Negative POCT U GLU (test code = 3256) neg Negative - Negative POCT U KETONE (test code = 3258) n/a Negative - Negative POCT U BLD (test code = 3257) n/a Negative - Negative Lab Interpretation (test code = Normal 63923-9) [facility] URINALYSIS W/O SPECIFIC [id number] 17:14:00 Test Item Value Reference Range Interpretation Comments POCT PH U (test code = 3254) n/a 5-8 POCT U LEUK EST (test code = n/a Negative - Negative 3263) POCT U NIT (test code = 3262) n/a Negative - Negative POCT U PROT (test code = 3259) Negative Negative - Negative POCT U GLU (test code = 3256) Negative Negative - Negative POCT U KETONE (test code = 3258) n/a Negative - Negative POCT U BLD (test code = 3257) n/a Negative - Negative Lab Interpretation (test code = Normal 14446-1) [facility]"
--- NOTE | 2022-09-01 08:37 | RAD REPORT ---
EXAM DESCRIPTION: CT - Head Brain Wo Cont - 09/01/2022 8:01 am CLINICAL HISTORY: Headache COMPARISON: 2017 TECHNIQUE: Computed axial tomography of the head was obtained. IV contrast was not requested. All CT scans are performed using dose optimization technique as appropriate and may include automated exposure control or mA/KV adjustment according to patient size. FINDINGS: Suboccipital craniotomy. 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 Low-density is present w ithin this region. Right shunt enters the frontal horn right lateral ventricle. Tip lies near the foramen of Monro. The right lateral ventricle is very small. Intracranial bleed is not noted. No extra-axial fluid collection. Fluid within the sinuses/ mastoids is not seen. IMPRESSION: Postsurgical changes posterior fossa. Low-density within this region. It is difficult to determine if this all represents gliosis or if the re is any residual tumor. MRI with contrast may be helpful for further evaluation. Right shunt enters the frontal horn right lateral ventricle. Tip lies near the foramen of Monro. The right lateral ventricle is very small.
--- NOTE | 2022-09-01 09:21 | RAD REPORT ---
EXAM DESCRIPTION: RAD - Shuntogram - 09/01/2022 8:50 am CLINICAL HISTORY: Headache FINDINGS: The proximal aspect of a right ventriculoperitoneal shunt enters the right lateral ventric le. Tip lies near midline. The shunt courses the right neck, right chest and right abdomen. The tip lies within the left pelvis. No fracture of the shunt seen. No kink visualized
[2022-09-01] MEDS ORDERED: MECLIZINE HCL 12.5 MG TAB ONE (09:37)
[2022-09-01 09:51] LABS: Absolute Lymphocytes (CBC) 2.8 K/uL (0.7-4.9); Hematocrit 37.9 % (36.0-45.0); Lymphocytes % 32.7 % (15.3-44.8); MCV 88.2 fL (80-100); MPV 7.9 fL (7.6-11.3); RBC Red Blood Cell Count 4.29 M/uL (3.86-4.86)
[2022-09-01 10:07] LABS: Magnesium 2.3 mg/dL (1.8-2.4); Potassium 3.7 mmol/L (3.5-5.1); Troponin High Sensitivity 3.3 pg/mL (<58.9)
[2022-09-01 10:58] LABS: Urine Blood Negative (Negative); Urine Glucose Negative (Negative); Urine Protein Negative (Negative); Urine Specific Gravity >=1.030 (1.005-1.030); Urine pH 5.5 (5.0-7.0)
--- NOTE | 2022-09-01 11:24 | ER ---
Nurse's Notes [facility] Name: Nisreen Alarcon Age: 21 yrs Sex: Female : 2000 Arrival Date: 09/01/2022 Time: 07:17 Bed 12 Private MD: Diagnosis: Dizziness and giddiness;Other visual disturbances;UTI/ Urinary tract infection, site not specified Presentation: 09/01 07:45 Chief complaint: Patient states: I've noticed since Thursday I have visual changes and I iw have been getting more dizzy that usual, i don't know if it's my shunt ot my tumor or my gamma knife I had done in April. Coronavirus screen: At this time, the client does not indicate any symptoms associated with coronavirus-19. 07:45 Method Of Arrival: Ambulatory iw 07:50 Ebola Screen: Patient negative for fever greater than or equal to 101.5 degrees iw Fahrenheit, and additional compatible Ebola Virus Disease symptoms Patient denies exposure to infectious person. Patient denies travel to an Ebola-affected area in the 21 days before illness onset. No symptoms or risks identified at this time. Onset of symptoms was August 27, 2022. 07:50 Acuity: CRISTOPHER 3 iw Historical: - Allergies: 07:46 No Known Allergies; iw - PMHx: 07:46 GALLSTONES; iw - Immunization history:: Client reports receiving the 2nd dose of the Covid vaccine. - Social history:: Smoking status: Patient denies any tobacco usage or history of. Screenin:15 Abuse screen: Denies threats or abuse. Denies injuries from another. Nutritional ss screening: No deficits noted. Tuberculosis screening: Never had TB. Fall Risk None identified. Assessment: 11:00 Reassessment: Pt is unsure about MRI, as every time she has to get one, she has had to ss have her shunt adjusted. ALICE Ramirez notified. 12:15 Reassessment: Patient appears in no apparent distress at this time. Patient and/or ss family updated on plan of care and expected duration. Pain level reassessed. Patient is alert, oriented x 3, equal unlabored respirations, skin warm/dry/pink. Vital Signs: 07:47 BP 133 / 66; Pulse 97; Resp 16; Temp 98.6; Pulse Ox 100% on R/A; iw 09:48 BP 116 / 64 Supine; Pulse 70; ss 09:48 BP 117 / 72 Sitting; Pulse 76; ss 09:48 BP 109 / 71 Standing; Pulse 82; ss ED Course: 07:17 Patient arrived in ED. rg4 07:18 Gerald Marcano MD is Attending Physician. rn 07:22 Cristóbal Metcalf PA is PHCP. cp 07:47 Arm band placed on. iw 07:50 Triage completed. iw 08:03 CT Head Brain wo Cont In Process Unspecified. EDMS 08:51 Shuntogram XRAY In Process Unspecified. EDMS 09:37 Inserted saline lock: 20 gauge in left antecubital area, using aseptic technique. Blood iw collected. 09:43 Earline Santos RN is Primary Nurse. ss 12:15 Patient has correct armband on for positive identification. ss 12:15 No provider procedures requiring assistance completed. IV discontinued, intact, ss bleeding controlled, No redness/swelling at site. Pressure dressing applied. Administered Medications: 09:43 Drug: Meclizine 25 mg Route: PO; ss 12:15 Follow up: Response: No adverse reaction ss Medication: 12:15 VIS not applicable for this client. ss Outcome: 11:23 Discharge ordered by . cp 12:15 Discharged to home ambulatory. ss 12:15 Condition: good 12:15 Discharge instructions given to patient, Instructed on discharge instructions, follow up and referral plans. medication usage, Demonstrated understanding of instructions, follow-up care, medications, Prescriptions given X 3. 12:16 Patient left the ED. ss Signatures: Dispatcher [employer] Halie Aguirre RN RN Gerald Marcano MD MD rn Smirch, Shelby, RN RN Cristóbal Shaw PA PA cp Garcia, Rubi rg4 Corrections: (The following items were deleted from the chart) 09:49 09:48 BP 109 / 71; Pulse 82bpm; ss ss
--- NOTE | 2022-09-01 11:24 | EDPHYS ---
Physician Documentation [facility] Name: Nisreen Alarcon Age: 21 yrs Sex: Female : 2000 Arrival Date: 09/01/2022 Time: 07:17 Bed 12 Private MD: ED Physician Gerald Marcano HPI: 09/01 08:15 This 21 yrs old Female presents to ER via Ambulatory with complaints of Weakness, cp Dizziness, Vision Problem. 08:15 The patient presents to the emergency department with a vision problem, blurred vision, cp decreased visual acuity, dizziness. 08:15 Onset: The symptoms/episode began/occurred last week, this past Thursday. Context: cp occurred while the patient was doing normal activity. 08:15 Associated signs and symptoms: Pertinent positives: dizziness, headache, worsening cp distant vision, Pertinent negatives: fever, neck stiffness, paresthesias. Severity of symptoms: in the emergency department the symptoms are unchanged despite home interventions. 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 Patient reports having appointment for Brain MRI this . 08:15 Current symptoms: dizziness and decreased distant vision. cp Historical: - Allergies: 07:46 No Known Allergies; iw - PMHx: 07:46 GALLSTONES; iw - Immunization history:: Client reports receiving the 2nd dose of the Covid vaccine. - Social history:: Smoking status: Patient denies any tobacco usage or history of. ROS: 08:20 Constitutional: Negative for body aches, chills, fever, poor PO intake. cp 08:20 Eyes: Positive for visual disturbance, Negative for discharge, pain, redness, vision cp loss. 08:20 Cardiovascular: Negative for chest pain, edema, palpitations. 08:20 ENT: Negative for drainage from ear(s), ear pain, sinus congestion, sore throat, cp difficulty swallowing, difficulty handling secretions. 08:20 Neck: Negative for pain with movement, pain at rest, stiffness. 08:20 Respiratory: Negative for cough, shortness of breath, wheezing. 08:20 Abdomen/GI: Negative for abdominal pain, nausea, vomiting, and diarrhea, constipation. 08:20 Neuro: Positive for dizziness, visual changes, Negative for altered mental status, numbness, weakness. 08:20 All other systems are negative. Exam: 08:25 Constitutional: The patient appears in no acute distress, alert, awake, cp non-diaphoretic, non-toxic, well developed, well nourished, overweight 08:25 Head/Face: Normocephalic, atraumatic. cp 08:25 Eyes: Periorbital structures: appear normal, Pupils: equal, round, and reactive to light and accomodation, Extraocular movements: intact throughout, Conjunctiva: normal, no exudate, no injection, Sclera: no appreciated abnormality, Lids and lashes: appear normal, bilaterally. 08:25 ENT: External ear(s): are unremarkable, Ear canal(s): are normal, clear, TM's: dullness, bilaterally, Nose: is normal, Mouth: Lips: moist, Oral mucosa: pink and intact, moist, Posterior pharynx: Airway: no evidence of obstruction, patent. 08:25 Neck: ROM/movement: is normal, is supple, without pain, no range of motions limitations. 08:25 Chest/axilla: Inspection: normal. 08:25 Cardiovascular: Rate: normal, Rhythm: regular. 08:25 Respiratory: the patient does not display signs of respiratory distress, Respirations: normal, no use of accessory muscles, no retractions, labored breathing, is not present, Breath sounds: are clear throughout, no decreased breath sounds, no stridor, no wheezing. 08:25 Abdomen/GI: Exam negative for discomfort, distension, guarding, Inspection: abdomen appears normal. 08:25 Back: pain, is absent, ROM is normal. 08:25 Neuro: Orientation: to person, place \T\ time. Mentation: is normal, Cerebellar function: is grossly normal, Motor: moves all fours, strength is normal, Sensation: is normal, Gait: is steady, at a normal pace, without difficulty. 09:34 ECG was reviewed by the Attending Physician. cp Vital Signs: 07:47 BP 133 / 66; Pulse 97; Resp 16; Temp 98.6; Pulse Ox 100% on R/A; iw 09:48 BP 116 / 64 Supine; Pulse 70; ss 09:48 BP 117 / 72 Sitting; Pulse 76; ss 09:48 BP 109 / 71 Standing; Pulse 82; ss MDM: 07:18 Patient medically screened. rn 11:17 Data reviewed: vital signs, nurses notes, lab test result(s), EKG, radiologic studies, cp CT scan, plain films. Counseling: I had a detailed discussion with the patient and/or guardian regarding: the historical points, exam findings, and any diagnostic results supporting the discharge/admit diagnosis, lab results, radiology results, the need for outpatient follow up, for definitive care, a neurologist. Response to treatment: the patient's symptoms have mildly improved after treatment. ED course: VSS. Patient declines having MRI done today and will f/u as scheduled this with her primary neurologist and have the MRI scheduled that day done. 09/01 07:50 Order name: Basic Metabolic Panel; Complete Time: 10:13 09/01 10:13 Interpretation: Normal except: CL 109; GLUC 110. 09/01 07:50 Order name: CBC with Diff; Complete Time: 10:13 09/01 10:13 Interpretation: Normal except: PLT 428. 09/01 07:50 Order name: Magnesium; Complete Time: 10:13 09/01 07:50 Order name: Troponin HS; Complete Time: 10:13 09/01 10:14 Interpretation: Within normal limits: Troponin HS 3.3. 09/01 10:58 Order name: Urine Dipstick-Ancillary; Complete Time: 11:16 EDSC 09/01 11:16 Interpretation: Normal except: UNIT Positive; UESTR Trace. 09/01 10:59 Order name: Urine Culture 09/01 07:50 Order name: EKG; Complete Time: 07:51 09/01 07:50 Order name: Cardiac monitoring; Complete Time: 09:37 09/01 07:50 Order name: Shuntogram XRAY; Complete Time: 09:30 09/01 11:17 Interpretation: Report reviewed. 09/01 07:50 Order name: CT Head Brain wo Cont; Complete Time: 09:18 09/01 09:20 Interpretation: Report reviewed. 09/01 10:59 Order name: Urine Microscopic Only; Complete Time: 11:57 09/01 11:04 Order name: Urine --Ancillary (enter results) 09/01 07:50 Order name: EKG - Nurse/Tech; Complete Time: 09:37 09/01 07:50 Order name: IV Saline Lock; Complete Time: 09:37 09/01 07:50 Order name: Labs collected and sent; Complete Time: 09:37 09/01 07:50 Order name: O2 Per Protocol; Complete Time: 09:37 09/01 07:50 Order name: O2 Sat Monitoring; Complete Time: 09:37 09/01 07:51 Order name: Urine Dipstick-Ancillary (obtain specimen); Complete Time: 11:01 09/01 07:51 Order name: Urine Test (obtain specimen); Complete Time: 11:01 09/01 09:32 Order name: Orthostatics; Complete Time: 09:48 09/01 09:33 Order name: Visual Acuity cp EC:34 Rate is 73 beats/min. Rhythm is regular. OH interval is normal. QRS interval is normal. cp QT interval is normal. T waves are Inverted in leads III, aVR. Interpreted by me. Reviewed by me. Administered Medications: 09:43 Drug: Meclizine 25 mg Route: PO; ss 12:15 Follow up: Response: No adverse reaction ss Disposition: 13:50 Co-signature as Attending Physician, Gerald Marcano MD. rn Disposition Summary: 09/01/22 11:23 Discharge Ordered Location: Home cp Problem: new cp Symptoms: have improved cp Condition: Stable cp Diagnosis - Dizziness and giddiness cp - Other visual disturbances cp - UTI/ Urinary tract infection, site not specified cp Followup: cp - With: Private Physician - When: 2 - 3 days - Reason: Recheck today's complaints Discharge Instructions: - Discharge Summary Sheet cp - Dizziness cp - Visual Disturbances cp Forms: - Medication Reconciliation Form cp - Thank You Letter cp - Antibiotic Education cp - Prescription Opioid Use cp - Work release form ss Prescriptions: - Meclizine 25 mg Oral Tablet - take 1 tablet by ORAL route every 8 hours As needed; 30 tablet; Refills: 0, cp Product Selection Permitted - Zofran 4 mg Oral Tablet - take 1 tablet by ORAL route every 12 hours As needed; 20 tablet; Refills: 0, cp Product Selection Permitted - Macrobid 100 mg Oral Capsule - take 1 capsule by ORAL route every 12 hours for 7 days; 14 capsule; Refills: 0, cp Product Selection Permitted Signatures: Dispatcher [employer] Halie Aguirre, IRIS RN Gerald Devries MD MD rn Smirch, Shelby, RN RN ss Page, Corey, PA PA cp
[2022-09-01 11:39] LABS: Urine Bacteria 20-50 /HPF (<20); Urine Mucus 4+ /HPF (None Seen); Urine RBC <5 /HPF (None Seen)
[2022-09-01 12:29] VITALS: TEMP 98.6; O2SAT 100
[2022-09-01 12:29] LABS: Urine Specific Gravity/Preg >1.030 (1.005-1.030)
[2022-09-01 12:35] VITALS: BP 109/71
--- NOTE | 2022-09-02 08:24 | EKG ---
Test Date: 2022-09-01 Test Time: 09:24:58 Assistant Purchasing Manager: IVETT MEASUREMENT RESULTS: Intervals: Rate: 73 MI: 128 QRSD: 86 QT: 410 QTc: 451 [place]: P: 39 MI: 128 QRS: 3 T: 20 INTERPRETIVE STATEMENTS: Normal sinus rhythm Normal ECG Compared to ECG 11/06/2016 12:30:27 No significant changes Electronically Signed On 09-02-22 08:20:27 RIPRAP PLACING SUPERVISOR by Oswald Mary
== END 2022-09-01 12:16 | disposition home or self-care (01) ==
LOC: ER 07:14
DX: N39.0 Urinary tract infection, site not specified (principal); H53.8 Other visual disturbances
CPT/HCPCS: 93005; 87088; 85025; 87086; 80048; 36415; 83735; 81025; 87077; 87186; 84484; 70450; 75809; 49427; 99284; J8597; 81003; 81015

== ENCOUNTER 2022-10-01 21:10 | Emergency (ER) | payer BC ==
--- OUTSIDE RECORDS SUMMARY | 2022-10-01 21:21 | XMS REPORT | Continuity of Care Document ---
:2000 Author Organization [facility] t Address [address] [place] [address] Care Team Providers Name Role Phone Unknown, Physician Primary Care Physician Unavailable Gabe Hopper Attending Clinician Unavailable DANDRE MILLER Attending Clinician Unavailable HUBERT WANG Attending Clinician Unavailable GELA TODD Attending Clinician Unavailable DANDRE MILLER Attending Clinician Unavailable Doctor Unassigned, [place] Attending Clinician Unavailable JAKE SUE Attending Clinician Unavailable Nurse, [facility] Attending Clinician Unavailable Jake Sue MD Attending Clinician ARMIDA GONZALEZ Attending Clinician Unavailable Armida Tracey Attending Clinician PANCHO COOMBS Attending Clinician Unavailable PANCHO COOMBS Attending Clinician Unavailable Garcia Mckeon MD Attending Clinician CRISTÓBAL LISA Attending Clinician Unavailable Nikhil ALMAZAN, Shannon Painter Attending Clinician Can White MD, Jamila Attending Clinician [phone] Jamie Gonzalez MD Attending Clinician Ultrasound, Ang-Mf[facility] Attending Clinician Unavailable Pancho Coombs MD Attending Clinician SLOANE HALEY Attending Clinician Unavailable 1, j Nst Room Attending Clinician Unavailable Only, [facility] Pob2 Test Attending Clinician Unavailable Bryan Coombs DO Attending Clinician BRYAN COOMBS Attending Clinician Unavailable Room, [facility] Nst Attending Clinician Unavailable Zuly SIMMONS, Shirley Attending Clinician Unavailable JAZMYN ARMSTRONG Attending Clinician Unavailable Pob, [facility] Main Attending Clinician Unavailable Jazmyn Armstrong MD Attending Clinician [phone] JAMIE GONZALEZ Attending Clinician Unavailable 2, [facility] Attending Clinician Unavailable Faculty, Gregory Arevalo Mfrob Attending Clinician Unavailable Noah Mayers MD Attending Clinician Ultrasound, [facility] Mfm Attending Clinician Unavailable Debbie Eddy MD Attending Clinician Lab, [facility] Fam Pob I Attending Clinician Unavailable Ifrah Byrne Attending Clinician IFRAH DOWNS Attending Clinician Unavailable JAKE SUE Admitting Clinician Unavailable Jake Sue MD Admitting Clinician CRISTÓBAL LISA Admitting Clinician Unavailable Payers Payer Name Policy Type Policy Number Effective Date Expiration Date S brady BCBSTX PPO [id number] 2015 2024 AND OUT OF 00:00:00 00:00:00 STATE [employer] 6 [id number] 2017 [facility] t [employer] Shield 00:00:00 [facility] Problems Condition Condition Condition Status Onset Resolution [...] weeks Disease Active Unive rs gestation gestation 1-13 ity of of of 00:00: [place] 00 [facility] Branch Chronic Chronic Disease Active Univers hypertensi hypertensi 1-13 it y of on with on with 00:00: [place] superimpos superimpos 00 Me dical ed ed Branch pre-eclamp pre-eclamp rafaela rafaela Preeclamps Preeclamps Disease Active U nivers ia in ia in 1-13 [place] period period [...] Active U nivers 07-05 ity of 00:00: [address] Branch 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 in 07-05 it y of third third 00:00: [place] trimester trimester 00 [facility] Branch Astrocytom Astrocytom Disease Active U nivers a brain a brain 05-21 ity of tumor tumor 00:00: [address] Branch Primary Primary Disease Active Univers malignant malignant 05-21 ity of neoplasm neoplasm 00:00: [address] Branch Twin Twin Disease Active Univers , , 05-21 it y of antepartum antepartum 00:00: [place] , , 00 Medical unspecifie unspecifie Br anch d multiple d multiple gestation gestation type type COVID-19 COVID-19 Disease Active Unive rs virus RNA virus RNA 05-21 ity of detected detected 00:00: [address] Branch Elevated Elevated Disease Active Unive rs blood blood 05-21 ity of pressure pressure 00:00: [place] reading reading 00 Medical without without Branch diagnosis diagnosis of of hypertensi hypertensi on on [id number] 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 - [facility] Allergies, Adverse Reactions, Alerts Allergy Allergy Status Severity Reaction(s) Onset Inactive Treating Comm ents Source Name Type Date Date Clinician NO KNOWN Drug Active Univers ALLERGIE Class ity of S [facility] Social History Social Habit Start Date Stop Date Quantity Comments Source ASSERTION 2021-03-20 University of 00:00:00 [facility] History of [facility] - Tobacco Use [facility] Sex Assigned At Common Sp flash - [facility] History SDOH University o f Alcohol Comment [facility] ical Branch Exposure to 2022-03-29 2022-04-08 Not sure [facility] SARS-CoV-2 00:00:00 11:13:00 (event) Cigarette 2022-04-08 2022-04-08 [facility] pack-years 00:00:00 00:00:00 Tobacco use and 2022-04-08 2022-04-08 Smokeless tobacco [facility] exposure 00:00:00 00:00:00 non-user Alcohol intake 2022-04-08 2022-04-08 Lifetime [facility] 00:00:00 00:00:00 non-drinker (finding) Education 2021-10-31 2021-10-31 16 University 00:00:00 00:00:00 [place] [facility] History [facility] 2020-10-01 2020-10-01 1 University o f Alcohol Frequency 00:00:00 00:00:00 [place] M edical Branch History [facility] 2020-10-01 2020-10-01 99 [place] o f Alcohol Std 00:00:00 00:00:00 [place] Medical Drinks Branch History [facility] 2020-10-01 2020-10-01 1 [place] o f Alcohol Binge 00:00:00 00:00:00 [place] Medic al Branch Smoking Status Start Date Stop Date Source Never Smoker [facility] Medications Ordered Filled Start Stop Current Ordering Indication Dosage Frequency Signature Comments Components Source Medication Medication Date Date Medication? Clinician (SIG) Name Name No known No No known MD medications - medication He alth 11:25: s 34 acetaminoph Yes TAKE ONE Un yaneth en-caff-but 2- (1) ity of albital per 00:00: CAPSULE(S) [...] WITH FOOD OR MILK). miSOPROStoL 2021- No [id number] 200ug Take 1 Univers 200 mcg 11-25 [...] ( 1 Branch + 1 ORAL) 0 2021- No Take by Unive rs vit/iron -19 -19 mouth. ity of fum/folic 09:15: 00:00 [place] ac 32 :00 Medical ( 1 Branch + 1 ORAL) NIFEdipine 0 Yes 10mg 10 mg, Unive rs (ADALAT) -19 Oral, ity of capsule 10 00:24: Q1HPRN, 1 [place] mg 07 dose, Medical Starting Branch on Thu11/05/21 at 1824, Until Discontinu ed, Routine, elevated blood pressure ondansetron Yes 4mg 4 mg, Slow Univers (ZOFRAN 1-19 IV Push, ity of (PF)) 00:23: Q6HPRN, [place] injection 4 04 Starting Medi vishnu mg on Thu Branch 11/05/21 at 1823, Until Discontinu ed, Routine, Nausea and Vomiting (N/V) SERTraline Yes [id number] 50mg Take 1 Univers 50 mg 1-19 tablet by ity of tablet 00:00: mouth [place] 00 daily. Medical Branch NIFEdipine 0 Yes [id number] 30mg Take 1 Univers ER 30 mg 1-19 tablet by ity of tablet 00:00: mouth 2 [place] 00 (two) Medical times Branch daily. acetaminoph 0 Yes [id number] 1{capsu Take 1 Univers en-caff-but 1-19 le} capsule by it y of albital 00:00: mouth [place] (ESGIC) per 00 every 4 Medic al capsule (four) Branch hours as needed for Pain (headache) . SERTraline 0 Yes [id number] 50mg Take 1 Univers 50 mg 1-19 tablet by ity of tablet 00:00: mouth [place] 00 daily. Medical Branch NIFEdipine 2021-0 Yes [id number] 30mg Take 1 Univers ER 30 mg 1-19 tablet by ity of tablet 00:00: mouth 2 [place] 00 (two) Medical times Branch daily. acetaminoph 2021-0 Yes [id number] 1{capsu Take 1 Univers en-caff-but 1-19 le} capsule by it y of albital 00:00: mouth [place] (ESGIC) per 00 every 4 Medic al capsule (four) Branch hours as needed for Pain (headache) . SERTraline 2021-0 Yes [id number] 50mg Take 1 Univers 50 mg 1-19 tablet by ity of tablet 00:00: mouth [place] 00 daily. Medical Branch NIFEdipine 2021-0 Yes [id number] 30mg Take 1 Univers ER 30 mg 1-19 tablet by ity of tablet 00:00: mouth 2 [place] 00 (two) Medical times Branch daily. acetaminoph 2021-0 Yes [id number] 1{capsu Take 1 Univers en-caff-but 1-19 le} capsule by it y of albital 00:00: mouth [place] (ESGIC) per 00 every 4 Medic al capsule (four) Branch hours as needed for Pain (headache) . SERTraline 2021-0 Yes [id number] 50mg Take 1 Univers 50 mg 1-19 tablet by ity of tablet 00:00: mouth [place] 00 daily. Medical Branch NIFEdipine 2021-0 Yes [id number] 30mg Take 1 Univers ER 30 mg 1-19 tablet by ity of tablet 00:00: mouth 2 (two) Medical times Branch daily. acetaminoph 2021-0 Yes [id number] 1{capsu Take 1 Univers en-caff-but 1-19 le} capsule by it y of albital 00:00: mouth [place] (ESGIC) per 00 every 4 Medic al capsule (four) Branch hours as needed for Pain (headache) . SERTraline 2021-0 Yes [id number] 50mg Take 1 Univers 50 mg 1-19 tablet by ity of tablet 00:00: mouth [place] 00 daily. Medical Branch NIFEdipine 2021-0 Yes [id number] 30mg Take 1 Univers ER 30 mg 1-19 tablet by ity of tablet 00:00: mouth 2 [place] 00 (two) Medical times Branch daily. acetaminoph 2021-0 Yes [id number] 1{capsu Take 1 Univers en-caff-but 1-19 le} capsule by it y of albital 00:00: mouth [place] (ESGIC) per 00 every 4 Medic al capsule (four) Branch hours as needed for Pain (headache) . SERTraline 2021-0 Yes [id number] 50mg Take 1 Univers 50 mg 1-19 tablet by ity of tablet 00:00: mouth [place] 00 daily. Medical Branch NIFEdipine 2021-0 Yes [id number] 30mg Take 1 Univers ER 30 mg 1-19 tablet by ity of tablet 00:00: mouth 2 [place] (two) Medical times Branch daily. acetaminoph 2021-0 Yes [id number] 1{capsu Take 1 Univers en-caff-but 1-19 le} capsule by it y of albital 00:00: mouth [place] (ESGIC) per 00 every 4 Medic al capsule (four) Branch hours as needed for Pain (headache) . SERTraline 2021-0 Yes [id number] 50mg Take 1 Univers 50 mg 1-19 tablet by ity of tablet 00:00: mouth [place] 00 daily. Medical Branch NIFEdipine 2021-0 Yes [id number] 30mg Take 1 Univers ER 30 mg 1-19 tablet by ity of tablet 00:00: mouth 2 [place] (two) Medical times Branch daily. SERTraline 2021-0 Yes [id number] 50mg Take 1 Univers 50 mg 1-19 tablet by ity of tablet 00:00: mouth [place] 00 daily. Medical Branch NIFEdipine 2021-0 Yes [id number] 30mg Take 1 Univers ER 30 mg 1-19 tablet by ity of tablet 00:00: mouth 2 [place] 00 (two) Medical times Branch daily. SERTraline 2021-0 Yes [id number] 50mg Take 1 Univers 50 mg 1-19 tablet by ity of tablet 00:00: mouth [place] 00 daily. Medical Branch NIFEdipine 2021-0 Yes [id number] 30mg Take 1 Univers ER 30 mg 1-19 tablet by ity of tablet 00:00: mouth 2 [place] (two) Medical times Branch daily. SERTraline 2021-0 Yes [id number] 50mg Take 1 Univers 50 mg 1-19 tablet by ity of tablet 00:00: mouth [place] 00 daily. Medical Branch NIFEdipine 2021-0 Yes [id number] 30mg Take 1 Univers ER 30 mg 1-19 tablet by ity of tablet 00:00: mouth 2 [place] 00 (two) Medical times Branch daily. enoxaparin 2021- No [id number] 40mg inject 0.4 Univers 40 mg/0.4 1-19 02-19 mL under ity o f mL 00:00: 05:59 the skin [place] injection 00 :00 every 24 Medica l (twenty-fo Branch ur) hours for 30 days. enoxaparin 2021-2- No [id number] 40mg inject 0.4 Univers 40 mg/0.4 1-19 02-19 mL under ity o f mL 00:00: 05:59 the skin [place] injection 00 :00 every 24 Medica l (twenty-fo Branch ur) hours for 30 days. enoxaparin 2021-2021- No [id number] 40mg inject 0.4 Univers 40 mg/0.4 1-19 02-19 mL under ity o f mL 00:00: 05:59 the skin [place] injection 00 :00 every 24 Medica l (twenty-fo Branch ur) hours for 30 days. enoxaparin 2021-0 2021- No [id number] 40mg inject 0.4 Univers 40 mg/0.4 1-19 02-19 mL under ity o f mL 00:00: 05:59 the skin [place] injection 00 :00 every 24 Medica l (twenty-fo Branch ur) hours for 30 days. enoxaparin 2021-2021- No [id number] 40mg inject 0.4 Univers 40 mg/0.4 1-19 02-19 mL under ity o f mL 00:00: 05:59 the skin [place] injection 00 :00 every 24 Medica l (twenty-fo Branch ur) hours for 30 days. enoxaparin 2021-0 2021- No [id number] 40mg inject 0.4 Univers 40 mg/0.4 1-19 02-19 mL under ity o f mL 00:00: 05:59 the skin [place] injection 00 :00 every 24 Medica l (twenty-fo Branch ur) hours for 30 days. enoxaparin 2021-0 2021- No [id number] 40mg inject 0.4 Univers 40 mg/0.4 1-19 02-19 mL under ity o f mL 00:00: 05:59 the skin [place] injection 00 :00 every 24 Medica l (twenty-fo Branch ur) hours for 30 days. enoxaparin 2021-0 2- No [id number] 40mg inject 0.4 Univers 40 mg/0.4 1-19 02-19 mL under ity o f mL 00:00: 05:59 the skin [place] injection 00 :00 every 24 Medica l (twenty-fo Branch ur) hours for 30 days. enoxaparin 2021- No [id number] 40mg inject 0.4 Univers 40 mg/0.4 11-06 mL under ity o f mL 00:00: 05:59 the skin [place] injection 00 :00 every 24 Medica l (twenty-fo Branch ur) hours for 30 days. acetaminoph 2021- No [id number] 1{capsu Take 1 Univers en-caff-but 11-06 le} [...] [place] 00 :[place] dose, On Medical [facility] 11/05/21 at 1545, Routine enoxaparin Yes 40mg 40 mg, Unive rs (LOVENOX) 11-05 Subcutaneo ity of injection 15:15: us, Q24H, [place] 40 mg 00 First dose Medical on [facility] 11/05/21 at 0915, Until Discontinu ed, Routine NIFEdipine Yes 30mg 30 mg, Unive rs ER tablet 11-05 Oral, ity of 30 mg 15:00: DAILY, [place] 00 First dose Medical on [facility] 11/05/21 at 0900, Until Discontinu ed, Routine butalbital- 2021-0 Yes 1{tbl} 1 tablet, Univers acetaminoph -18 Oral, ity of en-caff 14:51: Q4HPRN, [place] (ESGIC) 41 Starting Medical 50-325-40 on Branch mg tablet 1 11/05/21 at tablet 0851, Until Discontinu ed, Routine, headache acetaminoph 0 Yes 650mg 650 mg, Un yaneth en 18 Oral, ity of (TYLENOL) 14:05: Q6HPRN, [place] tablet 650 43 Starting Medic al mg on Thu Branch 11/05/21 at 0805, Until Discontinu ed, Routine, Pain (scale 1-3) oxyCODONE Yes 5mg 5 mg, Univers immediate 18 Oral, ity of release 14:05: Q6HPRN, [place] tablet 5 mg 33 Starting Medi vishnu on Thu11/05/21 at 0805, Until Discontinu ed, Routine, Pain (scale 7-10)<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 ity of fum/folic 14:11: [place] [address] Medical ( 1 Branch + 1 ORAL) Yes Take by [facility] vit/iron 1-17 mouth. ity of fum/folic 14:11: [place] [address] Medical ( 1 Branch + 1 ORAL) ascorbic Yes [id number] 500mg Take 1 U nivers acid, 1-17 tablet by ity of vitamin C, 00:00: mouth 2 [place] 500 mg 00 (two) Medical tablet times Branch daily. ferrous Yes [id number] 325mg Take 1 Un yaneth sulfate 325 1-17 tablet by ity of mg (65 mg 00:00: mouth 3 [place] iron) 00 (three) Medical tablet times Branch daily with meals. HYDROcodone Yes [id number] 1{tbl} Take 1 Un yaneth -acetaminop 1-17 tablet by ity of hen 5-325 00:00: mouth [place] mg tablet 00 every 6 Medical (six) Branch hours as needed for Pain (scale 7-10) for up to 10 doses. Indication s: acute pain Yes [id number] 1{tbl} Take 1 Univers vitamin 1-17 tablet by ity of w/FA tablet 00:00: mouth [place] 00 daily. Medical Branch docusate Yes [id number] 240mg Take 1 U nivers calcium 240 1-17 capsule by it y of mg capsule 00:00: mouth once [place] 00 daily as Medical needed for Branch Constipati on. ferrous Yes [id number] 325mg Take 1 Un yaneth sulfate 325 1-17 tablet by ity of mg (65 mg 00:00: mouth 2 [place] iron) 00 (two) Medical tablet times Branch daily. ibuprofen Yes [id number] 600mg Take 1 Univers 600 mg 1-17 tablet by ity of tablet 00:00: mouth [place] 00 every 6 Medical (six) Branch hours as needed (Pain). Take with food or milk. norethindro Yes [id number] .35mg Take 1 Univers ne 0.35 mg 1-17 tablet by ity of tablet 00:00: mouth [place] 00 daily. Medical Branch ascorbic Yes [id number] 500mg Take 1 U nivers acid, 1-17 tablet by ity of vitamin C, 00:00: mouth 2 [place] 500 mg 00 (two) Medical tablet times Branch daily. ferrous Yes [id number] 325mg Take 1 Un yaneth sulfate 325 [...] 10 doses. Indication s: acute pain Yes [id number] 1{tbl} Take 1 Univers vitamin 1-17 tablet by ity of w/FA tablet 00:00: mouth [place] 00 daily. Medical Branch docusate Yes [id number] 240mg Take 1 U nivers calcium 240 1-17 capsule by it y of mg capsule 00:00: mouth once [place] 00 daily as Medical needed for Branch Constipati on. ferrous Yes [id number] 325mg Take 1 Un yaneth sulfate 325 1-17 tablet by ity of mg (65 mg 00:00: mouth 2 [place] iron) 00 (two) Medical tablet times Branch daily. ibuprofen Yes [id number] 600mg Take 1 Univers 600 mg 1-17 tablet by ity of tablet 00:00: mouth [place] 00 every 6 Medical (six) Branch hours as needed (Pain). Take with food or milk. norethindro Yes [id number] .35mg Take 1 Univers ne 0.35 mg 1-17 tablet by ity of tablet 00:00: mouth [place] 00 daily. Medical Branch ascorbic Yes [id number] 500mg Take 1 U nivers acid, 1-17 tablet by ity of vitamin C, 00:00: mouth 2 [place] 500 mg 00 (two) Medical tablet times Branch daily. ferrous Yes [id number] 325mg Take 1 Un yaneth sulfate 325 [...] 10 doses. Indication s: acute pain Yes [id number] 1{tbl} Take 1 Univers vitamin 1-17 tablet by ity of w/FA tablet 00:00: mouth [place] 00 daily. Medical Branch docusate Yes [id number] 240mg Take 1 U nivers calcium 240 1-17 capsule by it y of mg capsule 00:00: mouth once [place] 00 daily as Medical needed for Branch Constipati on. ibuprofen Yes [id number] 600mg Take 1 Univers 600 mg 1-17 tablet by ity of tablet 00:00: mouth [place] 00 every 6 Medical (six) Branch hours as needed (Pain). Take with food or milk. norethindro Yes [id number] .35mg Take 1 Univers ne 0.35 mg 1-17 tablet by ity of tablet 00:00: mouth [place] 00 daily. Medical Branch ascorbic Yes [id number] 500mg Take 1 U nivers acid, 1-17 tablet by ity of vitamin C, 00:00: mouth 2 [place] 500 mg 00 (two) Medical tablet times Branch daily. ferrous Yes [id number] 325mg Take 1 Un yaneth sulfate 325 [...] 10 doses. Indication s: acute pain Yes [id number] 1{tbl} Take 1 Univers vitamin 1-17 tablet by ity of w/FA tablet 00:00: mouth [place] 00 daily. Medical Branch docusate Yes [id number] 240mg Take 1 U nivers calcium 240 1-17 capsule by it y of mg capsule 00:00: mouth once [place] 00 daily as Medical needed for Branch Constipati on. ibuprofen Yes [id number] 600mg Take 1 Univers 600 mg 1-17 tablet by ity of tablet 00:00: mouth [place] 00 every 6 Medical (six) Branch hours as needed (Pain). Take with food or milk. norethindro Yes [id number] .35mg Take 1 Univers ne 0.35 mg 1-17 tablet by ity of tablet 00:00: mouth [place] 00 daily. Medical Branch ascorbic Yes [id number] 500mg Take 1 U nivers acid, 1-17 tablet by ity of vitamin C, 00:00: mouth 2 [place] 500 mg 00 (two) Medical tablet times Branch daily. ferrous Yes [id number] 325mg Take 1 Un yaneth sulfate 325 [...] 10 doses. Indication s: acute pain Yes [id number] 1{tbl} Take 1 Univers vitamin 1-17 tablet by ity of w/FA tablet 00:00: mouth [place] 00 daily. Medical Branch docusate Yes [id number] 240mg Take 1 U nivers calcium 240 1-17 capsule by it y of mg capsule 00:00: mouth once [place] 00 daily as Medical needed for Branch Constipati on. ibuprofen Yes [id number] 600mg Take 1 Univers 600 mg 1-17 tablet by ity of tablet 00:00: mouth [place] 00 every 6 Medical (six) Branch hours as needed (Pain). Take with food or milk. norethindro Yes [id number] .35mg Take 1 Univers ne 0.35 mg 1-17 tablet by ity of tablet 00:00: mouth [place] 00 daily. Medical Branch ascorbic Yes [id number] 500mg Take 1 U nivers acid, 1-17 tablet by ity of vitamin C, 00:00: mouth 2 [place] 500 mg 00 (two) Medical tablet times Branch daily. ferrous Yes [id number] 325mg Take 1 Un yaneth sulfate 325 [...] 10 doses. Indication s: acute pain Yes [id number] 1{tbl} Take 1 Univers vitamin 1-17 tablet by ity of w/FA tablet 00:00: mouth [place] 00 daily. Medical Branch docusate Yes [id number] 240mg Take 1 U nivers calcium 240 1-17 capsule by it y of mg capsule 00:00: mouth once [place] 00 daily as Medical needed for Branch Constipati on. ibuprofen Yes [id number] 600mg Take 1 Univers 600 mg 1-17 tablet by ity of tablet 00:00: mouth [place] 00 every 6 Medical (six) Branch hours as needed (Pain). Take with food or milk. norethindro Yes [id number] .35mg Take 1 Univers ne 0.35 mg 1-17 tablet by ity of tablet 00:00: mouth [place] 00 daily. Medical Branch ascorbic Yes [id number] 500mg Take 1 U nivers acid, 1-17 tablet by ity of vitamin C, 00:00: mouth 2 [place] 500 mg 00 (two) Medical tablet times Branch daily. ferrous Yes [id number] 325mg Take 1 Un yaneth sulfate 325 [...] 10 doses. Indication s: acute pain Yes [id number] 1{tbl} Take 1 Univers vitamin 1-17 tablet by ity of w/FA tablet 00:00: mouth [place] 00 daily. Medical Branch docusate Yes [id number] 240mg Take 1 U nivers calcium 240 1-17 capsule by it y of mg capsule 00:00: mouth once [place] 00 daily as Medical needed for Branch Constipati on. ibuprofen Yes [id number] 600mg Take 1 Univers 600 mg 1-17 tablet by ity of tablet 00:00: mouth [place] 00 every 6 Medical (six) Branch hours as needed (Pain). Take with food or milk. norethindro Yes [id number] .35mg Take 1 Univers ne 0.35 mg 1-17 tablet by ity of tablet 00:00: mouth [place] 00 daily. Medical Branch ascorbic Yes [id number] 500mg Take 1 U nivers acid, 1-17 tablet by ity of vitamin C, 00:00: mouth 2 [place] 500 mg 00 (two) Medical tablet times Branch daily. ferrous Yes [id number] 325mg Take 1 Un yaneth sulfate 325 [...] 10 doses. Indication s: acute pain Yes [id number] 1{tbl} Take 1 Univers vitamin 1-17 tablet by ity of w/FA tablet 00:00: mouth [place] 00 daily. Medical Branch docusate Yes [id number] 240mg Take 1 U nivers calcium 240 1-17 capsule by it y of mg capsule 00:00: mouth once [place] 00 daily as Medical needed for Branch Constipati on. ibuprofen Yes [id number] 600mg Take 1 Univers 600 mg 1-17 tablet by ity of tablet 00:00: mouth [place] 00 every 6 Medical (six) Branch hours as needed (Pain). Take with food or milk. norethindro Yes [id number] .35mg Take 1 Univers ne 0.35 mg 1-17 tablet by ity of tablet 00:00: mouth [place] 00 daily. Medical Branch ascorbic Yes [id number] 500mg Take 1 U nivers acid, 1-17 tablet by ity of vitamin C, 00:00: mouth 2 [place] 500 mg 00 (two) Medical tablet times Branch daily. ferrous Yes [id number] 325mg Take 1 Un yaneth sulfate 325 [...] 10 doses. Indication s: acute pain Yes [id number] 1{tbl} Take 1 Univers vitamin 1-17 tablet by ity of w/FA tablet 00:00: mouth [place] 00 daily. Medical Branch docusate Yes [id number] 240mg Take 1 U nivers calcium 240 1-17 capsule by it y of mg capsule 00:00: mouth once [place] 00 daily as Medical needed for Branch Constipati on. ibuprofen Yes [id number] 600mg Take 1 Univers 600 mg 1-17 tablet by ity of tablet 00:00: mouth [place] 00 every 6 Medical (six) Branch hours as needed (Pain). Take with food or milk. norethindro Yes [id number] .35mg Take 1 Univers ne 0.35 mg 1-17 tablet by ity of tablet 00:00: mouth [place] 00 daily. Medical Branch ascorbic Yes [id number] 500mg Take 1 U nivers acid, 1-17 tablet by ity of vitamin C, 00:00: mouth 2 [place] 500 mg 00 (two) Medical tablet times Branch daily. ferrous Yes [id number] 325mg Take 1 Un yaneth sulfate 325 1-17 tablet by ity of mg (65 mg 00:00: mouth 3 [place] iron) 00 (three) Medical tablet times Branch daily with meals. Yes [id number] 1{tbl} Take 1 Univers vitamin 1-17 tablet by ity of w/FA tablet 00:00: mouth [place] 00 daily. Medical Branch norethindro Yes [id number] .35mg Take 1 Univers ne 0.35 mg 1-17 tablet by ity of tablet 00:00: mouth [place] 00 daily. Medical Branch ascorbic Yes [id number] 500mg Take 1 U nivers acid, 1-17 tablet by ity of vitamin C, 00:00: mouth 2 [place] 500 mg 00 (two) Medical tablet times Branch daily. ferrous Yes [id number] 325mg Take 1 Un yaneth sulfate 325 1-17 tablet by ity of mg (65 mg 00:00: mouth 3 [place] iron) 00 (three) Medical tablet times Branch daily with meals. Yes [id number] 1{tbl} Take 1 [facility] vitamin 1-17 tablet by ity of w/FA tablet 00:00: mouth [place] 00 daily. Medical Branch norethindro Yes [id number] .35mg Take 1 [facility] ne 0.35 mg 1-17 tablet by ity of tablet 00:00: mouth [place] 00 daily. Medical Branch ascorbic Yes [id number] 500mg Take 1 U nivers acid, 1-17 tablet by [place]y of vitamin C, 00:00: mouth 2 [place] 500 mg 00 (two) Medical tablet times Branch daily. ferrous Yes [id number] 325mg Take 1 Un yaneth sulfate 325 1-17 tablet by ity of mg (65 mg 00:00: mouth 3 [place] iron) 00 (three) Medical tablet times Branch daily with meals. Yes [id number] 1{tbl} Take 1 [facility] vitamin 1-17 tablet by ity of w/FA tablet 00:00: mouth [place] 00 daily. Medical Branch norethindro Yes [id number] .35mg Take 1 [facility] ne 0.35 mg 1-17 tablet by ity of tablet 00:00: mouth [place] 00 daily. Medical Branch ascorbic Yes [id number] 500mg Take 1 U nivers acid, 1-17 tablet by ity of vitamin C, 00:00: mouth 2 [place] 500 mg 00 (two) Medical tablet times Branch daily. ferrous Yes [id number] 325mg Take 1 Un yaneth sulfate 325 1-17 tablet by ity of mg (65 mg 00:00: mouth 3 [place] iron) 00 (three) Medical tablet times Branch daily with meals. Yes [id number] 1{tbl} Take 1 [facility] vitamin 1-17 tablet by ity of w/FA tablet 00:00: mouth [place] 00 daily. Medical Branch norethindro Yes [id number] .35mg Take 1 [facility] ne 0.35 mg 17 tablet by ity of tablet 00:00: mouth [place] 00 daily. Medical Branch HYDROcodone 2021- No [id number] 1{tbl} Take 1 U nivers -acetaminop 11-04 tablet by it y of hen 5-325 00:00: 00:00 mouth [place] mg tablet 00 :00 every 6 Medical (six) Branch hours as needed for Pain (scale 7-10) for up to 10 doses. Indication s: acute pain docusate 2021- No [id number] 240mg Take 1 [facility] calcium 240 11-04 capsule by i ty of mg capsule 00:00: 00:00 mouth once [place] 00 :00 daily as Medical needed for Branch Constipati on. ibuprofen 2021- No [id number] 600mg Take 1 [facility] 600 mg 11-04 tablet by ity of tablet 00:00: 00:00 mouth [place] 00 :00 every 6 Medical (six) Branch hours as needed (Pain). Take with food or milk. foLIC acid 2021- No 1mg Take 1 mg U nivers 1 mg tablet 11-04 by mouth ity of 00:00: 00:00 daily. [place] 00 :00 Medical Branch ferrous 2021- No [id number] 325mg Take 1 U nivers sulfate 325 11-04 tablet by it y of mg (65 mg 00:00: 00:00 mouth 2 [place] iron) 00 :00 (two) Medical tablet times Branch daily. ferrous 2021- No [id number] 325mg Take 1 U nivers sulfate 325 [...] No 1mg 1 mg, Unive rs (FOLATE) 11-03 Oral, ity of tablet 1 mg 15:00: 22:11 DAILY, [place] 00 :33 First dose Medical on [facility] 11/03/21 at 0900, Until Discontinu ed, Routine ascorbic 2022-0 Yes 500mg 500 mg, Unive rs acid -16 Oral, BID, ity of (vitamin C) 02:00: First dose [place] (VITAMIN C) 00 on Sat Medica l tablet 500 11/02/21 at [facility] mg 2000, Until Discontinu ed, Routine ascorbic 2021-0 2022- No 500mg 500 mg, Univ ers acid 11-03 Oral, BID, ity of (vitamin C) 02:00: 22:11 First dose [place] (VITAMIN C) 00 :33 on [facility] Medica l tablet 500 11/02/21 at [facility] mg 2000, Until Discontinu ed, Routine ferrous 2021-0 Yes 325mg 325 mg, Univer s sulfate 1-15 Oral, TID ity of tablet 325 18:00: MEALS, [place] mg 00 First dose Medical on [facility] 11/02/21 at 1200, Until Discontinu ed, Routine ferrous 2021-0 202- No 325mg 325 mg, Unive rs sulfate 11-02 Oral, TID ity of tablet 325 18:00: 22:11 MEALS, [place] mg 00 :33 First dose Medical on [facility] 11/02/21 at 1200, Until Discontinu ed, Routine ibuprofen 202-0 Yes 600mg 600 mg, Univ ers (IBU) 1-15 Oral, Q6H, ity of tablet 600 00:00: [place] mg 00 on [facility] 11/01/21 at Branch 1800, Until Discontinu ed, Routine simethicone 2021-0 Yes 125mg 125 mg, Un yaneth (MYLICON) 1-15 Oral, ity of chewable 00:00: PC+HS, [place] tablet 125 00 First dose Med ical mg on [facility] 11/01/21 at 1800, Until Discontinu ed, Routine ibuprofen 2022-0 2022- No 600mg 600 mg, Uni vers (IBU) 11-0217 Oral, Q6H, ity of tablet 600 00:00: 22:11 First dose [place] mg 00 :33 on [facility] 11/01/21 at Branch 1800, Until Discontinu ed, Routine simethicone No 125mg 125 mg, U nivers (MYLICON) 11-02 Oral, ity of chewable 00:00: 22:11 PC+HS, [place] tablet 125 00 :33 First dose Med ical mg on Fri Branch 11/01/21 at 1800, Until Discontinu ed, [...] HYDROcodone Yes 2{tbl} 2 tablet, Univers -acetaminop 1-14 Oral, ity of hen (NORCO 23:36: Q6HPRN, [place] 5) 5-325 mg 52 Starting Medi vishnu tablet 2 on Thu Branch tablet 11/01/21 at 1736, Until Discontinu [...] dose, Starting on Thu11/01/21 at 1736, Until Discontinu ed, Routine, Itching diphenhydrA 0 Yes 25mg 25 mg, Univ ers MINE 11-01 Oral, ity of (BENADRYL) 23:36: Q6HPRN, [place] tablet 25 52 Starting Medica l mg on Fri Branch 11/01/21 at 1736, Until Discontinu ed, Routine, Sleep, Itching ondansetron 0 Yes 4mg 4 mg, Slow Univers (ZOFRAN 11-01 IV Push, ity of (PF)) 23:36: Q8HPRN, [...] Fri Branch tablet 11/01/21 at 1736, Until Thu11/04/21 at 1611, Routine, Pain (scale 4-6), If [...] Push, ity of (PF)) 23:36: 22:11 Q8HPRN, [place] injection 4 52 :33 Starting Medi vishnu [...] Surgical Prophylaxi s
Mora rgical Prophylaxi s: QUALITY CONTROL TESTER
Duration of therapy: within 24 hours of [...] 00 :00 dose, On Medica l mg [facility] Branch 10/31/21 at 2115, Routine butalbital- 2021- No 2{tbl} 2 tablet, Univers acetaminoph 11-01 Oral, ity of en-caff 01:45: 01:04 ONCE, 1 [place] (ESGIC) 00 :00 dose, On Medical 50-325-40 [place] Branch mg tablet 2 10/31/21 at tablet 1945, Routine labetaloL 2021- No 20mg 20 mg, Unive rs (NORMODYNE) 11-01 Slow IV ity of injection 01:45: 00:48 Push, [place] 20 mg 00 :00 ONCE, 1 Medical dose, On Branch [facility] 10/31/21 at 1945, Routine D5W 0.45% No [...] Infusion, Branch (CNR) CONTINUOUS , Starting on Thu10/31/21 at 1845, Until Thu11/01/21 at 0644, BRIAN [...] 4g 32.48 mEq Uni vers sulfate 4 14 (4 g), ity of mEq/mL (50 00:35: Slow IV [place] %) 59 Push, PRN Medical injection - SEE Branch 32.48 mEq INSTRUCTIO NS, Starting on [place] 10/31/21 at 1835, Until Discontinu ed, Routine, For seizure activity (patient not on magnesium sulfate) magnesium 0 Yes 2g 16.24 mEq Uni vers sulfate 4 11-01 (2 g), ity of mEq/mL (50 00:35: Slow IV [place] %) 59 Push, PRN Medical injection - SEE Branch 16.24 mEq INSTRUCTIO NS, 2 doses, Starting on [place] 10/31/21 at 1835, Until Discontinu ed, Routine, For seizure activity (patient already on magnesium sulfate) magnesium 2021-0 2021- No 4g 32.48 mEq Un yaneth [...] activity (patient already on magnesium sulfate) betamethaso 2021-0 2022- No 12mg 12 mg, Uni vers ne acet,sod 10-31 Intramuscu i ty of phos 21:00: 23:36 [...] Branch on [place] 10/31/21 at 1400, Until Thu11/01/21 at 1736, Routine lactated No 500mL at 999 Unive rs ringers IV 10-31 mL/hr, 500 it y of infusion 19:50: 23:36 mL, IV [place] 500 mL 55 :57 Infusion, Medical PRN - SEE Branch INSTRUCTIO NS, Starting on [place] 10/31/21 at 1350, Until Thu11/01/21 at 1736, Routine ferrous 2020-10 Yes [id number] 325mg Take 1 Uni vers sulfate 2-16 tablet by ity of (IRON, 00:00: mouth [place] FERROUS 00 every Medical SULFATE,) other day. Bran ch 325 mg (65 mg iron) tablet ascorbic 2020-10 Yes [id number] 500mg Take 1 Un yaneth acid, 2-16 tablet by ity of vitamin C, 00:00: mouth [place] 500 mg 00 every Medical tablet other day. Branch ferrous 2020-10 Yes [id number] 325mg Take 1 Uni vers sulfate 2-16 tablet by ity of (IRON, 00:00: mouth [place] FERROUS 00 every Medical SULFATE,) other day. Bran ch 325 mg (65 mg iron) tablet ascorbic 2020-10 Yes [id number] 500mg Take 1 Un yaneth acid, 2-16 tablet by ity of vitamin C, 00:00: mouth [place] 500 mg 00 every Medical tablet other day. Branch ferrous 2020-10 Yes [id number] 325mg Take 1 Uni vers sulfate 2-16 tablet by ity of (IRON, 00:00: mouth [place] FERROUS 00 every Medical SULFATE,) other day. Bran ch 325 mg (65 mg iron) tablet ascorbic 2020-10 Yes [id number] 500mg Take 1 Un yaneth acid, 2-16 tablet by ity of vitamin C, 00:00: mouth [place] 500 mg 00 every Medical tablet other day. Branch ferrous 2020-10 Yes [id number] 325mg Take 1 Uni vers sulfate 2-16 tablet by ity of (IRON, 00:00: mouth [place] FERROUS 00 every Medical SULFATE,) other day. Bran ch 325 mg (65 mg iron) tablet ascorbic 2020-10 Yes [id number] 500mg Take 1 Un yaneth acid, 2-16 tablet by ity of vitamin C, 00:00: mouth [place] 500 mg 00 every Medical tablet other day. Branch ferrous 2020-10 Yes [id number] 325mg Take 1 Uni vers sulfate 2-16 tablet by ity of (IRON, 00:00: mouth [place] FERROUS 00 every Medical SULFATE,) other day. Bran ch 325 mg (65 mg iron) tablet ascorbic 2020-10 Yes [id number] 500mg Take 1 Un yaneth acid, 2-16 tablet by ity of vitamin C, 00:00: mouth [place] 500 mg 00 every Medical tablet other day. Branch ferrous 2020-10 Yes [id number] 325mg Take 1 Uni vers sulfate 2-16 tablet by ity of (IRON, 00:00: mouth [place] FERROUS 00 every Medical SULFATE,) other day. Bran ch 325 mg (65 mg iron) tablet ascorbic 2020-10 Yes [id number] 500mg Take 1 Un yaneth acid, 2-16 tablet by ity of vitamin C, 00:00: mouth [place] 500 mg 00 every Medical tablet other day. Branch ferrous 2020-10 Yes [id number] 325mg Take 1 Uni vers sulfate 2-16 tablet by ity of (IRON, 00:00: mouth [place] FERROUS 00 every Medical SULFATE,) other day. Bran ch 325 mg (65 mg iron) tablet ascorbic 2020-10 Yes [id number] 500mg Take 1 Un yaneth acid, 2-16 tablet by ity of vitamin C, 00:00: mouth [place] 500 mg 00 every Medical tablet other day. Branch ferrous 2020-10 Yes [id number] 325mg Take 1 Uni vers sulfate 2-16 tablet by ity of (IRON, 00:00: mouth [place] FERROUS 00 every Medical SULFATE,) other day. Bran ch 325 mg (65 mg iron) tablet ascorbic 2020-10 Yes [id number] 500mg Take 1 Un yaneth acid, 2-16 tablet by ity of vitamin C, 00:00: mouth [place] 500 mg 00 every Medical tablet other day. Branch ferrous 2020-10 Yes [id number] 325mg Take 1 Uni vers sulfate 2-16 tablet by ity of (IRON, 00:00: mouth [place] FERROUS 00 every Medical SULFATE,) other day. Bran ch 325 mg (65 mg iron) tablet ascorbic 2020-10 Yes [id number] 500mg Take 1 Un yaneth acid, 2-16 tablet by ity of vitamin C, 00:00: mouth [place] 500 mg 00 every Medical tablet other day. Branch ferrous 2020-10 Yes [id number] 325mg Take 1 Uni vers sulfate 2-16 tablet by ity of (IRON, 00:00: mouth [place] FERROUS 00 every Medical SULFATE,) other day. Bran ch 325 mg (65 mg iron) tablet ascorbic 2020-10 Yes [id number] 500mg Take 1 Un yaneth acid, 2-16 tablet by ity of vitamin C, 00:00: mouth [place] 500 mg 00 every Medical tablet other day. Branch ferrous 2020-10 Yes [id number] 325mg Take 1 Uni vers sulfate 2-16 tablet by ity of (IRON, 00:00: mouth [place] FERROUS 00 every Medical SULFATE,) other day. Bran ch 325 mg (65 mg iron) tablet ascorbic 2020-10 Yes [id number] 500mg Take 1 Un yaneth acid, 2-16 tablet by ity of vitamin C, 00:00: mouth [place] 500 mg 00 every Medical tablet other day. Branch ferrous 2020-10 Yes [id number] 325mg Take 1 Uni vers sulfate 2-16 tablet by ity of (IRON, 00:00: mouth [place] FERROUS 00 every Medical SULFATE,) other day. Bran ch 325 mg (65 mg iron) tablet ascorbic 2020-10 Yes [id number] 500mg Take 1 Un yaneth acid, 2-16 tablet by ity of vitamin C, 00:00: mouth [place] 500 mg 00 every Medical tablet other day. Branch ferrous 2020-10 Yes [id number] 325mg Take 1 Uni vers sulfate 2-16 tablet by ity of (IRON, 00:00: mouth [place] FERROUS 00 every Medical SULFATE,) other day. Bran ch 325 mg (65 mg iron) tablet ascorbic 2020-10 Yes [id number] 500mg Take 1 Un yaneth acid, 2-16 tablet by ity of vitamin C, 00:00: mouth [place] 500 mg 00 every Medical tablet other day. [place] ferrous 2020-10- No [id number] 325mg Take 1 Un yaneth sulfate 12-04 tablet by ity of (IRON, 00:00: 00:00 mouth [place] FERROUS 00 :00 every Medical SULFATE,) other day. Bran ch 325 mg (65 mg iron) tablet ascorbic 2020-10- No [id number] 500mg Take 1 U nivers acid, 12-04 tablet by ity of vitamin C, 00:00: 00:00 mouth [place] 500 mg 00 :00 every Medical tablet other day. [place] ferrous 2020-10- No [id number] 325mg Take 1 Un yaneth sulfate 12-04 tablet by ity of (IRON, 00:00: 00:00 mouth [place] FERROUS 00 :00 every Medical SULFATE,) other day. Bran ch 325 mg (65 mg iron) tablet ascorbic 2020-10- No [id number] 500mg Take 1 U nivers acid, 12-04 tablet by ity of vitamin C, 00:00: 00:00 mouth [place] 500 mg 00 :00 every Medical tablet other day. [place] Blood-Gluco 2020-10 Yes [id number] Use as Univers se Meter 2-09 directed ity of (FREESTYLE 00:00: [place] LITE METER) 00 [facility] Blood-Gluco 2020-10 Yes [id number] Use as Univers se Meter 2-09 directed ity of (FREESTYLE 00:00: [place] LITE METER) 00 [facility] Blood-Gluco 2020-10 Yes [id number] Use as Univers se Meter 2-09 directed ity of (FREESTYLE 00:00: [place] LITE METER) 00 [facility] Blood-Gluco 2020-10 Yes [id number] Use as Univers se Meter 2-09 directed ity of (FREESTYLE 00:00: [place] LITE METER) 00 [facility] Blood-Gluco 2020-10 Yes [id number] Use as Univers se Meter 2-09 directed ity of (FREESTYLE 00:00: [place] LITE METER) 00 [facility] Blood-Gluco 2020-10 Yes [id number] Use as Univers se Meter 2-09 directed ity of (FREESTYLE 00:00: [place] LITE METER) 00 [facility] Branch Blood-Gluco 2020-10 Yes [id number] Use as Univers se Meter 2-09 directed ity of (FREESTYLE 00:00: [place] LITE METER) 00 Medical Kit Branch Blood-Gluco 2020-10 Yes [id number] Use as Univers se Meter 2-09 directed ity of (FREESTYLE 00:00: [place] LITE METER) Medical Kit Branch Blood-Gluco 2020-10 Yes [id number] Use as Univers se Meter 2-09 directed ity of (FREESTYLE 00:00: [place] LITE METER) 00 Medical Kit Branch Blood-Gluco 2020-10 Yes [id number] Use as Univers se Meter 2-09 directed ity of (FREESTYLE 00:00: [place] LITE METER) Medical Kit Branch Blood-Gluco 2020-10 Yes [id number] Use as Univers se Meter 2-09 directed ity of (FREESTYLE 00:00: [place] LITE METER) Medical Kit Branch Blood-Gluco 2020-10 Yes [id number] Use as Univers se Meter 2-09 directed ity of (FREESTYLE 00:00: [place] LITE METER) Medical Kit Branch Blood-Gluco 2020-10 Yes [id number] Use as Univers se Meter 2-09 directed ity of (FREESTYLE 00:00: [place] LITE METER) Medical Kit Branch Blood-Gluco 2020-10 Yes [id number] Use as Univers se Meter 2-09 directed ity of (FREESTYLE 00:00: [place] LITE METER) Medical Kit Branch Blood-Gluco 2020-10 Yes [id number] Use as Univers se Meter 2-09 directed ity of (FREESTYLE 00:00: [place] LITE METER) 00 Medical Kit Branch Blood-Gluco 2020-10 Yes [id number] Use as Univers se Meter 2-09 directed ity of (FREESTYLE 00:00: [place] LITE METER) 00 Medical Kit Branch Blood-Gluco 2020-10- No [id number] Use as Univers se Meter 2-09 11-06 directed ity of (FREESTYLE 00:00: 00:00 [place] LITE METER) 00 :00 Medical Kit Branch Blood-Gluco 2020-10- No [id number] Use as Univers se Meter 2-09 11-06 directed ity of (FREESTYLE 00:00: 00:00 [place] LITE METER) 00 :00 Medical Kit Branch Blood-Gluco 2020-10 Yes [id number] Use as Univers se Meter 11-20 directed ity of (FREESTYLE 00:00: [place] LITE METER) 00 Medical Kit Branch blood sugar 2020-10 Yes [id number] Pt to U nivers diagnostic 11-20 check ity of (FREESTYLE 00:00: glucose [place] LITE 00 levels 4 x Medical STRIPS) per day Branch strip Lancets 2020-10 Yes [id number] Pt to [facility] Mis 11-20 check ity of 00:00: glucose [place] 00 levels 4 x Medical per day Branch Blood-Gluco 2020-10 Yes [id number] Use as Univers se Meter 11-20 directed ity of (FREESTYLE 00:00: [place] LITE METER) 00 Medical Kit Branch blood sugar 2020-10 Yes [id number] Pt to [facility] diagnostic 11-20 check ity of (FREESTYLE 00:00: glucose [place] LITE 00 levels 4 x Medical STRIPS) per day Branch strip Lancets 2020-10 Yes [id number] Pt to [facility] 11-20 check ity of 00:00: glucose [place] 00 levels 4 x Medical per day Branch Blood-Gluco 2020-10 Yes [id number] Use as Univers se Meter 11-20 directed ity of (FREESTYLE 00:00: [place] LITE METER) 00 Medical Kit Branch blood sugar 2020-10 Yes [id number] Pt to U [facility] diagnostic 11-20 check ity of (FREESTYLE 00:00: glucose [place] LITE 00 levels 4 x Medical STRIPS) per day Branch strip Lancets 2020-10 Yes [id number] Pt to [facility] 11-20 check ity of 00:00: glucose [place] 00 levels 4 x Medical per day Branch Blood-Gluco 2020-10 Yes [id number] Use as Univers se Meter 11-20 directed ity of (FREESTYLE 00:00: [place] LITE METER) 00 Medical Kit Branch blood sugar 2020-10 Yes [id number] Pt to U nivers diagnostic 11-20 check ity of (FREESTYLE 00:00: glucose [place] LITE 00 levels 4 x Medical STRIPS) per day Branch strip Lancets 2020-10 Yes [id number] Pt to [facility] Mis 2- check ity of 00:00: glucose [place] 00 levels 4 x Medical per day Branch Blood-Gluco 2020-10 Yes [id number] Use as Univers se Meter 2- directed ity of (FREESTYLE 00:00: [place] LITE METER) 00 Medical Kit Branch blood sugar 2020-10 Yes [id number] Pt to U nivers diagnostic 11-20 check ity of (FREESTYLE 00:00: glucose [place] LITE 00 levels 4 x Medical STRIPS) per day Branch strip Lancets 2020-10 Yes [id number] Pt to [facility] 2 check ity of 00:00: glucose [place] 00 levels 4 x Medical per day Branch Blood-Gluco 2020-10 Yes [id number] Use as Univers se Meter 2- directed ity of (FREESTYLE 00:00: [place] LITE METER) 00 Medical Kit Branch blood sugar 2020-10 Yes [id number] Pt to nivers diagnostic 11-20 check ity of (FREESTYLE 00:00: glucose [place] LITE 00 levels 4 x Medical STRIPS) per day Branch strip Lancets 2020-10 Yes [id number] Pt to [facility] 11-20 check ity of 00:00: glucose [place] 00 levels 4 x Medical per day Branch Blood-Gluco 2020-10 Yes [id number] Use as Univers se Meter 2- directed ity of (FREESTYLE 00:00: [place] LITE METER) 00 Medical Kit Branch blood sugar 2020-10 Yes [id number] Pt to nivers diagnostic 11-20 check ity of (FREESTYLE 00:00: glucose [place] LITE 00 levels 4 x Medical STRIPS) per day Branch strip Lancets 2020-10 Yes [id number] Pt to [facility] 2 check ity of 00:00: glucose [place] 00 levels 4 x Medical per day Branch Blood-Gluco 2020-10 Yes [id number] Use as Univers se Meter 2- directed ity of (FREESTYLE 00:00: [place] LITE METER) 00 Medical Kit Branch blood sugar 2020-10 Yes [id number] Pt to nivers diagnostic 11-20 check ity of (FREESTYLE 00:00: glucose [place] LITE 00 levels 4 x Medical STRIPS) per day Branch strip Lancets 2020-10 Yes [id number] Pt to [facility] 2- check ity of 00:00: glucose [place] 00 levels 4 x Medical per day Branch Blood-Gluco 2020-10 Yes [id number] Use as Univers se Meter 2- directed ity of (FREESTYLE 00:00: [place] LITE METER) 00 Medical Kit Branch blood sugar 2020-10 Yes [id number] Pt to U nivers diagnostic 2 check ity of (FREESTYLE 00:00: glucose [place] LITE 00 levels 4 x Medical STRIPS) per day Branch strip Lancets 2020-10 Yes [id number] Pt to [facility] 2 check ity of 00:00: glucose [place] 00 levels 4 x Medical per day Branch Blood-Gluco 2020-10 Yes [id number] Use as Univers se Meter 2- directed ity of (FREESTYLE 00:00: [place] LITE METER) 00 Medical Kit Branch blood sugar 2020-10 Yes [id number] Pt to nivers diagnostic 11-20 check ity of (FREESTYLE 00:00: glucose [place] LITE 00 levels 4 x Medical STRIPS) per day Branch strip Lancets 2020-10 Yes [id number] Pt to [facility] 2 check ity of 00:00: glucose [place] 00 levels 4 x Medical per day Branch Blood-Gluco 2020-10 Yes [id number] Use as Univers se Meter 2- directed ity of (FREESTYLE 00:00: [place] LITE METER) 00 Medical Kit Branch blood sugar 2020-10 Yes [id number] Pt to U nivers diagnostic 2 check ity of (FREESTYLE 00:00: glucose [place] LITE 00 levels 4 x Medical STRIPS) per day Branch strip Lancets 2020-10 Yes [id number] Pt to [facility] 2 check ity of 00:00: glucose [place] 00 levels 4 x Medical per day Branch Blood-Gluco 2020-10 Yes [id number] Use as Univers se Meter 2- directed ity of (FREESTYLE 00:00: [place] LITE METER) 00 Medical Kit Branch blood sugar 2020-10 Yes [id number] Pt to nivers diagnostic 2 check ity of (FREESTYLE 00:00: glucose [place] LITE 00 levels 4 x Medical STRIPS) per day Branch strip Lancets 2020-10 Yes [id number] Pt to [facility] 2 check ity of 00:00: glucose [place] 00 levels 4 x Medical per day Branch Blood-Gluco 2020-10 Yes [id number] Use as Univers se Meter 2- directed ity of (FREESTYLE 00:00: [place] LITE METER) 00 Medical Kit Branch blood sugar 2020-10 Yes [id number] Pt to nivers diagnostic 2 check ity of (FREESTYLE 00:00: glucose [place] LITE 00 levels 4 x Medical STRIPS) per day Branch strip Lancets 2020-10 Yes [id number] Pt to [facility] 11-20 check ity of 00:00: glucose [place] 00 levels 4 x Medical per day Branch Blood-Gluco 2020-10 Yes [id number] Use as Univers se Meter 2- directed ity of (FREESTYLE 00:00: [place] LITE METER) 00 Medical Kit Branch blood sugar 2020-10 [id number] [facility] check ity of (FREESTYLE 00:00: glucose [place] LITE 00 levels 4 x Medical STRIPS) per day Branch strip Lancets 2020-10 Yes [id number] Pt to [facility] 11-20 check ity of 00:00: glucose [place] 00 levels 4 x Medical per day Branch Blood-Gluco 2020-10 Yes [id number] Use as Univers se Meter 2- directed ity of (FREESTYLE 00:00: [place] LITE METER) 00 Medical Kit Branch blood sugar 2020-10 Yes [id number] Pt to [facility] diagnostic 2 check ity of (FREESTYLE 00:00: glucose [place] LITE 00 levels 4 x Medical STRIPS) per day Branch strip Lancets 2020-10 Yes [id number] Pt to [facility] 2 check ity of 00:00: glucose [place] 00 levels 4 x Medical per day Branch Blood-Gluco 2020-10 Yes [id number] Use as Univers se Meter 2- directed ity of (FREESTYLE 00:00: [place] LITE METER) 00 Medical Kit Branch blood sugar 2020-10 Yes [id number] Pt to [facility] diagnostic 2 check ity of (FREESTYLE 00:00: glucose [place] LITE 00 levels 4 x Medical STRIPS) per day Branch strip Lancets 2020-10 Yes [id number] Pt to [facility] 11-20 check ity of 00:00: glucose [place] 00 levels 4 x Medical per day Branch Blood-Gluco 2020-10- No [id number] Use as Univers se Meter 11-20 directed ity of (FREESTYLE 00:00: 00:00 [place] LITE METER) 00 :00 Medical Kit Branch blood sugar 2020-10- No [id number] Pt to [facility] diagnostic 11-20 check ity of (FREESTYLE 00:00: 00:00 glucose [place] LITE 00 :00 levels 4 x Medical STRIPS) per day Branch strip Lancets 2020-10- No [id number] Pt to [place] [facility] 11-20 check ity of 00:00: 00:00 glucose [place] 00 :00 levels 4 x Medical per day Branch Blood-Gluco 2020-10- No [id number] Use as Univers se Meter 11-20 directed ity of (FREESTYLE 00:00: 00:00 [place] LITE METER) 00 :00 Medical Kit Branch blood sugar 2020-10- No [id number] Pt to [facility] diagnostic 11-20 check ity of (FREESTYLE 00:00: 00:00 glucose [place] LITE 00 :00 levels 4 x Medical STRIPS) per day Branch strip Lancets 2020-10- No [id number] Pt to [place] [facility] 11-20 check ity of 00:00: 00:00 glucose [place] 00 :00 levels 4 x Medical per day Branch ferrous 2020-10- No [id number] 325mg Take 1 Un yaneth sulfate 0-05 12-16 tablet by ity of (IRON, 00:00: 00:00 mouth [place] FERROUS 00 :00 every Medical SULFATE,) other day. Bran ch 325 mg (65 mg iron) tablet ferrous 2020-10- No [id number] 325mg Take 1 Un yaneth sulfate 0-05 12-16 tablet by ity of (IRON, 00:00: 00:00 mouth [place] FERROUS 00 :00 every Medical SULFATE,) other day. Bran ch 325 mg (65 mg iron) tablet 2021-0 Yes Take by Univer s vit/iron 8-17 mouth. ity of fum/folic 07:17: [place] [id number] Medical ( 1 Branch + 1 ORAL) 0 Yes Take by Univer s vit/iron 8-17 mouth. ity of fum/folic 07:17: [place] [id number] Medical ( 1 Branch + 1 ORAL) 0 Yes Take by Univer s vit/iron 8-17 mouth. ity of fum/folic 07:17: [place] [id number] Medical ( 1 Branch + 1 ORAL) 0 Yes Take by Univer s vit/iron 8-17 mouth. ity of fum/folic 07:17: [place] [id number] Medical ( 1 Branch + 1 ORAL) 0 Yes Take by Univer s vit/iron 8-17 mouth. ity of fum/folic 07:17: [place] [id number] Medical ( 1 Branch + 1 ORAL) Yes Take by Univer s vit/iron 8-17 mouth. ity of fum/folic 07:17: [place] [id number] Medical ( 1 Branch + 1 ORAL) 0 Yes Take by Univer s vit/iron 8-17 mouth. ity of fum/folic 07:17: [place] [id number] Medical ( 1 Branch + 1 ORAL) 0 Yes Take by Un[facility] s vit/iron 8-17 mouth. ity of fum/folic 07:17: [place] [id number] Medical ( 1 Branch + 1 ORAL) Yes Take by [facility] vit/iron 8-17 mouth. ity of fum/folic 07:17: [place] [id number] Medical ( 1 Branch + 1 ORAL) 0 Yes Take by [facility] s vit/iron 8-17 mouth. ity of fum/folic 07:17: [place] [id number] Medical ( 1 Branch + 1 ORAL) 0 Yes Take by Univer s vit/iron 8-17 mouth. ity of fum/folic 07:17: [place] [id number] Medical ( 1 Branch + 1 ORAL) 0 Yes Take by Univer s vit/iron 8-17 mouth. ity of fum/folic 07:17: [place] [id number] Medical ( 1 Branch + 1 ORAL) 0 Yes Take by Univer s vit/iron 8-17 mouth. ity of fum/folic 07:17: [place] [facility] ( 1 Branch + 1 ORAL) Yes Take by [facility] s vit/iron 8-17 mouth. ity of fum/folic 07:17: [place] [facility] Medical ( 1 Branch + 1 ORAL) aspirin 81 0 Yes [id number] 81mg Take 1 U nivers mg EC 8-02 tablet by ity of tablet 00:00: mouth [place] 00 daily. Medical Branch foLIC acid Yes [id number] 1mg Take 1 U nivers 1 mg tablet 8-02 tablet by ity of 00:00: mouth [place] 00 daily. Medical Branch aspirin 81 0 Yes [id number] 81mg Take 1 U nivers mg EC 8-02 tablet by ity of tablet 00:00: mouth [place] 00 daily. Medical Branch foLIC acid Yes [id number] 1mg Take 1 U nivers 1 mg tablet 8-02 tablet by ity of 00:00: mouth [place] 00 daily. Medical Branch aspirin 81 0 Yes [id number] 81mg Take 1 U nivers mg EC 8-02 tablet by ity of tablet 00:00: mouth [place] 00 daily. Medical Branch foLIC acid 0 Yes [id number] 1mg Take 1 U nivers 1 mg tablet 8-02 tablet by ity of 00:00: mouth [place] 00 daily. Medical Branch aspirin 81 0 Yes [id number] 81mg Take 1 U nivers mg EC 8-02 tablet by ity of tablet 00:00: mouth [place] 00 daily. Medical Branch foLIC acid 0 Yes [id number] 1mg Take 1 U nivers 1 mg tablet 8-02 tablet by ity of 00:00: mouth [place] 00 daily. Medical Branch aspirin 81 0 Yes [id number] 81mg Take 1 U nivers mg EC 8-02 tablet by ity of tablet 00:00: mouth [place] 00 daily. Medical Branch foLIC acid 0 Yes [id number] 1mg Take 1 U nivers 1 mg tablet 8-02 tablet by ity of 00:00: mouth [place] 00 daily. Medical Branch aspirin 81 0 Yes [id number] 81mg Take 1 U nivers mg EC 8-02 tablet by ity of tablet 00:00: mouth [place] 00 daily. Medical Branch foLIC acid 2020-0 Yes [id number] 1mg Take 1 U nivers 1 mg tablet 8-02 tablet by ity of 00:00: mouth [place] 00 daily. Medical Branch aspirin 81 2020-0 Yes [id number] 81mg Take 1 U nivers mg EC 8-02 tablet by ity of tablet 00:00: mouth [place] 00 daily. Medical Branch foLIC acid 2020-0 Yes [id number] 1mg Take 1 U nivers 1 mg tablet 8-02 tablet by ity of 00:00: mouth [place] 00 daily. Medical Branch aspirin 81 2020-0 Yes [id number] 81mg Take 1 U nivers mg EC 8-02 tablet by ity of tablet 00:00: mouth [place] 00 daily. Medical Branch foLIC acid 2020-0 Yes [id number] 1mg Take 1 U nivers 1 mg tablet 8-02 tablet by ity of 00:00: mouth [place] 00 daily. Medical Branch aspirin 81 2020-0 Yes [id number] 81mg Take 1 U nivers mg EC 8-02 tablet by ity of tablet 00:00: mouth [place] 00 daily. Medical Branch foLIC acid 2020-0 Yes [id number] 1mg Take 1 U nivers 1 mg tablet 8-02 tablet by ity of 00:00: mouth [place] 00 daily. Medical Branch aspirin 81 2020-0 Yes [id number] 81mg Take 1 U nivers mg EC 8-02 tablet by ity of tablet 00:00: mouth [place] 00 daily. Medical Branch foLIC acid 2020-0 Yes [id number] 1mg Take 1 U nivers 1 mg tablet 8-02 tablet by ity of 00:00: mouth [place] 00 daily. Medical Branch aspirin 81 2020-0 Yes [id number] 81mg Take 1 U nivers mg EC 8-02 tablet by ity of tablet 00:00: mouth [place] 00 daily. Medical Branch foLIC acid 2020-0 Yes [id number] 1mg Take 1 U nivers 1 mg tablet 8-02 tablet by ity of 00:00: mouth [place] 00 daily. Medical Branch aspirin 81 2020-0 Yes [id number] 81mg Take 1 U nivers mg EC 8-02 tablet by ity of tablet 00:00: mouth [place] 00 daily. Medical Branch foLIC acid 2020-0 Yes [id number] 1mg Take 1 U nivers 1 mg tablet 8-02 tablet by ity of 00:00: mouth [place] 00 daily. Medical Branch aspirin 81 Yes [id number] 81mg Take 1 U nivers mg EC 8-02 tablet by ity of tablet 00:00: mouth [place] 00 daily. Medical Branch foLIC acid Yes [id number] 1mg Take 1 U nivers 1 mg tablet 8-02 tablet by ity of 00:00: mouth [place] 00 daily. Medical Branch aspirin 81 Yes [id number] 81mg Take 1 U nivers mg EC 8-02 tablet by ity of tablet 00:00: mouth [place] 00 daily. Medical Branch foLIC acid Yes [id number] 1mg Take 1 U nivers 1 mg tablet 8- tablet by ity of 00:00: mouth [place] 00 daily. Medical Branch aspirin 81 2021- No [id number] 81mg Take 1 Univers mg EC 05-20 tablet by ity of tablet 00:00: 00:00 mouth [place] 00 :00 daily. Medical Branch foLIC acid 2021- No [id number] 1mg Take 1 Univers 1 mg tablet 05-20 tablet by it y of 00:00: 00:00 mouth [place] 00 :00 daily. Medical Branch aspirin 81 2021- No [id number] 81mg Take 1 Univers mg EC 05-20 tablet by ity of tablet 00:00: 00:00 mouth [place] 00 :00 daily. Medical Branch foLIC acid 2021- No [id number] 1mg Take 1 Univers 1 mg tablet 05-20 tablet by it y of 00:00: 00:00 mouth [place] 00 :00 daily. Medical Branch aspirin 81 2021- No [id number] 81mg Take 1 Univers mg EC 05-20 tablet by ity of tablet 00:00: 00:00 mouth [place] 00 :00 daily. Medical Branch foLIC acid 2020-2021- No [id number] 1mg Take 1 Univers 1 mg tablet 05-20 tablet by it y of 00:00: 00:00 mouth [place] 00 :00 daily. Medical Branch aspirin 81 2021- No [id number] 81mg Take 1 Univers mg EC 05-20 tablet by ity of tablet 00:00: 00:00 mouth [place] 00 :00 daily. Medical Branch foLIC acid 2021- No [id number] 1mg Take 1 Univers 1 mg tablet 05-20 tablet by it y of 00:00: 00:00 mouth [place] 00 :00 daily. Medical Branch ascorbic 2020- No [id number] 500mg Take 1 U nivers acid, 05-20 tablet by ity of vitamin C, 00:00: 00:00 mouth [place] 500 mg 00 :00 every Medical tablet other day. Branch ascorbic 2020- No [id number] 500mg Take 1 U nivers acid, 05-20 tablet by ity of vitamin C, 00:00: 00:00 mouth [place] 500 mg 00 :00 every Medical tablet other day. Branch ascorbic 2020- No [id number] 500mg Take 1 U nivers acid, 05-20 tablet by ity of vitamin C, 00:00: 00:00 mouth [place] 500 mg 00 :00 every Medical tablet other day. Branch ferrous 2020- No [id number] 325mg Take 1 Un yaneth sulfate 05-20 tablet by ity of (IRON, 00:00: 00:00 mouth [place] FERROUS 00 :00 every Medical SULFATE,) other day. Bran ch 325 mg (65 mg iron) tablet medroxyprog medroxyprog 2020-0 No 150ug Common esterone ac esterone ac 6-11 S pirit 00:00: - [facility] medroxyprog medroxyprog 2020-0 No 150ug Common esterone ac esterone ac 6-11 S pirit 00:00: - [facility] 00 [facility] medroxyprog medroxyprog 2020-0 No 150ug Common esterone ac esterone ac 6-11 S pirit 00:00: - [facility] 00 [facility] medroxyprog medroxyprog 2020-0 No 150mL Common esterone ac esterone ac 3-12 S pirit 00:00: - [facility] 00 [facility] medroxyprog medroxyprog 2020-0 No 150mL Common esterone ac esterone ac 3-12 S pirit 00:00: - [facility] 00 [facility] medroxyprog medroxyprog 2020-0 No 150mL Common esterone ac esterone ac 3-12 S pirit 00:00: - [facility] 00 [facility] medroxyprog medroxyprog 2019- No 150mg Common esterone ac esterone ac 2-12 S pirit 00:00: - [facility] 00 [facility] medroxyprog medroxyprog 2019- No 150mg Common esterone ac esterone ac 2-12 S pirit 00:00: - [facility] 00 [facility] medroxyprog medroxyprog 2018- No 150mg Common esterone ac esterone ac 2-12 S pirit 00:00: - [facility] 00 [facility] Omeprazole Omeprazole 2018- Yes Gabe 1 capsule Common 1-12 Hopper 30 minutes Spirit 00:00: before - [facility] [address] [facility] Omeprazole Omeprazole 2018- No QD Omeprazole 40 MG 40 MG 1-12 40 MG 00:00: 00 Omeprazole Omeprazole 2018-10 No QD Omeprazole 40 MG 40 MG 1-12 40 MG 00:00: 00 Omeprazole Omeprazole 2018- No QD Omeprazole 40 MG 40 MG 1-12 40 MG 00:00: 00 Immunizations Ordered Filled Immunization Date Status Comments [facility] e Immunization Name Name HPV9 2021-11-03 Completed University of 00:00:00 [facility] HPV9 2021-11-03 Completed University of 00:00:00 [facility] HPV9 2021-11-03 Completed University of 00:00:00 [facility] HPV9 2021-11-03 Completed University of 00:00:00 [facility] HPV9 2021-11-03 Completed University of 00:00:00 [facility] HPV9 2021-11-03 Completed University of 00:00:00 [facility] HPV9 2021-11-03 Completed University of 00:00:00 [facility] HPV9 2021-11-03 Completed University of 00:00:00 [facility] HPV9 2021-11-03 Completed University of 00:00:00 [facility] HPV9 2021-11-03 Completed University of 00:00:00 [facility] HPV9 2021-11-03 Completed University of 00:00:00 [facility] HPV9 2021-11-03 Completed University of 00:00:00 [facility] HPV9 2021-11-03 Completed University of 00:00:00 [facility] TDAP 2021-09-19 Completed University of 00:00:00 [place] [facility] TDAP 2021-09-19 Completed University of 00:00:00 [place] [facility] TDAP 2021-09-19 Completed University of 00:00:00 [place] [facility] TDAP 2021-09-19 Completed University of 00:00:00 [place] [facility] TDAP 2021-09-19 Completed University of 00:00:00 [place] [facility] TDAP 2021-09-19 Completed University of 00:00:00 [place] [facility] TDAP 2021-09-19 Completed University of 00:00:00 [place] [facility] TDAP 2021-09-19 Completed University of 00:00:00 [place] [facility] TDAP 2021-09-19 Completed University of 00:00:00 [place] [facility] TDAP 2021-09-19 Completed University of 00:00:00 [facility] TDAP 2021-09-19 Completed University of 00:00:00 [facility] Branch TDAP 2021-09-19 Completed University of 00:00:00 [place] [facility] TDAP 2021-09-19 Completed University of 00:00:00 [place] [facility] TDAP 2021-09-19 Completed University of 00:00:00 [facility] Branch TDAP 2021-09-19 Completed University of 00:00:00 [place] [facility] TDAP 2021-09-19 Completed University of 00:00:00 [place] [facility] TDAP 2021-09-19 Completed University of 00:00:00 [facility] TDAP 2021-09-19 Completed University of 00:00:00 [place] [facility] TDAP 2021-09-19 Completed University of 00:00:00 [place] [facility] TDAP 2021-09-19 Completed University of 00:00:00 [place] [facility] TDAP 2021-09-19 Completed University of 00:00:00 [place] [facility] TDAP 2021-09-19 Completed University of 00:00:00 [place] [facility] TDAP 2021-09-19 Completed University of 00:00:00 [place] [facility] TDAP 2021-09-19 Completed University of 00:00:00 [place] [facility] TDAP 2021-09-19 Completed University of 00:00:00 [place] [facility] TDAP 2021-09-19 Completed University of 00:00:00 [facility] TDAP 2021-09-19 Completed University of 00:00:00 [facility] SARS-COV-2 COVID-19 2021-08-21 Completed Unive rsity of MODERNA VACCINE 00:00:00 [facility] ical Branch SARS-COV-2 COVID-19 2021-08-21 Completed Unive rsity of MODERNA VACCINE 00:00:00 [facility] SARS-COV-2 COVID-19 2021-08-21 Completed Unive rsity of MODERNA VACCINE 00:00:00 [facility] ical Branch SARS-COV-2 COVID-19 2021-08-21 Completed Unive rsity of MODERNA VACCINE 00:00:00 [facility] SARS-COV-2 COVID-19 2021-08-21 Completed Unive rsity of MODERNA VACCINE 00:00:00 [facility] SARS-COV-2 COVID-19 2021-08-21 Completed Unive rsity of MODERNA VACCINE 00:00:00 [facility] SARS-COV-2 COVID-19 2021-08-21 Completed Unive rsity of MODERNA VACCINE 00:00:00 [facility] SARS-COV-2 COVID-19 2021-08-21 Completed Unive rsity of MODERNA VACCINE 00:00:00 [facility] SARS-COV-2 COVID-19 2021-08-21 Completed Unive rsity of MODERNA VACCINE 00:00:00 [facility] SARS-COV-2 COVID-19 2021-08-21 Completed Unive rsity of MODERNA VACCINE 00:00:00 [facility] ical Branch SARS-COV-2 COVID-19 2021-08-21 Completed Unive rsity of MODERNA VACCINE 00:00:00 [facility] SARS-COV-2 COVID-19 2021-08-21 Completed Unive rsity of MODERNA VACCINE 00:00:00 [facility] ical Branch SARS-COV-2 COVID-19 2021-08-21 Completed Unive rsity of MODERNA VACCINE 00:00:00 [facility] SARS-COV-2 COVID-19 2021-08-21 Completed Unive rsity of MODERNA VACCINE 00:00:00 [facility] SARS-COV-2 COVID-19 2021-08-21 Completed Unive rsity [...] Unive rsity of MODERNA VACCINE 00:00:00 [place] [facility] ical Branch SARS-COV-2 COVID-19 2021-08-21 Completed Unive rsity of MODERNA VACCINE 00:00:00 [place] [facility] SARS-COV-2 COVID-19 2021-08-21 Completed Unive rsity of MODERNA VACCINE 00:00:00 [place] [facility] ical Branch SARS-COV-2 COVID-19 2021-08-21 Completed Unive rsity of MODERNA VACCINE 00:00:00 [place] [facility] ical Branch SARS-COV-2 COVID-19 2021-08-21 Completed Unive rsity of MODERNA VACCINE 00:00:00 [place] [facility] ical Branch SARS-COV-2 COVID-19 2021-07-23 Completed Unive rsity of MODERNA VACCINE 00:00:00 [place] [facility] ical Branch SARS-COV-2 COVID-19 2021-07-23 Completed Unive [...] Unive rsity of MODERNA VACCINE 00:00:00 [facility] SARS-COV-2 COVID-19 2021-07-23 Completed Unive rsity of MODERNA VACCINE 00:00:00 [place] [facility] ical Branch SARS-COV-2 COVID-19 2021-07-23 Completed Unive rsity of MODERNA VACCINE 00:00:00 [facility] SARS-COV-2 COVID-19 2021-07-23 Completed Unive rsity of MODERNA VACCINE 00:00:00 [facility] SARS-COV-2 COVID-19 2021-07-23 Completed Unive rsity of MODERNA VACCINE 00:00:00 [facility] SARS-COV-2 COVID-19 2021-07-23 Completed Unive rsity of MODERNA VACCINE 00:00:00 [facility] SARS-COV-2 COVID-19 2021-07-23 Completed Unive rsity of MODERNA VACCINE 00:00:00 [facility] SARS-COV-2 COVID-19 2021-07-23 Completed Unive rsity of MODERNA VACCINE 00:00:00 [facility] SARS-COV-2 COVID-19 2021-07-23 Completed Unive rsity of MODERNA VACCINE 00:00:00 [facility] SARS-COV-2 COVID-19 2021-07-23 Completed Unive rsity of MODERNA VACCINE 00:00:00 [facility] SARS-COV-2 COVID-19 2021-07-23 Completed Unive rsity of MODERNA VACCINE 00:00:00 [facility] Branch SARS-COV-2 COVID-19 2021-07-23 Completed Unive rsity of MODERNA VACCINE 00:00:00 [facility] Branch SARS-COV-2 COVID-19 2021-07-23 Completed Unive rsity of MODERNA VACCINE 00:00:00 [facility] Influenza Virus 2021-07-11 Completed Universit y of Vaccine 00:00:00 [facility] Influenza Virus 2021-07-11 Completed Universit y of Vaccine 00:00:00 [facility] Influenza Virus 2021-07-11 Completed Universit y of Vaccine 00:00:00 [facility] Influenza Virus 2021-07-11 Completed Universit y of Vaccine 00:00:00 [facility] Influenza Virus 2021-07-11 Completed Universit y of Vaccine 00:00:00 [facility] Influenza Virus 2021-07-11 Completed Universit y of Vaccine 00:00:00 [place] [facility] Branch Influenza Virus 2021-07-11 Completed Universit y of Vaccine 00:00:00 [facility] Branch Influenza Virus 2021-07-11 Completed Universit y of Vaccine 00:00:00 [facility] Branch Influenza Virus 2021-07-11 Completed Universit y of Vaccine 00:00:00 [place] [facility] Branch Influenza Virus 2021-07-11 Completed Universit y of Vaccine 00:00:00 [facility] Branch Influenza Virus 2021-07-11 Completed Universit y of Vaccine 00:00:00 [facility] Branch Influenza Virus 2021-07-11 Completed Universit y of Vaccine 00:00:00 [facility] Branch Influenza Virus 2021-07-11 Completed Universit y of Vaccine 00:00:00 [facility] Branch Influenza Virus 2021-07-11 Completed Universit y of Vaccine 00:00:00 [facility] Branch Influenza Virus 2021-07-11 Completed Universit y of Vaccine 00:00:00 [facility] Branch Influenza Virus 2021-07-11 Completed Universit y of Vaccine 00:00:00 [facility] Branch Influenza Virus 2021-07-11 Completed Universit y of Vaccine 00:00:00 [facility] Branch Influenza Virus 2021-07-11 Completed Universit y of Vaccine 00:00:00 [facility] Branch Influenza Virus 2021-07-11 Completed Universit y of Vaccine 00:00:00 [facility] Branch Influenza Virus 2021-07-11 Completed Universit y of Vaccine 00:00:00 [facility] Branch Influenza Virus 2021-07-11 Completed Universit y of Vaccine 00:00:00 [facility] Influenza Virus 2021-07-11 Completed Universit y of Vaccine 00:00:00 [facility] Branch Influenza Virus 2021-07-11 Completed Universit y of Vaccine 00:00:00 [place] [facility] Branch Influenza Virus 2021-07-11 Completed Universit y of Vaccine 00:00:00 [place] [facility] Branch Influenza Virus 2021-07-11 Completed Universit y of Vaccine 00:00:00 [place] [facility] Branch Influenza Virus 2021-07-11 Completed Universit y of Vaccine 00:00:00 [place] [facility] Branch Influenza Virus 2021-07-11 Completed Universit y of Vaccine 00:00:00 [facility] Influenza Virus 2021-07-11 Completed Universit y of Vaccine 00:00:00 [facility] Influenza Virus 2021-07-11 Completed Universit y of Vaccine 00:00:00 [facility] Influenza Virus 2020-08-02 Completed Universit y of Vaccine 00:00:00 [facility] Influenza Virus 2020-08-02 Completed Universit y of Vaccine 00:00:00 [facility] Influenza Virus 2020-08-02 Completed Universit y of Vaccine 00:00:00 [facility] Influenza Virus 2020-08-02 Completed Universit y of Vaccine 00:00:00 [facility] Influenza Virus 2020-08-02 Completed Universit y of Vaccine 00:00:00 [facility] Influenza Virus 2020-08-02 Completed Universit y of Vaccine 00:00:00 [facility] Influenza Virus 2020-08-02 Completed Universit y of Vaccine 00:00:00 [facility] Influenza Virus 2020-08-02 Completed Universit y of Vaccine 00:00:00 [facility] Influenza Virus 2020-08-02 Completed Universit y of Vaccine 00:00:00 [facility] Influenza Virus 2020-08-02 Completed Universit y of Vaccine 00:00:00 [facility] Influenza Virus 2020-08-02 Completed Universit y of Vaccine 00:00:00 [facility] Influenza Virus 2020-08-02 Completed Universit y of Vaccine 00:00:00 [facility] Influenza Virus 2020-08-02 Completed Universit y of Vaccine 00:00:00 [facility] Influenza Virus 2020-08-02 Completed Universit y of Vaccine 00:00:00 [facility] Influenza Virus 2020-08-02 Completed Universit y of Vaccine 00:00:00 [facility] Influenza Virus 2020-08-02 Completed Universit y of Vaccine 00:00:00 [facility] Influenza Virus 2020-08-02 Completed Universit y of Vaccine 00:00:00 [facility] Influenza Virus 2020-08-02 Completed Universit y of Vaccine 00:00:00 [facility] Influenza Virus 2020-08-02 Completed Universit y of Vaccine 00:00:00 [facility] Influenza Virus 2020-08-02 Completed Universit y of Vaccine 00:00:00 [facility] Influenza Virus 2020-08-02 Completed Universit y of Vaccine 00:00:00 [facility] Influenza Virus 2020-08-02 Completed Universit y of Vaccine 00:00:00 [facility] Influenza Virus 2020-08-02 Completed Universit y of Vaccine 00:00:00 [facility] Influenza Virus 2020-08-02 Completed Universit y of Vaccine 00:00:00 [facility] Influenza Virus 2020-08-02 Completed Universit y of Vaccine 00:00:00 [facility] Influenza Virus 2020-08-02 Completed Universit y of Vaccine 00:00:00 [facility] Influenza Virus 2020-08-02 Completed Universit y of Vaccine 00:00:00 [facility] Influenza Virus 2020-08-02 Completed Universit y of Vaccine 00:00:00 [facility] Influenza Virus 2020-08-02 Completed Universit y of Vaccine 00:00:00 [facility] Adacel (Tdap) Adacel (Tdap) 2018-08-24 Completed [facility] S pirit - 14:04:00 [facility] Adacel (Tdap) Adacel (Tdap) 2018-08-24 Completed Common S pirit - 14:04:00 [facility] Adacel (Tdap) Adacel (Tdap) 2018-08-24 Completed Common S pirit - 14:04:00 [facility] Vital Signs Vital Name Observation Time Observation Value Comments Source height 2022-05-09 13:40:00 63 [in_i] [facility] weight 2022-05-09 13:40:00 229.2 [lb_av] [facility] temperature 2022-05-09 13:40:00 97.7 [degF] [facility] bmi 2022-05-09 13:40:00 40.6 kg/m2 [facility] oximetry 2022-05-09 13:40:00 100 % [facility] respiratory rate 2022-05-09 13:40:00 17 /min Comm on [facility] blood pressure 2022-05-09 13:40:00 132 mm[Hg] [facility] - systolic [facility] blood pressure 2022-05-09 13:40:00 68 mm[Hg] [facility] - diastolic [facility] Systolic blood 2022-04-08 16:22:00 140 mm[facility]Hg[facility] Di[facility] 2022-04-08 16:22:00 94 mm[facility]Hg[facility] Heart rate 2022-04-08 16:22:00 110 [facility]min [facility] height 2022-04-08 16:22:00 160 [facility] weight 2022-04-08 16:22:00 [facility] 2022-04-08 16:22:00 41.10 kg/m2 [facility] Systolic blood 2021-12-04 19:51:00 124 mm[Hg] [facility] Diastolic blood 2021-12-04 19:51:00 82 mm[Hg] Unive rsity of [facility] Heart rate 2021-12-04 19:51:00 88 /min [facility] Body temperature 2021-12-04 19:51:00 36.67 Valerie [facility] Respiratory rate 2021-12-04 19:51:00 20 /min [facility] Body height 2021-12-04 19:51:00 160 cm [facility] Body weight 2021-12-04 19:51:00 99.366 kg [facility] BMI 2021-12-04 19:51:00 38.81 kg/m2 [facility] Systolic blood 2021-11-25 17:18:00 107 mm[Hg] [facility] Diastolic blood 2021-11-25 17:18:00 71 mm[Hg] [facility]ive [facility] Heart rate 2021-11-25 17:18:00 105 /min [facility] Body temperature 2021-11-25 17:18:00 36.67 Valerie [facility] Respiratory rate 2021-11-25 17:18:00 20 /min [facility] Body height 2021-11-25 17:18:00 160 cm [facility] Body weight 2021-11-25 17:18:00 98.941 kg [facility] BMI 2021-11-25 17:18:00 38.64 kg/m2 Universi ty of [facility] Systolic blood 2021-11-08 17:30:00 129 mm[Hg] [facility]iver [facility] Diastolic blood 2021-11-08 17:30:00 72 mm[Hg] Unive rsity of pressure [facility] Heart rate 2021-11-08 17:30:00 110 /min Universi ty of [facility] Body temperature 2021-11-08 17:30:00 36.67 Valerie [facility] Respiratory rate 2021-11-08 17:30:00 18 /min Univ ersity of [facility] Body height 2021-11-08 17:30:00 160 cm Universi ty of [facility] Body weight 2021-11-08 17:30:00 105.036 kg Universi ty of [facility] BMI 2021-11-08 17:30:00 41.02 kg/m2 Universi ty of [facility] Systolic blood 2021-11-06 15:15:00 139 mm[Hg] [facility] Diastolic blood 2021-11-06 15:15:00 83 mm[Hg] Unive rsity of pressure [facility] Branch Heart rate 2021-11-06 15:15:00 79 /min Universi ty of [facility] Body temperature 2021-11-06 15:15:00 36.89 Valerie Univ ersity of [facility] Respiratory rate 2021-11-06 15:15:00 16 /min Univ ersity of [facility] Oxygen saturation in 2021-11-06 15:15:00 100 /min University of Arterial blood by [facility] Pulse oximetry Branch Body weight 2021-11-05 13:20:00 122.471 kg [facility] BMI 2021-11-05 13:20:00 47.83 kg/m2 Universi ty of [facility] Systolic blood 2021-11-04 14:16:00 133 mm[Hg] [facility]iver [facility] Diastolic blood 2021-11-04 14:16:00 78 mm[Hg] Unive rsity of pressure [facility] Heart rate 2021-11-04 14:16:00 70 /min [facility] Body temperature 2021-11-04 14:16:00 36.67 Valerie [facility] Respiratory rate 2021-11-04 14:16:00 18 /min [facility] Oxygen saturation in 2021-11-04 14:16:00 98 /min University of Arterial blood by [facility] Pulse oximetry Branch Body height 2021-10-31 20:58:00 160 cm [facility] Body weight 2021-10-31 20:58:00 122.925 kg [facility] BMI 2021-10-31 20:58:00 48.01 kg/m2 [facility] Systolic blood 2021-11-01 15:40:00 170 mm[Hg] [facility] Diastolic blood 2021-11-01 15:40:00 70 mm[Hg] Unive [facility] Heart rate 2021-11-01 15:40:00 110 /min [facility] Oxygen saturation in 2021-11-01 15:40:00 100 /min University of Arterial blood by [facility] Pulse oximetry Branch Respiratory rate 2021-11-01 10:30:00 17 /min [facility] Body temperature 2021-11-01 03:30:00 36.67 Valerie [facility] Body height 2021-10-31 20:58:00 160 cm [facility] Body weight 2021-10-31 20:58:00 122.925 kg [facility] BMI 2021-10-31 20:58:00 48.01 kg/m2 [facility] Systolic blood 2021-10-31 18:02:00 143 mm[Hg] [facility] Diastolic blood 2021-10-31 18:02:00 99 mm[Hg] Unive [facility]ity [facility] Heart rate 2021-10-31 18:01:00 98 /min [facility] Body temperature 2021-10-31 18:01:00 36.61 Valerie [facility] Respiratory rate 2021-10-31 18:01:00 18 /min [facility] Body weight 2021-10-31 18:01:00 123.197 kg [facility] BMI 2021-10-31 18:01:00 48.11 kg/m2 [facility] Oxygen saturation in 2021-10-31 18:01:00 98 /min University of Arterial blood by [facility] Pulse oximetry Branch Systolic blood 2021-10-24 22:02:00 139 mm[Hg] [facility]iver [facility] Diastolic blood 2021-10-24 22:02:00 84 mm[Hg] Unive rs[facility] Heart rate 2021-10-24 22:02:00 88 /min [facility] Respiratory rate 2021-10-24 22:02:00 20 /min [facility] Body weight 2021-10-24 22:02:00 116.121 kg [facility] BMI 2021-10-24 22:02:00 45.35 kg/m2 [facility] Oxygen saturation in 2021-10-24 22:02:00 98 /min University of Arterial blood by [facility] Pulse oximetry Branch Systolic blood 2021-10-21 14:09:00 129 mm[Hg] [facility] Diastolic blood 2021-10-21 14:09:00 83 mm[Hg] Unive rsity [facility] Heart rate 2021-10-21 14:09:00 96 /min [facility] Body temperature 2021-10-21 14:09:00 36.61 Valerie [facility] Respiratory rate 2021-10-21 14:09:00 18 /min [facility] Body height 2021-10-21 14:09:00 160 cm [facility] Body weight 2021-10-21 14:09:00 116.121 kg [facility] BMI 2021-10-21 14:09:00 45.35 kg/m2 [facility] Systolic blood 2021-10-17 20:31:00 135 mm[Hg] [facility] Diastolic blood 2021-10-17 20:31:00 79 mm[Hg] Unive rsity of [facility] Heart rate 2021-10-17 20:31:00 97 /min Universi ty of [facility] Body temperature 2021-10-17 20:31:00 36.94 Valerie [facility] ersity of [facility] Respiratory rate 2021-10-17 20:31:00 18 /min Univ ersity of [facility] Body height 2021-10-17 20:31:00 160 cm [facility] [place] Body weight 2021-10-17 20:31:00 116.665 kg Universi ty of [facility] BMI 2021-10-17 20:31:00 45.56 kg/m2 Universi ty [facility] Systolic blood 2021-10-03 17:13:00 133 mm[Hg] Univer sity of [facility] Diastolic blood 2021-10-03 17:13:00 84 mm[Hg] [facility] Heart rate 2021-10-03 17:12:00 101 /min Universi ty of [facility] Body temperature 2021-10-03 17:12:00 36.44 Valerie [facility] Res[facility] rate 2021-10-03 17:12:00 18 /min [facility] ersity [facility] Body height 2021-10-03 17:12:00 160 cm [facility] [place] Body weight 2021-10-03 17:12:00 113.535 kg Universi ty [facility] BMI 2021-10-03 17:12:00 44.34 kg/m2 Universi ty [facility] Procedures Procedure Date / Time Performing Clinician Source Performed DISABILITY/FMLA 2021-12-26 06:01:00 Doctor Unassigned, No [facility] DME/SUPPLY JUSTIFICATION 2021-11-07 06:01:00 Doctor Unassigned, No [facility] COMP. METABOLIC PANEL 2021-11-05 14:39:00 Jake Sue [facility] ([id number]) [facility] CBC WITH DIFF 2021-11-05 14:39:00 [facility] o f [facility] PROTEIN CREAT RATIO 2021-11-05 14:39:00 Vikram Jake [facility] URINE RANDOM [facility] COVID-19 (ID NOW RAPID 2021-11-05 14:39:00 [facility] TESTING) Medical Branch NOTICE OF PRIVACY 2021-11-05 13:11:34 Doctor Unassigned, No Univ [facility] PRACTICES Name Medical Branch CONSENT/REFUSAL FOR 2021-11-05 13:11:03 Doctor Unassigned, No [facility] Name Medical [place] CBC WITH DIFF 2021-11-02 14:15:00 [facility] CBC WITH DIFF 2021-11-02 14:[facility] 2021-11-02 10:37:00 [facility] WITH [facility]FF 2021-11-02 10:37:00 [facility] CORD GAS 2021-11-01 17:00:00 [facility] VENOUS CORD GAS 2021-11-01 17:00:[address] [facility] CORD GAS 2021-11-01 16:59:00 Lesly [facility] VENOUS CORD GAS 2021-11-01 16:59:00 Lesly [facility] SECTION 2021-11-01 15:52:00 Jamie Gonzalez [facility] MAGNESIUM 2021-11-01 13:58:00 Kishan Penaloza [facility] MAGNESIUM 2021-11-01 13:58:00 Kishan Penaloza [facility] CBC WITH DIFF 2021-11-01 01:06:00 Raimundo Meyer [facility] CBC WITH DIFF 2021-11-01 01:06:00 Raimundo Meyer [facility] SGOT (ASPARTATE AMINO 2021-11-01 00:56:00 Kae Grace [facility] TRANSFER) Medical Branch CREATININE 2021-11-01 00:56:00 Lesly [facility] ALANINE AMINO 2021-11-01 00:56:00 Lesly [facility] TRANSFERASE(SGPT Medical Branch LACTATE DEHYDROGENASE 2021-11-01 00:56:00 Lesly [facility] URIC ACID 2021-11-01 00:56:00 Lesly [facility] URINALYSIS 2021-11-01 00:56:00 Lesly [facility] HEPATITIS B SURFACE 2021-11-01 00:56:00 Lesly [facility] ANTIGEN [facility] GALV ONLY - SYPHILIS 2021-11-01 00:56:00 Lesly [facility] IGG/IGM [facility] SGOT (ASPARTATE AMINO 2021-11-01 00:56:00 Lesly [facility] TRANSFER) Medical Branch CREATININE 2021-11-01 00:56:00 Lesly [facility] ALANINE AMINO 2021-11-01 00:56:00 Lesly [facility] LACTATE DEHYDROGENASE 2021-11-01 00:56:00 Lesly [facility] URIC ACID 2021-11-01 00:56:00 Lesly [facility] URINALYSIS 2021-11-01 00:56:00 Lesly [facility] HEPATITIS B SURFACE 2021-11-01 00:56:00 Lesly [facility] ANTIGEN [facility] GALV ONLY - SYPHILIS 2021-11-01 00:56:00 Lesly [facility] IGG/IGM [facility] Branch HB ABO GROUPING 2021-11-01 00:53:00 Raimundo Meyer [facility] RHO (D) IMMUNE GLOBULIN 2021-11-01 00:53:00 [facility] HB ABO GROUPING 2021-11-01 00:53:00 Raimundo Meyer [facility] RHO (D) IMMUNE GLOBULIN 2021-11-01 00:53:00 [facility] POCT GLUCOSE (AUTOMATED) 2021-11-01 00:07:00 Can White [facility] POCT GLUCOSE (AUTOMATED) 2021-11-01 00:07:00 Can White, [facility] COVID-19 (ID NOW RAPID 2021-11-01 00:02:00 Can White [facility] TESTING) [facility] COVID-19 (ID NOW RAPID 2021-11-01 00:02:00 Can White, [facility] TESTING) [facility] HB ABO GROUPING 2021-10-31 20:45:00 Fish, [facility] HB ABO GROUPING 2021-10-31 20:45:00 Fish, [facility] URIC ACID 2021-10-31 20:37:00 Fish, [facility] COMP. METABOLIC PANEL 2021-10-31 20:37:00 Fish, [facility] ([id number]) [facility] CBC WITH DIFF 2021-10-31 20:37:00 Fish, [facility] HEPATITIS B SURFACE 2021-10-31 20:37:00 Fish, [facility] ANTIGEN [facility] GROUP B STREPTOCOCCUS BY 2021-10-31 20:37:00 Fish, [facility] PCR [facility] ADC OR ABDOULAYE ONLY - 2021-10-31 20:37:00 Fish, [facility] RPR [facility] PROTEIN CREAT RATIO 2021-10-31 20:37:00 Fish, [facility] URINE RANDOM [facility] HIV 1/2 AG-AB WITH 2021-10-31 20:37:00 Fish, [facility] REFLEX [facility] Branch URIC ACID 2021-10-31 20:37:00 Fish, [facility] COMP. METABOLIC PANEL 2021-10-31 20:37:00 Fish, [facility] ([id number]) [facility] CBC WITH DIFF 2021-10-31 20:37:00 Fish, [facility] HEPATITIS B SURFACE 2021-10-31 20:37:00 Fish, [facility] ANTIGEN [facility] Branch GROUP B STREPTOCOCCUS BY 2021-10-31 20:37:00 Fish, Jake [facility] ADC OR ABDOULAYE ONLY - 2021-10-31 20:37:00 Jake Sue [facility] RPR Medical Branch PROTEIN CREAT RATIO 2021-10-31 20:37:00 Jake Sue [facility] URINE RANDOM [facility] HIV 1/2 AG-AB WITH 2021-10-31 20:37:00 [facility] CONSENT/REFUSAL FOR 2021-10-31 18:30:18 Doctor Unassigned, No [facility] TREATMENT [facility] CONSENT/REFUSAL FOR 2021-10-31 18:30:18 Doctor Unassigned, No [facility] ASSIGNMENT OF BENEFITS 2021-10-31 18:29:55 Doctor Unassigned, No [facility] ASSIGNMENT OF BENEFITS 2021-10-31 18:29:55 Doctor Unassigned, No [facility] POCT URINALYSIS W/O 2021-10-31 18:04:[address] [facility] HOSPITAL ADMISSION 2021-10-31 06:01:00 Doctor Unassigned, No Uni [facility] INSURANCE CORRESPONDENCE 2021-10-29 06:01:00 Doctor Unassigned, No [facility] NON-STRESS TEST 2021-10-24 23:48:38 Jake Sue [facility] NON-STRESS TEST 2021-10-21 16:53:53 Sudha Sloane [facility] NON-STRESS TEST 2021-10-17 21:39:31 Sloane Haley [facility] POCT URINALYSIS W/O 2021-10-17 00:00:[address] [facility] INSURANCE CORRESPONDENCE 2021-10-14 06:01:00 Doctor Unassigned, No [facility] POCT URINALYSIS W/O 2021-10-03 17:14:[address] [facility] PATIENT QUESTIONNAIRE 2021-09-26 06:01:00 Doctor Unassigned, No [facility] Encounters Start End Encounter Admission Attending Care Care Encounter Source Date/Time Date/Time Type Type Clinicians Facility Department ID 2022-09-29 Outpatient [facility] [id number] MD 09:11:18 [id number] [facility] 2022-05-09 Outpatient Hopper, STLMLC STLMLC [id number] Common 13:37:01 [facility] 2022-05-02 Outpatient PAUL, [facility] [id number] [place] 11:51:10 DANDRE [id number] [facility] 2022-05-01 Outpatient PAUL, [facility] [id number] MD 12:04:29 DANDRE [id number] [facility] 2022-04-30 Outpatient [facility] [id number] [place] 13:38:26 [id number] [facility] 2022-04-08 Outpatient WANG, [facility] [id number] [place] 11:05:08 SIGMUND [id number] [facility] 2022-03-28 Outpatient WANG, [facility] [id number] [place] 15:55:53 SIGMUND [id number] [facility] 2022-03-21 Outpatient [facility] [id number] MD 12:43:48 [id number] [facility] 2022-03-20 Outpatient WANG, [facility] [id number] MD 08:24:41 SIGMUND [id number] [facility] 2022-03-07 Outpatient WANG, [facility] [id number] MD 10:31:39 SIGMUND [id number] [facility] 2021-11-13 Outpatient Hopper, STLMLC STLMLC [id number] Common 12:46:54 [facility] [id number] [facility] 2021-11-13 Outpatient Hopper, STLMLC STLMLC [id number] Common 11:13:15 [facility] [id number] [facility] 2021-11-13 Outpatient Hopper, STLMLC STLMLC [id number] Common 11:13:02 Gabe [id number] [facility] 2022-09-10 2022-09-10 Outpatient WANG, [facility] [id number] [place] 11:00:00 11:14:43 SIGMUND [facility] 2022-06-262022-06-26 (TEL) STLMLC STLMLC [id number] Co mmon 00:00:00 00:00:00 [facility] 2022-04-30 2022-05-29 Outpatient TODD, [facility] [id number] [facility] 13:38:00 23:59:00 GELA 2022-05-09 2022-05-09 OFFICE STLMLC STLMLC [id number] Co mmon 00:00:00 00:00:00 VISIT EST Spir it PT LEVEL 3 - [facility] 2022-05-09 2022-05-09 (TEL) STLMLC STLMLC [id number] Co mmon 00:00:00 00:00:00 [facility] 2022-05-07 2022-05-07 Outpatient PAUL, [facility] [id number] [facility] 05:11:00 21:10:00 DANDRE 2022-04-08 2022-04-08 Office Wang, UTP 6400 [id number] MD 11:00:00 13:08:48 Visit Hubert SANTAMARIA [id number] Health 9.2.7.2.686 [id number] 2021-12-26 2021-12-26 Orders Doctor KAYLA [id number] [facility] 00:00:00 00:00:00 Only Unassigned, SHANELL [id number] ity of [place] [facility] 4.2.7.2.686 Nelson as [id number] [address] 2021-12-20 2021-12-20 Outpatient R VIKRAMRADHAN [facility] [id number] Univers 14:15:00 14:15:00 ity [facility] 2021-12-17 2021-12-17 Outpatient R VIKRAM JAKE [facility] [id number] Univers 13:30:00 13:30:00 ity [facility] 2021-12-04 2021-12-04 Outpatient R VIKRAM JAKE [facility] [id number] Univers 13:30:00 13:51:05 ity [facility] 2021-12-04 2021-12-04 Nurse Nurse, Lkj [facility] [id number] Univers 13:30:00 13:51:05 Visit Jake Sue [id number] ity of WOMEN'S 4.2.7.2.686 [facility] [id number] [address] 2021-12-04 2021-12-04 Telephone Jake Sue [facility] 1.2.840.11 [id number] Univers 00:00:00 00:00:00 KENTON [id number] it y of WOMEN'S 4.2.7.2.686 [facility] [id number] [address] 2021-11-25 2021-11-25 [facility] [id number] Univers 11:00:00 12:02:04 ARMIDA fox o f [facility] 2021-11-25 2021-11-25 Routine Jake Sue [facility] 1.2.840.114 [id number] Univers 11:00:00 12:02:04 Armida Gonzalez 350.1.13.1 0 ity of Visit WOMEN'S 4.2.7.2.686 [facility] [id number] [address] 2021-11-14 2021-11-14 Outpatient PANCHO TOPETE [facility] [id number] Univers 09:00:00 09:00:00 PANCHO COOMBS ity of [facility] 2021-11-12 2021-11-12 1.2.840.1 1.2.840.114 [id number] Univers 00:00:00 00:00:00 Encounter [id number] ity of 3.104.2.7 [place][id number] [facility] 2021-11-11 2021-11-11 1.2.840.1 1.2.840.114 [id number] Univers 00:00:00 00:00:00 Encounter [id number] 350.1.13.10 ity of 3.104.2.7 [place].2.696 [place] .[id number] [address] [facility] [place] 2021-11-08 2021-11-08 Outpatient R JAKE SUE [facility] [id number] Univers 10:30:00 11:03:32 ity of [facility] 2021-11-08 2021-11-08 Nurse Nurse, Thi [facility] 1.2.840.114 [id number] Univers 10:30:00 11:03:32 Visit Jake Sue 350.1.13.10 ity of WOMEN'S 4.2.7.2.686 [facility] [id number] [facility] [address] [place] 2021-11-07 2021-11-07 Orders Doctor KAYLA 1.2.840.114 [id number] Univers 00:00:00 00:00:00 Only Unassigned, SHANELL 350.1.13.10 ity of [place] [facility] 4.2.7.2.686 Nelson [id number] [facility] [address] [place] 2021-11-05 2021-11-06 Outpatient P JAKE SEU [facility] [id number] Univers 07:25:00 11:20:00 ity of [facility] 2021-11-05 2021-11-06 [facility] Garcia Mckeon [facility] 1.2.840.1 [id number] Univers 07:25:00 11:20:00 Encounter Jake Sue ESTELA 350.1.13.10 ity of [place] 4.2.7.2.686 [facility] [id number] [facility] [address] [place] 2021-11-06 2021-11-06 Telephone Jake Sue [facility] 1.2.840.11 [id number] Univers 00:00:00 00:00:00 KENTON 350.1.13.10 it y of [place].2.686 [place] [facility] [id number] [facility] [address] [place] 2021-10-31 2021-11-04 Inpatient P KIM [facility] [id number] Univers 12:25:00 12:57:00 CRISTÓBAL ity of [facility] 2021-10-31 2021-11-04 Hospital Shannon Tejeda 1.2.840.114 [id number] Univers 12:25:00 12:57:00 Encounter Jake Sue 350.1.13.10 ity of [facility] 4.2.7.2 .686 [facility] [id number] [address] 2021-11-04 2021-11-04 1.2.840.1 1.2.840.114 [id number] Univers 00:00:00 00:00:00 Encounter [id number] 350.1.13.10 ity of 3.104.2.7 [place]7.2.696 [place] .[id number] [facility] 2021-11-01 2021-11-01 Surgery KAYLA Gonzalez 1.2.840.114 [id number] Univers 08:00:00 09:41:00 Jamie Colleen SHANELL 350.1.13.10 ity of [facility] 4.2.7.2.686 [place] as [id number] [facility] [address] [place] 2021-10-31 2021-10-31 Routine VikramRadhan [facility] 1.2.840.114 [id number] Univers 11:15:00 11:59:29 KENTON 350.1.13.10 i ty of Visit WOM[place].2.[place] [id number] [facility] [address] [place] 2021-10-31 2021-10-31 Silver Wrapper Ultrasound, Ant [facility] 1.2 .840.114 [id number] Univers 09:00:00 10:00:00 Visit Pancho Coombs [employer] 350.1.13.10 ity of [facility] 4.2.7.2.686 [place] as MATERNAL [id number] Med ical & CHILD [address] [place] [address] 2021-10-31 2021-10-31 Outpatient P JAKE SUE [facility] [id number] Univers 09:00:00 09:41:02 ity of [facility] 2021-10-30 2021-10-30 Outpatient R SUDHA [facility] [id number] Univers 00:00:00 00:00:00 SLOANE ity of [facility] 2021-10-29 2021-10-29 Orders Doctor KAYLA 1.2.840.114 [id number] Univers 00:00:00 00:00:00 Only Unassigned, SHANELL 350.1.13.10 ity of [place] [facility] 4.2.7.2.686 [place] as [id number] [facility] [address] 2021-10-24 2021-10-24 Outpatient R JAKE SUE [facility] [id number] Univers 14:45:00 16:41:39 ity of [facility] 2021-10-24 2021-10-24 Routine 1, Thi [facility] Room [facility] 1.2.840. 114 [id number] Univers 14:45:00 16:41:39 Jake Sue 350.1.13.10 ity of Visit W[place] [id number] [facility] [address] 2021-10-24 2021-10-24 Outpatient R JAKE SUE [facility] [id number] Univers 10:00:00 10:00:00 ity of [facility] 2021-10-21 2021-10-21 Laboratory Only, Dylan Pob2 Test [facility] 1.2 .840.114 [id number] Univers 14:15:00 14:15:00 Only Bryan Coombs 350.1.13 .10 it[place] of [place] [id number] [address] 2021-10-21 2021-10-21 Outpatient Annel COOMBS [facility] [id number] Univers 14:15:00 14:04:51 BRYAN fox [facility] 2021-10-21 2021-10-21 Routine Room, Dylan [facility] 1.2.840.1 14 [id number] Univers 08:00:00 10:49:13 Jake Sue 350.1.13.10 ity of Visit [place] [id number] [address] 2021-10-21 2021-10-21 Telephone KAYLA Caruso 1.2.160.740 [id number] Univers 00:00:00 00:00:00 Shirley REECE 350.1.13.10 it y of HOSPITAL 4.2.7.2.686 [place] [id number] [address] 2021-10-17 2021-10-18 Outpatient P PANCHO COOMBS [facility] [id number] Univers 09:00:00 12:00:43 PANCHO COOMBS [facility] 2021-10-18 2021-10-18 Telephone Jake Sue [facility] 1.2.840.11 [id number] Univers 00:00:00 00:00:00 [place] 350.1.13.10 it y of PEDIATRIC 4.2.7.2.686 [facility] [phone] [address] 2021-10-17 2021-10-17 Routine Room, [facility] 1.2.840.1 14 [id number] Univers 14:00:00 15:38:46 Pancho Coombs 350.1.13.10 ity of Visit Angelia Tejedaen Inocencio CELESTIN 4.2.7.2.686 [place] PROFESSIO [id number] [address] 2021-10-17 2021-10-17 Silver Wrapper [facility]trasound, [facility] 1.2 .840.114 [id number] Univers 09:00:00 10:00:00 Visit Pancho Coombs QUALITY CONTROL TESTER 350.1.13.10 ity of REGIONAL 4.2.7.2.686 [place] MATERNAL [phone] Med ical & CHILD [address] [place] [address] 2021-10-17 2021-10-17 Outpatient P PANCHO COOMBS [facility] [id number] Univers 09:00:00 09:00:00 PANCHO COOMBS [facility] 2021-10-17 2021-10-17 Refill Jake Sue [facility] [place] 1.2.840.114 [id number] Univers 00:00:00 00:00:00 [place] 350.1.13.10 it y of W[place]EN'S 4.[place].2.[place] [id number] [facility] [address] 2021-10-14 2021-10-14 Orders Doctor KAYLA 1.2.840.114 [id number] Univers 00:00:00 00:00:00 Only Unassigned, SHANELL 350.1.13.10 ity of [place] [facility] 4.2.7.2.686 [place] [id number] [facility] [address] 2021-10-10 2021-10-10 Outpatient R JAKE SUE [facility] [id number] Univers 10:30:00 10:30:00 ity [facility] 2021-10-10 2021-10-10 Outpatient R JAKE SUE [facility] [id number] Univers 10:30:00 10:30:00 ity [facility] 2021-10-03 2021-10-03 Outpatient P NATHANIEL [facility] [id number] Univers 09:00:00 16:25:18 CHASEY ity [facility] 2021-10-03 2021-10-03 Outpatient R JAKE SUE [facility] [id number] Univers 13:00:00 13:00:00 ity [facility] 2021-10-03 2021-10-03 Silver Wrapper Dylan Hoyt Lab Main [facility] 1.2.8 40.114 [id number] Univers 12:15:00 12:30:00 Visit Jake Sue ESTELA 350.1.13.10 ity [facility] 4.2.7.2.[place] [id number] La dical [address] 2021-10-03 2021-10-03 Outpatient R JAKE SUE [facility] [id number] Univers 11:00:00 11:28:12 ity [facility] 2021-10-03 2021-10-03 Routine Jake Sue [facility] 1.2.840.114 [id number] Univers 11:00:00 11:28:12 [place] 350.1.13.10 i ty of Visit WOMEN'S 4.2.7.2.[place] [id number] [address] 2021-10-03 2021-10-03 Outpatient R JAKE SUE [facility] [id number] Univers 11:00:00 11:00:00 ity of [facility] 2021-10-03 2021-10-03 Silver Wrapper Ultrasound, [facility] 1.2 .840.114 [id number] Univers 09:00:00 10:00:00 Visit Pancho Coombs QUALITY CONTROL TESTER 350.1.13.10 ity [facility] 4.2.7.2 .686 [place] MATERNAL [phone] [facility] ical & CHILD [address] [place] [address] 2021-10-03 2021-10-03 Outpatient P PANCHO COOMBS [facility] [id number] Univers 09:00:00 09:00:00 PANCHO COOMBS ity [facility] 2021-09-26 2021-09-26 Routine Jake Sue [facility] 1.2.840.114 [id number] Univers 13:46:48 15:31:05 [place] 350.1.13.10 i ty of Visit WOMEN'S 4.[place].2.[place] [id number] [address] 2021-09-26 2021-09-26 Outpatient R JAKE SUE [facility] [id number] Univers 13:45:00 15:31:05 ity of [facility] 2021-09-26 2021-09-26 Orders Doctor KAYLA 1.2.840.114 [id number] Univers 00:00:00 00:00:00 Only Unassigned, SHANELL 350.1.13.10 ity of [place] [facility] 4.2.7.2.686 [place] as [id number] [address] 2021-09-20 2021-09-20 Nurse Nurse, Lkj [facility] 1.2.840.114 [id number] Univers 11:01:45 11:45:00 Visit Jake Sue 350.1.13.10 ity of [place] 4.[place] [id number] [address] 2021-09-20 2021-09-20 Outpatient R JAKE SUE [facility] [id number] Univers 11:00:00 11:45:00 ity [facility] 2021-09-19 2021-09-19 Silver Wrapper Ant Oseguera [facility] 1.2 .840.114 [id number] Univers 09:02:46 09:39:26 Visit Pancho Coombs QUALITY CONTROL TESTER 350.1.13.10 ity of Jamie Gonzalez [facility] 4.2.7.2.686 [place] MATERNAL [phone] [facility] ical & CHILD [address] [place] [address] 2021-09-19 2021-09-19 Outpatient P FRANCESCA [facility] [id number] Univers 09:00:00 09:39:26 [facility] 2021-09-19 2021-09-19 [facility] [id number] Univers 09:00:00 09:00:00 [facility] 2021-09-19 2021-09-19 Routine Jake Sue [facility] 1.2.840.114 [id number] Univers 08:04:39 08:43:08 [place] 350.1.13.10 i ty of Visit WOMEN'S 4.2.7.2.686 [facility] [phone] [address] 2021-09-18 2021-09-18 Silver Wrapper Dylan Hoyt Lab Main [facility] 1.2.8 40.114 [id number] Univers 08:06:14 08:21:14 Visit [facility] 350.1.13.10 ity [facility] 4.2.7.2.686 [facility] s PROFESSIO [phone] La dical [facility] 353 [facility] 2021-09-18 2021-09-18 Outpatient R JAKE SUE [facility] [id number] Univers 07:45:00 07:45:00 ity [facility] 2021-09-18 2021-09-18 Case Jake Sue [facility] 1.2.840.114 [id number] Univers 00:00:00 00:00:00 Management [place] 350.1.13.10 it[place] of PEDIATRIC [place].2.[place] [facility] [id number] [address] 2021-09-05 2021-09-05 Silver Wrapper Ultrasound, [facility] 1.2 .840.114 [id number] Univers 08:50:15 09:50:15 Visit Pancho Coombs QUALITY CONTROL TESTER 350.1.13.10 ity of Jazmyn Armstrong Mary [facility] 4.2.7.2 .686 [place] MATERNAL [id number] [facility] CH[facility] [address] [place] [address] 2021-09-05 2021-09-05 Outpatient P NATHANIEL [facility] [id number] Univers 09:00:00 09:00:00 [facility] 2021-08-29 2021-08-29 Routine Jake Sue [facility] 1.2.840.114 [id number] Univers 11:15:26 12:33:42 [place] 350.1.13.10 i ty of Visit WOMEN'S 4.2.7.2.686 [facility] [id number] [address] 2021-08-29 2021-08-29 Outpatient R JAKE SUE [facility] [id number] Univers 11:15:00 12:33:42 ity [facility] 2021-08-22 2021-08-22 Silver Wrapper Ultrasound, [facility] 1.2 .840.114 [id number] Univers 10:55:39 11:48:27 Visit Pancho Coombs QUALITY CONTROL TESTER 350.1.13.10 ity of Jazmyn Armstrong Mary [facility] 4.2.7.2 .686 [place] MATERNAL [id number] [facility] & CHILD [address] [place] [address] 2021-08-22 2021-08-22 Outpatient P NATHANIEL [facility] [id number] Univers 11:00:00 11:00:00 JAZMYN ity [facility] 2021-08-19 2021-08-19 Refill Jake Sue [facility] 1.2.840.114 [id number] Univers 00:00:00 00:00:00 [place] 350.1.13.10 it y of WOMEN'S 4.2.7.2.686 [facility] [id number] [address] 2021-08-16 2021-08-16 Refill Jake Sue [place] 1.2.840.114 [id number] Univers 00:00:00 00:00:00 [place] 350.1.13.10 it y of W[place] 4[place].2.[place] [id number] [address] 2021-08-08 2021-08-08 Silver Wrapper Ultrasound, [facility] 1.2 .840.114 [id number] Univers 08:38:32 09:38:32 Visit Pancho Coombs QUALITY CONTROL TESTER 350.1.13.10 ity of [facility] 4.2.7.2.686 [place] as MATERNAL [phone] [facility] & [address] 2021-08-08 2021-08-08 Outpatient P [facility] [id number] Univers 08:45:00 08:45:00 ity of [facility] 2021-08-01 2021-08-01 Routine Jake Sue [facility] 1.2.840.114 [id number] Univers 13:24:47 14:02:20 [place] 350.1.13.10 i ty of Visit Women's 4.2.[place].2.[place] [id number] [address] 2021-08-01 2021-08-01 Outpatient R JAKE SUE [facility] [id number] Univers 13:15:00 13:15:00 ity [facility] 2021-07-25 2021-07-25 Silver Wrapper Ultrasound, [facility] 1.2 .840.114 [id number] Univers 07:57:39 10:05:45 Visit Jamila Baumann QUALITY CONTROL TESTER 350.1. 13.10 ity of [facility] 4.2.7.2.686 [place] MATERNAL [id number] [facility] & [address] 2021-07-25 2021-07-25 Outpatient P [facility] [id number] Univers 08:00:00 08:00:00 ity of [facility] 2021-07-22 2021-07-22 Silver Wrapper 2, Adc Lab [facility] 1.2.840.114 [id number] Univers 09:13:09 11:55:12 Visit Jake Sue 350.1.13.10 ity of [place].2.[place] [id number] La dical [address] 2021-07-22 2021-07-22 Outpatient R JAKE SUE [facility] [id number] Univers 09:00:00 11:55:12 ity of [facility] 2021-07-22 2021-07-22 Telemedici Faculty, [facility] 1.2.840.114 [id number] Univers 09:53:06 10:20:51 ne Visit Cristóbal Lisa QUALITY CONTROL TESTER 350.1.13.10 ity of [facility] 4.2.7.2.686 [place] MATERNAL [id number] Med ical & CHILD 107 [facility] 2021-07-22 2021-07-22 Outpatient R KIM [facility] [id number] Univers 10:00:00 10:00:00 CRISTÓBAL ity of [facility] 2021-07-22 2021-07-22 Refill Jake Sue [facility] 1.2.840.114 [id number] Univers 00:00:00 00:00:00 [place] 350.1.13.10 it y of Women's 4.2.7.2.[place] [id number] [address] 2021-07-18 2021-07-18 Outpatient R JAKE SUE [facility] [id number] Univers 09:45:00 09:45:00 ity of [facility] 2021-07-18 2021-07-18 Silver Wrapper Evelina, Adc Lab Main [facility] 1.2.8 40.114 [id number] Univers 09:20:43 09:35:43 Visit Jake Sue 350.1.13.10 ity of [place].2.[place] [id number] La dic[address] 2021-07-18 2021-07-18 Case Jake Sue [place] 1.2.840.114 [id number] Univers 00:00:00 00:00:00 Management [place] 350.1.13.10 ity of PEDIATRIC 4.2.7.2.686 [place] [facility] [id number] [facility] [address] 2021-07-18 2021-07-18 Orders Doctor KAYLA 1.2.840.114 [id number] Univers 00:00:00 00:00:00 Only Unassigned, SHANELL 350.1.13.10 ity of [place] [facility] 4.2.7.2.686 [place] as [id number] [place] [address] [address] 2021-07-18 2021-07-18 Telephone Jake Sue [place] 1.2.840.11 [id number] Univers 00:00:00 00:00:00 [place] 350.1.13.10 it y of Women's 4.2.7.2.[place] [id number] [address] 2021-07-11 2021-07-11 Silver Wrapper Ultrasound, [facility] 1.2 .840.114 [id number] Univers 09:52:09 10:52:09 Visit Noah Mayers QUALITY CONTROL TESTER 350.1.13.10 ity of [facility] 4.2.7.2.686 [place] MATERNAL [id number] [facility] ical & CHILD [address] [place] [address] 2021-07-11 2021-07-11 Outpatient P [facility] [id number] Univers 10:00:00 10:00:00 ity of [facility] 2021-07-05 2021-07-05 Routine Vikram Jake [facility] 1.2.840.114 [id number] Univers 11:04:29 12:00:38 [place] 350.1.13.10 ity of Visit [place] 4.2.7.2.[place] Profess[place] [phone] La dical [address] 2021-07-05 2021-07-05 Outpatient R VIKRAM JAKE [facility] [id number] Univers 09:30:00 09:30:00 ity of [facility] 2021-07-022021-07-02 Outpatient R JAKE SUE [facility] [id number] Univers 11:00:00 11:00:00 ity of [facility] 2021-06-27 2021-06-27 Jake Milner 1.2.840.11 4 [id number] Univers 00:00:00 00:00:00 [place] 350.1.13.10 it y of [place]'s 4[place]2.[place].2.[place] [id number] [address] 2021-06-17 2021-06-17 Routine Jake Sue 1.2.840.114 [id number] Univers 09:42:37 10:39:44 [place] 350.1.13.10 i ty of Visit Women's 4.2.7.2.[place] [id number] [address] 2021-06-17 2021-06-17 Routine Jake Sue 1.2.840.114 [id number] Univers 09:42:37 10:39:44 [place] 350.1.13.10 i ty of Visit Women's 4.2.7.2.[place] [id number] [address] 2021-06-17 2021-06-17 Outpatient R JAKE SUE [facility] [id number] Univers 10:00:00 10:00:00 ity of [facility] 2021-06-17 2021-06-17 Orders Doctor KAYLA 1.2.840.[id number] [place] [address] 00:00:00 00:00:00 Only Unassigned, SHANELL 350.1.13.10 ity of [place] [facility] 4.2.7.2.686 [place] as [phone] [address] 2021-06-14 2021-06-14 Telephone Jake Sue 1.2.840.11 [id number] Univers 00:00:00 00:00:00 [place] 350.1.13.10 it y of [place]'s 4.2.[place].2.[place] [id number] [address] 2021-06-14 2021-06-14 Telephone Jake Sue [facility] 1.2.840.11 [id number] Univers 00:00:00 00:00:00 [place] 350.1.13.10 it y of [place]'s 4.2.[place].2.[place] [id number] [address] 2021-06-13 2021-06-13 Silver Wrapper Ultrasound, [facility] 1.2 .840.114 [id number] Univers 11:02:50 12:03:42 Visit Debbie Eddy 350.1.13.10 ity of [place].2.[place] [phone] La dical nal 134 [facility] 2021-06-13 2021-06-13 Silver Wrapper Ultrasound, [facility] 1.2 .840.114 [id number] Univers 11:02:50 12:03:42 Visit Debbie Eddy 350.1.13.10 ity of [place] 4.[place].7.2.[place] [phone] La dical nal 134 [facility] 2021-06-13 2021-06-13 Outpatient P [facility] [id number] Univers 11:00:00 11:00:00 ity of [facility] 2021-06-13 2021-06-13 Case Jake Sue [facility] 1.2.840.114 [id number] Univers 00:00:00 00:00:00 Management [place] 350.1.13.10 ity of [place].7.2.[place] [id number] [address] 2021-06-04 2021-06-04 Silver Wrapper Pob, [facility] Lab Main [facility] 1.2.8 40.114 [id number] Univers 07:58:19 08:13:19 Visit Jake Sue 350.1.13.10 ity of [place].2.[place] [phone] La dical nal 353 [facility] 2021-06-04 2021-06-04 Outpatient R JAKE SUE [facility] [id number] Univers 08:00:00 08:00:00 ity of [facility] 2021-06-03 2021-06-03 Routine Jake Sue [facility] Bolanos 1.2.840.114 [id number] Univers 16:09:07 17:30:09 [place] 350.1.13.10 i ty of Visit Women's 4.2.7.2.686 [place] [id number] [place] [address] [address] 2021-06-03 2021-06-03 Outpatient R JAKE SUE [facility] [id number] Univers 16:15:00 16:15:00 ity of [facility] 2021-06-03 2021-06-03 Orders Doctor KAYLA 1.2.840.114 [id number] Univers 00:00:00 00:00:00 Only Unassigned, SHANELL 350.1.13.10 ity of [place] [facility] 4.2.7.2.686 [place] as [id number] [address] 2021-06-03 2021-06-03 Orders Doctor KAYLA 1.2.840.114 [id number] Univers 00:00:00 00:00:00 Only Unassigned, SHANELL 350.1.13.10 ity of [place] [facility] 4.2.7.2.686 [place] as [id number] [address] 2021-05-20 2021-05-20 Outpatient R JAKE SUE [facility] [id number] Univers 13:45:00 13:45:00 ity of [facility] 2021-05-20 2021-05-20 Orders Doctor KAYLA Michaels.2.840.114 [id number] Univers 00:00:00 00:00:00 Only Unassigned, SHANELL 350.1.13.10 ity of [place] [facility] 4.2.7.2.686 [place] [phone] [address] 2021-05-20 2021-05-20 Orders Doctor KAYLA Max2.840.114 [id number] Univers 00:00:00 00:00:00 Only Unassigned, SHANELL 350.1.13.10 ity of [place] [facility] 4.2.7.2.686 [place] as [id number] [address] 2021-01-17 2021-01-17 Outpatient [facility] [id number] Common 00:00:00 00:00:00 [facility] 2021-01-17 2021-01-17 Outpatient STLMLC STLC [id number] Common 00:00:00 00:00:00 [facility] 2021-01-08 2021-01-08 [facility] 1.2.840.114 [id number] Univers 00:00:00 00:00:00 Outreach Bryan PRIMARY 350.1.13.10 i ty of [facility] 4.2.7.2.[place] [phone] La dical [address] 2020-10-24 2020-10-24 Laboratory Lab, Adc Fam Pob I [facility] 1.2. 840.114 [id number] Univers 11:15:49 11:35:49 Only Ifrah Downs [facility] 350.1.13.10 ity of [place] 4.2.7.2.686 [place] Professio [phone] La dical nal [address] 2020-10-24 2020-10-24 Outpatient R HIMANSHU [facility] [id number] Univers 11:20:00 11:20:00 IFRAH fox [facility] 2020-10-08 2020-10-08 Telephone Vikram Jake [facility] 1.2.840.114 [id number] Univers 00:00:00 00:00:00 [place] 350.1.13.10 i ty of [place]2.7.2.[place] [phone] La dical nal 134 [facility] 2020-10-03 2020-10-03 Silver Wrapper [place], Adc Lab Main [facility] 1.2.8 40.114 [id number] Univers 10:25:32 10:40:32 Visit Jake Sue 350.1.13.10 ity of [place] 4.[place].2.[place] [phone] La dical nal 353 [facility] 2020-10-03 2020-10-03 Outpatient R JAKE SUE [facility] [id number] Univers 10:30:00 10:30:00 ity of [facility] 2020-10-02 2020-10-02 Outpatient R JAKE SUE [facility] [id number] Univers 13:30:00 13:30:00 ity of [facility] 2020-10-01 2020-10-01 Outpatient R JAKE SUE [facility] [id number] Univers 14:30:00 14:30:00 ity [facility] 2020-10-01 2020-10-01 Orders Doctor KAYLA 1.2.840.114 [id number] Univers 00:00:00 00:00:00 Only Unassigned, SHANELL 350.1.13.10 ity of [place] [facility] 4.2.7.2.686 [place] [phone] [address] 2020-03-29 2020-03-29 Outpatient [facility] [id number] Common 13:30:00 13:30:[address] [facility] 2019-12-29 2019-12-29 Out[facility] [id number] Common 14:00:00 14:00:[address] [facility] 2019-09-29 2019-09-29 [facility] [id number] Common 14:00:00 14:00:[address] [facility] Results Test Description Test Time Test Comments Results Result Comments Source COMP. METABOLIC PANEL (43922) 2021-11-05 16:19:14 Test Item Value Reference Range Interpretation Comme nts NA (test code = 3460933274) 136 mmol/L 135-145 K (test code = 9731360102) 3.9 mmol/L 3.5-5.0 CL (test code = 3691526308) 108 mmol/L 98-108 CO2 TOTAL (test code = 2879573160) 28 mmol/L 23-31 AGAP (test code = 0489884391) <1 2-16 L BUN (test code = 5169749389) 9 mg/dL 7-23 GLUCOSE (test code = 3806565585) 90 mg/dL 70-110 CREATININE (test code = 0.47 mg/dL 0.50-1.04 L 1130459899) TOTAL BILI (test code = 0.3 mg/dL 0.1-1.0 1272306073) CALCIUM (test code = 4274162602) 7.7 mg/dL 8.6-10.6 L T PROTEIN (test code = 8151820336) 5.0 g/dL 6.3-8.2 L ALBUMIN (test code = 6076881874) 2.7 g/dL 3.5-5.0 L ALK PHOS (test code = 5761977087) 98 U/L 34-122 ALTv (test code = 1742-6) 25 U/L 5-35 AST(SGOT) (test code = 5613547678) 30 U/L 13-40 eGFR (test code = 6302787098) mL/min/1.73m2 GANESH (test code = GANESH) Association [...] tests). Lab Interpretation (test code = Abnormal 32537-6) [facility] WITH [id number] 15:24:48 Test Item Value Reference Range Interpretation [...] RDW-SD (test code = 49.3 fL 39.0-49.9 49915-8) RDW-CV (test code = 14.4 % 12.0-15.5 788-0) PLT (test code = See_Comment [Automated 777-3) message] The sy stem which generated this result transmitted reference range : 166 - 358 10*3/ ?L. The reference r will was not used to interpret this result as normal/abnormal . MPV (test code = 10.3 fL 9.5-12.9 23692-3) NRBC/100 WBC (test See_Comment [Automat ed code = [id number]) message] The system which generated this result transmitted reference range : 0.0 - 10.0 /100 WBCs. The refer ence range was not u sed to interpret th is result as normal/abnormal . NRBC x10^3 (test code <0.01 See_Comment [Auto mated = [id number]) message] The s ystem which generated this result transmitted reference range : 10*3/?L. The reference range was not used to interpret this result as normal/abnormal . GRAN MAT (NEUT) % 59.2 % (test code = 770-8) IMM GRAN % (test code 1.40 % = [id number]) LYMPH % (test code = 26.9 % 736-9) MONO % (test code = 6.5 % 5905-5) EOS % (test code = 5.7 % 713-8) BASO % (test code = 0.3 % 706-2) GRAN MAT x10^3(ANC) 6.64 10*3/uL 1.88-7.09 (test code = [id number]) IMM GRAN x10^3 (test 0.16 10*3/uL 0.00-0.06 H code = [id number]) LYMPH x10^3 (test code 3.01 10*3/uL 1.32-3.29 = 731-0) MONO x10^3 (test code 0.73 10*3/uL 0.33-0.92 = 742-7) EOS x10^3 (test code = 0.64 10*3/uL 0.03-0.39 H 711-2) BASO x10^3 (test code 0.03 10*3/uL 0.01-0.07 = 704-7) Lab Interpretation Abnormal (test code = 15276-9) [facility] WITH [id number] 15:36:10 Test Item Value Reference Range Interpretation [...] (test code = 50.3 fL 39.0-49.9 H 70490-3) RDW-CV (test code = 14.8 % 12.0-15.5 788-0) PLT (test code = See_Comment [Automated 777-3) message] The system which generated this result transmit clari reference range : 166 - 358 10*3/ ?L. The reference range was not u sed to interpret th is result as normal/abnormal . MPV (test code = 11.7 fL 9.5-12.9 71751-3) NRBC/100 WBC (test See_Comment [Automat ed code = [id number]) message] The system which generated this result transmit clari reference range : 0.0 - 10.0 /100 WBCs. The reference range was not used to interpret this result as normal/abnormal . NRBC x10^3 (test code <0.01 See_Comment [Auto mated = [id number]) message] The system which generated this result transmit clari reference range : 10*3/?L. The reference range was not used to interpret this result as normal/abnormal . GRAN MAT (NEUT) % 81.9 % (test code = 770-8) IMM GRAN % (test code 2.20 % = 5384820685) LYMPH % (test code = 10.3 % 736-9) MONO % (test code = 5.5 % 5905-5) EOS % (test code = 0.0 % 713-8) BASO % (test code = 0.1 % 706-2) GRAN MAT x10^3(ANC) 14.23 10*3/uL 1.88-7.09 H (test code = 1663653119) IMM GRAN x10^3 (test 0.39 10*3/uL 0.00-0.06 H code = 9704150716) LYMPH x10^3 (test code 1.79 10*3/uL 1.32-3.29 = 731-0) MONO x10^3 (test code 0.96 10*3/uL 0.33-0.92 H = 742-7) EOS x10^3 (test code = <0.03 0.03-0.39 L 711-2) BASO x10^3 (test code <0.03 0.01-0.07 = 704-7) BASO STIPPLING (test Present A code = 703-9) Lab Interpretation Abnormal (test code = 12977-4) [facility] WITH [id number] 15:36:10 Test Item Value Reference Range Interpretation [...] (test code = 50.3 fL 39.0-49.9 H 51177-6) RDW-CV (test code = 14.8 % 12.0-15.5 788-0) PLT (test code = See_Comment [Automated 777-3) message] The system which generated this result transmit clari reference range : 166 - 358 10*3/ ?L. The reference range was not u sed to interpret th is result as normal/abnormal . MPV (test code = 11.7 fL 9.5-12.9 60613-7) NRBC/100 WBC (test See_Comment [Automat ed code = 1542116229) message] The system which generated this result transmit clari reference range : 0.0 - 10.0 /100 WBCs. The reference range was not used to interpret this result as normal/abnormal . NRBC x10^3 (test code <0.01 See_Comment [Auto mated = 0360029466) message] The system which generated this result transmit clari reference range : 10*3/?L. The reference range was not used to interpret this result as normal/abnormal . GRAN MAT (NEUT) % 81.9 % (test code = 770-8) IMM GRAN % (test code 2.20 % = 5859831778) LYMPH % (test code = 10.3 % 736-9) MONO % (test code = 5.5 % 5905-5) EOS % (test code = 0.0 % 713-8) BASO % (test code = 0.1 % 706-2) GRAN MAT x10^3(ANC) 14.23 10*3/uL 1.88-7.09 H (test code = 4081805811) IMM GRAN x10^3 (test 0.39 10*3/uL 0.00-0.06 H code = 1840370039) LYMPH x10^3 (test code 1.79 10*3/uL 1.32-3.29 = 731-0) MONO x10^3 (test code 0.96 10*3/uL 0.33-0.92 H = 742-7) EOS x10^3 (test code = <0.03 0.03-0.39 L 711-2) BASO x10^3 (test code <0.03 0.01-0.07 = 704-7) BASO STIPPLING (test Present A code = 703-9) Lab Interpretation Abnormal (test code = 78905-0) [facility] with Podtnsygdfkz6568-64-04 11:04:12 Test Item Value Reference Range Interpretation Comments WBC (test code = See_Comment H [Automated 3190-2) message] The system which generated this result transmit clari reference range : 4.30 - 11.10 10*3/?L. The reference range was not used to interpret this result as normal/abnormal . RBC (test code = See_Comment L [Automated 719-8) message] The system which generated this result [...] (test code = 51.0 fL 39.0-49.9 H 04015-3) RDW-CV (test code = 14.9 % 12.0-15.5 788-0) PLT (test code = See_Comment L [Automated 777-3) message] The system which generated this result transmit clari reference range : 166 - 358 10*3/ ?L. The reference range was not u sed to interpret th is result as normal/abnormal . MPV (test code = 11.4 fL 9.5-12.9 64880-0) NRBC/100 WBC (test See_Comment [Automat ed code = 4496720144) message] The system which generated this result transmit clari reference range : 0.0 - 10.0 /100 WBCs. The reference range was not used to interpret this result as normal/abnormal . NRBC x10^3 (test code <0.01 See_Comment [Auto mated = 2157421212) message] The system which generated this result transmit clari reference range : 10*3/?L. The reference range was not used to interpret this result as normal/abnormal . GRAN MAT (NEUT) % 83.1 % (test code = 770-8) IMM GRAN % (test code 2.00 % = 5668416645) LYMPH % (test code = 10.0 % 736-9) MONO % (test code = 4.8 % 5905-5) EOS % (test code = 0.0 % 713-8) BASO % (test code = 0.1 % 706-2) GRAN MAT x10^3(ANC) 12.34 10*3/uL 1.88-7.09 H (test code = 3178515350) IMM GRAN x10^3 (test 0.29 10*3/uL 0.00-0.06 H code = 1670962854) LYMPH x10^3 (test code 1.48 10*3/uL 1.32-3.29 = 731-0) MONO x10^3 (test code 0.72 10*3/uL 0.33-0.92 = 742-7) EOS x10^3 (test code = <0.03 0.03-0.39 L 711-2) BASO x10^3 (test code <0.03 0.01-0.07 = 704-7) Lab Interpretation Abnormal (test code = 04824-0) [facility] with Lpxeqzetifwi8733-02-77 11:04:12 Test Item Value Reference Range Interpretation [...] (test code = 51.0 fL 39.0-49.9 H 43135-7) RDW-CV (test code = 14.9 % 12.0-15.5 788-0) PLT (test code = See_Comment L [Automated 777-3) message] The system which generated this result transmit clari reference range : 166 - 358 10*3/ ?L. The reference range was not u sed to interpret th is result as normal/abnormal . MPV (test code = 11.4 fL 9.5-12.9 44346-0) NRBC/100 WBC (test See_Comment [Automat ed code = 9428395023) message] The system which generated this result transmit clari reference range : 0.0 - 10.0 /100 WBCs. The reference range was not used to interpret this result as normal/abnormal . NRBC x10^3 (test code <0.01 See_Comment [Auto mated = 5495033703) message] The system which generated this result transmit clari reference range : 10*3/?L. The reference range was not used to interpret this result as normal/abnormal . GRAN MAT (NEUT) % 83.1 % (test code = 770-8) IMM GRAN % (test code 2.00 % = 2270809410) LYMPH % (test code = 10.0 % 736-9) MONO % (test code = 4.8 % 5905-5) EOS % (test code = 0.0 % 713-8) BASO % (test code = 0.1 % 706-2) GRAN MAT x10^3(ANC) 12.34 10*3/uL 1.88-7.09 H (test code = 5090363706) IMM GRAN x10^3 (test 0.29 10*3/uL 0.00-0.06 H code = 0043243500) LYMPH x10^3 (test code 1.48 10*3/uL 1.32-3.29 = 731-0) MONO x10^3 (test code 0.72 10*3/uL 0.33-0.92 = 742-7) EOS x10^3 (test code = <0.03 0.03-0.39 L 711-2) BASO x10^3 (test code <0.03 0.01-0.07 = 704-7) Lab Interpretation Abnormal (test code = 11614-8) [facility] [id number] 23:38:50 Test Item Value Reference Range Interpretation Comments RHIG CANDIDATE? No- see comment Patient i s not a (test code = candidate for R hIg- 5055) Patient is Rh Positive.Perfor med at [facility] Laboratory Services - [facility] Blood [address] [place] [address]Lhmr Free: [phone] A No. [id number] [facility] IMMUNE [id number] 23:38:50 Test Item Value Reference Range Interpretation Comments RHIG CANDIDATE? No- see comment Patient i s not a (test code = candidate for R hIg- 5055) Patient is Rh Positive.Perfor med at [facility] Laboratory Services - [facility] Blood [address] [place] [address] 20254Ljfp Free: [phone] A No. [id number] [facility] [id number] 17:23:31 Test Item Value Reference Range Interpretation Comments BASE EXCESS, CORD (test mEq/L code = 2294083336) AC PH, CORD (BEAKER) 7.18-7.38 L (test code = 4428315277) PC02, CORD (test code = See_Comment [Au tomated message] 4339001778) The system [employer] [facility] generated this result transmitted ref erence range: 32 - 66 mmHg. The reference r will was not used to interpret this result as normal/abnor mal. PO2, CORD (test code = Cord gas 9559669418) BICARBONATE, CORD (test See_Comment [Au tomated message] code = 5873885504) The syste m which generated this result transmitted ref erence range: 17 - 27 mEq/L. The reference r will was not used to interpret this result as normal/abnor mal. Lab Interpretation (test Abnormal code = 18065-6) [facility] CORD [id number] 17:23:31 Test Item Value Reference Range Interpretation Comments BASE EXCESS, CORD (test mEq/L code = 7076094669) AC PH, CORD (BEAKER) 7.18-7.38 L (test code = 7945626709) PC02, CORD (test code = See_Comment [Au tomated message] 5348222306) The system [employer] [facility] generated this result transmitted ref erence range: 32 - 66 mmHg. The reference r will was not used to interpret this result as normal/abnor mal. PO2, CORD (test code = Cord gas 8371804341) BICARBONATE, CORD (test See_Comment [Au tomated message] code = 9072859854) The syste m which generated this result transmitted ref erence range: 17 - 27 mEq/L. The reference r will was not used to interpret this result as normal/abnor mal. Lab Interpretation (test Abnormal code = 39629-6) [facility] CORD [id number] 17:22:24 Test Item Value Reference Range Interpretation Comments VENOUS BASE EXCESS, CORD mEq/L (test code = 6719058877) VENOUS PH, CORD (test 7.25-7.45 L code = 0738313398) VENOUS PC02, CORD (test See_Comment [Au tomated message] code = 2825365551) The syste m which generated this result transmitted ref erence range: 27 - 49 mmHg. The reference r will was not used to interpret this result as normal/abnor mal. VENOUS PO2, CORD (test See_Comment L [Aut omated message] code = 6706312235) The syste m which generated this result transmitted ref erence range: 17 - 41 mmHg. The reference r will was not used to interpret this result as normal/abnor mal. VENOUS BICARBONATE, CORD See_Comment [A utomated message] (test code = 7556469138) The system which generated this result transmitted ref erence range: 12 - 29 mEq/L. The reference r will was not used to interpret this result as normal/abnor mal. Lab Interpretation (test Abnormal code = 61236-6) [facility] CORD [id number] 17:22:24 Test Item Value Reference Range Interpretation Comments VENOUS BASE EXCESS, CORD mEq/L (test code = 6174181830) VENOUS PH, CORD (test 7.25-7.45 L code = 3223310661) VENOUS PC02, CORD (test See_Comment [Au tomated message] code = 0992009429) The syste m which generated this result transmitted ref erence range: 27 - 49 mmHg. The reference r will was not used to interpret this result as normal/abnor mal. VENOUS PO2, CORD (test See_Comment L [Aut omated message] code = 4700601545) The syste m which generated this result transmitted ref erence range: 17 - 41 mmHg. The reference r will was not used to interpret this result as normal/abnor mal. VENOUS BICARBONATE, CORD See_Comment [A utomated message] (test code = 3002987237) The system which generated this result transmitted ref erence range: 12 - 29 mEq/L. The reference r will was not used to interpret this result as normal/abnor mal. Lab Interpretation (test Abnormal code = 18227-1) [facility] CORD [id number] 17:19:53 Test Item Value Reference Range Interpretation Comments BASE EXCESS, CORD mEq/L (test code = 9095144216) AC PH, CORD (BEAKER) 7.18-7.38 (test code = 1614223940) PC02, CORD (test code See_Comment [Auto mated message] The = 2387555703) system which g enerated this result transmit clari reference range : 32 - 66 mmHg. The refer ence range was not used to interpret this result as normal/abnormal . PO2, CORD (test code See_Comment [Autom ated message] The = 6426817926) system which g enerated this result transmit clari reference range : 10 - 30 mmHg. The refer ence range was not used to interpret this result as normal/abnormal . BICARBONATE, CORD See_Comment [Automate d message] The (test code = system which ge nerated this 7557649582) result transmit clari reference range : 17 - 27 mEq/L. The refe rence range was not used to interpret this result as normal/abnormal . [facility] CORD [id number] 17:19:53 Test Item Value Reference Range Interpretation Comments BASE EXCESS, CORD mEq/L (test code = 1372240486) AC PH, CORD (BEAKER) 7.18-7.38 (test code = 8178782094) PC02, CORD (test code See_Comment [Auto mated message] The = 7164628469) system which g enerated this result transmit clari reference range : 32 - 66 mmHg. The refer ence range was not used to interpret this result as normal/abnormal . PO2, CORD (test code See_Comment [Autom ated message] The = 4964324914) system which g enerated this result transmit clari reference range : 10 - 30 mmHg. The refer ence range was not used to interpret this result as normal/abnormal . BICARBONATE, CORD See_Comment [Automate d message] The (test code = system which ge nerated this 3038930212) result transmit clari reference range : 17 - 27 mEq/L. The refe rence range was not used to interpret this result as normal/abnormal . [facility] CORD [id number] 17:17:28 Test Item Value Reference Range Interpretation Comments VENOUS BASE EXCESS, CORD mEq/L (test code = 6555720763) VENOUS PH, CORD (test 7.25-7.45 L code = 7128088804) VENOUS PC02, CORD (test See_Comment H [Au tomated message] code = 8297509284) The syste m which generated this result transmitted ref erence range: 27 - 49 mmHg. The reference r will was not used to interpret this result as normal/abnor mal. VENOUS PO2, CORD (test See_Comment L [Aut omated message] code = 4591215924) The syste m which generated this result transmitted ref erence range: 17 - 41 mmHg. The reference r will was not used to interpret this result as normal/abnor mal. VENOUS BICARBONATE, CORD See_Comment [A utomated message] (test code = 7736554684) The system which generated this result transmitted ref erence range: 12 - 29 mEq/L. The reference r will was not used to interpret this result as normal/abnor mal. Lab Interpretation (test Abnormal code = 15812-2) [facility] CORD [id number] 17:17:28 Test Item Value Reference Range Interpretation Comments VENOUS BASE EXCESS, CORD mEq/L (test code = 4750308640) VENOUS PH, CORD (test 7.25-7.45 L code = 5488280288) VENOUS PC02, CORD (test See_Comment H [Au tomated message] code = 1286079962) The syste m which generated this result transmitted ref erence range: 27 - 49 mmHg. The reference r will was not used to interpret this result as normal/abnor mal. VENOUS PO2, CORD (test See_Comment L [Aut omated message] code = 4434832549) The syste m which generated this result transmitted ref erence range: 17 - 41 mmHg. The reference r will was not used to interpret this result as normal/abnor mal. VENOUS BICARBONATE, CORD See_Comment [A utomated message] (test code = 3717605702) The system which generated this result transmitted ref erence range: 12 - 29 mEq/L. The reference r will was not used to interpret this result as normal/abnor mal. Lab Interpretation (test Abnormal code = 71462-8) [facility] ONLY - SYPHILIS IGG/[id number] 16:05:21 Test Item Value Reference Range Interpretation Comments Syphilis IgG/IgM (test Non-reactive Non-reactive code = 78101-9) GANESH (test code = GANESH) Non-reactive - No serologic evidence of T. pallidum infection. Cannot exclude incubating or early syphilis. Submit a second specimen in 2-4 weeks if syphilis is clinically suspected. Equivocal - Further testing to follow. Reactive - Further testing to follow. Lab Interpretation (test Normal code = 32410-3) [facility] ONLY - SYPHILIS IGG/[id number] 16:05:21 Test Item Value Reference Range Interpretation Comments Syphilis IgG/IgM (test Non-reactive Non-reactive code = 74964-3) GANESH (test code = GANESH) Non-reactive - No serologic evidence of T. pallidum infection. Cannot exclude incubating or early syphilis. Submit a second specimen in 2-4 weeks if syphilis is clinically suspected. Equivocal - Further testing to follow. Reactive - Further testing to follow. Lab Interpretation (test Normal code = 25810-0) [facility] Test Item Value Reference Range Interpretation Comments MAGNESIUM (test code = 6689702782) 6.4 mg/dL 1.7-2.4 H Lab Interpretation (test code = Abnormal 94057-3) [facility]2022-01-14 14:57:11 Test Item Value Reference Range Interpretation Comments MAGNESIUM (test code = 8056470881) 6.4 mg/dL 1.7-2.4 H Lab Interpretation (test code = Abnormal 97300-5) [facility] Sssegvd0664-96-90 11:57:09 Test Item Value Reference Range Interpretation Comments HBsAg Semi-Quantitative (test code = Negative Negative 5195-3) [facility] B Surface Vleywds2650-26-87 11:57:09 Test Item Value Reference Range Interpretation Comments HBsAg Semi-Quantitative (test code = Negative Negative 5195-3) [facility] and Screen - ONCE [id number] 04:39:08 Test Item Value Reference Range Interpretation Comments ABO & RH (test code A POSITIVE Performe d at [facility] = 20) Laboratory Serv [facility] [place] [address] s [address]Hhpw Free: [phone] A No. [id number] IAT (test code = Negative Performed a t [facility] 1185) Laboratory [facility] Blood [address] s [address]Jslw Free: [phone] A No. [id number] [facility] Screen - ONCE [id number] 04:39:08 Test Item Value Reference Range Interpretation Comments ABO & RH (test code A POSITIVE Performe d at [facility] = 20) Laboratory [facility] [place] [address] s [address]Phyk Free: [phone] A No. [id number] IAT (test code = Negative Performed a t [facility] 1185) Laboratory [facility] [place] [address] s [address]Xpeb Free: [phone] A No. [id number] [facility] OR [facility]BDOULAYE ONLY - [id number] 04:07:57 Test Item Value Reference Range Interpretation Comments RPR (Qualitative) (test code = Nonreactive Nonreactive 53592-4) Lab Interpretation (test code = Normal 37528-3) [facility] OR ABDOULAYE ONLY - [id number] 04:07:57 Test Item Value Reference Range Interpretation Comments RPR (Qualitative) (test code = Nonreactive Nonreactive 24291-7) Lab Interpretation (test code = Normal 36429-7) [facility] Fwiixxp9587-70-46 02:37:48 Test Item Value Reference Range Interpretation Comments HBsAg Semi-Quantitative (test code = Negative Negative 5195-3) [facility] Zwakjko8016-06-11 02:37:48 Test Item Value Reference Range Interpretation Comments HBsAg Semi-Quantitative (test code = Negative Negative 5195-3) [facility] [id number] 02:00:40 Test Item Value Reference Range Interpretation Comments URIC ACID (test code = 8388602606) 8.0 mg/dL 2.9-6.0 H Lab Interpretation (test code = Abnormal 16711-7) [facility] Ilulk3671-41-95 02:00:40 Test Item Value Reference Range Interpretation Comments CREATININE (test code 0.50 mg/dL 0.50-1.04 = 8019078928) eGFR (test code = mL/min/1.73m2 0157395830) GANESH (test code = GANESH) Association of [...] or urine or abnormalities in imaging tests). [facility] (Asparate Amino Transfer)2021-11-01 02:00:40 Test Item Value Reference Range Interpretation Comments AST(SGOT) (test code = 4095756490) 22 U/L 13-40 Lab Interpretation (test code = Normal 01332-8) [facility] Amino Transferase (SGPT)2021-11-01 02:00:40 Test Item Value Reference Range Interpretation Comments ALTv (test code = 1742-6) 13 U/L 5-35 Lab Interpretation (test code = Normal 87055-7) [facility] Dehydrogenase (LDH)2021-11-01 02:00:40 Test Item Value Reference Range Interpretation Comments LDH (test code = 3230720998) 625 U/L 300-600 H Lab Interpretation (test code = Abnormal 46156-0) [facility] Ynlat0659-22-08 02:00:40 Test Item Value Reference Range Interpretation Comments URIC ACID (test code = 1057336799) 8.0 mg/dL 2.9-6.0 H Lab Interpretation (test code = Abnormal 61073-8) [facility] Ahfpi7003-32-97 02:00:40 Test Item Value Reference Range Interpretation Comments CREATININE (test code 0.50 mg/dL 0.50-1.04 = 5147927232) eGFR (test code = mL/min/1.73m2 2860966760) GANESH (test code = GANESH) Association of [...] or urine or abnormalities in imaging tests). [facility] (Asparate Amino Transfer)2021-11-01 02:00:40 Test Item Value Reference Range Interpretation Comments AST(SGOT) (test code = 1806234257) 22 U/L 13-40 Lab Interpretation (test code = Normal 54089-4) [facility] (SGPT)2021-11-01 02:00:40 Test Item Value Reference Range Interpretation Comments ALTv (test code = 1742-6) 13 U/L 5-35 Lab Interpretation (test code = Normal 14255-8) [facility] (LDH)2021-11-01 02:00:40 Test Item Value Reference Range Interpretation Comments LDH (test code = 2675689910) 625 U/L 300-600 H Lab Interpretation (test code = Abnormal 42865-9) [facility] WITH [id number] 01:21:52 Test Item Value Reference Range Interpretation Comments WBC (test code = See_Comment [Automated 1619-2) message] The sy stem which generated this result transmitted reference range : 4.30 - 11.10 10*3/?L. The reference range was not used to interpret this result as normal/abnormal . RBC (test code = See_Comment [Automated 471-9) message] The sy stem which generated this [...] RDW-SD (test code = 48.3 fL 39.0-49.9 19695-3) RDW-CV (test code = 14.9 % 12.0-15.5 788-0) PLT (test code = See_Comment [Automated 777-3) message] The sy stem which generated this result transmitted reference range : 166 - 358 10*3/ ?L. The reference r will was not used to interpret this result as normal/abnormal . MPV (test code = 11.1 fL 9.5-12.9 61868-6) NRBC/100 WBC (test See_Comment [Automat ed code = 3835909530) message] The system which generated this result transmitted reference range : 0.0 - 10.0 /100 WBCs. The refer ence range was not u sed to interpret th is result as normal/abnormal . NRBC x10^3 (test code <0.01 See_Comment [Auto mated = 5413250367) message] The s ystem which generated this result transmitted reference range : 10*3/?L. The reference range was not used to interpret this result as normal/abnormal . GRAN MAT (NEUT) % 84.2 % (test code = 770-8) IMM GRAN % (test code 0.60 % = 7134252034) LYMPH % (test code = 12.9 % 736-9) MONO % (test code = 2.2 % 5905-5) EOS % (test code = 0.0 % 713-8) BASO % (test code = 0.1 % 706-2) GRAN MAT x10^3(ANC) 8.13 10*3/uL 1.88-7.09 H (test code = 7092797527) IMM GRAN x10^3 (test 0.06 10*3/uL 0.00-0.06 code = 2539686523) LYMPH x10^3 (test code 1.25 10*3/uL 1.32-3.29 L = 731-0) MONO x10^3 (test code 0.21 10*3/uL 0.33-0.92 L = 742-7) EOS x10^3 (test code = <0.03 0.03-0.39 L 711-2) BASO x10^3 (test code <0.03 0.01-0.07 = 704-7) Lab Interpretation Abnormal (test code = 52906-6) [facility] WITH [id number] 01:21:52 Test Item Value Reference Range Interpretation Comments WBC (test code = See_Comment [Automated 4490-2) message] The sy stem which generated this result transmitted reference range : 4.30 - 11.10 10*3/?L. The reference range was not used to interpret this result as normal/abnormal . RBC (test code = See_Comment [Automated 879-8) message] The sy stem which generated this [...] RDW-SD (test code = 48.3 fL 39.0-49.9 81270-1) RDW-CV (test code = 14.9 % 12.0-15.5 788-0) PLT (test code = See_Comment [Automated 457-3) message] The sy stem which generated this result transmitted reference range : 166 - 358 10*3/ ?L. The reference r will was not used to interpret this result as normal/abnormal . MPV (test code = 11.1 fL 9.5-12.9 44134-5) NRBC/100 WBC (test See_Comment [Automat ed code = 8623111739) message] The system which generated this result transmitted reference range : 0.0 - 10.0 /100 WBCs. The refer ence range was not u sed to interpret th is result as normal/abnormal . NRBC x10^3 (test code <0.01 See_Comment [Auto mated = 2727112962) message] The s ystem which generated this result transmitted reference range : 10*3/?L. The reference range was not used to interpret this result as normal/abnormal . GRAN MAT (NEUT) % 84.2 % (test code = 770-8) IMM GRAN % (test code 0.60 % = 1263246608) LYMPH % (test code = 12.9 % 736-9) MONO % (test code = 2.2 % 5905-5) EOS % (test code = 0.0 % 713-8) BASO % (test code = 0.1 % 706-2) GRAN MAT x10^3(ANC) 8.13 10*3/uL 1.88-7.09 H (test code = 6733203687) IMM GRAN x10^3 (test 0.06 10*3/uL 0.00-0.06 code = 7157383652) LYMPH x10^3 (test code 1.25 10*3/uL 1.32-3.29 L = 731-0) MONO x10^3 (test code 0.21 10*3/uL 0.33-0.92 L = 742-7) EOS x10^3 (test code = <0.03 0.03-0.39 L 711-2) BASO x10^3 (test code <0.03 0.01-0.07 = 704-7) Lab Interpretation Abnormal (test code = 45920-6) [facility] GLUCOSE (AUTOMATED)2021-11-01 00:09:31 Test Item Value Reference Range Interpretation Comments POCT GLU (test code = 3097644958) 123 mg/dL 70-110 H Lab Interpretation (test code = Abnormal 97911-3) [facility] GLUCOSE (AUTOMATED)2021-11-01 00:09:31 Test Item Value Reference Range Interpretation Comments POCT GLU (test code = 4009810783) 123 mg/dL 70-110 H Lab Interpretation (test code = Abnormal 65884-6) [facility] [id number] 21:53:58 Test Item Value Reference Range Interpretation Comments HIV Negative Negative Semi-quantitative (test code = 98078-8) GANESH (test code = Non-reactive for HIV-1 GANESH) antigen and HIV-1/HIV-2 antibodies. ?No laboratory evidence of HIV infection. ?Repeat in 2-4 weeks if acute HIV infection is suspected. [facility] WITH [id number] 21:53:58 Test Item Value Reference Range Interpretation Comments HIV Negative Negative Semi-quantitative (test code = 78852-2) GANESH (test code = Non-reactive for HIV-1 GANESH) antigen and HIV-1/HIV-2 antibodies. ?No laboratory evidence of HIV infection. ?Repeat in 2-4 weeks if acute HIV infection is suspected. [facility] - ONCE [id number] 21:29:15 Test Item Value Reference Range Interpretation Comments ABO & RH (test code A Positive Performe d at [facility] = 20) Laboratory [facility] [place] [address] Free: [phone] A No. [id number] IAT (test code = Negative Performed a t [facility] 1185) Laboratory [facility] [place], [place] [address]Toll Free: [phone] A No. [id number] [facility] [id number] 21:29:15 Test Item Value Reference Range Interpretation Comments ABO & RH (test code A Positive Performe d at [facility] = 20) Laboratory [facility] [place], [place] [address]Toll Free: [phone] A No. [id number] IAT (test code = Negative Performed a t [facility] 1185) Laboratory [facility] [place], [place] [address]Toll Free: [phone] A No. [id number] [facility] MET[facility]OLIC PANEL (06095)2021-10-31 21:13:41 Test Item Value Reference Range Interpretation Comments NA (test code = 131 mmol/L 135-145 L 2398285723) K (test code = 3.8 mmol/L 3.5-5.0 4157729850) CL (test code = 108 mmol/L 98-108 8150562615) CO2 TOTAL (test code = 19 mmol/L 23-31 L 5472983719) AGAP (test code = 2-16 7971216990) BUN (test code = 16 mg/dL 7-23 7290476428) GLUCOSE (test code = 95 mg/dL 70-110 3897781608) CREATININE (test code = 0.48 mg/dL 0.50-1.04 L 2748981695) TOTAL BILI (test code = 0.5 mg/dL 0.1-1.5 8636780684) CALCIUM (test code = 8.8 mg/dL 8.6-10.6 3740357668) T PROTEIN (test code = 6.1 g/dL 6.3-8.2 L 2743816488) ALBUMIN (test code = 3.2 g/dL 3.5-5.0 L 3030794505) ALK PHOS (test code = 161 U/L 34-122 H 0388282567) ALTv (test code = 14 U/L 5-35 1742-6) AST(SGOT) (test code = 23 U/L 13-40 5278171568) eGFR (test code = mL/min/1.73m2 0535746447) GANESH (test code = GANESH) Association of [...] tests). Lab Interpretation Abnormal (test code = 60687-8) [facility]. METABOLIC PANEL (29536)2021-10-31 21:13:41 Test Item Value Reference Range Interpretation Comments NA (test code = 131 mmol/L 135-145 L 8409999111) K (test code = 3.8 mmol/L 3.5-5.0 4894185442) CL (test code = 108 mmol/L 98-108 1877407444) CO2 TOTAL (test code = 19 mmol/L 23-31 L 1644827016) AGAP (test code = 2-16 8761813221) BUN (test code = 16 mg/dL 7-23 9619040181) GLUCOSE (test code = 95 mg/dL 70-110 5122678253) CREATININE (test code = 0.48 mg/dL 0.50-1.04 L 7451801851) TOTAL BILI (test code = 0.5 mg/dL 0.1-1.7 0701641535) CALCIUM (test code = 8.8 mg/dL 8.6-10.6 0401500951) T PROTEIN (test code = 6.1 g/dL 6.3-8.2 L 6024843653) ALBUMIN (test code = 3.2 g/dL 3.5-5.0 L 1794710304) ALK PHOS (test code = 161 U/L 34-122 H 6645391093) ALTv (test code = 14 U/L 5-35 1742-6) AST(SGOT) (test code = 23 U/L 13-40 4447876933) eGFR (test code = mL/min/1.73m2 8903440316) GANESH (test code = GANESH) Association of [...] tests). Lab Interpretation Abnormal (test code = 47221-2) [facility] [id number] 21:13:21 Test Item Value Reference Range Interpretation Comments URIC ACID (test code = 9162341494) 8.4 mg/dL 2.9-6.0 H Lab Interpretation (test code = Abnormal 85728-4) [facility] [id number] 21:13:21 Test Item Value Reference Range Interpretation Comments URIC ACID (test code = 4560406346) 8.4 mg/dL 2.9-6.0 H Lab Interpretation (test code = Abnormal 77015-0) [facility] WITH [id number] 21:01:41 Test Item Value Reference Range Interpretation [...] RDW-SD (test code = 48.9 fL 39.0-49.9 91926-8) RDW-CV (test code = 14.8 % 12.0-15.5 788-0) PLT (test code = See_Comment [Automated 777-3) message] The sy stem which generated this result transmitted reference range : 166 - 358 10*3/ ?L. The reference r will was not used to interpret this result as normal/abnormal . MPV (test code = 11.3 fL 9.5-12.9 68592-7) NRBC/100 WBC (test See_Comment [Automat ed code = 2715664374) message] The system which generated this result transmitted reference range : 0.0 - 10.0 /100 WBCs. The refer ence range was not u sed to interpret th is result as normal/abnormal . NRBC x10^3 (test code <0.01 See_Comment [Auto mated = 4698762169) message] The s ystem which generated this result transmitted reference range : 10*3/?L. The reference range was not used to interpret this result as normal/abnormal . GRAN MAT (NEUT) % 66.5 % (test code = 770-8) IMM GRAN % (test code 0.50 % = 0811310880) LYMPH % (test code = 25.1 % 736-9) MONO % (test code = 7.2 % 5905-5) EOS % (test code = 0.5 % 713-8) BASO % (test code = 0.2 % 706-2) GRAN MAT x10^3(ANC) 5.74 10*3/uL 1.88-7.09 (test code = 2409490936) IMM GRAN x10^3 (test 0.04 10*3/uL 0.00-0.06 code = 1728153830) LYMPH x10^3 (test code 2.17 10*3/uL 1.32-3.29 = 731-0) MONO x10^3 (test code 0.62 10*3/uL 0.33-0.92 = 742-7) EOS x10^3 (test code = 0.04 10*3/uL 0.03-0.39 711-2) BASO x10^3 (test code <0.03 0.01-0.07 = 704-7) Lab Interpretation Abnormal (test code = 65692-7) [facility] WITH [id number] 21:01:41 Test Item Value Reference Range Interpretation Comments WBC (test code = See_Comment [Automated 4259-2) message] The sy stem which generated this result transmitted reference range : 4.30 - 11.10 10*3/?L. The reference range was not used to interpret this result as normal/abnormal . RBC (test code = See_Comment [Automated 396-8) message] The sy stem which generated this [...] RDW-SD (test code = 48.9 fL 39.0-49.9 29928-8) RDW-CV (test code = 14.8 % 12.0-15.5 788-0) PLT (test code = See_Comment [Automated 777-3) message] The sy stem which generated this result transmitted reference range : 166 - 358 10*3/ ?L. The reference r will was not used to interpret this result as normal/abnormal . MPV (test code = 11.3 fL 9.5-12.9 29788-8) NRBC/100 WBC (test See_Comment [Automat ed code = 2420102665) message] The system which generated this result transmitted reference range : 0.0 - 10.0 /100 WBCs. The refer ence range was not u sed to interpret th is result as normal/abnormal . NRBC x10^3 (test code <0.01 See_Comment [Auto mated = 5366764292) message] The s ystem which generated this result transmitted reference range : 10*3/?L. The reference range was not used to interpret this result as normal/abnormal . GRAN MAT (NEUT) % 66.5 % (test code = 770-8) IMM GRAN % (test code 0.50 % = 3044975133) LYMPH % (test code = 25.1 % 736-9) MONO % (test code = 7.2 % 5905-5) EOS % (test code = 0.5 % 713-8) BASO % (test code = 0.2 % 706-2) GRAN MAT x10^3(ANC) 5.74 10*3/uL 1.88-7.09 (test code = 8059916537) IMM GRAN x10^3 (test 0.04 10*3/uL 0.00-0.06 code = 4213666920) LYMPH x10^3 (test code 2.17 10*3/uL 1.32-3.29 = 731-0) MONO x10^3 (test code 0.62 10*3/uL 0.33-0.92 = 742-7) EOS x10^3 (test code = 0.04 10*3/uL 0.03-0.39 711-2) BASO x10^3 (test code <0.03 0.01-0.07 = 704-7) Lab Interpretation Abnormal (test code = 26015-6) [facility] URINALYSIS W/O SPECIFIC [id number] 18:04:00 Test Item Value Reference Range Interpretation [...] Negative Lab Interpretation (test code = Normal 08839-5) [facility] URINALYSIS W/O SPECIFIC [id number] 20:32:00 Test Item Value Reference Range Interpretation [...] Negative Lab Interpretation (test code = Normal 62593-4) [facility] URINALYSIS W/O SPECIFIC [id number] 17:14:00 Test Item Value Reference Range Interpretation [...] Negative Lab Interpretation (test code = Normal 62427-6) [facility]"
--- NOTE | 2022-10-01 22:18 | RAD REPORT ---
EXAM DESCRIPTION: CT - Head Brain Wo Cont - 10/01/2022 9:51 pm CLINICAL HISTORY: Headache COMPARISON: August 2022 TECHNIQUE: Computed axial tomography of the head was obtained. IV contrast was not requested. All CT scans are performed using dose optimization technique as appropriate and may include automated exposure control or mA/KV adjustment according to patient size. FINDINGS: Suboccipital craniotomy. Resection of the posterior fossa tumor. Low-density posterior fos sa is unchanged. Ventricular shunt enters the frontal horn right lateral ventricle with the tip near the foramen of Mo nro. Right lateral ventricle is very small. No extra-axial fluid collection. Fluid within the sinuses/ mastoids is not seen. IMPRESSION: Postsurgical changes posterior fossa. Low-density in this region presumably gliosis it i s unchanged from prior exam Ventricular shunt enters the frontal horn right lateral ventricle with the tip near the foramen of Mo nro. Right lateral ventricle is very small. It also is unchanged from prior exam
--- NOTE | 2022-10-01 22:48 | ER ---
Nurse's Notes [facility] Name: Nisreen Alarcon Age: 21 yrs Sex: Female : 2000 Arrival Date: 10/01/2022 Time: 21:13 Bed 12 Private MD: Diagnosis: Headache Presentation: 10/01 21:30 Chief complaint: Patient states: she is having headaches, facial pressure, generalized bb weakness for several weeks. Coronavirus screen: At this time, the client does not indicate any symptoms associated with coronavirus-19. Ebola Screen: No symptoms or risks identified at this time. Initial Sepsis Screen: Does the patient meet any 2 criteria? No. Patient's initial sepsis screen is negative. Does the patient have a suspected source of infection? No. Patient's initial sepsis screen is negative. Risk Assessment: Do you want to hurt yourself or someone else? Patient reports no desire to harm self or others. Onset of symptoms was September 2022. 21:30 Method Of Arrival: Ambulatory bb 21:30 Acuity: CRISTOPHER 3 bb Triage Assessment: 21:32 Headache History: The patient has had previous headaches and this one is similar to bb previous episodes. 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 - Social history:: Smoking status: Patient denies any tobacco usage or history of. Screenin:37 [facility] ED Fall Risk Assessment (Adult) History of falling in the last 3 months, bb including since admission No falls in past 3 months (0 pts). Abuse screen: Denies threats or abuse. Nutritional screening: No deficits noted. Tuberculosis screening: No symptoms or risk factors identified. Assessment: 21:37 General: Appears in no apparent distress. uncomfortable, Behavior is calm, cooperative. bb Pain: Complains of pain in face Pain currently is 8 out of 10 on a pain scale. Neuro: Level of Consciousness is awake, alert, obeys commands, Oriented to person, place, time, situation. Cardiovascular: Capillary refill < 3 seconds Patient's skin is warm and dry. Respiratory: Respiratory effort is even, unlabored, Respiratory pattern is regular. GI: Derm: Skin is pink, warm \T\ dry. Musculoskeletal: Circulation, motion, and sensation intact. 23:09 Reassessment: Patient is alert, oriented x 3, equal unlabored respirations, skin bb warm/dry/pink. pt verbalized understanding of and agrees to plan of care discharge instructions given pt ambulated with steady gait to exit accompanied by family. Vital Signs: 21:31 BP 156 / 88; Pulse 128; Resp 16 S; Temp 98.7(O); Pulse Ox 99% on R/A; Weight 102.51 kg bb (R); Height 5 ft. 3 in. (160.02 cm) (R); Pain 8/10; 22:49 BP 126 / 78; Pulse 103; Resp 16 S; Temp 98.7(O); Pulse Ox 100% on R/A; bb 21:31 Body Mass Index 40.03 (102.51 kg, 160.02 cm) bb ED Course: 21:13 Patient arrived in ED. jj6 21:14 Carolina Fung [facility]-C [facility] kb 21:14 Ochoa Nixon MD is Attending Physician. kb 21:31 Triage completed. bb 21:32 Arm band placed on Patient placed in an exam room, on a stretcher, on pulse oximetry. bb Family accompanied patient. 21:37 Patient has correct armband on for positive identification. Bed in low position. Call bb light in reach. Side rails up X 1. Adult w/ patient. 21:52 CT Head Brain wo Cont In Process Unspecified. EDMS 22:45 Vernell Beauchamp, IRIS is Primary Nurse. bb 23:10 No provider procedures requiring assistance completed. Patient did not have IV access bb during this emergency room visit. Administered Medications: No medications were administered Medication: 21:37 VIS not applicable for this client. bb Outcome: 22:47 Discharge ordered by . kb 23:11 Discharged to home ambulatory, with family. bb 23:11 Condition: stable 23:11 Discharge instructions given to patient, Instructed on discharge instructions, follow up and referral plans. Demonstrated understanding of instructions, follow-up care. 23:11 Patient left the ED. bb Signatures: Dispatcher [facility] Carolina Holcomb, ARMOR RECONNAISSANCE SPECIALIST-C ARMOR RECONNAISSANCE SPECIALIST-Vernell Moreno, RN RN Deepa Church jj6
--- NOTE | 2022-10-01 22:48 | EDPHYS ---
Physician Documentation [facility] Name: Nisreen Alarcon Age: 21 yrs Sex: Female : 2000 Arrival Date: 10/01/2022 Time: 21:13 Bed 12 Private MD: ED Physician Ochoa Nxion HPI: 10/01 22:45 This 21 yrs old Female presents to ER via Ambulatory with complaints of General kb Weakness, Headache, Facial Pressure, Anxiety. 22:44 The patient has been recently seen by a physician:. kb 22:45 The patient complains of pain to the top of head and forehead. The patient describes kb the headache as constant. Onset: The symptoms/episode began/occurred 3 week(s) ago. Associated signs and symptoms: The patient has no apparent associated signs or symptoms. Severity of symptoms: At its worst the pain was moderate, in the emergency department the pain is unchanged. Headache History: The patient has had previous headaches and this one is similar to previous episodes. The symptoms are alleviated by nothing. the symptoms are aggravated by nothing. The patient has experienced similar episodes in the past. Pt reports she was diagnosed with a brain tumor in 2016. States she had a gamma knife procedure in March and has had headaches since then. This headache has been going on for 3 weeks. Called her neurologist today and has a MRI scheduled for Thursday but doesn't want to wait that long. . 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 - Social history:: Smoking status: Patient denies any tobacco usage or history of. ROS: 22:44 Constitutional: Negative for fever, chills, and weight loss. kb 22:44 Neuro: Positive for headache. 22:44 All other systems are negative. Exam: 22:44 Constitutional: This is a well developed, well nourished patient who is awake, alert, kb and in no acute distress. Head/Face: Normocephalic, atraumatic. ENT: Moist Mucous membranes Cardiovascular: Regular rate and rhythm with a normal S1 and S2. No gallops, murmurs, or rubs. No pulse deficits. Respiratory: Respirations even and unlabored. No increased work of breathing. Talking in full sentences Abdomen/GI: Soft, non-tender. No distention Skin: Warm, dry with normal turgor. Normal color. MS/ Extremity: Pulses equal, no cyanosis. Neurovascular intact. Full, normal range of motion. Neuro: Awake and alert, GCS 15, oriented to person, place, time, and situation. Moves all extremities. Normal gait. Psych: Awake, alert, with orientation to person, place and time. Behavior, mood, and affect are within normal limits. Vital Signs: 21:31 BP 156 / 88; Pulse 128; Resp 16 S; Temp 98.7(O); Pulse Ox 99% on R/A; Weight 102.51 kg bb (R); Height 5 ft. 3 in. (160.02 cm) (R); Pain 8/10; 22:49 BP 126 / 78; Pulse 103; Resp 16 S; Temp 98.7(O); Pulse Ox 100% on R/A; bb 21:31 Body Mass Index 40.03 (102.51 kg, 160.02 cm) bb MDM: 21:32 Patient medically screened. 22:44 Data reviewed: vital signs, nurses notes. Data interpreted: Pulse oximetry: on room air kb is 99 %. Interpretation: normal. Counseling: I had a detailed discussion with the patient and/or guardian regarding: the historical points, exam findings, and any diagnostic results supporting the discharge/admit diagnosis, radiology results, the need for outpatient follow up, a neurologist, a neurosurgeon, to return to the emergency department if symptoms worsen or persist or if there are any questions or concerns that arise at home. 22:44 Data reviewed: I have discussed the patient's presentation/case with the attending Emergency Department Physician;. 10/01 21:33 Order name: CT Head Brain wo Cont; Complete Time: 22:21 kb 10/01 22:44 Order name: Vital Signs; Complete Time: 23:09 kb Administered Medications: No medications were administered Disposition: 10/02 00:40 Co-signature as Attending Physician, Ochoa Nixon MD I agree with the assessment and kdr plan of care. Disposition Summary: 10/01/22 22:47 Discharge Ordered Location: Home kb Condition: Stable kb Diagnosis - Headache kb Followup: kb - With: Emergency Department - When: As needed - Reason: Worsening of condition Followup: kb - With: Private Physician - When: 2 - 3 days - Reason: Recheck today's complaints, Continuance of care, Re-evaluation by your physician Discharge Instructions: - Discharge Summary Sheet kb - General Headache Without Cause, [id number] kb Forms: - Medication Reconciliation Form kb - Thank You Letter kb - Antibiotic Education kb - Prescription Opioid Use kb Signatures: Dispatcher [employer] EDMS Carolina Fung, COLON THERAPIST-C COLON THERAPIST-Dustinb Ochoa Nixon MD MD kdr Vernell Beauchamp RN RN bb Corrections: (The following items were deleted from the chart) 10/01 22:47 22:45 Pt reports she was diagnosed with a brain tumor in 2016. States she had a gamma kb knife procedure in March and has had headaches since then. Called her neurologist today and has a MRI scheduled for Thursday but doesn't want to wait that long. . kb
[2022-10-01 23:21] VITALS: TEMP 98.7
[2022-10-01 23:22] VITALS: BP 126/78; O2SAT 100
== END 2022-10-01 23:11 | disposition home or self-care (01) ==
LOC: ER 21:10
DX: R51.9 Headache, unspecified (principal); F41.9 Anxiety disorder, unspecified
CPT/HCPCS: 70450; 99283